=== PATIENT | male | born 1970 | race Caucasian/White ===

== ENCOUNTER 2019-11-18 20:12 | Inpatient (IN) | payer OTHER ==
[2019-11-18] MEDS ORDERED: methylPREDNISolone NA SUCC 125 MG/2 ML VIAL IVPB ONE (20:25)
[2019-11-18] MEDS ORDERED: ACETAMINOPHEN 1000 MG/100 ML VIAL (NON FORMULARY) IVPB ONE (20:43)
[2019-11-18] MEDS ORDERED: VANCOMYCIN 1 GM in D5W (PRE-DOCKED) 1,000 MG/250 ML IVPB ONE (20:43)
[2019-11-18] MEDS ORDERED: LACTATED RINGERS SOLUTION 1000 ML INFUS.BAG IV ONE (20:44)
[2019-11-18] MEDS ORDERED: PIPERACILLIN/TAZOB 4.5 GM 4.5 GM in DEXTROSE 5%-WATER 100 ML IVPB ONE (20:44)
--- NOTE | 2019-11-18 20:46 | PDOC ---
History of Present Illness - General Chief Complaint: Respiratory Distress Stated Complaint: RESPIRATORY DISTRESS Time Seen by Provider: 11/18/19 20:24 History Source: Patient Exam Limitations: Physical Impairment (limited verbal talking through trach) - History of Present Illness Initial Comments: 11/18/19 20:45 49yM w PMHx asthma, HTN, IDDM, functional quadriplegia, MRSA, osteomyelitis stage 4 sacral ulcer, vented on trach, PEG tube, on eliquis presenting from [facility] tachycardia HR 140s, hypotension, diaphoresis, and active bleeding from sacral ulcer. This afternoon, staff noted active bleeding from ulcer, stopped with pressure and dressing. Currently receiving daptomycin, meropenem through R PICC line for osteomyelitis. Also on eliquis. Could not obtain hx from pt, limited vocab talking through trach. Past History - Medical History Allergies/Adverse Reactions: Allergies Allergy/AdvReac Type Severity Reaction Status Date / Time No Known Allergies Allergy Verified 11/18/19 21:54 Review of Systems - Review of Systems Able to Perform ROS?: No (limited vocab) *Physical Exam - Physical Exam General Appearance: Yes: Nourished, Appropriately Dressed, Moderate Distress HEENT: positive: EOMI, LINSEY, Normal Voice, Hearing Grossly Normal. negative: Scleral Icterus (R), Scleral Icterus (L) Respiratory/Chest: positive: Accessory Muscle Use, Labored Respiration, Rapid RR, Wheezing. negative: Chest Tender, Crackles, Rales, Rhonchi, Stridor Cardiovascular: positive: Regular Rhythm, S1, S2, Tachycardia, Other (R PICC line). negative: Murmur Gastrointestinal/Abdominal: positive: Normal Bowel Sounds, Flat, Soft, Other (peg tube not tender/erythematous/purulent). negative: Tender, Organomegaly Integumentary: positive: Normal Color, Warm, Diaphoresis Neurologic: positive: Fully Oriented, Alert, Normal Response, Responsive ED Treatment Course - LABORATORY CBC & Chemistry Diagram: 11/18/19 21:10 11/18/19 21:10 Medical Decision Making - Medical Decision Making 11/18/19 20:45 CXR - clive patchy infiltrates EKG - sinus tachycardia, HR 131, QTc 431, no ST changes WBC 17, Hgb 7.4, K 5.3, trop neg, BNP 418, BG 217, lactic 4.3 --- 49yM w PMHx asthma, HTN, IDDM, functional quadriplegia, MRSA, osteomyelitis stage 4 sacral ulcer, vented on trach, PEG tube, on eliquis presenting from [facility] tachycardia HR 140s, hypotension, diaphoresis, and active bleeding from sacral ulcer. 1. Asthma exacerbation (wheezing) 2. Sepsis (temp 101, HR 150) 2/2 infection likely from decubitus ulcer vs HCAP (patchy infiltrates) 3. stage 4 ulcer not actively bleeding, dressing applied Could not draw culture from PICC line. Given 30mL/kg NS, vanc, zosyn, tylenol, duoneb, solumedrol, azithromycin. Repeat BP 95/66. Admit m/s for sepsis, stage 4 decubitus ulcer, HCAP, asthma exacerbation - pending PCP Eliseo goes to [facility]/hospitalist Discharge - Discharge Information Problems reviewed: Yes Clinical Impression/Diagnosis: HCAP (healthcare-associated pneumonia) Sepsis Qualifiers: Sepsis type: sepsis due to unspecified organism Sepsis acute organ dysfunction status: without acute organ dysfunction Qualified Code(s): A41.9 - Sepsis, unspecified organism Decubitus ulcer Qualifiers: Pressure injury location: sacral region Pressure injury stage: stage 4 Qualified Code(s): L89.154 - Pressure ulcer of sacral region, stage 4 Asthma exacerbation Qualifiers: Asthma severity: moderate Asthma persistence: persistent Qualified Code(s): J45.41 - Moderate persistent asthma with (acute) exacerbation Condition: Improved - Follow up/Referral Referrals: Christian Gomes [Primary Care Provider] - - Patient Discharge Instructions - Post Discharge Activity Vital Signs - Vital Signs Pulse Rate: 84 Blood Pressure: 95/66
[2019-11-18 21:34] LABS: BASO % 0.4 % (0-2.0); EOS % 0.5 % (0-4.5); HEMATOCRIT 23.8 % (35.4-49); HEMOGLOBIN 7.4 GM/dL (11.7-16.9); LYMPH % 15.8 % (8-40); MCH 27.3 pg (25.7-33.7); MCHC 31.1 g/dl (32.0-35.9); MEAN CELL VOLUME 87.6 fl (80-96); MEAN PLT VOLUME 9.2 fl (7.5-11.1); MONO % 6.1 % (3.8-10.2); NEUT % 77.2 % (42.8-82.8); PLATELET COUNT 638 K/MM3 (134-434); RBC 2.72 M/mm3 (4.00-5.60); RDW 16.4 % (11.9-15.9); WHITE BLOOD COUNT 17.8 K/mm3 (4.0-10.0)
[2019-11-18 21:35] LABS: VENOUS BASE EXCESS 2.1 mmol/L (-2-2); VENOUS PCO2 57.8 mmHg (38-52); VENOUS PH 7.316 (7.310-7.410)
[2019-11-18] MEDS ORDERED: PIPERACILLIN/TAZOB 4.5 GM 4.5 GM/100 ML BAG IVPB ONE (21:36)
[2019-11-18 21:41] LABS: INR 1.39 (0.83-1.09); PROTHROMBIN TIME (PATIENT) 16.5 SEC (9.7-13.0)
[2019-11-18 21:44] LABS: ACTIVATED PTT 36.2 SECONDS (25.2-36.5)
[2019-11-18] MEDS: ALBUTEROL SO4 2.5/IPRATROPIUM 0.5 INH SOL 3 ML VIAL.NEB. NEB SCH ×4 (21:55→23:14)
--- NOTE | 2019-11-18 22:00 | PDOC ---
Documentation entered by Ben Tubbs SCRIBE, acting as scribe for Mt Law MD. Mt Law MD: This documentation has been prepared by the Arley vicente Xhesika, SCRIBE, under my direction and personally reviewed by me in its entirety. I confirm that the documentation accurately reflects all work, treatment, procedures, and medical decision making performed by me. Attending Attestation - Resident Resident Name: Tay Rock - ED Attending Attestation I have performed the following: I have examined & evaluated the patient, The case was reviewed & discussed with the resident, I agree w/resident's findings & plan, Exceptions are as noted - HPI HPI: 11/18/19 20:41 The patient is a 49 year old male with a significant PMH of asthma, HTN, IDDM, MRSA, functional quadriplegia s/p trach/PEG, osteomyelitis, stage 4 sacral ulcer, who presents to the emergency department [facility] from [facility] for bleeding from decubitus ulcer. Per IN, the patient was having more bleeding from his decubitus ulcer, prompting 911 call. Upon EMS arrival, pt was encountered to bee tachypneic and diaphoretic. - Physicial Exam PE: 11/18/19 22:01 See resident exam - Critical Care Time Total Critical Care Time: 60 Critical Care Statement: The care of this patient involved high complexity decision making to prevent further life threatening deterioration of the patient's condition and/or to evaluate & treat vital organ system(s) failure or risk of failure. - Medical Decision Making 11/18/19 22:01 49 M with bleeding sacral decubitus ulcer, currently receiving IV abx. Also found to be tachypneic and in respiratory distress by EMS. Lungs diffusely wheezy. Also febrile in ED. - labs, cultures - CXR, UA - Nebs, steroids - IVF, tylenol, abx Discharge - Discharge Information Problems reviewed: Yes Clinical Impression/Diagnosis: HCAP (healthcare-associated pneumonia) Sepsis Qualifiers: Sepsis type: sepsis due to unspecified organism Sepsis acute organ dysfunction status: without acute organ dysfunction Qualified Code(s): A41.9 - Sepsis, unspecified organism Decubitus ulcer Qualifiers: Pressure injury location: sacral region Pressure injury stage: stage 4 Qualified Code(s): L89.154 - Pressure ulcer of sacral region, stage 4 Asthma exacerbation Qualifiers: Asthma severity: moderate Asthma persistence: persistent Qualified Code(s): J45.41 - Moderate persistent asthma with (acute) exacerbation Condition: Improved - Follow up/Referral - Patient Discharge Instructions - Post Discharge Activity
[2019-11-18 22:06] LABS: ALBUMIN 2.1 g/dl (3.4-5.0); ALK PHOS 95 U/L (45-117); ANION GAP 8 MMOL/L (8-16); BILIRUBIN,TOTAL 0.4 mg/dL (0.2-1); BLOOD UREA NITROGEN 18.5 mg/dL (7-18); CALCIUM 8.5 mg/dL (8.5-10.1); CHLORIDE 104 mmol/L (98-107); CO2 29 mmol/L (21-32); CREATININE 0.4 mg/dL (0.55-1.3); GLUCOSE,RANDOM 217 mg/dL (74-106); MAGNESIUM 2.3 mg/dL (1.8-2.4); N-TERMINAL BNP 418.5 pg/ml (5-125); PHOSPHOROUS 6.2 mg/dL (2.5-4.9); POTASSIUM 5.3 mmol/L (3.5-5.1); SGOT/AST 22 U/L (15-37); SGPT/ALT 16 U/L (13-61); SODIUM 141 mmol/L (136-145); TOT PROT 6.2 g/dl (6.4-8.2)
[2019-11-18] MEDS ORDERED: SODIUM CHLORIDE 2,858 ML IV ONE (22:53)
[2019-11-19] MEDS ORDERED: AZITHROMYCIN IVPB 500 MG in DEXTROSE 5%-WATER - 250 ML IVPB ONE (00:24)
[2019-11-19] MEDS ORDERED: AZITHROMYCIN IVPB 500 MG/250 ML BAG IVPB ONE (01:05)
--- NOTE | 2019-11-19 02:08 | CONSULT ---
Consultation: REQUESTING PROVIDER: Hilda Engel CONSULT REQUEST: ICU monitoring. HISTORY OF PRESENT ILLNESS: 49yM w PMHx asthma, HTN, IDDM, functional quadriplegia, MRSA, osteomyelitis stage 4 sacral ulcer, vented on trach, PEG tube, on eliquis presenting from [facility] due to tachycardia, hypotension, fevers and active bleeding from his sacral ulcer and was also found to be in respiratory distress. Patient started having active bleeding from his sacral ulcer this afternoon. Of note patient was started on daptomycin and meropenem on 11/10 through a PICC line in right arm due to osteomyelitis on his sacrum. When EMS was called patient was found to be hypotensive, tachycardic and in respiratory distress- in the ED vital signs: T. 101.2 HR 100 BP 87/59 WBC 17.8 Hgb 7.4 K 5.3 CR 0.4 Lactic acid 4.3 CXR shows patchy infiltrates- blood, wound, and urine cx pending [patient given 2L, vanc/zosyn/azithro/solumedrol REVIEW OF SYSTEMS: CONSTITUTIONAL: Present: fever Absent: fever, chills, diaphoresis, generalized weakness, malaise, loss of appetite, weight change HEENT: Absent: rhinorrhea, nasal congestion, throat pain, throat swelling, difficulty swallowing, mouth swelling, ear pain, eye pain, visual changes CARDIOVASCULAR: Absent: chest pain, syncope, palpitations, irregular heart rate, lightheadedness, peripheral edema RESPIRATORY: Absent: cough, shortness of breath, dyspnea with exertion, orthopnea, wheezing, stridor, hemoptysis GASTROINTESTINAL: Absent: abdominal pain, abdominal distension, nausea, vomiting, diarrhea, constipation, melena, hematochezia GENITOURINARY: Absent: dysuria, frequency, urgency, hesitancy, hematuria, flank pain, genital pain MUSCULOSKELETAL: Absent: myalgia, arthralgia, joint swelling, back pain, neck pain SKIN: Absent: rash, itching, pallor HEMATOLOGIC/IMMUNOLOGIC: Absent: easy bleeding, easy bruising, lymphadenopathy, frequent infections ENDOCRINE: Absent: unexplained weight gain, unexplained weight loss, heat intolerance, cold intolerance NEUROLOGIC: Absent: headache, focal weakness or paresthesias, dizziness, unsteady gait, seizure, mental status changes, bladder or bowel incontinence PSYCHIATRIC: Absent: anxiety, depression, suicidal or homicidal ideation, hallucinations. PHYSICAL EXAMINATION Vital Signs - 24 hr 11/18/19 11/18/19 11/19/19 20:30 22:44 00:04 Temperature 101.2 F H Pulse Rate 100 H Pulse Rate [ Left] Respiratory 29 H 20 20 Rate Blood Pressure 84/59 L Blood Pressure [Left Arm] O2 Sat by Pulse 100 100 100 Oximetry (%) 11/19/19 11/19/19 11/19/19 00:32 00:40 00:59 Temperature Pulse Rate 79 84 Pulse Rate [ 79 Left] Respiratory 20 20 Rate Blood Pressure 87/59 L 95/66 Blood Pressure 87/59 L [Left Arm] O2 Sat by Pulse 100 100 Oximetry (%) GENERAL: Awake, alert, and fully oriented, in no acute distress. EYES: PEERLA: EOMI; no scleral icterus NECK: no JVD; no lymphadenopathy LUNGS:rhonchi at the bases b/l HEART:tachycardic normal S1 and S2 without murmur, rub or gallop. ABDOMEN: Soft, NT/ND +BS in all 4 quadrants MUSCULOSKELETAL: Normal range of motion at all joints. No bony deformities or tenderness. No CVA tenderness. EXTREMITIES: warm; well-perfused no clubbing/cyanosis or edema NEUROLOGICAL: Cranial nerves II-XII intact. Normal speech. Normal gait. PSYCHIATRIC: Cooperative. Good eye contact. Appropriate mood and affect. SKIN: Warm, dry, normal turgor, no rashes or lesions noted. Laboratory Results - last 24 hr 11/18/19 11/18/19 11/18/19 21:10 21:10 21:10 WBC 17.8 H RBC 2.72 L Hgb 7.4 L Hct 23.8 L MCV 87.6 MCH 27.3 MCHC 31.1 L RDW 16.4 H Plt Count 638 H MPV 9.2 Absolute Neuts (auto) 13.8 H Neutrophils % 77.2 Lymphocytes % 15.8 Monocytes % 6.1 Eosinophils % 0.5 Basophils % 0.4 Nucleated RBC % 0 PT with INR 16.50 H INR 1.39 H PTT (Actin FS) 36.2 VBG pH 7.316 POC VBG pCO2 57.8 H POC VBG pO2 31.1 VBG HCO3 28.8 VBG O2 Sat (Samir) 53.0 L VBG Base Excess 2.1 H Sodium Potassium Chloride Carbon Dioxide Anion Gap BUN Creatinine Est GFR (CKD-EPI)AfAm Est GFR (CKD-EPI)NonAf Random Glucose Lactic Acid Calcium Phosphorus Magnesium Total Bilirubin AST ALT Alkaline Phosphatase Creatine Kinase Troponin I B-Natriuretic Peptide Total Protein Albumin Blood Type Antibody Screen 11/18/19 11/18/19 11/18/19 21:10 21:10 21:10 WBC RBC Hgb Hct MCV MCH MCHC RDW Plt Count MPV Absolute Neuts (auto) Neutrophils % Lymphocytes % Monocytes % Eosinophils % Basophils % Nucleated RBC % PT with INR INR PTT (Actin FS) VBG pH POC VBG pCO2 POC VBG pO2 VBG HCO3 VBG O2 Sat (Samir) VBG Base Excess Sodium 141 Potassium 5.3 H Chloride 104 Carbon Dioxide 29 Anion Gap 8 BUN 18.5 H Creatinine 0.4 L Est GFR (CKD-EPI)AfAm 159.39 Est GFR (CKD-EPI)NonAf 137.52 Random Glucose 217 H Lactic Acid 4.3 H* Calcium 8.5 Phosphorus 6.2 H Magnesium 2.3 Total Bilirubin 0.4 AST 22 ALT 16 Alkaline Phosphatase 95 Creatine Kinase 29 Troponin I < 0.02 B-Natriuretic Peptide 418.5 H Total Protein 6.2 L Albumin 2.1 L Blood Type O POSITIVE Antibody Screen Negative Active Medications Generic Name Dose Route Start Last Admin Trade Name Freq PRN Reason Stop Dose Admin Chlorhexidine Gluconate 1 applic 11/19/19 22:00 Hibiclens For Decolonization - TP HS [facility] Sodium Chloride 1,000 mls @ 100 mls/hr 11/19/19 02:15 Normal Saline - IV ASDIR [facility] Mupirocin 1 applic 11/19/19 10:00 Bactroban Ointment (For Decolonization) - NS 11/24/19 09:59 BID [facility] ASSESSMENT/PLAN: 49yM w PMHx asthma, HTN, IDDM, functional quadriplegia, MRSA, osteomyelitis stage 4 sacral ulcer, vented on trach, PEG tube, on eliquis presenting from [facility] due to tachycardia, hypotension, fevers and active bleeding from his sacral ulcer and was also found to be in respiratory distress on arrival #Neuro AO x3 ; stable no issues #Cardio history of HTN -currently hypotensive -received 2L of NS- most recent MAP 68 -hold home antihypertensive medications -maintain MAP >65 -if MAP drops; may need to initiate pressor support #Endo history of IDDM -BGMS ACHS -ISS #Heme patient actively bleeding from ulcer -Hgb on arrival was 7.4; repeat was 5.2 -type and screen -to receive 2 unit of PRBCS -f/u post transfusion cbc #ID sepsis 2/2 sacral ulcer v. ? aspiration PNA given CXR patient already being treated for MRSA with dapto/meropenem (since 8.8) -already received vanc/zosyn -blood/urine/wound cx pending -ID consult pending -will c/w vanc/zosyn in the interim -IVF -repeat lactic acid pending -will get lumar/pelvis CT scan to assess osteo since no prior imaging in the system #Pulm chronic trach; asthma history -duonebs PRN; -sputum cx -maintain spo2 between 88-92 -monitor respiratory status #Renal hyperkalemia 5.3 -no EKG changes -repeat BMP -monitor volume status f/e/n NS @100 monitor electrolytes NPO in light of ? aspiration dvt ppx: scds in light of active bleeding from ulcer will resume eliquis when appropriate Dispo: We will continue to follow the patient. Thank you for this consultative opportunity. Problem List - Problems (1) Asthma exacerbation Code(s): J45.901 - UNSPECIFIED ASTHMA WITH (ACUTE) EXACERBATION Qualifiers: Asthma severity: moderate Asthma persistence: persistent Qualified Code(s): J45.41 - Moderate persistent asthma with (acute) exacerbation (2) Decubitus ulcer Code(s): L89.90 - PRESSURE ULCER OF UNSPECIFIED SITE, UNSPECIFIED STAGE Qualifiers: Pressure injury location: sacral region Pressure injury stage: stage 4 Qualified Code(s): L89.154 - Pressure ulcer of sacral region, stage 4 (3) HCAP (healthcare-associated pneumonia) Code(s): J18.9 - PNEUMONIA, UNSPECIFIED ORGANISM (4) Sepsis Code(s): A41.9 - SEPSIS, UNSPECIFIED ORGANISM Qualifiers: Sepsis type: sepsis due to unspecified organism Sepsis acute organ dy sfunction status: without acute organ dysfunction Qualified Code(s): A41.9 - Sepsis, unspecified organism Visit type - Emergency Visit Emergency Visit: Yes ED Registration Date: 11/19/19 Care time: The patient presented to the Emergency Department on the above date and was hospitalized for further evaluation of their emergent condition. - New Patient This patient is new to me today: Yes Date on this admission: 11/19/19 - Critical Care Critical Care patient: Yes Total Critical Care Time (in minutes): 35 Critical Care Statement: The care of this patient involved high complexity decision making to prevent further life threatening deterioration of the patient's condition and/or to evaluate & treat vital organ system(s) failure or risk of failure. ATTENDING PHYSICIAN STATEMENT I saw and evaluated the patient. I reviewed the resident's note and discussed the case with the resident. I agree with the resident's findings and plan as documented. SUBJECTIVE: OBJECTIVE: ASSESSMENT AND PLAN:
[2019-11-19] MEDS: SODIUM CHLORIDE 1,000 ML IV SCH ×2 (02:28→17:40)
[2019-11-19] MEDS ORDERED: ALBUTEROL SO4 2.5/IPRATROPIUM 0.5 INH SOL 3 ML VIAL.NEB. NEB PRN (02:50)
[2019-11-19] MEDS ORDERED: ALTEPLASE 2 MG VIAL NR ONE ×2 (03:58→04:30)
[2019-11-19 05:27] LABS: BASO % 0.1 % (0-2.0); HEMATOCRIT 17.4 % (35.4-49); LYMPH % 10.2 % (8-40); MCH 27.2 pg (25.7-33.7); MCHC 32.3 g/dl (32.0-35.9); MEAN CELL VOLUME 84.2 fl (80-96); MEAN PLT VOLUME 8.5 fl (7.5-11.1); MONO % 1.1 % (3.8-10.2); NEUT % 88.6 % (42.8-82.8); PLATELET COUNT 450 K/MM3 (134-434); RBC 2.06 M/mm3 (4.00-5.60); RDW 16.6 % (11.9-15.9); WHITE BLOOD COUNT 9.1 K/mm3 (4.0-10.0)
[2019-11-19 05:33] LABS: HEMOGLOBIN 5.6 GM/dL (11.7-16.9)
[2019-11-19 05:42] LABS: INR 1.34 (0.83-1.09); PROTHROMBIN TIME (PATIENT) 15.8 SEC (9.7-13.0)
[2019-11-19 05:45] LABS: ACTIVATED PTT 37.1 SECONDS (25.2-36.5)
[2019-11-19] MEDS ORDERED: PIPERACILLIN/TAZOBACTAM 3.375 GM VIAL IVPB ONE ×2 (05:49→09:36)
[2019-11-19] MEDS ORDERED: DEXTROSE 5%-WATER - 50 ML IVPB ONE ×2 (05:49→09:36)
[2019-11-19 05:54] LABS: ALBUMIN 1.9 g/dl (3.4-5.0); BILIRUBIN,TOTAL 0.4 mg/dL (0.2-1); CALCIUM 7.6 mg/dL (8.5-10.1); CREATININE 0.2 mg/dL (0.55-1.3); PHOSPHOROUS 4.5 mg/dL (2.5-4.9); POTASSIUM 4.3 mmol/L (3.5-5.1); TOT PROT 5.4 g/dl (6.4-8.2)
[2019-11-19] MEDS: INSULIN SLIDING SCALE (NOVOLOG) 1 VIAL SQ SCH ×4 (06:11→22:42)
[2019-11-19] MEDS: PIPERACILLIN/TAZOB 3.375 GM 3.375 GM in DEXTROSE 5%-WATER - 50 ML IVPB SCH ×4 (06:12→19:25)
[2019-11-19 06:45] LABS: EPI CELLS 15 /uL (0-25.1); HYALINE CASTS 2 /uL (0-3.1); PH,URINE 5.5 (5.0-8.0); URINE APPEARANCE CLOUDY; URINE BACTERIA 158 /uL (0-1359); URINE BILIRUBIN NEGATIVE (NEGATIVE); URINE COLOR DK YELLOW; URINE GLUCOSE (UA) NEGATIVE (NEGATIVE); URINE KETONE NEGATIVE (NEGATIVE); URINE LEUK ESTERASE NEGATIVE (NEGATIVE); URINE NITRITE NEGATIVE (NEGATIVE); URINE PROTEIN 1+ (NEGATIVE); URINE WBC 33 /uL (0-25.8)
[2019-11-19] MEDS: BUDESONIDE 0.5 MG/2 ML INH SUSP VIAL NEB SCH ×2 (08:00→21:03)
[2019-11-19] MEDS ORDERED: VANCOMYCIN 1,250 MG in DEXTROSE 5%-WATER - 250 ML IVPB SCH (08:00)
[2019-11-19] MEDS ORDERED: VANCOMYCIN HCL 1,250 MG in DEXTROSE 5%-WATER - 250 ML IVPB SCH (08:00)
--- NOTE | 2019-11-19 11:23 | PN ---
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 (short form) - Note 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: ID CONSULT DICTATED SEVERE ANEMIA SECONDARY TO DECUBITUS BLEED HYPOVOLEMIC SHOCK R/O SEPTIC SHOCK SACRAL OSTEOMYELITIS MRSA ? ESBL CHRONIC RESP FAILURE S/P COVID-19 TRANSFUSE RESUME DAPTO/ MEROPENEM CONTACT PRECAUTIONS CRITICAL CARE TIME 35MIN
--- NOTE | 2019-11-19 11:40 | CONS ---
INFECTIOUS DISEASE CONSULTATION DATE OF CONSULTATION: DATE OF DICTATION: 11/19/2019 HISTORY: The patient is a 49-year-old male who is evaluated for possible septic shock. History was obtained from the chart. He is a 49-year-old male who is presently in a nursing facility. He was diagnosed with COVID-19 earlier this year. His course at that time was complicated by respiratory failure requiring tracheostomy and feeding gastrostomy. He was ultimately transferred to a fpc facility. His course was complicated by development of multiple decubitus ulcers as well as a stage IV sacral decubitus ulcer positive for osteomyelitis. At the nursing facility he was receiving daptomycin and meropenem. The plan was to complete a 6-week course of therapy. He now is admitted after developing profuse bleeding from the sacral decubitus site. In the emergency room the patient was febrile to 101.2. He was hypotensive with a blood pressure of 87/59, tachycardic, diaphoretic and short of breath. He was empirically treated with vancomycin, Zosyn and Zithromax. He has received 2 units of packed red blood cells. He was noted to have a white blood cell count of 17.8. PAST MEDICAL HISTORY: As above. Also includes insulin-dependent diabetes mellitus, hypertension, functional quadriplegia, stage IV sacral decubitus ulcer. PAST SURGICAL HISTORY: Status post tracheostomy and feeding gastrostomy. ALLERGIES: No known allergies. LABORATORY DATA: White count on admission 17.8, neutrophils 77, lymphocytes 15, monocytes 6, hematocrit 17.4, platelets 450. Creatinine 0.2, lactic acid 4.3. INR 1.3. Urine analysis 33 white cells. COVID-19 swab pending. Chest x-ray shows increased markings bilaterally, possible retrocardiac infiltrate. PHYSICAL EXAMINATION: General: He is awake and alert on the ventilator. Vital Signs: Temperature 99.3, T-max 101.2, blood pressure 102/61, pulse 105 regular, respirations 19 per minute. HEENT: Sclerae are anicteric. Neck: Patient is status post tracheostomy. Heart: Sounds S1, S2, tachycardic. Lungs: Air entry bilaterally. Abdomen: Soft and nontender. Extremities: Positive for edema. Multiple decubitus ulcers present. PICC line present in the right upper extremity. Skin: Stage IV sacral decubitus present. IMPRESSION: 1. Severe anemia secondary to decubitus bleed. 2. Hypovolemic shock, rule out septic shock. 3. Leukocytosis, leukemoid reaction secondary to bleed versus sepsis. 4. Sacral decubitus ulcer. 5. History of methicillin-resistant Staphylococcus aureus. 6. Lactic acidosis. Cultures have been obtained. I suspect his white count elevation is likely leukemoid reaction secondary to bleeding. It is presently normal, cannot rule out concurrent infection. Chest x-ray findings likely represent residual scarring from previous COVID-19 pneumonitis. Continue local wound care. Contact precautions. Critical care time spent 35 minutes. Thank you for the kind referral. DOUG DELACRUZ M.D. [id number]
[2019-11-19] MEDS: MUPIROCIN 2% TOPICAL OINTMENT FOR DECOLONIZATION NS SCH ×2 (12:00→22:30)
--- NOTE | 2019-11-19 12:39 | PN ---
Teaching Attending Note Name of Resident: Karissa Rodríguez ATTENDING PHYSICIAN STATEMENT I saw and evaluated the patient. I reviewed the resident's note and discussed the case with the resident. I agree with the resident's findings and plan as documented. SUBJECTIVE: Patient seen and examined in the ICU. Awake and alert on AC Mode of vent. Hemodynamics have been stable. pRBC transfusion in progress. Intake & Output 11/16/19 11/17/19 11/18/19 11/19/19 23:59 23:59 23:59 23:59 Intake Total 700 Output Total 20 Balance 680 Weight 210 lb Last Vital Signs Temp Pulse Resp BP Pulse Ox 99.3 F 105 H 23 H 102/61 98 11/19/19 07:10 11/19/19 07:10 11/19/19 10:00 11/19/19 07:10 11/19/19 10:00 Active Medications Albuterol/Ipratropium (Duoneb -) 1 amp NEB Q4H PRN PRN Reason: SHORTNESS OF BREATH Last Admin: 11/19/19 06:45 Dose: 1 amp Documented by: Budesonide (Pulmicort 0.5 Mg Nebulizer -) 1 amp NEB RBID GIOVANNY Chlorhexidine Gluconate (Hibiclens For Decolonization -) 1 applic TP HS [facility] Collagenase (Santyl -) 1 applic TP DAILY GIOVANNY; Protocol Sodium Chloride (Normal Saline -) 1,000 mls @ 100 mls/hr IV ASDIR [facility]OVAN[facility] Last Admin: 11/19/19 02:28 Dose: 100 mls/hr Documented by: Daptomycin 500 mg/ Sodium (Chloride) 50 mls @ 100 mls/hr IVPB DAILY GIOVANNY; Protocol Meropenem 1 gm/ Dextrose 100 mls @ 200 mls/hr IVPB Q8H-IV GIOVAN[facility] Insulin Aspart (Novolog Vial Sliding Scale -) 1 vial SQ ACHS GIOVANNY; Protocol Last Admin: 11/19/19 06:11 Dose: Not Given Documented by: Mupirocin (Bactroban Ointment (For Decolonization) -) 1 applic NS BID GIOVANNY Stop: 11/24/19 09:59 GENERAL: Vented, awake, alert, and oriented, in no acute distress. EYES: PEERLA: EOMI; no scleral icterus NECK: Trach intact, no JVD; no lymphadenopathy LUNGS: Vented, scattered basilar rhonchi HEART: S1 and S2, No rub or gallop. ABDOMEN: Soft, NT/ND +BS in all 4 quadrants MUSCULOSKELETAL: Normal range of motion at all joints. EXTREMITIES: warm; well-perfused no clubbing/cyanosis or edema NEUROLOGICAL: Non-focal PSYCHIATRIC: Cooperative. Good eye contact. Appropriate mood and affect. SKIN: bleeding stage 4 sacral ulcer Laboratory Results - last 24 hr 11/18/19 11/18/19 11/18/19 21:10 21:10 21:10 WBC 17.8 H RBC 2.72 L Hgb 7.4 L Hct 23.8 L MCV 87.6 MCH 27.3 MCHC 31.1 L RDW 16.4 H Plt Count 638 H MPV 9.2 Absolute Neuts (auto) 13.8 H Neutrophils % 77.2 Lymphocytes % 15.8 Monocytes % 6.1 Eosinophils % 0.5 Basophils % 0.4 Nucleated RBC % 0 PT with INR 16.50 H INR 1.39 H PTT (Actin FS) 36.2 VBG pH 7.316 POC VBG pCO2 57.8 H POC VBG pO2 31.1 VBG HCO3 28.8 VBG O2 Sat (Samir) 53.0 L VBG Base Excess 2.1 H Sodium Potassium Chloride Carbon Dioxide Anion Gap BUN Creatinine Est GFR (CKD-EPI)AfAm Est GFR (CKD-EPI)NonAf Random Glucose Lactic Acid Calcium Phosphorus Magnesium Total Bilirubin AST ALT Alkaline Phosphatase Creatine Kinase Troponin I B-Natriuretic Peptide Total Protein Albumin Blood Type Antibody Screen 11/18/19 11/18/19 11/18/19 21:10 21:10 21:10 WBC RBC Hgb Hct MCV MCH MCHC RDW Plt Count MPV Absolute Neuts (auto) Neutrophils % Lymphocytes % Monocytes % Eosinophils % Basophils % Nucleated RBC % PT with INR INR PTT (Actin FS) VBG pH POC VBG pCO2 POC VBG pO2 VBG HCO3 VBG O2 Sat (Samir) VBG Base Excess Sodium 141 Potassium 5.3 H Chloride 104 Carbon Dioxide 29 Anion Gap 8 BUN 18.5 H Creatinine 0.4 L Est GFR (CKD-EPI)AfAm 159.39 Est GFR (CKD-EPI)NonAf 137.52 Random Glucose 217 H Lactic Acid 4.3 H* Calcium 8.5 Phosphorus 6.2 H Magnesium 2.3 Total Bilirubin 0.4 AST 22 ALT 16 Alkaline Phosphatase 95 Creatine Kinase 29 Troponin I < 0.02 B-Natriuretic Peptide 418.5 H Total Protein 6.2 L Albumin 2.1 L Blood Type O POSITIVE Antibody Screen Negative Problem List (1) Decubitus ulcer Code(s): L89.90 - PRESSURE ULCER OF UNSPECIFIED SITE, UNSPECIFIED STAGE Qualifiers: Pressure injury location: sacral region Pressure injury stage: stage 4 Qualified Code(s): L89.154 - Pressure ulcer of sacral region, stage 4 (2) HCAP (healthcare-associated pneumonia) Code(s): J18.9 - PNEUMONIA, UNSPECIFIED ORGANISM (3) Sepsis Code(s): A41.9 - SEPSIS, UNSPECIFIED ORGANISM Qualifiers: Sepsis type: sepsis due to unspecified organism Sepsis acute organ dysfunction status: without acute organ dysfunction Qualified Code(s): A41.9 - Sepsis, unspecified organism ASSESSMENT/PLAN: Sepsis due to soft tissue infection/osteomyelitis : R/O RLL PNA Chronic Respiratory Failure Asthma HTN DM Functional quadraplegia Stage 4 decubitus ulcer S/P Trach & PEG ABX per ID Continue IVF resuscitation Follow cultures Normal transfusion thresholds Follow H & H Hold home anti-hypertensive agents AC Mode of vent Vent floor monitoring Dr Boles
--- NOTE | 2019-11-19 13:02 | PN ---
Physical Exam: SUBJECTIVE: Patient seen and examined at bedside. Patient had no acute events overnight. Patient is pending transfer to [address] [place] [address]. OBJECTIVE: Vital Signs Period Temp Pulse Resp BP Sys/Lange Pulse Ox Last 24 Hr 98.8 F-101.2 F 79-131 19-100 75-108/52-68 98-100 GENERAL: The patient is awake and on ventilator, in no acute distress. HEAD: Normal with no signs of trauma. EYES: PERRL, extraocular movements intact, sclera anicteric, conjunctiva clear. ENT: Ears normal, nares patent, oropharynx clear without exudates, membranes. LUNGS: Breath sounds equal, clear to auscultation bilaterally HEART: Regular rate and rhythm, S1, S2 without murmur, rub or gallop. ABDOMEN: Soft, nontender, nondistended EXTREMITIES: 2+ pulses, warm, well-perfused, no edema. PSYCH: Normal mood, normal affect. SKIN: Warm, dry, normal turgor, sacral ulcer present Laboratory Results - last 24 hr 11/18/19 11/18/19 11/18/19 21:10 21:10 21:10 WBC 17.8 H Corrected WBC (auto) RBC 2.72 L Hgb 7.4 L Hct 23.8 L MCV 87.6 MCH 27.3 MCHC 31.1 L RDW 16.4 H Plt Count 638 H MPV 9.2 Absolute Neuts (auto) 13.8 H Absolute Lymphs (auto) Absolute Monos (auto) Absolute Eos (auto) Absolute Basos (auto) Add Manual Diff Neutrophils % 77.2 Lymphocytes % 15.8 Monocytes % 6.1 Eosinophils % 0.5 Basophils % 0.4 Nucleated RBC % 0 Platelet Estimate Platelet Comment Normal RBC Morphology PT with INR 16.50 H INR 1.39 H PTT (Actin FS) 36.2 VBG pH 7.316 POC VBG pCO2 57.8 H POC VBG pO2 31.1 VBG HCO3 28.8 VBG O2 Sat (Samir) 53.0 L VBG Base Excess 2.1 H Sodium Potassium Chloride Carbon Dioxide Anion Gap BUN Creatinine Est GFR (CKD-EPI)AfAm Est GFR (CKD-EPI)NonAf POC Glucometer Random Glucose Lactic Acid Calcium Phosphorus Magnesium Total Bilirubin AST ALT Alkaline Phosphatase Creatine Kinase Troponin I B-Natriuretic Peptide Total Protein Albumin Urine Color Urine Appearance Urine pH Ur Specific [place] Urine Protein Urine Glucose (UA) Urine Ketones Urine Blood Urine Nitrite Urine Bilirubin Urine Urobilinogen Ur Leukocyte Esterase Urine WBC (Auto) Urine Casts (Auto) U Epithel Cells (Auto) Urine Bacteria (Auto) Blood Type Antibody Screen Crossmatch 11/18/19 11/18/19 11/18/19 21:10 21:10 21:10 WBC Corrected WBC (auto) RBC Hgb Hct MCV MCH MCHC RDW Plt Count MPV Absolute Neuts (auto) Absolute Lymphs (auto) Absolute Monos (auto) Absolute Eos (auto) Absolute Basos (auto) Add Manual Diff Neutrophils % Lymphocytes % Monocytes % Eosinophils % Basophils % Nucleated RBC % Platelet Estimate Platelet Comment Normal RBC Morphology PT with INR INR PTT (Actin FS) VBG pH POC VBG pCO2 POC VBG pO2 VBG HCO3 VBG O2 Sat (Samir) VBG Base Excess Sodium 141 Potassium 5.3 H Chloride 104 Carbon Dioxide 29 Anion Gap 8 BUN 18.5 H Creatinine 0.4 L Est GFR (CKD-EPI)AfAm 159.39 Est GFR (CKD-EPI)NonAf 137.52 POC Glucometer Random Glucose 217 H Lactic Acid 4.3 H* Calcium 8.5 Phosphorus 6.2 H Magnesium 2.3 Total Bilirubin 0.4 AST 22 ALT 16 Alkaline Phosphatase 95 Creatine Kinase 29 Troponin I < 0.02 B-Natriuretic Peptide 418.5 H Total Protein 6.2 L Albumin 2.1 L Urine Color Urine Appearance Urine pH Ur Specific [place] Urine Protein Urine Glucose (UA) Urine Ketones Urine Blood Urine Nitrite Urine Bilirubin Urine Urobilinogen Ur Leukocyte Esterase Urine WBC (Auto) Urine Casts (Auto) U Epithel Cells (Auto) Urine Bacteria (Auto) Blood Type O POSITIVE Antibody Screen Negative Crossmatch See Detail 11/19/19 11/19/19 11/19/19 02:45 04:45 04:50 WBC 9.1 Corrected WBC (auto) Barrel Cleaner RBC 2.06 L Hgb 5.6 L* Hct 17.4 L D MCV 84.2 MCH 27.2 MCHC 32.3 RDW 16.6 H Plt Count 450 H D MPV 8.5 Absolute Neuts (auto) 8.0 Absolute Lymphs (auto) Cancelled Absolute Monos (auto) Cancelled Absolute Eos (auto) Cancelled Absolute Basos (auto) Cancelled Add Manual Diff Cancelled Neutrophils % 88.6 H Lymphocytes % 10.2 D Monocytes % 1.1 L D Eosinophils % 0.0 D Basophils % 0.1 Nucleated RBC % 0 Platelet Estimate Barrel Cleaner Platelet Comment Barrel Cleaner Normal RBC Morphology Cancelled PT with INR INR PTT (Actin FS) VBG pH POC VBG pCO2 POC VBG pO2 VBG HCO3 VBG O2 Sat (Samir) VBG Base Excess Sodium Potassium Chloride Carbon Dioxide Anion Gap BUN Creatinine Est GFR (CKD-EPI)AfAm Est GFR (CKD-EPI)NonAf POC Glucometer Random Glucose Lactic Acid Calcium Phosphorus Magnesium Total Bilirubin AST ALT Alkaline Phosphatase Creatine Kinase Troponin I B-Natriuretic Peptide Total Protein Albumin Urine Color Dk yellow Urine Appearance Cloudy Urine pH 5.5 Ur Specific [place] 1.025 Urine Protein 1+ H Urine Glucose (UA) Negative Urine Ketones Negative Urine Blood 3+ H Urine Nitrite Negative Urine Bilirubin Negative Urine Urobilinogen 1.0 Ur Leukocyte Esterase Negative Urine WBC (Auto) 33 Urine Casts (Auto) 2 U Epithel Cells (Auto) 15 Urine Bacteria (Auto) 158 Blood Type O POSITIVE Antibody Screen Crossmatch 11/19/19 11/19/19 11/19/19 05:00 05:00 05:00 WBC Corrected WBC (auto) RBC Hgb Hct MCV MCH MCHC RDW Plt Count MPV Absolute Neuts (auto) Absolute Lymphs (auto) Absolute Monos (auto) Absolute Eos (auto) Absolute Basos (auto) Add Manual Diff Neutrophils % Lymphocytes % Monocytes % Eosinophils % Basophils % Nucleated RBC % Platelet Estimate Platelet Comment Normal RBC Morphology PT with INR 15.80 H INR 1.34 H PTT (Actin FS) 37.1 H VBG pH POC VBG pCO2 POC VBG pO2 VBG HCO3 VBG O2 Sat (Samir) VBG Base Excess Sodium 143 Potassium 4.3 Chloride 108 H Carbon Dioxide 29 Anion Gap 7 L BUN 21.0 H Creatinine 0.2 L Est GFR (CKD-EPI)AfAm 211.92 Est GFR (CKD-EPI)NonAf 182.85 POC Glucometer Random Glucose 152 H Lactic Acid 1.2 Calcium 7.6 L Phosphorus 4.5 Magnesium 2.0 Total Bilirubin 0.4 AST 14 L ALT 14 Alkaline Phosphatase 77 Creatine Kinase Troponin I B-Natriuretic Peptide Total Protein 5.4 L Albumin 1.9 L Urine Color Urine Appearance Urine pH Ur Specific [place] Urine Protein Urine Glucose (UA) Urine Ketones Urine Blood Urine Nitrite Urine Bilirubin Urine Urobilinogen Ur Leukocyte Esterase Urine WBC (Auto) Urine Casts (Auto) U Epithel Cells (Auto) Urine Bacteria (Auto) Blood Type Antibody Screen Crossmatch 11/19/19 11/19/19 06:07 12:06 WBC Corrected WBC (auto) RBC Hgb Hct MCV MCH MCHC RDW Plt Count MPV Absolute Neuts (auto) Absolute Lymphs (auto) Absolute Monos (auto) Absolute Eos (auto) Absolute Basos (auto) Add Manual Diff Neutrophils % Lymphocytes % Monocytes % Eosinophils % Basophils % Nucleated RBC % Platelet Estimate Platelet Comment Normal RBC Morphology PT with INR INR PTT (Actin FS) VBG pH POC VBG pCO2 POC VBG pO2 VBG HCO3 VBG O2 Sat (Samir) VBG Base Excess Sodium Potassium Chloride Carbon Dioxide Anion Gap BUN Creatinine Est GFR (CKD-EPI)AfAm Est GFR (CKD-EPI)NonAf POC Glucometer 138 124 Random Glucose Lactic Acid Calcium Phosphorus Magnesium Total Bilirubin AST ALT Alkaline Phosphatase Creatine Kinase Troponin I B-Natriuretic Peptide Total Protein Albumin Urine Color Urine Appearance Urine pH Ur Specific [place] Urine Protein Urine Glucose (UA) Urine Ketones Urine Blood Urine Nitrite Urine Bilirubin Urine Urobilinogen Ur Leukocyte Esterase Urine WBC (Auto) Urine Casts (Auto) U Epithel Cells (Auto) Urine Bacteria (Auto) Blood Type Antibody Screen Crossmatch Active Medications Generic Name Dose Route Start Last Admin Trade Name Freq PRN Reason Stop Dose Admin Albuterol/Ipratropium 1 amp 11/19/19 02:50 11/19/19 06:45 Duoneb - NEB 1 amp Q4H PRN Administration SHORTNESS OF BREATH Budesonide 1 amp 11/19/19 08:00 11/19/19 08:00 Pulmicort 0.5 Mg Nebulizer - NEB Not Given RBID [facility] Chlorhexidine Gluconate 1 applic 11/19/19 22:00 Hibiclens For Decolonization - TP HS GIOVANNY Collagenase 1 applic 11/19/19 10:00 Santyl - TP DAILY GIOVANNY Protocol Sodium Chloride 1,000 mls @ 100 mls/hr 11/19/19 02:15 11/19/19 02:28 Normal Saline - IV 100 mls/hr ASDIR GIOVANNY Administration Daptomycin 500 mg/ Sodium 50 mls @ 100 mls/hr 11/19/19 12:30 Chloride IVPB DAILY GIOVANNY Protocol Meropenem 1 gm/ Dextrose 100 mls @ 200 mls/hr 11/19/19 11:30 IVPB Q8H-IV GIOVANNY Insulin Aspart 1 vial 11/19/19 07:00 11/19/19 06:11 Novolog Vial Sliding Scale - SQ Not Given ACHS [facility] Protocol Mupirocin 1 applic 11/19/19 10:00 Bactroban Ointment (For Decolonization) - NS 11/24/19 09:59 BID [facility] ASSESSMENT/PLAN: 49yM w PMHx asthma, HTN, IDDM, functional quadriplegia, MRSA, osteomyelitis stage 4 sacral ulcer, vented on trach, PEG tube, on eliquis presenting from [facility] due to tachycardia, hypotension, fevers and active bleeding from his sacral ulcer and was also found to be in respiratory distress #Neuro -AO x3 ; stable no issues #Cardio -history of HTN -hold home antihypertensive medications -maintain MAP >65 -if MAP drops; may need to initiate pressor support #Endo history of IDDM -BGMS ACHS -ISS #Heme patient actively bleeding from ulcer -Hgb on arrival was 7.4; repeat was 5.2 -type and screen -received 2 unit of PRBCS -f/u post transfusion cbc #ID sepsis 2/2 sacral ulcer v. ? aspiration PNA given CXR patient already being treated for MRSA with dapto/meropenem (since 11.10) via PICC line -already received vanc/zosyn -blood/urine/wound cx pending -ID consult pending -will c/w vanc/zosyn in the interim -IVF -repeat lactic acid 1.2 -lumar/pelvis CT scan results pending #Pulm chronic trach; asthma history -duonebs PRN; -sputum cx -maintain spo2 between 88-92 -monitor respiratory status #Renal hyperkalemia resolved -no EKG changes -monitor volume status f/e/n NS @100 monitor electrolytes NPO in light of ? aspiration reed in place since 11/10/19 dvt ppx: scds in light of active bleeding from ulcer will resume eliquis when appropriate Problem List - Problems (1) Decubitus ulcer Code(s): L89.90 - PRESSURE ULCER OF UNSPECIFIED SITE, UNSPECIFIED STAGE Qualifiers: Pressure injury location: sacral region Pressure injury stage: stage 4 Qualified Code(s): L89.154 - Pressure ulcer of sacral region, stage 4 Visit type - Emergency Visit Emergency Visit: No - New Patient This patient is new to me today: Yes Date on this admission: 11/19/19 - Critical Care Critical Care patient: Yes Total Critical Care Time (in minutes): 45 Critical Care Statement: The care of this patient involved high complexity decision making to prevent further life threatening deterioration of the patient's condition and/or to evaluate & treat vital organ system(s) failure or risk of failure. ATTENDING PHYSICIAN STATEMENT I saw and evaluated the patient. I reviewed the resident's note and discussed the case with the resident. I agree with the resident's findings and plan as documented. SUBJECTIVE: OBJECTIVE: ASSESSMENT AND PLAN:
[2019-11-19] MEDS ORDERED: PT OWN MED DRAWER 7, Y5N ONE (13:45)
[2019-11-19] MEDS ORDERED: MEROPENEM 1 GM VIAL (RESTRICTED TO ID) IVPB ONE ×2 (13:46→17:30)
[2019-11-19] MEDS ORDERED: DEXTROSE 5%-WATER 100 ML IVPB ONE ×2 (13:46→17:31)
[2019-11-19] MEDS: COLLAGENASE CLOSTRIDIUM HIST. 30 GRAMS TUBE TP SCH (13:47)
[2019-11-19] MEDS: MEROPENEM 1 GM in DEXTROSE 5%-WATER 100 ML IVPB SCH ×2 (13:49→17:41)
[2019-11-19] MEDS: DAPTOMYCIN 500 MG in SODIUM CHLORIDE 50 ML IVPB SCH (14:25)
[2019-11-19 17:07] LABS: URINE RBC 19.7 /uL (0-23.9)
[2019-11-19 17:08] LABS: URINE CRYSTALS FEW /hpf; YEAST FEW (NEGATIVE)
[2019-11-19 17:24] LABS: HEMATOCRIT 21.3 % (35.4-49); HEMOGLOBIN 7.1 GM/dL (11.7-16.9); MCH 28.5 pg (25.7-33.7); MCHC 33.3 g/dl (32.0-35.9); MEAN CELL VOLUME 85.6 fl (80-96); MEAN PLT VOLUME 8.4 fl (7.5-11.1); PLATELET COUNT 419 K/MM3 (134-434); RBC 2.48 M/mm3 (4.00-5.60); RDW 15.1 % (11.9-15.9); WHITE BLOOD COUNT 10.6 K/mm3 (4.0-10.0)
--- NOTE | 2019-11-19 18:10 | EKG ---
Test Reason : Blood Pressure : / mmHG Vent. Rate : 131 BPM Atrial Rate : 131 BPM P-R Int : 116 ms QRS Dur : 080 ms QT Int : 292 ms P-R-T Axes : 002 -34 -06 degrees QTc Int : 431 ms SINUS TACHYCARDIA LEFT AXIS DEVIATION MODERATE VOLTAGE CRITERIA FOR LVH, MAY BE NORMAL VARIANT ABNORMAL ECG NO PREVIOUS ECGS AVAILABLE Confirmed by MD NYE MOYSES ([id number]) on 11/19/2019 6:10:21 PM Referred By: Confirmed By:CONSTANTIN NYE MD
[2019-11-19] MEDS ORDERED: ACETAMINOPHEN 325 MG TABLET (FP) PO PRN (21:42)
[2019-11-19] MEDS ORDERED: ONDANSETRON 4 MG/2 ML VIAL IVPUSH ONE (21:42)
[2019-11-19] MEDS ORDERED: CHLORHEXIDINE GLUCONATE 4% CLEANSER FOR DECOLONIZATION TP SCH (22:00)
[2019-11-20] MEDS ORDERED: morphine CARPU-JECT 2 MG/1 ML DISP.SYRIN IM PRN (00:50)
[2019-11-20] MEDS ORDERED: MEROPENEM 1 GM VIAL (RESTRICTED TO ID) IVPB ONE ×3 (01:14→17:48)
[2019-11-20] MEDS ORDERED: DEXTROSE 5%-WATER 100 ML IVPB ONE ×3 (01:14→17:48)
[2019-11-20] MEDS: SODIUM CHLORIDE 1,000 ML IV SCH ×2 (01:16→17:22)
[2019-11-20] MEDS: MEROPENEM 1 GM in DEXTROSE 5%-WATER 100 ML IVPB SCH ×3 (01:16→17:52)
[2019-11-20] MEDS: INSULIN SLIDING SCALE (NOVOLOG) 1 VIAL SQ SCH ×4 (06:27→22:26)
[2019-11-20 07:29] LABS: ALBUMIN 1.6 g/dl (3.4-5.0); ALK PHOS 63 U/L (45-117); ANION GAP 6 MMOL/L (8-16); BILIRUBIN,TOTAL 0.8 mg/dL (0.2-1); BLOOD UREA NITROGEN 12.1 mg/dL (7-18); CALCIUM 7.6 mg/dL (8.5-10.1); CHLORIDE 112 mmol/L (98-107); CO2 28 mmol/L (21-32); GLUCOSE,RANDOM 86 mg/dL (74-106); MAGNESIUM 1.8 mg/dL (1.8-2.4); PHOSPHOROUS 3.3 mg/dL (2.5-4.9); POTASSIUM 3.2 mmol/L (3.5-5.1); SGOT/AST 17 U/L (15-37); SGPT/ALT 13 U/L (13-61); SODIUM 145 mmol/L (136-145); TOT PROT 4.6 g/dl (6.4-8.2)
[2019-11-20 07:34] LABS: BASO % 0.2 % (0-2.0); HEMATOCRIT 18.2 % (35.4-49); LYMPH % 12.6 % (8-40); MCH 28.7 pg (25.7-33.7); MEAN CELL VOLUME 84.2 fl (80-96); MEAN PLT VOLUME 8.1 fl (7.5-11.1); NEUT % 75.2 % (42.8-82.8); PLATELET COUNT 426 K/MM3 (134-434); RBC 2.16 M/mm3 (4.00-5.60); RDW 15.2 % (11.9-15.9)
[2019-11-20] MEDS: BUDESONIDE 0.5 MG/2 ML INH SUSP VIAL NEB SCH ×2 (07:45→20:23)
[2019-11-20] MEDS ORDERED: PNEUMOC 13-VAL CONJ-DIP CRM/PF 0.5 ML DISP.SYRIN IM ONE (08:00)
[2019-11-20 08:06] LABS: HEMOGLOBIN 6.2 GM/dL (11.7-16.9)
--- NOTE | 2019-11-20 08:22 | PN ---
Physical Exam: SUBJECTIVE: Patient seen and examined, unable to speak due to trach and vent, however was able to nod in agreement or disagreement. Ptn endorsed no CP, SoB, JALLOH, dizzyness. Endorses back pain which he states will be better with repositioning. OBJECTIVE: Vital Signs Period Temp Pulse Resp BP Sys/Lange Pulse Ox Last 24 Hr 98.3 F-99.5 F 82-111 19-28 96-108/52-67 98-100 GENERAL: The patient is awake and on ventilator, in no acute distress. HEAD: Normal with no signs of trauma. EYES: PERRL, extraocular movements intact, sclera anicteric, conjunctiva clear. LUNGS: Breath sounds equal, clear to auscultation bilaterally HEART: Regular rate and rhythm, S1, S2 without murmur, rub or gallop. ABDOMEN: Soft, nontender, nondistended EXTREMITIES: 2+ pulses, warm, well-perfused, no edema. PSYCH: Normal mood, normal affect. SKIN: Warm, dry, normal turgor, sacral ulcer present CBC, BMP 11/20/19 06:00 11/20/19 06:00 Active Medications Acetaminophen (Tylenol Oral Solution -) 650 mg GT Q6H PRN PRN Reason: FEVER Albuterol/Ipratropium (Duoneb -) 1 amp NEB Q4H PRN PRN Reason: SHORTNESS OF BREATH Last Admin: 11/19/19 06:45 Dose: 1 amp Documented by: Budesonide (Pulmicort 0.5 Mg Nebulizer -) 1 amp NEB RBID GIOVANNY Last Admin: 11/19/19 21:03 Dose: Not Given Documented by: Chlorhexidine Gluconate (Hibiclens For Decolonization -) 1 applic TP HS GIOVANNY Last Admin: 11/19/19 22:30 Dose: 1 applic Documented by: Collagenase (Santyl -) 1 applic TP DAILY GIOVANNY; Protocol Last Admin: 11/19/19 13:47 Dose: 1 applic Documented by: Sodium Chloride (Normal Saline -) 1,000 mls @ 100 mls/hr IV ASDIR GIOVANNY Last Admin: 11/20/19 01:16 Dose: 100 mls/hr Documented by: Daptomycin 500 mg/ Sodium (Chloride) 50 mls @ 100 mls/hr IVPB DAILY GIOVANNY; Protocol Last Admin: 11/19/19 14:25 Dose: 100 mls/hr Documented by: Meropenem 1 gm/ Dextrose 100 mls @ 200 mls/hr IVPB Q8H-IV GIOVANNY Last Admin: 11/20/19 01:16 Dose: 200 mls/hr Documented by: Insulin Aspart (Novolog Vial Sliding Scale -) 1 vial SQ [facility]; Protocol Last Admin: 11/20/19 06:27 Dose: Not Given Documented by: Morphine Sulfate (Morphine Sulfate) 2 mg IVPUSH Q6H PRN PRN Reason: PAIN LEVEL 6-10 Mupirocin (Bactroban Ointment (For Decolonization) -) 1 applic NS BID GIOVANNY Stop: 11/24/19 09:59 Last Admin: 11/19/19 22:30 Dose: 1 applic Documented by: Pneumococcal 13-Valent Conj Vacc (Prevnar 13 Syringe -) 0.5 ml IM .ONCE ONE Stop: 11/20/19 08:01 ASSESSMENT/PLAN: 49yM w PMHx asthma, HTN, IDDM, functional quadriplegia, MRSA, osteomyelitis sta ge 4 sacral ulcer, vented on trach, PEG tube, on eliquis presenting from [facility] due to tachycardia, hypotension, fevers and active bleeding from his sacral ulcer and was also found to be in respiratory distress SKIN -Wound vac to be placed per surgery -Air mattress recommended per surgery NEURO -VSS -AAOx3 -Monitor neuro status CARDIAC -history of HTN -hold home antihypertensive medications -maintain MAP >65 -if MAP drops; may need to initiate pressor support PULMONARY -Tracheostomy -On ventilator -Hx of Asthma -duonebs PRN -Monitor respiratory status GASTRO -No overt GI bleeding reported and light patterson stool per GI Consult 11/19 -No GI interventions planned ENDOCRINE -history of IDDM -BGIL ACHS -ISS HEME -patient actively bleeding from ulcer -Hgb on arrival was 7.4; repeat was 5.2. Hgb (11/19) 6.2 -received 2 unit of PRBCS -received 1 unit PRBC (11/19) -f/u post transfusion cbc ID -negative covid -sepsis 2/2 sacral ulcer vs. aspiration PNA given CXR -Being treated for MRSA with dapto/meropenem (since 11/10) via PICC line -Previously received vanc/zosyn in -blood/urine/wound cx currently show no growth -Sputum culture shows non lactose fermenting GNB -lumar/pelvis CT scan: Right non-obstructing renal calculi, and evidence of current or remote osteomyelitis involving the coccyx RENAL -Hypokalemia (11/19) 3.2 -Repleted with 40meq -Followup BMP PAIN -Morphine -Duagesic Patch 50 q3days FEN Fluids: NS @100 Elec: FU BMP NPO in light of ? aspiration reed in place since 11/10/19 dvt ppx: scds only 2/2 bleeding Dispo: Spoke w/ family about patient improving. Bx of osteomyelitis done at [facility] and [facility] previously. Ptn is medically stable for transfer to floor. Visit type - Emergency Visit Emergency Visit: No - New Patient This patient is new to me today: Yes Date on this admission: 11/20/19 - Critical Care Critical Care patient: Yes Total Critical Care Time (in minutes): 36 Critical Care Statement: The care of this patient involved high complexity decision making to prevent further life threatening deterioration of the pa tient's condition and/or to evaluate & treat vital organ system(s) failure or risk of failure. - Discharge Referral Referred to [facility] Med [facility] No ATTENDING PHYSICIAN STATEMENT I saw and evaluated the patient. I reviewed the resident's note and discussed the case with the resident. I agree with the resident's findings and plan as documented. SUBJECTIVE: OBJECTIVE: ASSESSMENT AND PLAN:
[2019-11-20 08:27] LABS: CREATININE < 0.2 mg/dL (0.55-1.3)
[2019-11-20] MEDS ORDERED: PT OWN MED DRAWER 7, Y5N ONE ×3 (09:05→14:16)
--- NOTE | 2019-11-20 09:46 | PN ---
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, Physician - Current Medication List Current Medications: Active Medications Acetaminophen (Tylenol Oral Solution -) 650 mg GT Q6H PRN PRN Reason: FEVER Albuterol/Ipratropium (Duoneb -) 1 amp NEB Q4H PRN PRN Reason: SHORTNESS OF BREATH Last Admin: 11/19/19 06:45 Dose: 1 amp Documented by: Budesonide (Pulmicort 0.5 Mg Nebulizer -) 1 amp NEB RBID GIOVANNY Last Admin: 11/20/19 07:45 Dose: Not Given Documented by: Chlorhexidine Gluconate (Hibiclens For Decolonization -) 1 applic TP HS GIOVANNY Last Admin: 11/19/19 22:30 Dose: 1 applic Documented by: Collagenase (Santyl -) 1 applic TP DAILY GIOVANNY; Protocol Last Admin: 11/19/19 13:47 Dose: 1 applic Documented by: Sodium Chloride (Normal Saline -) 1,000 mls @ 100 mls/hr IV ASDIR GIOVANNY Last Admin: 11/20/19 01:16 Dose: 100 mls/hr Documented by: Daptomycin 500 mg/ Sodium (Chloride) 50 mls @ 100 mls/hr IVPB DAILY GIOVANNY; Protocol Last Admin: 11/19/19 14:25 Dose: 100 mls/hr Documented by: Meropenem 1 gm/ Dextrose 100 mls @ 200 mls/hr IVPB Q8H-IV GIOVANNY Last Admin: 11/20/19 01:16 Dose: 200 mls/hr Documented by: Insulin Aspart (Novolog Vial Sliding Scale -) 1 vial SQ ACHS GIOVANNY; Protocol Last Admin: 11/20/19 06:27 Dose: Not Given Documented by: Morphine Sulfate (Morphine Sulfate) 2 mg IVPUSH Q6H PRN PRN Reason: PAIN LEVEL 6-10 Mupirocin (Bactroban Ointment (For Decolonization) -) 1 applic NS BID GIOVANNY Stop: 11/24/19 09:59 Last Admin: 11/19/19 22:30 Dose: 1 applic Documented by: Pneumococcal 13-Valent Conj Vacc (Prevnar 13 Syringe -) 0.5 ml IM .ONCE ONE Stop: 11/20/19 08:01 - Objective Vital Signs: Vital Signs Temperature 99.2 F 11/20/19 06:00 Pulse Rate 92 H 11/20/19 08:22 Respiratory Rate 24 H 11/20/19 08:22 Blood Pressure 104/67 11/20/19 08:00 O2 Sat by Pulse Oximetry (%) 99 11/20/19 08:22 Cardiovascular: Yes: S1, S2 Respiratory: Yes: Mechanically Ventilated Gastrointestinal: Yes: Normal Bowel Sounds, Soft Labs: CBC, BMP 11/20/19 06:00 11/20/19 06:00 INR, PTT INR 1.34 (0.83-1.09) H 11/19/19 05:00 Problem List - Problems (1) Anemia Assessment/Plan: s/p prbc follow labs gi consult Code(s): D64.9 - ANEMIA, UNSPECIFIED (2) Decubitus ulcer of sacral area Assessment/Plan: wound care consult Code(s): L89.159 - PRESSURE ULCER OF SACRAL REGION, UNSPECIFIED STAGE (3) Respiratory failure Assessment/Plan: vent settings pulm consult Code(s): J96.90 - RESPIRATORY FAILURE, UNSP, UNSP W HYPOXIA OR HYPERCAPNIA (4) Sepsis Assessment/Plan: iv abx cultures Code(s): A41.9 - SEPSIS, UNSPECIFIED ORGANISM Qualifiers: Sepsis type: sepsis due to unspecified organism Sepsis acute organ dysfunction status: without acute organ dysfunction Qualified Code(s): A41.9 - Sepsis, unspecified organism
[2019-11-20] MEDS: DAPTOMYCIN 500 MG in SODIUM CHLORIDE 50 ML IVPB SCH (10:02)
[2019-11-20] MEDS: ACETAMINOPHEN 650 MG/20.3 ML ORAL SOLUTION (CUPS) GT PRN ×2 (10:03→17:19)
[2019-11-20] MEDS: KCL 10 MEQ IVPB 10 MEQ/100 ML INFUS.BAG IVPB SCH ×2 (11:16→14:19)
[2019-11-20] MEDS ORDERED: DOCUSATE SODIUM 100 MG CAPSULE (FP) PO PRN (11:44)
[2019-11-20] MEDS ORDERED: FENTANYL PATCH WASTE MC PRN (11:45)
--- NOTE | 2019-11-20 13:08 | PN ---
Teaching Attending Note Name of Resident: Martinez Laura ATTENDING PHYSICIAN STATEMENT I saw and evaluated the patient. I reviewed the resident's note and discussed the case with the resident. I agree with the resident's findings and plan as documented. SUBJECTIVE: Patient seen and examined in the ICU. Awake and alert on AC Mode of vent. Hemodynamics have been stable. Noted decrease in H&H. pRBC transfusion in progress. Intake & Output 11/17/19 11/18/19 11/19/19 11/20/19 23:59 23:59 23:59 23:59 Intake Total 2700 1220 Output Total 470 700 Balance 2230 520 Weight 210 lb 217 lb 2.485 oz 190 lb 9.6 oz Last Vital Signs Temp Pulse Resp BP Pulse Ox 99.2 F 92 H 23 H 104/67 99 11/20/19 06:00 11/20/19 08:22 11/20/19 11:57 11/20/19 08:00 11/20/19 11:57 Active Medications Acetaminophen (Tylenol Oral Solution -) 650 mg GT Q6H PRN PRN Reason: FEVER Last Admin: 11/20/19 10:03 Dose: 650 mg Documented by: Albuterol/Ipratropium (Duoneb -) 1 amp NEB Q4H PRN PRN Reason: SHORTNESS OF BREATH Last Admin: 11/19/19 06:45 Dose: 1 amp Documented by: Budesonide (Pulmicort 0.5 Mg Nebulizer -) 1 amp NEB RBID GIOVANNY Last Admin: 11/20/19 07:45 Dose: Not Given Documented by: Chlorhexidine Gluconate (Hibiclens For Decolonization -) 1 applic TP HS GIOVANNY Last Admin: 11/19/19 22:30 Dose: 1 applic Documented by: Collagenase (Santyl -) 1 applic TP DAILY GIOVANNY; Protocol Last Admin: 11/19/19 13:47 Dose: 1 applic Documented by: Docusate Sodium (Colace -) 100 mg PO BID PRN PRN Reason: CONSTIPATION Fentanyl (Duragesic 50mcg Patch -) 1 patch TD Q72H GIOVANNY Stop: 11/27/19 11:45 Sodium Chloride (Normal Saline -) 1,000 mls @ 100 mls/hr IV ASDIR GIOVANNY Last Admin: 11/20/19 01:16 Dose: 100 mls/hr Documented by: Daptomycin 500 mg/ Sodium (Chloride) 50 mls @ 100 mls/hr IVPB DAILY [facility]; Protocol Last Admin: 11/20/19 10:02 Dose: 100 mls/hr Documented by: Meropenem 1 gm/ Dextrose 100 mls @ 200 mls/hr IVPB Q8H-IV GIOVANNY Last Admin: 11/20/19 10:03 Dose: 200 mls/hr Documented by: Potassium Chloride (Potassium Chloride 10 Meq Premix Ivpb -) 10 meq in 100 mls @ 100 mls/hr IVPB Q60M [facility] Stop: 11/20/19 13:29 Last Admin: 11/20/19 11:16 Dose: 100 mls/hr Documented by: Insulin Aspart (Novolog Vial Sliding Scale -) 1 vial SQ ACHS [facility]; Protocol Last Admin: 11/20/19 12:27 Dose: Not Given Documented by: Miscellaneous (Duragesic Patch Waste) 1 each MC PRN PRN PRN Reason: PAIN Morphine Sulfate (Morphine Sulfate) 2 mg IVPUSH Q6H PRN PRN Reason: PAIN LEVEL 6-10 Mupirocin (Bactroban Ointment (For Decolonization) -) 1 applic NS BID [facility] Stop: 11/24/19 09:59 Last Admin: 11/19/19 22:30 Dose: 1 applic Documented by: GENERAL: Vented, awake, alert, and oriented, in no acute distress. EYES: PEERLA: EOMI; no scleral icterus NECK: Trach intact, no JVD; no lymphadenopathy LUNGS: Vented, scattered basilar rhonchi HEART: S1 and S2, No rub or gallop. ABDOMEN: Soft, NT/ND +BS in all 4 quadrants MUSCULOSKELETAL: Normal range of motion at all joints. EXTREMITIES: warm; well-perfused no clubbing/cyanosis or edema NEUROLOGICAL: Non-focal PSYCHIATRIC: Cooperative. Good eye contact. Appropriate mood and affect. SKIN: bleeding stage 4 sacral ulcer Laboratory Results - last 24 hr 11/18/19 11/19/19 11/19/19 21:10 01:21 04:50 WBC RBC Hgb Hct MCV MCH MCHC RDW Plt Count MPV Absolute Neuts (auto) Neutrophils % Lymphocytes % Monocytes % Eosinophils % Basophils % Nucleated RBC % Sodium Potassium Chloride Carbon Dioxide Anion Gap BUN Creatinine Est GFR (CKD-EPI)AfAm Est GFR (CKD-EPI)NonAf POC Glucometer Random Glucose Calcium Phosphorus Magnesium Total Bilirubin AST ALT Alkaline Phosphatase Total Protein Albumin Urine RBC (Auto) 19.7 Urine Crystals (Auto) Few Urine Yeast (Auto) Few COVID-19 (MANISH) Not detected Blood Type O POSITIVE Antibody Screen Negative Crossmatch See Detail 11/19/19 11/19/19 11/19/19 17:04 17:47 22:31 WBC 10.6 H RBC 2.48 L Hgb 7.1 L Hct 21.3 L D MCV 85.6 MCH 28.5 MCHC 33.3 RDW 15.1 Plt Count 419 MPV 8.4 Absolute Neuts (auto) Neutrophils % Lymphocytes % Monocytes % Eosinophils % Basophils % Nucleated RBC % Sodium Potassium Chloride Carbon Dioxide Anion Gap BUN Creatinine Est GFR (CKD-EPI)AfAm Est GFR (CKD-EPI)NonAf POC Glucometer 90 89 Random Glucose Calcium Phosphorus Magnesium Total Bilirubin AST ALT Alkaline Phosphatase Total Protein Albumin Urine RBC (Auto) Urine Crystals (Auto) Urine Yeast (Auto) COVID-19 (MANISH) Blood Type Antibody Screen Crossmatch 11/20/19 11/20/19 11/20/19 06:00 06:00 06:21 WBC 8.0 RBC 2.16 L Hgb 6.2 L* Hct 18.2 L MCV 84.2 MCH 28.7 MCHC 34.0 RDW 15.2 Plt Count 426 MPV 8.1 Absolute Neuts (auto) 6.0 Neutrophils % 75.2 Lymphocytes % 12.6 D Monocytes % 11.0 H D Eosinophils % 1.0 D Basophils % 0.2 Nucleated RBC % 0 Sodium 145 Potassium 3.2 L Chloride 112 H Carbon Dioxide 28 Anion Gap 6 L BUN 12.1 Creatinine < 0.2 L Est GFR (CKD-EPI)AfAm 211.93 Est GFR (CKD-EPI)NonAf 182.86 POC Glucometer 83 Random Glucose 86 Calcium 7.6 L Phosphorus 3.3 Magnesium 1.8 Total Bilirubin 0.8 AST 17 ALT 13 Alkaline Phosphatase 63 Total Protein 4.6 L Albumin 1.6 L Urine RBC (Auto) Urine Crystals (Auto) Urine Yeast (Auto) COVID-19 (MANISH) Blood Type Antibody Screen Crossmatch 11/20/19 12:07 WBC RBC Hgb Hct MCV MCH MCHC RDW Plt Count MPV Absolute Neuts (auto) Neutrophils % Lymphocytes % Monocytes % Eosinophils % Basophils % Nucleated RBC % Sodium Potassium Chloride Carbon Dioxide Anion Gap BUN Creatinine Est GFR (CKD-EPI)AfAm Est GFR (CKD-EPI)NonAf POC Glucometer 83 Random Glucose Calcium Phosphorus Magnesium Total Bilirubin AST ALT Alkaline Phosphatase Total Protein Albumin Urine RBC (Auto) Urine Crystals (Auto) Urine Yeast (Auto) COVID-19 (MANISH) Blood Type Antibody Screen Crossmatch Problem List (1) Decubitus ulcer Code(s): L89.90 - PRESSURE ULCER OF UNSPECIFIED SITE, UNSPECIFIED STAGE Qualifiers: Pressure injury location: sacral region Pressure injury stage: stage 4 Qualified Code(s): L89.154 - Pressure ulcer of sacral region, stage 4 (2) HCAP (healthcare-associated pneumonia) Code(s): J18.9 - PNEUMONIA, UNSPECIFIED ORGANISM (3) Sepsis Code(s): A41.9 - SEPSIS, UNSPECIFIED ORGANISM Qualifiers: Sepsis type: sepsis due to unspecified organism Sepsis acute organ dysfunction status: without acute organ dysfunction Qualified Code(s): A41.9 - Sepsis, unspecified organism ASSESSMENT/PLAN: Sepsis due to soft tissue infection/osteomyelitis : R/O RLL PNA Chronic Respiratory Failure Asthma HTN DM Functional quadraplegia Stage 4 decubitus ulcer S/P Trach & PEG Surgery/Wound care evaluation ABX per ID IVF Follow final cultures Normal transfusion thresholds Follow H & H Hold home anti-hypertensive agents AC Mode of vent Vent floor monitoring Dr Boles
--- NOTE | 2019-11-20 13:57 | CON.GI ---
Consult Consult Specialty:: GI Referred by:: Dr. Uma Cerda Reason for Consultation:: Anemia - History of Present Illness Chief Complaint: Bleeding sacral wound History of Present Illness: 49M admitted through [facility] ER from [facility] for evaluation of bleeding sacral decubitus. Asked to evaluate anemia. No Melena, rectal bleeding reported. No abdominal pain. Has never had a colonoscopy. no family history of colorectal cancer - History Source History Provided By: Patient, Medical Record - Past Medical History Infectious Disease: Yes: Other (COVID-19 Pneumonitis) - Past Surgical History Additional Surgical History: Tracheostomy, gastrostomy - Smoking History Smoking history: Unknown if ever smoked - Social History Usual Living Arrangement: Retirement ADL: Support Services Home Medications - Allergies Allergies/Adverse Reactions: Allergies Allergy/AdvReac Type Severity Reaction Status Date / Time No Known Allergies Allergy Verified 11/18/19 21:54 - Home Medications Home Medications: Ambulatory Orders Albuterol 2.5/Ipratropium 0.5 [Duoneb -] 1 neb NEB Q4H 11/19/19 Apixaban [Eliquis -] 5 mg PO BID 11/19/19 Budesonide [Pulmicort 0.5 mg Nebulizer -] 0.5 mg NEB BID 11/19/19 Metoprolol Tartrate 25 mg PO BID 11/19/19 Midodrine HCl 10 mg PO TID 11/19/19 Montelukast Na [Singulair -] 5 mg PO HS 11/19/19 Family Medical History Other Family History: No family history of colon cancer Review of Systems - Review of Systems Gastrointestinal: denies: Abdominal Pain, Constipation, Diarrhea, Melena, Rectal Bleeding, Vomiting Blood Physical Exam-GI Vital Signs: Vital Signs Temperature 99.2 F 11/20/19 06:00 Pulse Rate 92 H 11/20/19 08:22 Respiratory Rate 23 H 11/20/19 11:57 Blood Pressure 104/67 11/20/19 08:00 O2 Sat by Pulse Oximetry (%) 99 11/20/19 11:57 Constitutional: Yes: Calm Eyes: No: Sclera Icterus Neck: Yes: Other (+ Trach) Cardiovascular: Yes: Other (Heart sounds obscured by upper airway noise) Respiratory: Yes: Diminished (at bases bilaterally) Gastrointestinal Inspection: No: Distention ...Auscultate: Yes: Normoactive Bowel Sounds ...Palpate: Yes: Soft. No: Hepatomegaly, Splenomegaly, Tenderness ...Percussion: No: Tympanitic ...Rectal Exam: Yes: Other (No external lesions no masses, scant light patterson stool in rectal vault) Extremities: Yes: Other (heel suppots on feet bilaterally) Neurological: Yes: Alert Labs: CBC, BMP 11/20/19 06:00 11/20/19 06:00 INR, PTT INR 1.34 (0.83-1.09) H 11/19/19 05:00 Hepatic Panel Total Bilirubin 0.8 mg/dL (0.2-1) 11/20/19 06:00 AST 17 U/L (15-37) 11/20/19 06:00 ALT 13 U/L (13-61) 11/20/19 06:00 Alkaline Phosphatase 63 U/L (45-117) 11/20/19 06:00 Albumin 1.6 g/dl (3.4-5.0) L 11/20/19 06:00 Problem List - Problems (1) Anemia Assessment/Plan: Patient was admitted for significant bleeding from decubiti and was more anemic. Suspect that this is a large contributing factor No overt GI bleeding reported and light patterson stool on my rectal exam No GI interventions planned Anemia work-up per PMD. Considfer hematology eval When acute issues are resolved, can have elective screening colonoscopy as outpatient Recall as needed. Will sign off Code(s): D64.9 - ANEMIA, UNSPECIFIED
[2019-11-20] MEDS: MUPIROCIN 2% TOPICAL OINTMENT FOR DECOLONIZATION NS SCH (14:19)
[2019-11-20] MEDS: fentaNYL 50mcg/hr PATCH.TD72 TD SCH (14:19)
--- NOTE | 2019-11-20 14:38 | CONSULT ---
- Consultation REQUESTING PROVIDER: CONSULT REQUEST: We have been asked to surgically evaluate this patient for Decubitus ulcer PCP:Uma Cerda HISTORY OF PRESENT ILLNESS: 49yM w PMHx asthma, HTN, IDDM, functional quadriplegia, MRSA, osteomyelitis stage 4 sacral ulcer, vented on trach, PEG tube, on eliquis presenting from [facility] due to tachycardia, hypotension, fevers and active bleeding from his sacral ulcer and was also found to be in respiratory distress. Patient started having active bleeding from his sacral ulcer this afternoon. Of note patient was started on daptomycin and meropenem on 11/10 through a PICC line in right arm due to osteomyelitis on his sacrum. When EMS was called patient was found to be hypotensive, tachycardic and in respiratory distress. Pt currently in ICU. PMHx: see above Home Medications Medication Instructions Recorded Albuterol 2.5/Ipratropium 0.5 1 neb NEB Q4H 11/19/19 [Duoneb -] Apixaban [Eliquis -] 5 mg PO BID 11/19/19 Budesonide [Pulmicort 0.5 mg 0.5 mg NEB BID 11/19/19 Nebulizer -] Metoprolol Tartrate 25 mg PO BID 11/19/19 Midodrine HCl 10 mg PO TID 11/19/19 Montelukast Na [Singulair -] 5 mg PO HS 11/19/19 Allergies Allergy/AdvReac Type Severity Reaction Status Date / Time No Known Allergies Allergy Verified 11/18/19 21:54 PHYSICAL EXAM: GENERAL: Awake, alert, and fully oriented, in no acute distress. HEAD: Normal with no signs of trauma. EYES: PERRL, sclera anicteric, conjunctiva clear. NECK: Normal ROM, supple without lymphadenopathy, JVD, or masses. LUNGS: trach/vented MUSCULOSKELETAL: Normal ROM at all joints. No bony deformities or tenderness. No CVA tenderness. UPPER EXTREMITIES: warm, well-perfused. No cyanosis. No peripheral edema. BACK: stage IV decub 16cm x 15cm x 3cm undermining from 9 o'clock to 2 o'clock, good granulation tissue with trace fibrinous tissue. Some serous drainage. NEUROLOGICAL: Normal speech, gait not observed. PSYCH: Cooperative. Good eye contact. Appropriate mood and affect. SKIN: Warm, dry, normal turgor, no rashes or lesions noted. Vital Signs Temperature 99.3 F 11/20/19 12:00 Pulse Rate 91 H 11/20/19 12:00 Respiratory Rate 22 H 11/20/19 12:00 Blood Pressure 105/66 11/20/19 12:00 O2 Sat by Pulse Oximetry (%) 99 11/20/19 12:00 Lab Results WBC 8.0 K/mm3 (4.0-10.0) 11/20/19 06:00 RBC 2.16 M/mm3 (4.00-5.60) L 11/20/19 06:00 Hgb 6.2 GM/dL (11.7-16.9) L* 11/20/19 06:00 Hct 18.2 % (35.4-49) L 11/20/19 06:00 MCV 84.2 fl (80-96) 11/20/19 06:00 MCHC 34.0 g/dl (32.0-35.9) 11/20/19 06:00 RDW 15.2 % (11.9-15.9) 11/20/19 06:00 Plt Count 426 K/MM3 (134-434) 11/20/19 06:00 INR 1.34 (0.83-1.09) H 11/19/19 05:00 Sodium 145 mmol/L (136-145) 11/20/19 06:00 Potassium 3.2 mmol/L (3.5-5.1) L 11/20/19 06:00 Chloride 112 mmol/L (98-107) H 11/20/19 06:00 Carbon Dioxide 28 mmol/L (21-32) 11/20/19 06:00 Anion Gap 6 MMOL/L (8-16) L 11/20/19 06:00 BUN 12.1 mg/dL (7-18) 11/20/19 06:00 Creatinine < 0.2 mg/dL (0.55-1.3) L 11/20/19 06:00 Random Glucose 86 mg/dL (74-106) 11/20/19 06:00 Calcium 7.6 mg/dL (8.5-10.1) L 11/20/19 06:00 Blood Type O POSITIVE 11/19/19 02:45 Antibody Screen Negative 11/18/19 21:10 DX: Stage IV sacral ulcer Plan: Sacral Ulcer/DTI Plan -will plan to place VAC dressing tomorrow once supplies are at bedside. -Reposition every two hours while in bed -Air mattress recommended -Use drawsheets and Trendelenburg when repositioning to reduce friction and shear -Manageincontinence via timely cleansing, use of appropriate incontinence disposables and use of barrier ointment to intact skin -Ensure adequate hydration/nutrition, supplementation per primary team -Ensure off-loading to all bony areas (heels, ankles, hips and tailbone) with Allevyn/Optifoam -Clean open wounds with normal saline and apply wet to dry dressing.
[2019-11-20] MEDS: COLLAGENASE CLOSTRIDIUM HIST. 30 GRAMS TUBE TP SCH (15:02)
[2019-11-20] MEDS: MORPHINE SULFATE 2 MG/ML VIAL IVPUSH PRN ×2 (15:03→22:06)
--- NOTE | 2019-11-20 15:06 | PN ---
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, Physician History of Present Illness: AWAKE,ALERT OFFERS NO COMPLAINTS AFEBRILE WBC WNL SPUTUM C/S NLF - Current Medication List Current Medications: Active Medications Acetaminophen (Tylenol Oral Solution -) 650 mg GT Q6H PRN PRN Reason: FEVER Last Admin: 11/20/19 10:03 Dose: 650 mg Documented by: Albuterol/Ipratropium (Duoneb -) 1 amp NEB Q4H PRN PRN Reason: SHORTNESS OF BREATH Last Admin: 11/19/19 06:45 Dose: 1 amp Documented by: Budesonide (Pulmicort 0.5 Mg Nebulizer -) 1 amp NEB RBID GIOVANNY Last Admin: 11/20/19 07:45 Dose: Not Given Documented by: Chlorhexidine Gluconate (Hibiclens For Decolonization -) 1 applic TP HS GIOVANNY Last Admin: 11/19/19 22:30 Dose: 1 applic Documented by: Collagenase (Santyl -) 1 applic TP DAILY GIOVANNY; Protocol Last Admin: 11/19/19 13:47 Dose: 1 applic Documented by: Docusate Sodium (Colace -) 100 mg PO BID PRN PRN Reason: CONSTIPATION Fentanyl (Duragesic 50mcg Patch -) 1 patch TD Q72H GIOVANNY Stop: 11/27/19 11:45 Last Admin: 11/20/19 14:19 Dose: 1 patch Documented by: Sodium Chloride (Normal Saline -) 1,000 mls @ 100 mls/hr IV ASDIR GIOVANNY Last Admin: 11/20/19 01:16 Dose: 100 mls/hr Documented by: Daptomycin 500 mg/ Sodium (Chloride) 50 mls @ 100 mls/hr IVPB DAILY GI[facility]NY; Protocol Last Admin: 11/20/19 10:02 Dose: 100 mls/hr Documented by: Meropenem 1 gm/ Dextrose 100 mls @ 200 mls/hr IVPB Q8H-IV GIOVANNY Last Admin: 11/20/19 10:03 Dose: 200 mls/hr Documented by: Insulin Aspart (Novolog Vial Sliding Scale -) 1 vial SQ ACHS [facility]; Protocol Last Admin: 11/20/19 12:27 Dose: Not Given Documented by: Miscellaneous (Duragesic Patch Waste) 1 each MC PRN PRN PRN Reason: PAIN Morphine Sulfate (Morphine Sulfate) 2 mg IVPUSH Q6H PRN PRN Reason: PAIN LEVEL 6-10 Mupirocin (Bactroban Ointment (For Decolonization) -) 1 applic NS BID GIOVANNY Stop: 11/24/19 09:59 Last Admin: 11/20/19 14:19 Dose: 1 applic Documented by: - Objective Vital Signs: Vital Signs Temperature 99.3 F 11/20/19 12:00 Pulse Rate 82 11/20/19 14:00 Respiratory Rate 24 H 11/20/19 14:00 Blood Pressure 110/73 11/20/19 14:00 O2 Sat by Pulse Oximetry (%) 99 11/20/19 12:00 Constitutional: Yes: No Distress Eyes: Yes: Conjunctiva Clear Cardiovascular: Yes: Regular Rate and Rhythm, S1, S2 Respiratory: Yes: Mechanically Ventilated Gastrointestinal: Yes: Normal Bowel Sounds, Soft. No: Tenderness Edema: Yes Integumentary: Yes: Other (SACRAL DECUBITUS ULCER) Labs: CBC, BMP 11/20/19 06:00 11/20/19 06:00 INR, PTT INR 1.34 (0.83-1.09) H 11/19/19 05:00 Assessment/Plan ANEMIA SECONDARY TO BLEEDING DECUBITUS LEUKOCYTOSIS RESOLVED SACRAL OSTEOMYELITIS LACTIC ACIDOSIS HX MRSA HX COVID-19 CONTINUE DAPTOMYCIN/ MEROPENEM
[2019-11-20 16:31] LABS: HEMATOCRIT 22.7 % (35.4-49); HEMOGLOBIN 7.6 GM/dL (11.7-16.9); MCHC 33.5 g/dl (32.0-35.9); MEAN CELL VOLUME 86.5 fl (80-96); MEAN PLT VOLUME 7.9 fl (7.5-11.1); PLATELET COUNT 438 K/MM3 (134-434); RBC 2.63 M/mm3 (4.00-5.60); RDW 15.1 % (11.9-15.9); WHITE BLOOD COUNT 7.2 K/mm3 (4.0-10.0)
--- NOTE | 2019-11-20 16:53 | PN ---
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 (short form) - Note 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: 49yM w PMHx asthma, HTN, IDDM, functional quadriplegia, MRSA, osteomyelitis stage 4 sacral ulcer, vented on trach, PEG tube, on eliquis presenting from [facility] due to tachycardia, hypotension, fevers and active bleeding from his sacral ulcer and was also found to be in respiratory distress. Patient started having active bleeding from his sacral ulcer. Of note patient was started on daptomycin and meropenem on 11/10 through a PICC line in right arm due to osteomyelitis on his sacrum. When EMS was called patient was found to be hypotensive, tachycardic and in respiratory distress- in the ED vital signs: T. 101.2 HR 100 BP 87/59 WBC 17.8 Hgb 7.4 K 5.3 CR 0.4 L actic acid 4.3 CXR shows patchy infiltrates- blood, wound, and urine cx were taken. In the ED the patient was given 2L, vanc/zosyn/azithro/solumedrol Pelvic CT showed evidence of osteomyletis. A bx was previously done at [facility] and [facility]. Lactic Acid trended down, and respiratory status improved. Over the course of treatment, the patient required repletion of his Potassium as well as 3 unit of PRBCs. Consult by surgery will administer a wound vac to promote better healing. At this time, the patient is cleared medically to be transferred from the ICU to Med/Surg.
[2019-11-20] MEDS: ALBUTEROL SO4 2.5/IPRATROPIUM 0.5 INH SOL 3 ML VIAL.NEB. NEB PRN (20:23)
[2019-11-21] MEDS: ALBUTEROL SO4 2.5/IPRATROPIUM 0.5 INH SOL 3 ML VIAL.NEB. NEB PRN ×3 (00:35→08:15)
[2019-11-21] MEDS ORDERED: MEROPENEM 1 GM VIAL (RESTRICTED TO ID) IVPB ONE ×3 (01:00→18:00)
[2019-11-21] MEDS ORDERED: DEXTROSE 5%-WATER 100 ML IVPB ONE ×3 (01:01→18:00)
[2019-11-21] MEDS: MEROPENEM 1 GM in DEXTROSE 5%-WATER 100 ML IVPB SCH ×3 (01:59→18:06)
[2019-11-21] MEDS: SODIUM CHLORIDE 1,000 ML IV SCH ×3 (04:55→19:57)
[2019-11-21] MEDS: MORPHINE SULFATE 2 MG/ML VIAL IVPUSH PRN ×3 (05:50→19:48)
[2019-11-21] MEDS: INSULIN SLIDING SCALE (NOVOLOG) 1 VIAL SQ SCH ×4 (06:20→22:42)
--- NOTE | 2019-11-21 08:51 | PN ---
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, Physician Chief Complaint: EVENTS AND NOTES REVIEWED AWAKE ALERT ON TRACH/VENT - Current Medication List Current Medications: Active Medications Acetaminophen (Tylenol Oral Solution -) 650 mg GT Q6H PRN PRN Reason: FEVER Last Admin: 11/20/19 17:19 Dose: 650 mg Documented by: Albuterol/Ipratropium (Duoneb -) 1 amp NEB Q4H PRN PRN Reason: SHORTNESS OF BREATH Last Admin: 11/21/19 04:23 Dose: 1 amp Documented by: Ascorbic Acid (Vitamin C -) 250 mg PO DAILY [facility] Budesonide (Pulmicort 0.5 Mg Nebulizer -) 1 amp NEB RBID GIOVANNY Last Admin: 11/20/19 20:23 Dose: 1 amp Documented by: Collagenase (Santyl -) 1 applic TP DAILY [facility]; Protocol Docusate Sodium (Colace -) 100 mg PO BID PRN PRN Reason: CONSTIPATION Fentanyl (Duragesic 50mcg Patch -) 1 patch TD Q72H GIOVANNY Stop: 11/27/19 11:45 Last Admin: 11/20/19 14:19 Dose: 1 patch Documented by: Daptomycin 500 mg/ Sodium (Chloride) 50 mls @ 100 mls/hr IVPB DAILY [facility]; Protocol Meropenem 1 gm/ Dextrose 100 mls @ 200 mls/hr IVPB Q8H-IV GIOVANNY Last Admin: 11/21/19 01:59 Dose: 200 mls/hr Documented by: Sodium Chloride (Normal Saline -) 1,000 mls @ 100 mls/hr IV ASDIR GIOVANNY Last Admin: 11/21/19 04:55 Dose: 100 mls/hr Documented by: Insulin Aspart (Novolog Vial Sliding Scale -) 1 vial SQ ACHS [facility]; Protocol Last Admin: 11/21/19 06:20 Dose: Not Given Documented by: Miscellaneous (Duragesic Patch Waste) 1 each MC PRN PRN PRN Reason: PAIN Morphine Sulfate (Morphine Sulfate) 2 mg IVPUSH Q6H PRN PRN Reason: PAIN LEVEL 6-10 Last Admin: 11/21/19 05:50 Dose: 2 mg Documented by: Multivitamins/Minerals/Vitamin C (Tab-A-Vit -) 1 tab PO DAILY [facility] Zinc Sulfate (Orazinc -) 220 mg PO DAILY [facility] - Objective Vital Signs: Vital Signs Temperature 98.6 F 11/21/19 06:00 Pulse Rate 84 11/21/19 06:00 Respiratory Rate 28 H 11/21/19 06:00 Blood Pressure 109/72 11/21/19 06:00 O2 Sat by Pulse Oximetry (%) 99 11/21/19 06:00 Constitutional: Yes: Mild Distress Cardiovascular: Yes: Regular Rate and Rhythm Respiratory: Yes: Other (TRACHEOSTOMY) Gastrointestinal: Yes: Soft Genitourinary: Yes: Novak Present Musculoskeletal: Yes: Muscle Weakness Wound/Incision: Yes: Dressing Dry and Intact (SACRAL ULCER) Neurological: Yes: Pre-Existing Deficit Labs: CBC, BMP 11/20/19 16:00 11/20/19 06:00 INR, PTT INR 1.34 (0.83-1.09) H 11/19/19 05:00 Problem List - Problems (1) Anemia Code(s): D64.9 - ANEMIA, UNSPECIFIED (2) Decubitus ulcer Code(s): L89.90 - PRESSURE ULCER OF UNSPECIFIED SITE, UNSPECIFIED STAGE Qualifiers: Pressure injury location: sacral region Pressure injury stage: stage 4 Qualified Code(s): L89.154 - Pressure ulcer of sacral region, stage 4 (3) Decubitus ulcer of sacral area Code(s): L89.159 - PRESSURE ULCER OF SACRAL REGION, UNSPECIFIED STAGE (4) Respiratory failure Code(s): J96.90 - RESPIRATORY FAILURE, UNSP, UNSP W HYPOXIA OR HYPERCAPNIA (5) Sepsis Code(s): A41.9 - SEPSIS, UNSPECIFIED ORGANISM Qualifiers: Sepsis type: sepsis due to unspecified organism Sepsis acute organ dysfunction status: without acute organ dysfunction Qualified Code(s): A41.9 - Sepsis, unspecified organism Assessment/Plan ADD KCL FOR HYPOKALEMIA TRACHEOSTOMY CARE AND SUPPORT SACRAL ULCER CARE SURGERY F/U APPRECIATED IV ABX PER ID DVT PROPHYLAXIS
[2019-11-21] MEDS: MULTIVITAMINS (DAILY MVI) TABLET (FP) PO SCH (09:07)
[2019-11-21] MEDS: ZINC SULFATE 220 MG CAPSULE (FP) PO SCH (09:07)
[2019-11-21] MEDS: ACETAMINOPHEN 650 MG/20.3 ML ORAL SOLUTION (CUPS) GT PRN ×2 (09:09→16:30)
[2019-11-21] MEDS: ASCORBIC ACID 250 MG TABLET (FP) PO SCH (09:09)
[2019-11-21] MEDS: BUDESONIDE 0.5 MG/2 ML INH SUSP VIAL NEB SCH ×2 (09:09→20:51)
[2019-11-21 09:55] LABS: HEMATOCRIT 22.7 % (35.4-49); HEMOGLOBIN 7.5 GM/dL (11.7-16.9); MCH 28.4 pg (25.7-33.7); MCHC 33.2 g/dl (32.0-35.9); MEAN CELL VOLUME 85.7 fl (80-96); MEAN PLT VOLUME 7.8 fl (7.5-11.1); PLATELET COUNT 500 K/MM3 (134-434); RBC 2.65 M/mm3 (4.00-5.60); RDW 14.7 % (11.9-15.9); WHITE BLOOD COUNT 11.8 K/mm3 (4.0-10.0)
[2019-11-21] MEDS ORDERED: BENZOIN/ALOE VERA/STORAX/TOLU 58 ML BOTTLE ONE (10:04)
[2019-11-21 10:07] LABS: ANION GAP 8 MMOL/L (8-16); BLOOD UREA NITROGEN 8.1 mg/dL (7-18); CALCIUM 7.8 mg/dL (8.5-10.1); CHLORIDE 109 mmol/L (98-107); CO2 27 mmol/L (21-32); GLUCOSE,RANDOM 117 mg/dL (74-106); POTASSIUM 3.1 mmol/L (3.5-5.1); SODIUM 144 mmol/L (136-145)
[2019-11-21 10:26] LABS: CREATININE < 0.2 mg/dL (0.55-1.3)
--- NOTE | 2019-11-21 10:30 | PROC ---
VAC Application - Indications Decubitus ulcer A decision was made to utilize Negative Pressure Therapy (VAC) to assist in: expedite wound closure through promotion of granulation tissue formation and/or help with debridement of fibrinous slough thus decreasing need for serial debridements. - Wound description Wound location: Sacrum Length (cm): 16 Width (cm): 15 Depth (cm): 5 Wound area (sq cm): 240.00 Wound Description: Muscle exposed: Yes, Tendon exposed: No, Bone exposed: Yes, Undermining: Yes (9 o'clock and 2 o'clock positions) - Device VAC Selection: NPT - Procedure Area cleansed. Prepped/draped. Black foam tailored to fit just inside of wound borders to encourage wound contracture. Duoderm applied to skin island at inferior pole of wound and anal border. An occlusive dressing applied. Suction disc placed in location so as not to be uncomfortable for the patient or cause any pressure point (foam bridge to right hip). Good seal as verified by complete foam collapse and no leak on unit monitor. Pressure set to 125 mmHg, continuous. Dressing changes: T-Th-Sat - CPT Code CPT code: [id number] >50 sq cm (Patient's RN present so I could teach her how to troubleshoot if a leak develops.)
--- NOTE | 2019-11-21 10:39 | PN ---
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, Physician History of Present Illness: pulmonary alert,comfortable on vent support ac mode - Current Medication List Current Medications: Active Medications Acetaminophen (Tylenol Oral Solution -) 650 mg GT Q6H PRN PRN Reason: FEVER Last Admin: 11/21/19 09:09 Dose: 650 mg Documented by: Albuterol/Ipratropium (Duoneb -) 1 amp NEB Q4H PRN PRN Reason: SHORTNESS OF BREATH Last Admin: 11/21/19 08:15 Dose: 1 amp Documented by: Ascorbic Acid (Vitamin C -) 250 mg PO DAILY [facility] Last Admin: 11/21/19 09:09 Dose: 250 mg Documented by: Budesonide (Pulmicort 0.5 Mg Nebulizer -) 1 amp NEB RBID [facility] Last Admin: 11/21/19 09:09 Dose: 1 amp Documented by: Collagenase (Santyl -) 1 applic TP DAILY [facility]; Protocol Docusate Sodium (Colace -) 100 mg PO BID PRN PRN Reason: CONSTIPATION Fentanyl (Duragesic 50mcg Patch -) 1 patch TD Q72H [facility] Stop: 11/27/19 11:45 Last Admin: 11/20/19 14:19 Dose: 1 patch Documented by: Daptomycin 500 mg/ Sodium (Chloride) 50 mls @ 100 mls/hr IVPB DAILY [facility]; Protocol Meropenem 1 gm/ Dextrose 100 mls @ 200 mls/hr IVPB Q8H-IV [facility] Last Admin: 11/21/19 09:07 Dose: 200 mls/hr Documented by: Sodium Chloride (Normal Saline -) 1,000 mls @ 100 mls/hr IV ASDIR [facility] Last Admin: 11/21/19 04:55 Dose: 100 mls/hr Documented by: Insulin Aspart (Novolog Vial Sliding Scale -) 1 vial SQ ACHS [facility]; Protocol Last Admin: 11/21/19 06:20 Dose: Not Given Documented by: Miscellaneous (Duragesic Patch Waste) 1 each MC PRN PRN PRN Reason: PAIN Morphine Sulfate (Morphine Sulfate) 2 mg IVPUSH Q6H PRN PRN Reason: PAIN LEVEL 6-10 Last Admin: 11/21/19 05:50 Dose: 2 mg Documented by: Multivitamins/Minerals/Vitamin C (Tab-A-Vit -) 1 tab PO DAILY [facility] Last Admin: 11/21/19 09:07 Dose: 1 tab Documented by: Zinc Sulfate (Orazinc -) 220 mg PO DAILY [facility] Last Admin: 11/21/19 09:07 Dose: 220 mg Documented by: - Objective Vital Signs: Vital Signs Temperature 98.6 F 11/21/19 06:00 Pulse Rate 84 11/21/19 06:00 Respiratory Rate 26 H 11/21/19 08:10 Blood Pressure 109/72 11/21/19 06:00 O2 Sat by Pulse Oximetry (%) 100 11/21/19 08:10 Constitutional: Yes: Well Nourished, Calm Eyes: Yes: WNL HENT: Yes: WNL Neck: Yes: Supple (trach) Cardiovascular: Yes: Regular Rate and Rhythm, S1, S2 Respiratory: Yes: Rhonchi (few scattered rhonchi) Gastrointestinal: Yes: Normal Bowel Sounds, Soft Extremities: Yes: WNL Edema: No Labs: CBC, BMP 11/21/19 09:12 11/21/19 09:00 INR, PTT INR 1.34 (0.83-1.09) H 11/19/19 05:00 Problem List - Problems (1) Anemia Code(s): D64.9 - ANEMIA, UNSPECIFIED (2) Respiratory failure Code(s): J96.90 - RESPIRATORY FAILURE, UNSP, UNSP W HYPOXIA OR HYPERCAPNIA Assessment/Plan Problem List (1) Decubitus ulcer Code(s): L89.90 - PRESSURE ULCER OF UNSPECIFIED SITE, UNSPECIFIED STAGE Qualifiers: Pressure injury location: sacral region Pressure injury stage: stage 4 Qualified Code(s): L89.154 - Pressure ulcer of sacral region, stage 4 (2) HCAP (healthcare-associated pneumonia) Code(s): J18.9 - PNEUMONIA, UNSPECIFIED ORGANISM (3) Sepsis Code(s): A41.9 - SEPSIS, UNSPECIFIED ORGANISM Qualifiers: Sepsis type: sepsis due to unspecified organism Sepsis acute organ dysfunction status: without acute organ dysfunction Qualified Code(s): A41.9 - Sepsis, unspecified organism ASSESSMENT/PLAN: Sepsis due to soft tissue infection/osteomyelitis : R/O RLL PNA Chronic Respiratory Failure Asthma HTN DM Functional quadraplegia Stage 4 decubitus ulcer S/P Trach & PEG Surgery/Wound care evaluation ABX per ID IVF Normal transfusion thresholds Follow H & H AC Mode of vent f/u chest x-rays DR JO
[2019-11-21] MEDS: COLLAGENASE CLOSTRIDIUM HIST. 30 GRAMS TUBE TP SCH ×2 (11:08→12:21)
[2019-11-21] MEDS ORDERED: INSULIN (NOVOLOG) ASPART 100 UNITS/ML 10ML VIAL ONE (11:10)
[2019-11-21] MEDS ORDERED: PT OWN MED DRAWER 7, Y5N ONE (11:11)
[2019-11-21] MEDS: DAPTOMYCIN 500 MG in SODIUM CHLORIDE 50 ML IVPB SCH (11:15)
[2019-11-21] MEDS ORDERED: PNEUMOC 13-VAL CONJ-DIP CRM/PF 0.5 ML DISP.SYRIN IM ONE (12:42)
[2019-11-21] MEDS ORDERED: PNEUMOCOCCAL 23 VACCINE 0.5 ML VIAL IM ONE (13:00)
[2019-11-21] MEDS ORDERED: POTASSIUM CHLORIDE ORAL LIQUID 20 MEQ/15 ML PO ONE (13:49)
[2019-11-21] MEDS ORDERED: KCL 10 MEQ IVPB 10 MEQ/100 ML INFUS.BAG IVPB SCH (14:00)
[2019-11-22] MEDS: MORPHINE SULFATE 2 MG/ML VIAL IVPUSH PRN ×2 (00:47→06:19)
[2019-11-22] MEDS ORDERED: DEXTROSE 5%-WATER 100 ML IVPB ONE ×3 (01:57→15:59)
[2019-11-22] MEDS ORDERED: MEROPENEM 1 GM VIAL (RESTRICTED TO ID) IVPB ONE ×3 (01:57→15:58)
[2019-11-22] MEDS: MEROPENEM 1 GM in DEXTROSE 5%-WATER 100 ML IVPB SCH ×3 (02:18→17:00)
[2019-11-22] MEDS: INSULIN SLIDING SCALE (NOVOLOG) 1 VIAL SQ SCH ×2 (06:41→13:27)
[2019-11-22] MEDS: SODIUM CHLORIDE 1,000 ML IV SCH (06:42)
[2019-11-22 07:57] LABS: HEMATOCRIT 22.5 % (35.4-49); HEMOGLOBIN 7.5 GM/dL (11.7-16.9); MCH 29.1 pg (25.7-33.7); MCHC 33.5 g/dl (32.0-35.9); MEAN CELL VOLUME 86.9 fl (80-96); PLATELET COUNT 529 K/MM3 (134-434); RBC 2.58 M/mm3 (4.00-5.60); RDW 15.4 % (11.9-15.9); WHITE BLOOD COUNT 8.5 K/mm3 (4.0-10.0)
[2019-11-22 08:32] LABS: ANION GAP 7 MMOL/L (8-16); BLOOD UREA NITROGEN 6.9 mg/dL (7-18); CALCIUM 7.6 mg/dL (8.5-10.1); CHLORIDE 106 mmol/L (98-107); CO2 31 mmol/L (21-32); GLUCOSE,RANDOM 96 mg/dL (74-106); MAGNESIUM 1.7 mg/dL (1.8-2.4); POTASSIUM 3.5 mmol/L (3.5-5.1); SODIUM 143 mmol/L (136-145)
[2019-11-22] MEDS: BUDESONIDE 0.5 MG/2 ML INH SUSP VIAL NEB SCH ×2 (08:36→20:41)
[2019-11-22 08:49] LABS: CREATININE < 0.2 mg/dL (0.55-1.3)
[2019-11-22] MEDS ORDERED: PT OWN MED DRAWER 7, Y5N ONE ×2 (09:24→21:54)
[2019-11-22] MEDS ORDERED: PNEUMOCOCCAL 23 VACCINE 0.5 ML VIAL IM ONE (10:00)
[2019-11-22] MEDS: MULTIVITAMINS (DAILY MVI) TABLET (FP) PO SCH (10:03)
[2019-11-22] MEDS: ASCORBIC ACID 250 MG TABLET (FP) PO SCH (10:03)
[2019-11-22] MEDS: COLLAGENASE CLOSTRIDIUM HIST. 30 GRAMS TUBE TP SCH (10:03)
[2019-11-22] MEDS: ZINC SULFATE 220 MG CAPSULE (FP) PO SCH (10:03)
[2019-11-22] MEDS: ACETAMINOPHEN 650 MG/20.3 ML ORAL SOLUTION (CUPS) GT PRN ×2 (10:38→17:21)
--- NOTE | 2019-11-22 10:43 | PN ---
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, Physician History of Present Illness: pulmonary awake, comfortable on vent support ac mode,-resp distress - Current Medication List Current Medications: Active Medications Acetaminophen (Tylenol Oral Solution -) 650 mg GT Q6H PRN PRN Reason: FEVER Last Admin: 11/22/19 10:38 Dose: 650 mg Documented by: Albuterol/Ipratropium (Duoneb -) 1 amp NEB Q4H PRN PRN Reason: SHORTNESS OF BREATH Last Admin: 11/21/19 08:15 Dose: 1 amp Documented by: Ascorbic Acid (Vitamin C -) 250 mg PO DAILY [facility] Last Admin: 11/22/19 10:03 Dose: 250 mg Documented by: Budesonide (Pulmicort 0.5 Mg Nebulizer -) 1 amp NEB RBID [facility] Last Admin: 11/22/19 08:36 Dose: 1 amp Documented by: Collagenase (Santyl -) 1 applic TP DAILY [facility]; Protocol Last Admin: 11/22/19 10:03 Dose: 1 applic Documented by: Docusate Sodium (Colace -) 100 mg PO BID PRN PRN Reason: CONSTIPATION Fentanyl (Duragesic 50mcg Patch -) 1 patch TD Q72H [facility] Stop: 11/27/19 11:45 Last Admin: 11/20/19 14:19 Dose: 1 patch Documented by: Daptomycin 500 mg/ Sodium (Chloride) 50 mls @ 100 mls/hr IVPB DAILY [facility]; Protocol Last Admin: 11/21/19 11:15 Dose: 100 mls/hr Documented by: Meropenem 1 gm/ Dextrose 100 mls @ 200 mls/hr IVPB Q8H-IV [facility] Last Admin: 11/22/19 10:03 Dose: 200 mls/hr Documented by: Sodium Chloride (Normal Saline -) 1,000 mls @ 100 mls/hr IV ASDIR [facility] Last Admin: 11/22/19 06:42 Dose: 100 mls/hr Documented by: Insulin Aspart (Novolog Vial Sliding Scale -) 1 vial SQ ACHS [facility]; Protocol Last Admin: 11/22/19 06:41 Dose: Not Given Documented by: Miscellaneous (Duragesic Patch Waste) 1 each MC PRN PRN PRN Reason: PAIN Morphine Sulfate (Morphine Sulfate) 2 mg IVPUSH Q6H PRN PRN Reason: PAIN LEVEL 6-10 Last Admin: 11/22/19 06:19 Dose: 2 mg Documented by: Multivitamins/Minerals/Vitamin C (Tab-A-Vit -) 1 tab PO DAILY [facility] Last Admin: 11/22/19 10:03 Dose: 1 tab Documented by: Zinc Sulfate (Orazinc -) 220 mg PO DAILY [facility] Last Admin: 11/22/19 10:03 Dose: 220 mg Documented by: - Objective Vital Signs: Vital Signs Temperature 9898 F H 11/22/19 06:00 Pulse Rate 97 H 11/22/19 06:00 Respiratory Rate 22 H 11/22/19 08:20 Blood Pressure 118/70 11/22/19 06:00 O2 Sat by Pulse Oximetry (%) 97 11/22/19 09:00 Constitutional: Yes: Well Nourished, Calm Eyes: Yes: WNL HENT: Yes: WNL Neck: Yes: Supple (trach) Cardiovascular: Yes: Regular Rate and Rhythm, S1, S2 Respiratory: Yes: Rhonchi (few scattered rhonchi) Gastrointestinal: Yes: Normal Bowel Sounds, Soft Extremities: Yes: WNL Edema: No Labs: CBC, BMP 11/22/19 06:13 11/22/19 06:13 INR, PTT INR 1.34 (0.83-1.09) H 11/19/19 05:00 Problem List - Problems (1) Anemia Code(s): D64.9 - ANEMIA, UNSPECIFIED (2) Respiratory failure Code(s): J96.90 - RESPIRATORY FAILURE, UNSP, UNSP W HYPOXIA OR HYPERCAPNIA Assessment/Plan Problem List (1) Decubitus ulcer Code(s): L89.90 - PRESSURE ULCER OF UNSPECIFIED SITE, UNSPECIFIED STAGE Qualifiers: Pressure injury location: sacral region Pressure injury stage: stage 4 Qualified Code(s): L89.154 - Pressure ulcer of sacral region, stage 4 (2) HCAP (healthcare-associated pneumonia) Code(s): J18.9 - PNEUMONIA, UNSPECIFIED ORGANISM (3) Sepsis Code(s): A41.9 - SEPSIS, UNSPECIFIED ORGANISM Qualifiers: Sepsis type: sepsis due to unspecified organism Sepsis acute organ dysfunction status: without acute organ dysfunction Qualified Code(s): A41.9 - Sepsis, unspecified organism ASSESSMENT/PLAN: Sepsis due to soft tissue infection/osteomyelitis : R/O RLL PNA Chronic Respiratory Failure Asthma HTN DM Functional quadraplegia Stage 4 decubitus ulcer S/P Trach & PEG Surgery/Wound care evaluation ABX per ID IVF Normal transfusion thresholds Follow H & H AC Mode of vent f/u chest x-ray today DR JO
[2019-11-22] MEDS ORDERED: MAGNESIUM SULF 50% (8.12 MEQ/2 ML-1 GM VIAL) IVPB ONE (11:06)
--- NOTE | 2019-11-22 11:07 | PN ---
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, Physician Chief Complaint: Anemia Sepsis Chronic respiratory failure Hypokalemia Hypomagnesemia History of Present Illness: 49yM w PMHx asthma, HTN, IDDM, functional quadriplegia, MRSA, osteomyelitis sta ge 4 sacral ulcer, vented on trach, PEG tube, on eliquis presenting from [facility] due to tachycardia, hypotension, fevers and active bleeding from his sacral ulcer and was also found to be in respiratory distress. Patient started having active bleeding from his sacral ulcer. Of note patient was started on daptomycin and meropenem on 11/10 through a PICC line in right arm due to osteomyelitis on his sacrum. When EMS was called patient was found to be hypotensive, tachycardic and in respiratory distress- in the ED vital signs: T. 101.2 HR 100 BP 87/59 WBC 17.8 Hgb 7.4 K 5.3 CR 0.4 Lactic acid 4.3 CXR shows patchy infiltrates- blood, wound, and urine cx were taken. In the ED the patient was given 2L, vanc/zosyn/azithro/solumedrol Pelvic CT showed evidence of osteomyletis. A bx was previously done at [facility] and [facility]. Lactic Acid trended down, and respirator y status improved. Over the course of treatment, the patient required repletion of his Potassium as well as 3 unit of PRBCs. Consult by surgery will administer a wound vac to promote better healing. - Current Medication List Current Medications: Active Medications Acetaminophen (Tylenol Oral Solution -) 650 mg GT Q6H PRN PRN Reason: FEVER Last Admin: 11/22/19 10:38 Dose: 650 mg Documented by: Albuterol/Ipratropium (Duoneb -) 1 amp NEB Q4H PRN PRN Reason: SHORTNESS OF BREATH Last Admin: 11/21/19 08:15 Dose: 1 amp Documented by: Ascorbic Acid (Vitamin C -) 250 mg PO DAILY [facility] Last Admin: 11/22/19 10:03 Dose: 250 mg Documented by: Budesonide (Pulmicort 0.5 Mg Nebulizer -) 1 amp NEB RBID [facility] Last Admin: 11/22/19 08:36 Dose: 1 amp Documented by: Collagenase (Santyl -) 1 applic TP DAILY [facility]; Protocol Last Admin: 11/22/19 10:03 Dose: 1 applic Documented by: Docusate Sodium (Colace -) 100 mg PO BID PRN PRN Reason: CONSTIPATION Fentanyl (Duragesic 50mcg Patch -) 1 patch TD Q72H [facility] Stop: 11/27/19 11:45 Last Admin: 11/20/19 14:19 Dose: 1 patch Documented by: Daptomycin 500 mg/ Sodium (Chloride) 50 mls @ 100 mls/hr IVPB DAILY [facility]; Protocol Last Admin: 11/21/19 11:15 Dose: 100 mls/hr Documented by: Meropenem 1 gm/ Dextrose 100 mls @ 200 mls/hr IVPB Q8H-IV [facility] Last Admin: 11/22/19 10:03 Dose: 200 mls/hr Documented by: Sodium Chloride (Normal Saline -) 1,000 mls @ 100 mls/hr IV ASDIR [facility] Last Admin: 11/22/19 06:42 Dose: 100 mls/hr Documented by: Insulin Aspart (Novolog Vial Sliding Scale -) 1 vial SQ ACHS [facility]; Protocol Last Admin: 11/22/19 06:41 Dose: Not Given Documented by: Miscellaneous (Duragesic Patch Waste) 1 each MC PRN PRN PRN Reason: PAIN Morphine Sulfate (Morphine Sulfate) 2 mg IVPUSH Q6H PRN PRN Reason: PAIN LEVEL 6-10 Last Admin: 11/22/19 06:19 Dose: 2 mg Documented by: Multivitamins/Minerals/Vitamin C (Tab-A-Vit -) 1 tab PO DAILY [facility] Last Admin: 11/22/19 10:03 Dose: 1 tab Documented by: Zinc Sulfate (Orazinc -) 220 mg PO DAILY [facility] Last Admin: 11/22/19 10:03 Dose: 220 mg Documented by: - Objective Vital Signs: Vital Signs Temperature 99.7 F H 11/22/19 09:30 Pulse Rate 96 H 11/22/19 09:30 Respiratory Rate 24 H 11/22/19 09:30 Blood Pressure 116/71 11/22/19 09:30 O2 Sat by Pulse Oximetry (%) 97 11/22/19 09:30 Constitutional: Yes: Well Nourished, No Distress, Calm Cardiovascular: Yes: Regular Rate and Rhythm Respiratory: Yes: Regular, Mechanically Ventilated, Rhonchi (diffuse) Gastrointestinal: Yes: Normal Bowel Sounds, Soft Genitourinary: Yes: Novak Present Musculoskeletal: Yes: Muscle Weakness Extremities: Yes: WNL Edema: No Peripheral Pulses WNL: Yes Integumentary: Yes: Pressure Ulcer (w/ wound vac) Neurological: Yes: Alert Psychiatric: Yes: Alert Labs: CBC, BMP 11/22/19 06:13 11/22/19 06:13 INR, PTT INR 1.34 (0.83-1.09) H 11/19/19 05:00 Problem List - Problems (1) Chronic respiratory failure Assessment/Plan: -Mech vent -Pulmonary on board -Bronchodilators -Wean as tolerated Problems reviewed: Yes Code(s): J96.10 - CHRONIC RESPIRATORY FAILURE, UNSP W HYPOXIA OR HYPERCAPNIA (2) Ulcer of sacral region, stage 4 Assessment/Plan: -Seen by Vascular surgery -Wound vac applied -Continue wound vac, change Q72 with black foam dressing- last changed on 11/21/19 -Offloading -IV abx meropenem + Daptomycin for 6 weeks till 12/23/19 Problems reviewed: Yes Code(s): L98.429 - NON-PRESSURE CHRONIC ULCER OF BACK WITH UNSPECIFIED SEVERITY (3) Anemia Assessment/Plan: -2/2 to acute blood loss through sacral stage 4 decubitus ulcer -Total 3 units of PRBC so far this admission -1 unit of PRBC today -Also check Iron stores, B12 and thyroid profile -Monitor trend -Hold Eliquis Problems reviewed: Yes Code(s): D64.9 - ANEMIA, UNSPECIFIED (4) Sepsis Assessment/Plan: -resolved -IV abx -ID on board -low grade temp overnight -Afebrile now Problems reviewed: Yes Code(s): A41.9 - SEPSIS, UNSPECIFIED ORGANISM Qualifiers: Sepsis type: sepsis due to unspecified organism Sepsis acute organ dysfunct ion status: without acute organ dysfunction Qualified Code(s): A41.9 - Sepsis, unspecified organism (5) History of pulmonary embolism Assessment/Plan: -Hold AC due to acute bleeding Problems reviewed: Yes Code(s): Z86.711 - PERSONAL HISTORY OF PULMONARY EMBOLISM (6) Hypomagnesemia Assessment/Plan: -Mg sulfate 2 gm IVPB once -Start Mgox 400 mg GT bid Problems reviewed: Yes Code(s): E83.42 - HYPOMAGNESEMIA (7) Hypokalemia Problems reviewed: Yes Code(s): E87.6 - HYPOKALEMIA Assessment/Plan See problem list D/C to SNF in AM
--- NOTE | 2019-11-22 11:13 | PN ---
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, Physician History of Present Illness: AWAKE,ALERT OFFERS NO COMPLAINTS LOW GRADE TEMPS WBC WNL SPUTUM C/S MIXED - Current Medication List Current Medications: Active Medications Acetaminophen (Tylenol Oral Solution -) 650 mg GT Q6H PRN PRN Reason: FEVER Last Admin: 11/22/19 10:38 Dose: 650 mg Documented by: Albuterol/Ipratropium (Duoneb -) 1 amp NEB Q4H PRN PRN Reason: SHORTNESS OF BREATH Last Admin: 11/21/19 08:15 Dose: 1 amp Documented by: Ascorbic Acid (Vitamin C -) 250 mg PO DAILY [facility] Last Admin: 11/22/19 10:03 Dose: 250 mg Documented by: Budesonide (Pulmicort 0.5 Mg Nebulizer -) 1 amp NEB RBID [facility] Last Admin: 11/22/19 08:36 Dose: 1 amp Documented by: Collagenase (Santyl -) 1 applic TP DAILY [facility]; Protocol Last Admin: 11/22/19 10:03 Dose: 1 applic Documented by: Docusate Sodium (Colace -) 100 mg PO BID PRN PRN Reason: CONSTIPATION Fentanyl (Duragesic 50mcg Patch -) 1 patch TD Q72H [facility] Stop: 11/27/19 11:45 Last Admin: 11/20/19 14:19 Dose: 1 patch Documented by: Daptomycin 500 mg/ Sodium (Chloride) 50 mls @ 100 mls/hr IVPB DAILY [facility]; Pr otocol Last Admin: 11/21/19 11:15 Dose: 100 mls/hr Documented by: Meropenem 1 gm/ Dextrose 100 mls @ 200 mls/hr IVPB Q8H-IV [facility] Last Admin: 11/22/19 10:03 Dose: 200 mls/hr Documented by: Sodium Chloride (Normal Saline -) 1,000 mls @ 100 mls/hr IV ASDIR [facility] Last Admin: 11/22/19 06:42 Dose: 100 mls/hr Documented by: Magnesium Sulfate (Magnesium Sulf 2 G/50 Ml Bag) 2 gm in 50 mls @ 100 mls/hr IVPB ONCE ONE Stop: 11/22/19 11:44 Insulin Aspart (Novolog Vial Sliding Scale -) 1 vial SQ ACHS [facility]; Protocol Last Admin: 11/22/19 06:41 Dose: Not Given Documented by: Miscellaneous (Duragesic Patch Waste) 1 each MC PRN PRN PRN Reason: PAIN Morphine Sulfate (Morphine Sulfate) 2 mg IVPUSH Q6H PRN PRN Reason: PAIN LEVEL 6-10 Last Admin: 11/22/19 06:19 Dose: 2 mg Documented by: Multivitamins/Minerals/Vitamin C (Tab-A-Vit -) 1 tab PO DAILY [facility] Last Admin: 11/22/19 10:03 Dose: 1 tab Documented by: Zinc Sulfate (Orazinc -) 220 mg PO DAILY [facility] Last Admin: 11/22/19 10:03 Dose: 220 mg Documented by: - Objective Vital Signs: Vital Signs Temperature 99.7 F H 11/22/19 09:30 Pulse Rate 96 H 11/22/19 09:30 Respiratory Rate 24 H 11/22/19 09:30 Blood Pressure 116/71 11/22/19 09:30 O2 Sat by Pulse Oximetry (%) 97 11/22/19 09:30 Constitutional: Yes: No Distress Cardiovascular: Yes: Regular Rate and Rhythm, S1, S2 Respiratory: Yes: Mechanically Ventilated Gastrointestinal: Yes: Normal Bowel Sounds, Soft. No: Tenderness Labs: CBC, BMP 11/22/19 06:13 11/22/19 06:13 INR, PTT INR 1.34 (0.83-1.09) H 11/19/19 05:00 Assessment/Plan ANEMIA SECONDARY TO BLEEDING DECUBITUS LEUKOCYTOSIS RESOLVED SACRAL OSTEOMYELITIS LACTIC ACIDOSIS HX MRSA HX COVID-19 CONTINUE DAPTOMYCIN/ MEROPENEM
[2019-11-22] MEDS ORDERED: MAGNESIUM SULFATE IN WATER 2 GM/50 ML IVPB IVPB ONE (11:15)
[2019-11-22] MEDS ORDERED: ACETAMINOPHEN 650 MG/20.3 ML ORAL SOLUTION (CUPS) GT PRN (11:23)
[2019-11-22] MEDS ORDERED: oxyCODONE HCL 5 MG TABLET PO PRN (11:32)
[2019-11-22] MEDS ORDERED: ASCORBIC ACID 250 MG TABLET (FP) GT SCH (11:37)
[2019-11-22] MEDS ORDERED: PANTOPRAZOLE SOD 40 MG SUSPENSION PACKET PO SCH (11:45)
[2019-11-22] MEDS ORDERED: MULTIVIT-MINERALS ORAL LIQUID PO SCH (11:45)
[2019-11-22 11:56] LABS: IRON SERUM 13 ug/dL (50-175); TOTAL IRON BINDING CAPACITY 129 ug/dL (250-450)
--- NOTE | 2019-11-22 12:12 | CONSULT ---
Admitting History and Physical - Admission History of Present Illness: 49yM w PMHx asthma, HTN, IDDM, functional quadriplegia, MRSA, osteomyelitis stage 4 sacral ulcer, vented on trach, PEG tube, on eliquis presenting from [facility] due to tachycardia, hypotension, fevers and active bleeding from his sacral ulcer and was also found to be in respiratory distress. Patient started having active bleeding from his sacral ulcer. Pt was fully functional, working, before onset of PNA and diagnosed with Covid- 19 at [facility]. He was there several months, required mech vent/trach/PEG. He was d/c'd to [facility] (?), developed decubitus, admitted to [facility] and then to [facility]. Pt reports that he used PMV once for a few minutes to assess at [facility]. He was only there 1 week. NPO, PEG. Pt is able to speak over cuff Selected Entries 11/21/19 11/22/19 11/22/19 18:00 01:10 02:00 Supper NPO Temperature 99.5 F Pulse Rate 99 H Blood Pressure 114/68 O2 Sat by Pulse 99 100 Oximetry (%) Oxygen Delivery Method 11/22/19 11/22/19 11/22/19 05:29 06:00 08:20 Supper Temperature 9898 F H Pulse Rate 97 H Blood Pressure 118/70 O2 Sat by Pulse 100 100 100 Oximetry (%) Oxygen Delivery Method 11/22/19 11/22/19 11/22/19 09:00 09:30 11:32 Supper Temperature 99.7 F H Pulse Rate 96 H Blood Pressure 116/71 O2 Sat by Pulse 97 97 100 Oximetry (%) Oxygen Delivery Mechanical Method Ventilator Laboratory Tests 11/20/19 11/21/19 11/22/19 06:00 09:12 06:13 WBC 8.0 11.8 H 8.5 Laboratory Tests 11/19/19 01:21 COVID-19 (MANISH) Not detected History Source: Patient, Family Member (Daughter) Limitations to Obtaining History: Clinical Condition - Past Medical History Infectious Disease: Yes: Other (COVID-19 Pneumonitis) - Smoking History Smoking history: Unknown if ever smoked - Social History 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 audible over cuff.) Oral Expression Ability: Yes: Non-Verbal - Speech Characteristics Voice Loudness: Normal (over cuff) - Swallow Evaluation/Bedside Assessment Current Nutritional Intake: NPO, G Tube Oral Secretions: Yes: WFL Dentition: Yes: Adequate Facial Symmetry at Rest: Symmetrical Facial Symmetry on Retraction: Symmetrical Facial Movement: Controlled Sensation: Normal Against Resistance Opening: Normal Against Resistance Closing: Normal Pucker Lips: Normal Smile: Normal Lingual Movement: Normal, Symmetric Lingual Speed of Movement: Normal Lingual Movement Strgth Against Opposition: Normal Lingual Movement Characteristics: Normal Laryngeal Movement: Able to Palpate Recommendations - Speech Evaluation, Impression/Plan Impression: Mechanical ventilation/Trach/PEG. Audible over cuff. Oriented, communicates by mouthing words. Able to move right UE a little. - Disposition Discharge to: [facility] - Dysphagia Impressions/Plan Dysphagia Impressions: Ongoing Evaluation *Silent aspiration: cannot be R/O at bedside Recommendations: Modified Barium Swallow, Passy Ezequiel Valve
[2019-11-22] MEDS: DAPTOMYCIN 500 MG in SODIUM CHLORIDE 50 ML IVPB SCH (13:20)
[2019-11-22] MEDS: MULTIVIT-MINERALS ORAL LIQUID GT SCH (13:21)
[2019-11-22] MEDS: FAMOTIDINE 40 MG/5 ML ORAL SUSPENSION PEG SCH (13:58)
[2019-11-22] MEDS: GABAPENTIN 250 MG/5 ML ORAL SOLUTION, 470 ML BOTTLE GT SCH ×2 (13:58→21:57)
[2019-11-22] MEDS: SILVER SULFADIAZINE 1% TOP CREAM 50 GM JAR TP SCH (13:59)
[2019-11-22] MEDS ORDERED: GABAPENTIN 250 MG/5 ML ORAL SOLUTION, 470 ML BOTTLE PO SCH (14:00)
--- NOTE | 2019-11-22 15:17 | CONSULT ---
Passy-Ezequiel Valve Eval - Assessment Prior to PMV Placement Patient and/or family educated re PMV: Yes Mental Status: Awake, Alert, Attempting to Communicate Pulse Rate: 100 O2 Sat by Pulse Oximetry (%): 97 Secretions: Small Amount Patient on Ventilator: Yes Patient on Trach Collar: No Suctioned: Yes Inner Cannula Removed: No Cuff Status: Inflated Passy-Ezequiel Valve in Place - Speech Characteristics Able to Phonate with PMV in place: Yes Voice Loudness: Normal Voice Pitch: Normal Voice Phonatory-based Quality: Normal Speech Pattern: Normal Speech Clarity: < 100% Nasal Resonance: Normal Articulation: Precise - Assessment with PMV in Place Pulse Rate: 100 O2 Sat by Pulse Oximetry (%): 100 Change in Mental Status with PMV in Place: No Pt's subjective response to PMV: Yes: Anxiety (Concerned that air was going into his nose. refuced tidal volume. Educated pt and daughter about anatomy/physiology with cuff inflation/deflation and PMV.) Length of time with PMV in place: 20 min. left on pmv.nursing/daughter supervision Additional comments: Speech normal without SOB, o2 sat 100%. Swallow assessed with brisk swallow with trial of applesauce. Reviewed with Pnp. For MBS tomorrow. Excellent prognosis for improved pulmonary and swallowing function. PMV will expedite weaning from Ventilator and PEG. Use PMV, increasing time as tolerated throughout the day with supervision. Remove while sleeping. Wash with soap/weater and airdry at night. Pt will need extensive, intensive PO/OT for rehabilitation in this young man. He is cognitively intact and motivated. He was fully independent in ADL, working, before Covid 19. Consider [facility] placement Pt called family on facetime with PMV in place, allowing him to communicate with children and grandchildren for first time in months.m - Recommendations Recommendations: PMV as tolerated, Remove PMV while sleeping, Monitor Pulse Ox PMV on, Supervision while PMV on
[2019-11-22] MEDS: oxyCODONE HCL 5 MG TABLET PO PRN ×2 (17:22→23:41)
[2019-11-22] MEDS: MAGNESIUM OXIDE 400 MG TABLET (FP) GT SCH (21:57)
[2019-11-22] MEDS: MONTELUKAST NA 10 MG TABLET GT SCH (21:57)
[2019-11-22] MEDS ORDERED: MONTELUKAST NA 10 MG TABLET PO SCH (22:00)
[2019-11-23] MEDS ORDERED: MEROPENEM 1 GM VIAL (RESTRICTED TO ID) IVPB ONE ×3 (01:04→17:34)
[2019-11-23] MEDS ORDERED: DEXTROSE 5%-WATER 100 ML IVPB ONE ×3 (01:04→17:35)
[2019-11-23] MEDS: MEROPENEM 1 GM in DEXTROSE 5%-WATER 100 ML IVPB SCH ×3 (01:23→18:10)
[2019-11-23] MEDS: ACETAMINOPHEN 650 MG/20.3 ML ORAL SOLUTION (CUPS) GT PRN ×2 (01:24→11:56)
[2019-11-23] MEDS: GABAPENTIN 250 MG/5 ML ORAL SOLUTION, 470 ML BOTTLE GT SCH ×3 (05:07→22:21)
[2019-11-23] MEDS: BUDESONIDE 0.5 MG/2 ML INH SUSP VIAL NEB SCH ×2 (07:29→20:26)
--- NOTE | 2019-11-23 10:42 | PN ---
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: Selected Entries 11/22/19 11/22/19 11/22/19 01:10 02:00 05:29 Temperature Pulse Rate Respiratory 23 H 23 H 21 H Rate Respiratory Depth Respiratory Pattern Blood Pressure O2 Sat by Pulse 99 100 100 Oximetry (%) Fraction of Inspired Oxygen (FIO2) 11/22/19 11/22/19 11/22/19 06:00 08:20 09:00 Temperature Pulse Rate Respiratory 21 H 22 H Rate Respiratory Normal Depth Respiratory Tachypnea Pattern Blood Pressure O2 Sat by Pulse 100 100 97 Oximetry (%) Fraction of Inspired Oxygen (FIO2) 11/22/19 11/22/19 11/22/19 09:30 11:32 14:00 Temperature Pulse Rate Respiratory 24 H 23 H 23 H Rate Respiratory Depth Respiratory Pattern Blood Pressure O2 Sat by Pulse 97 100 100 Oximetry (%) Fraction of Inspired Oxygen (FIO2) 11/22/19 11/22/19 11/22/19 14:30 15:17 17:30 Temperature Pulse Rate Respiratory 24 H Rate Respiratory Depth Respiratory Pattern Blood Pressure O2 Sat by Pulse 99 100 100 Oximetry (%) Fraction of Inspired Oxygen (FIO2) 11/22/19 11/22/19 11/22/19 17:42 20:36 21:00 Temperature Pulse Rate Respiratory 23 H 21 H Rate Respiratory Depth Respiratory Pattern Blood Pressure O2 Sat by Pulse 100 100 100 Oximetry (%) Fraction of Inspired Oxygen (FIO2) 11/22/19 11/23/19 11/23/19 22:16 00:05 02:00 Temperature 98.1 F Pulse Rate 98 H Respiratory 24 H Rate Respiratory Depth Respiratory Pattern Blood Pressure 102/72 O2 Sat by Pulse 100 100 100 Oximetry (%) Fraction of 40 Inspired Oxygen (FIO2) 11/23/19 11/23/19 11/23/19 04:14 05:44 06:00 Temperature 98.1 F Pulse Rate 97 H Respiratory Rate Respiratory Depth Respiratory Pattern Blood Pressure 114/69 O2 Sat by Pulse 100 100 Oximetry (%) Fraction of 40 Inspired Oxygen (FIO2) 11/23/19 07:29 Temperature Pulse Rate Respiratory Rate Respiratory Depth Respiratory Pattern Blood Pressure O2 Sat by Pulse 100 Oximetry (%) Fraction of 40 Inspired Oxygen (FIO2) Laboratory Tests 11/22/19 06:13 WBC 8.5 Pt tolerated PMV for 2.5 hours yesterday. Sleeping this am. For PMV, as tolerated, increasing time to expedite weaning from vent, allow communication ,improve upper airway function and swallowing. For MBS today.
--- NOTE | 2019-11-23 11:13 | PN ---
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, Physician Chief Complaint: Anemia Sepsis Chronic respiratory failure Hypokalemia Hypomagnesemia History of Present Illness: 49yM w PMHx asthma, HTN, IDDM, functional quadriplegia, MRSA, osteomyelitis sta ge 4 sacral ulcer, vented on trach, PEG tube, on eliquis presenting from [facility] due to tachycardia, hypotension, fevers and active bleeding from his sacral ulcer and was also found to be in respiratory distress. Patient started having active bleeding from his sacral ulcer. Of note patient was started on daptomycin and meropenem on 11/10 through a PICC line in right arm due to osteomyelitis on his sacrum. When EMS was called patient was found to be hypotensive, tachycardic and in respiratory distress- in the ED vital signs: T. 101.2 HR 100 BP 87/59 WBC 17.8 Hgb 7.4 K 5.3 CR 0.4 Lactic acid 4.3 CXR shows patchy infiltrates- blood, wound, and urine cx were taken. In the ED the patient was given 2L, vanc/zosyn/azithro/solumedrol Pelvic CT showed evidence of osteomyletis. A bx was previously done at [facility]. Lactic Acid trended down, and respirator y status improved. Over the course of treatment, the patient required repletion of his Potassium as well as 3 unit of PRBCs. Consult by surgery will administer a wound vac to promote better healing. 11/23/19: NAD alert and oriented x 3 verbal On SIMV Passed bedside swallow yesterday Going for MBS today On IV abx for osteo- LTACH and [facility] won't accept with meropenem and dapto. - Current Medication List Current Medications: Active Medications Acetaminophen (Tylenol Oral Solution -) 650 mg GT Q6H PRN PRN Reason: fever >100.0F Last Admin: 11/23/19 01:24 Dose: 650 mg Documented by: Albuterol/Ipratropium (Duoneb -) 1 amp NEB Q4H PRN PRN Reason: SHORTNESS OF BREATH Last Admin: 11/21/19 08:15 Dose: 1 amp Documented by: Ascorbic Acid (Vitamin C Oral Solution -) 250 mg GT DAILY [facility] Budesonide (Pulmicort 0.5 Mg Nebulizer -) 1 amp NEB RBID [facility] Last Admin: 11/23/19 07:29 Dose: 1 amp Documented by: Collagenase (Santyl -) 1 applic TP DAILY [facility]; Protocol Last Admin: 11/22/19 10:03 Dose: 1 applic Documented by: Docusate Sodium (Colace -) 100 mg PO BID PRN PRN Reason: CONSTIPATION Famotidine (Pepcid) 20 mg PEG DAILY [facility] Last Admin: 11/22/19 13:58 Dose: 20 mg Documented by: Fentanyl (Duragesic 50mcg Patch -) 1 patch TD Q72H [facility] Stop: 11/27/19 11:45 Last Admin: 11/20/19 14:19 Dose: 1 patch Documented by: Gabapentin (Neurontin Oral Liquid -) 200 mg GT TID [facility] Last Admin: 11/23/19 05:07 Dose: 200 mg Documented by: Daptomycin 500 mg/ Sodium (Chloride) 50 mls @ 100 mls/hr IVPB DAILY [facility]; Pro tocol Last Admin: 11/22/19 13:20 Dose: 100 mls/hr Documented by: Meropenem 1 gm/ Dextrose 100 mls @ 200 mls/hr IVPB Q8H-IV [facility] Last Admin: 11/23/19 01:23 Dose: 200 mls/hr Documented by: Magnesium Oxide (Mag-Ox -) 400 mg GT BID [facility] Last Admin: 11/22/19 21:57 Dose: 400 mg Documented by: Miscellaneous (Duragesic Patch Waste) 1 each MC PRN PRN PRN Reason: PAIN Montelukast Sodium (Singulair -) 5 mg GT HS [facility] Last Admin: 11/22/19 21:57 Dose: 5 mg Documented by: Multivitamins/Minerals (Certavite-Antioxidant Liquid) 15 ml GT DAILY [facility] Last Admin: 11/22/19 13:21 Dose: Not Given Documented by: Oxycodone HCl (Roxicodone -) 5 mg PO Q4H PRN PRN Reason: PAIN LEVEL 6-10 Last Admin: 11/22/19 23:41 Dose: 5 mg Documented by: Silver Sulfadiazine (Silvadene -) 1 applic TP DAILY [facility] Last Admin: 11/22/19 13:59 Dose: 1 applic Documented by: Zinc Sulfate (Orazinc -) 220 mg GT DAILY [facility] - Objective Vital Signs: Vital Signs Temperature 98.1 F 11/23/19 06:00 Pulse Rate 97 H 11/23/19 05:44 Respiratory Rate 20 11/23/19 07:29 Blood Pressure 114/69 11/23/19 05:44 O2 Sat by Pulse Oximetry (%) 100 11/23/19 07:29 Constitutional: Yes: Well Nourished, No Distress, Calm Cardiovascular: Yes: Regular Rate and Rhythm Respiratory: Yes: Regular, CTA Bilaterally, Mechanically Ventilated Gastrointestinal: Yes: Normal Bowel Sounds, Soft Genitourinary: Yes: [place]ak Present Musculoskeletal: Yes: Muscle Weakness Extremities: Yes: WNL Edema: No Peripheral Pulses WNL: Yes Neurological: Yes: Alert, Oriented Psychiatric: Yes: Alert, Oriented Labs: CBC, BMP 11/22/19 06:13 11/22/19 06:13 INR, PTT INR 1.34 (0.83-1.09) H 11/19/19 05:00 Problem List - Problems (1) Chronic [facility]: [facility] -Bronchodilators -Wean daily -PMV daily as tolerated -Passed bedside swallow yesterday -MBS today Problems reviewed: Yes Code(s): J96.10 - CHRONIC RESPIRATORY FAILURE, UNSP W HYPOXIA OR HYPERCAPNIA (2) Ulcer of sacral region, stage 4 Assessment/Plan: -Seen by Vascular surgery -Wound vac applied -Continue wound vac, change Q72 with black foam dressing- last changed on 11/21/19 -Offloading. Please do not place pt on his back, only turn patient from left to right -IV abx meropenem + Daptomycin for 6 weeks till 12/23/19 Problems reviewed: Yes Code(s): L98.429 - NON-PRESSURE CHRONIC ULCER OF BACK WITH UNSPECIFIED SEVERITY (3) Anemia Assessment/Plan: -2/2 to acute blood loss through sacral stage 4 decubitus ulcer -4 units of PRBC this admission -Iron stores low -Injectafer -B12 and thyroid profile-normal -Monitor trend -Hold Eliquis for now -Repeat labs pending today Problems reviewed: Yes Code(s): D64.9 - ANEMIA, UNSPECIFIED (4) Sepsis Assessment/Plan: -resolved -IV abx -ID on board -Afebrile now Problems reviewed: Yes Code(s): A41.9 - SEPSIS, UNSPECIFIED ORGANISM Qualifiers: Sepsis type: sepsis due to unspecified organism Sepsis acute organ dysfunction status: without acute organ dysfunction Qualified Code(s): A41.9 - Sepsis, unspecified organism (5) History of pulmonary embolism Assessment/Plan: -Hold AC due to acute bleeding Problems reviewed: Yes Code(s): Z86.711 - PERSONAL HISTORY OF PULMONARY EMBOLISM (6) Hypomagnesemia Assessment/Plan: -Mg sulfate 2 gm IVPB once yesterday -Mgox 400 mg GT bid Problems reviewed: Yes Code(s): E83.42 - HYPOMAGNESEMIA (7) Hypokalemia Assessment/Plan: -resolved Problems reviewed: Yes Code(s): E87.6 - HYPOKALEMIA (8) Functional quadriplegia Problems reviewed: Yes Code(s): R53.2 - FUNCTIONAL QUADRIPLEGIA Assessment/Plan See problem list Spoke to daughter Mikala over the phone for pt update.
[2019-11-23] MEDS ORDERED: PT OWN MED DRAWER 7, Y5N ONE ×3 (11:21→22:16)
[2019-11-23] MEDS: ASCORBIC ACID 500 MG/5 ML UNIT DOSE CUP GT SCH (11:25)
[2019-11-23] MEDS: MAGNESIUM OXIDE 400 MG TABLET (FP) GT SCH ×2 (11:25→22:21)
[2019-11-23] MEDS: ZINC SULFATE 220 MG CAPSULE (FP) GT SCH (11:26)
[2019-11-23] MEDS: MULTIVIT-MINERALS ORAL LIQUID GT SCH (11:26)
[2019-11-23] MEDS: FAMOTIDINE 40 MG/5 ML ORAL SUSPENSION PEG SCH (11:26)
[2019-11-23] MEDS: fentaNYL 50mcg/hr PATCH.TD72 TD SCH (11:27)
[2019-11-23] MEDS: COLLAGENASE CLOSTRIDIUM HIST. 30 GRAMS TUBE TP SCH (11:28)
[2019-11-23] MEDS: SILVER SULFADIAZINE 1% TOP CREAM 50 GM JAR TP SCH (11:28)
[2019-11-23] MEDS ORDERED: FERRIC CARBOXYMALTOSE 750 MG in SODIUM CHLORIDE 250 ML IVPB ONE (11:41)
[2019-11-23] MEDS: DAPTOMYCIN 500 MG in SODIUM CHLORIDE 50 ML IVPB SCH (12:22)
--- NOTE | 2019-11-23 12:51 | CON.NEURO ---
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 Home Medications - Allergies Allergies/Adverse Reactions: Allergies Allergy/AdvReac Type Severity Reaction Status Date / Time No Known Allergies Allergy Verified 11/18/19 21:54 - Home Medications Home Medications: Ambulatory Orders Albuterol 2.5/Ipratropium 0.5 [Duoneb -] 1 neb NEB Q4H 11/19/19 Apixaban [Eliquis -] 5 mg PO BID 11/19/19 Budesonide [Pulmicort 0.5 mg Nebulizer -] 0.5 mg NEB BID 11/19/19 Metoprolol Tartrate 25 mg PO BID 11/19/19 Midodrine HCl 10 mg PO TID 11/19/19 Montelukast Na [Singulair -] 5 mg PO HS 11/19/19 Family Medical History Family History: Unable to Obtain Other Family History: No family history of colon cancer Review of Systems - Review of Systems Constitutional: reports: No Symptoms Eyes: reports: No Symptoms Physical Exam-Neuro Vital Signs: Vital Signs Temperature 99.3 F 11/23/19 11:58 Pulse Rate 95 H 11/23/19 11:58 Respiratory Rate 25 H 11/23/19 11:58 Blood Pressure 108/71 11/23/19 11:58 O2 Sat by Pulse Oximetry (%) 99 11/23/19 11:58 Labs: CBC, BMP 11/22/19 06:13 11/22/19 06:13 INR, PTT INR 1.34 (0.83-1.09) H 11/19/19 05:00 - Neuro Exam Level Of Consciousness: Yes: Oriented to Person, Oriented to Place Eyes: Yes: PERRLA Speech: Garbled Cranial Nerves II-XII Intact: No Gag: Absent DTR's: 0 Left Bicep, 0 Right Bicep, 0 Left Tricep Babinski: Absent Response to light touch: Abnormal Response to pain prick: Abnormal Motor Strength: 1/5: Left Arm, 2/5: Right Leg, 3/5: Right Arm, Left Leg Gait: Deferred Imaging - Results Cat Scan: Image Reviewed Problem List - Problems (1) Left arm weakness Assessment/Plan: neurological differential diagnoses #1neuropathy associated with critical illness #2 cervical radiculopathy 1. CAT scan of the cervical spine with no contrast. 2. Nerve conduction testing electromyography of the upper extremities. 3. Check B12 RPR MELO zinc level degree. 4. Continue DVT prophylaxis. 5. Continue anticoagulation. 6. Physical therapy LILI AYON MD Code(s): R29.898 - [facility] SYMPTOMS AND SIGNS INVOLVING THE MUSCULOSKELETAL SYSTEM
[2019-11-23 13:38] LABS: BASO % 0.6 % (0-2.0); EOS % 4.9 % (0-4.5); HEMATOCRIT 29.2 % (35.4-49); HEMOGLOBIN 9.8 GM/dL (11.7-16.9); LYMPH % 24.1 % (8-40); MCH 29.4 pg (25.7-33.7); MCHC 33.5 g/dl (32.0-35.9); MEAN CELL VOLUME 87.7 fl (80-96); MEAN PLT VOLUME 7.8 fl (7.5-11.1); MONO % 6.3 % (3.8-10.2); NEUT % 64.1 % (42.8-82.8); PLATELET COUNT 658 K/MM3 (134-434); RBC 3.33 M/mm3 (4.00-5.60); RDW 15.4 % (11.9-15.9); WHITE BLOOD COUNT 13.2 K/mm3 (4.0-10.0)
[2019-11-23 14:04] LABS: ALBUMIN 1.9 g/dl (3.4-5.0); ANION GAP 6 MMOL/L (8-16); BILIRUBIN,TOTAL 0.4 mg/dL (0.2-1); BLOOD UREA NITROGEN 11.3 mg/dL (7-18); CALCIUM 8.1 mg/dL (8.5-10.1); CHLORIDE 103 mmol/L (98-107); CO2 32 mmol/L (21-32); CREATININE < 0.2 mg/dL (0.55-1.3); GLUCOSE,RANDOM 115 mg/dL (74-106); POTASSIUM 3.7 mmol/L (3.5-5.1); SGOT/AST 25 U/L (15-37); SGPT/ALT 24 U/L (13-61); SODIUM 141 mmol/L (136-145); TOT PROT 5.5 g/dl (6.4-8.2)
[2019-11-23 14:11] LABS: ALK PHOS 107 U/L (45-117)
[2019-11-23 14:19] LABS: ANISOCYTOSIS 1+; MACROCYTOSIS 0; PLATELET ESTIMATE INCREASED; TARGET CELLS 1+
--- NOTE | 2019-11-23 14:54 | PN ---
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 (short form) - Note 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: Awake and alert. Tolerated SIMV for a period of time today. No acute events overnight. Intake & Output 11/20/19 11/21/19 11/22/19 11/23/19 23:59 23:59 23:59 23:59 Intake Total 2370 2950 4370 550 Output Total 2300 2450 4150 800 Balance 70 500 220 -250 Weight 190 lb 193 lb 6 oz 193 lb 4 oz 193 lb Last Vital Signs Temp Pulse Resp BP Pulse Ox 99.3 F 95 H 25 H 108/71 100 11/23/19 11:58 11/23/19 11:58 11/23/19 11:58 11/23/19 11:58 11/23/19 13:00 Active Medications Acetaminophen (Tylenol Oral Solution -) 650 mg GT Q6H PRN PRN Reason: fever >100.0F Last Admin: 11/23/19 11:56 Dose: 650 mg Documented by: Albuterol/Ipratropium (Duoneb -) 1 amp NEB Q4H PRN PRN Reason: SHORTNESS OF BREATH Last Admin: 11/21/19 08:15 Dose: 1 amp Documented by: Amino Acids (Prosource No Carb Liquid Pkt) 30 ml PO BID@0800,1730 [facility] Ascorbic Acid (Vitamin C Oral Solution -) 250 mg GT DAILY [facility] Last Admin: 11/23/19 11:25 Dose: 250 mg Documented by: Budesonide (Pulmicort 0.5 Mg Nebulizer -) 1 amp NEB RBID [facility] Last Admin: 11/23/19 07:29 Dose: 1 amp Documented by: Collagenase (Santyl -) 1 applic TP DAILY [facility]; Protocol Last Admin: 11/23/19 11:28 Dose: 1 applic Documented by: Docusate Sodium (Colace -) 100 mg PO BID PRN PRN Reason: CONSTIPATION Famotidine (Pepcid) 20 mg PEG DAILY [facility] Last Admin: 11/23/19 11:26 Dose: 20 mg Documented by: Fentanyl (Duragesic 50mcg Patch -) 1 patch TD Q72H [facility] Stop: 11/27/19 11:45 Last Admin: 11/23/19 11:27 Dose: 1 patch Documented by: Gabapentin (Neurontin Oral Liquid -) 200 mg GT TID [facility] Last Admin: 11/23/19 05:07 Dose: 200 mg Documented by: Daptomycin 500 mg/ Sodium (Chloride) 50 mls @ 100 mls/hr IVPB DAILY [facility]; Protocol Last Admin: 11/23/19 12:22 Dose: 100 mls/hr Documented by: Meropenem 1 gm/ Dextrose 100 mls @ 200 mls/hr IVPB Q8H-IV [facility] Last Admin: 11/23/19 11:25 Dose: 200 mls/hr Documented by: Magnesium Oxide (Mag-Ox -) 400 mg GT BID [facility] Last Admin: 11/23/19 11:25 Dose: 400 mg Documented by: Miscellaneous (Duragesic Patch Waste) 1 each MC PRN PRN PRN Reason: PAIN Montelukast Sodium (Singulair -) 5 mg GT HS [facility] Last Admin: 11/22/19 21:57 Dose: 5 mg Documented by: Multivitamins/Minerals (Certavite-Antioxidant Liquid) 15 ml GT DAILY [facility] Last Admin: 11/23/19 11:26 Dose: 15 ml Documented by: Oxycodone HCl (Roxicodone -) 5 mg PO Q4H PRN PRN Reason: PAIN LEVEL 6-10 Last Admin: 11/22/19 23:41 Dose: 5 mg Documented by: Silver Sulfadiazine (Silvadene -) 1 applic TP DAILY [facility] Last Admin: 11/23/19 11:28 Dose: 1 applic Documented by: Zinc Sulfate (Orazinc -) 220 mg GT DAILY [facility] Last Admin: 11/23/19 11:26 Dose: 220 mg Documented by: Constitutional: Yes: Vented, Awake and alert, NAD Eyes: Yes: WNL HENT: Yes: WNL Neck: Yes: Supple (trach) Cardiovascular: Yes: Regular Rate and Rhythm, S1, S2 Respiratory: Yes: Vented, scattered Rhonchi Gastrointestinal: Yes: Normal Bowel Sounds, Soft Extremities: Yes: WNL Edema: No Labs: Laboratory Results - last 24 hr 11/18/19 11/22/19 11/23/19 21:10 12:20 13:12 WBC 13.2 H RBC 3.33 L Hgb 9.8 L Hct 29.2 L D MCV 87.7 MCH 29.4 MCHC 33.5 RDW 15.4 Plt Count 658 H D MPV 7.8 Absolute Neuts (auto) 8.4 H Neutrophils % 64.1 Neutrophils % (Manual) 64.6 Band Neutrophils % 1.0 Lymphocytes % 24.1 D Lymphocytes % (Manual) 17.7 Monocytes % 6.3 Monocytes % (Manual) 8 Eosinophils % 4.9 H D Eosinophils % (Manual) 4.2 Basophils % 0.6 Basophils % (Manual) 0.0 Myelocytes % (Man) 0 Promyelocytes % (Man) 0 Blast Cells % (Manual) 0 Nucleated RBC % 0 Metamyelocytes 0 Hypochromia 0 Platelet Estimate Increased Polychromasia 2+ Poikilocytosis 1+ Anisocytosis 1+ Microcytosis 1+ Macrocytosis 0 Target Cells 1+ Sodium Potassium Chloride Carbon Dioxide Anion Gap BUN Creatinine Est GFR (CKD-EPI)AfAm Est GFR (CKD-EPI)NonAf Random Glucose Calcium Total Bilirubin AST ALT Alkaline Phosphatase Total Protein Albumin Blood Type O POSITIVE O POSITIVE Antibody Screen Negative Negative Crossmatch See Detail See Detail 11/23/19 13:12 WBC RBC Hgb Hct MCV MCH MCHC RDW Plt Count MPV Absolute Neuts (auto) Neutrophils % Neutrophils % (Manual) Band Neutrophils % Lymphocytes % Lymphocytes % (Manual) Monocytes % Monocytes % (Manual) Eosinophils % Eosinophils % (Manual) Basophils % Basophils % (Manual) Myelocytes % (Man) Promyelocytes % (Man) Blast Cells % (Manual) Nucleated RBC % Metamyelocytes Hypochromia Platelet Estimate Polychromasia Poikilocytosis Anisocytosis Microcytosis Macrocytosis Target Cells Sodium 141 Potassium 3.7 Chloride 103 Carbon Dioxide 32 Anion Gap 6 L BUN 11.3 Creatinine < 0.2 L Est GFR (CKD-EPI)AfAm 211.93 Est GFR (CKD-EPI)NonAf 182.86 Random Glucose 115 H Calcium 8.1 L Total Bilirubin 0.4 AST 25 ALT 24 Alkaline Phosphatase 107 Total Protein 5.5 L Albumin 1.9 L Blood Type Antibody Screen Crossmatch Problem List - Problems (1) Anemia Code(s): D64.9 - ANEMIA, UNSPECIFIED (2) Respiratory failure Code(s): J96.90 - RESPIRATORY FAILURE, UNSP, UNSP W HYPOXIA OR HYPERCAPNIA Assessment/Plan Problem List (1) Decubitus ulcer Code(s): L89.90 - PRESSURE ULCER OF UNSPECIFIED SITE, UNSPECIFIED STAGE Qualifiers: Pressure injury location: sacral region Pressure injury stage: stage 4 Qualified Code(s): L89.154 - Pressure ulcer of sacral region, stage 4 (2) HCAP (healthcare-associated pneumonia) Code(s): J18.9 - PNEUMONIA, UNSPECIFIED ORGANISM (3) Sepsis Code(s): A41.9 - SEPSIS, UNSPECIFIED ORGANISM Qualifiers: Sepsis type: sepsis due to unspecified organism Sepsis acute organ dysfunction status: without acute organ dysfunction Qualified Code(s): A41.9 - Sepsis, unspecified organism ASSESSMENT/PLAN: Sepsis due to soft tissue infection/osteomyelitis : R/O RLL PNA Chronic Respiratory Failure Asthma HTN DM Functional quadraplegia Stage 4 decubitus ulcer S/P Trach & PEG Wean trials as tolerated Wound care ABX per ID IVF Normal transfusion thresholds Follow H & H Dr Boles
[2019-11-23] MEDS: oxyCODONE HCL 5 MG TABLET PO PRN (15:00)
--- NOTE | 2019-11-23 15:28 | PROC ---
VAC Application - Indications Decubitus ulcer A decision was made to utilize Negative Pressure Therapy (VAC or Veraflo) to assist in: expedite wound closure through promotion of granulation tissue formation and/or help with debridement of fibrinous slough thus decreasing need for serial debridements. - Wound description Wound location: Sacrum Length (cm): 16 Width (cm): 15 Depth (cm): 5 Wound area (sq cm): 240.00 Wound Description: Bone exposed: Yes - Device VAC Selection: NPT - Procedure Area cleansed. Prepped/draped. Black foam tailored to fit just inside of wound borders to encourage wound contracture. Duoderm applied to skin island at inferior pole of wound and anal border. An occlusive dressing applied. Suction disc placed in location so as not to be uncomfortable for the patient or cause any pressure point (foam bridge to right hip). Good seal as verified by complete foam collapse and no leak on unit monitor. Pressure set to 125 mmHg, continuous. Dressing changes: --Wed - CPT Code CPT code: [id number] >50 sq cm
[2019-11-23] MEDS: AMINO ACIDS/PROTEIN HYDROLYS 30 ML LIQUID.PKT PO SCH (18:10)
[2019-11-23] MEDS: ESCITALOPRAM OXALATE 5 MG/5 ML GT SCH (18:11)
[2019-11-23] MEDS: MONTELUKAST NA 10 MG TABLET GT SCH (22:21)
[2019-11-24] MEDS ORDERED: MEROPENEM 1 GM VIAL (RESTRICTED TO ID) IVPB ONE ×3 (01:34→17:22)
[2019-11-24] MEDS ORDERED: DEXTROSE 5%-WATER 100 ML IVPB ONE ×3 (01:34→17:22)
[2019-11-24] MEDS: MEROPENEM 1 GM in DEXTROSE 5%-WATER 100 ML IVPB SCH ×3 (02:47→17:41)
[2019-11-24] MEDS: oxyCODONE HCL 5 MG TABLET PO PRN ×2 (05:10→21:12)
[2019-11-24] MEDS: GABAPENTIN 250 MG/5 ML ORAL SOLUTION, 470 ML BOTTLE GT SCH ×3 (05:35→22:19)
[2019-11-24 05:49] LABS: BASO % 0.8 % (0-2.0); EOS % 4.4 % (0-4.5); HEMATOCRIT 28.3 % (35.4-49); HEMOGLOBIN 9.6 GM/dL (11.7-16.9); LYMPH % 19.1 % (8-40); MCH 29.4 pg (25.7-33.7); MCHC 34.1 g/dl (32.0-35.9); MEAN CELL VOLUME 86.5 fl (80-96); MEAN PLT VOLUME 7.5 fl (7.5-11.1); MONO % 7.4 % (3.8-10.2); NEUT % 68.3 % (42.8-82.8); PLATELET COUNT 671 K/MM3 (134-434); RBC 3.27 M/mm3 (4.00-5.60); RDW 15.8 % (11.9-15.9); WHITE BLOOD COUNT 10.7 K/mm3 (4.0-10.0)
[2019-11-24 06:20] LABS: ALBUMIN 1.9 g/dl (3.4-5.0); ALK PHOS 88 U/L (45-117); ANION GAP 6 MMOL/L (8-16); BILIRUBIN,TOTAL 0.6 mg/dL (0.2-1); CALCIUM 8.3 mg/dL (8.5-10.1); CHLORIDE 103 mmol/L (98-107); CO2 33 mmol/L (21-32); GLUCOSE,RANDOM 88 mg/dL (74-106); POTASSIUM 3.5 mmol/L (3.5-5.1); SGOT/AST 24 U/L (15-37); SGPT/ALT 23 U/L (13-61); SODIUM 142 mmol/L (136-145); TOT PROT 5.4 g/dl (6.4-8.2)
[2019-11-24] MEDS: BUDESONIDE 0.5 MG/2 ML INH SUSP VIAL NEB SCH ×2 (07:45→20:31)
[2019-11-24 08:21] LABS: BLOOD UREA NITROGEN 10.4 mg/dL (7-18)
[2019-11-24 08:37] LABS: CREATININE < 0.2 mg/dL (0.55-1.3)
--- NOTE | 2019-11-24 09:03 | PN ---
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, Physician Chief Complaint: Anemia Sepsis Chronic respiratory failure Hypokalemia Hypomagnesemia History of Present Illness: 49yM w PMHx asthma, HTN, IDDM, functional quadriplegia, MRSA, osteomyelitis sta ge 4 sacral ulcer, vented on trach, PEG tube, on eliquis presenting from [facility] due to tachycardia, hypotension, fevers and active bleeding from his sacral ulcer and was also found to be in respiratory distress. Patient started having active bleeding from his sacral ulcer. Of note patient was started on daptomycin and meropenem on 11/10 through a PICC line in right arm due to osteomyelitis on his sacrum. When EMS was called patient was found to be hypotensive, tachycardic and in respiratory distress- in the ED vital signs: T. 101.2 HR 100 BP 87/59 WBC 17.8 Hgb 7.4 K 5.3 CR 0.4 Lactic acid 4.3 CXR shows patchy infiltrates- blood, wound, and urine cx were taken. In the ED the patient was given 2L, vanc/zosyn/azithro/solumedrol Pelvic CT showed evidence of osteomyletis. A bx was previously done at [facility] and [facility]. Lactic Acid trended down, and respirator y status improved. Over the course of treatment, the patient required repletion of his Potassium as well as 3 unit of PRBCs. Consult by surgery will administer a wound vac to promote better healing. 11/23/19: NAD alert and oriented x 3 verbal On SIMV Did well on MBS Nursing staff encouraged to use PMV as much as patient can tolerate On IV abx for osteo-meropenem and dapto. Awaiting EMG - Current Medication List Current Medications: Active Medications Acetaminophen (Tylenol Oral Solution -) 650 mg GT Q6H PRN PRN Reason: fever >100.0F Last Admin: 11/23/19 11:56 Dose: 650 mg Documented by: Albuterol/Ipratropium (Duoneb -) 1 amp NEB Q4H PRN PRN Reason: SHORTNESS OF BREATH Last Admin: 11/21/19 08:15 Dose: 1 amp Documented by: Amino Acids (Prosource No Carb Liquid Pkt) 30 ml PO BID@0800,1730 [facility] Last Admin: 11/23/19 18:10 Dose: 30 ml Documented by: Ascorbic Acid (Vitamin C Oral Solution -) 250 mg GT DAILY [facility] Last Admin: 11/23/19 11:25 Dose: 250 mg Documented by: Budesonide (Pulmicort 0.5 Mg Nebulizer -) 1 amp NEB RBID [facility] Last Admin: 11/24/19 07:45 Dose: 1 amp Documented by: Buspirone HCl (Buspar -) 5 mg PO BID PRN PRN Reason: ANXIETY Collagenase (Santyl -) 1 applic TP DAILY [facility]; Protocol Last Admin: 11/23/19 11:28 Dose: 1 applic Documented by: Docusate Sodium (Colace -) 100 mg PO BID PRN PRN Reason: CONSTIPATION Escitalopram Oxalate (Lexapro Oral Solution -) 10 mg GT DAILY [facility] Last Admin: 11/23/19 18:11 Dose: 10 mg Documented by: Famotidine (Pepcid) 20 mg PEG DAILY [facility] Last Admin: 11/23/19 11:26 Dose: 20 mg Documented by: Fentanyl (Duragesic 50mcg Patch -) 1 patch TD Q72H [facility] Stop: 11/27/19 11:45 Last Admin: 11/23/19 11:27 Dose: 1 patch Documented by: Gabapentin (Neurontin Oral Liquid -) 200 mg GT TID [facility] Last Admin: 11/24/19 05:35 Dose: 200 mg Documented by: Daptomycin 500 mg/ Sodium (Chloride) 50 mls @ 100 mls/hr IVPB DAILY [facility]; Protocol Last Admin: 11/23/19 12:22 Dose: 100 mls/hr Documented by: Meropenem 1 gm/ Dextrose 100 mls @ 200 mls/hr IVPB Q8H-IV [facility] Last Admin: 11/24/19 02:47 Dose: 200 mls/hr Documented by: Magnesium Oxide (Mag-Ox -) 400 mg GT BID [facility] Last Admin: 11/23/19 22:21 Dose: 400 mg Documented by: Miscellaneous (Duragesic Patch Waste) 1 each MC PRN PRN PRN Reason: PAIN Montelukast Sodium (Singulair -) 5 mg GT HS [facility] Last Admin: 11/23/19 22:21 Dose: 5 mg Documented by: Multivitamins/Minerals (Certavite-Antioxidant Liquid) 15 ml GT DAILY [facility] Last Admin: 11/23/19 11:26 Dose: 15 ml Documented by: Oxycodone HCl (Roxicodone -) 5 mg PO Q4H PRN PRN Reason: PAIN LEVEL 6-10 Last Admin: 11/24/19 05:10 Dose: 5 mg Documented by: Silver Sulfadiazine (Silvadene -) 1 applic TP DAILY [facility] Last Admin: 11/23/19 11:28 Dose: 1 applic Documented by: Zinc Sulfate (Orazinc -) 220 mg GT DAILY [facility] Last Admin: 11/23/19 11:26 Dose: 220 mg Documented by: - Objective Vital Signs: Vital Signs Temperature 99.1 F 11/24/19 06:00 Pulse Rate 111 H 11/24/19 08:16 Respiratory Rate 21 H 11/24/19 08:16 Blood Pressure 106/73 11/24/19 06:00 O2 Sat by Pulse Oximetry (%) 99 11/24/19 08:16 Constitutional: Yes: Well Nourished, No Distress, Calm Cardiovascular: Yes: Regular Rate and Rhythm Respiratory: Yes: Regular, CTA Bilaterally, Mechanically Ventilated Gastrointestinal: Yes: Normal Bowel Sounds, Soft Genitourinary: Yes: Novak Present Musculoskeletal: Yes: Muscle Weakness Extremities: Yes: WNL Edema: No Peripheral Pulses WNL: Yes Integumentary: Yes: Pressure Ulcer (w/ wound vac in place) Neurological: Yes: Alert, Oriented Psychiatric: Yes: Alert, Oriented Labs: CBC, BMP 11/24/19 05:27 11/24/19 05:27 INR, PTT INR 1.34 (0.83-1.09) H 11/19/19 05:00 Problem List - Problems (1) Chronic respiratory failure Assessment/Plan: -[facility] vent -Pulmonary on board -Bronchodilators -Wean daily -PMV daily as tolerated -Passed MBS -PO feeds with dysphagia puree + nectar thick liquids + Night feeds through PEG Problems reviewed: Yes Code(s): J96.10 - CHRONIC RESPIRATORY FAILURE, UNSP W HYPOXIA OR HYPERCAPNIA (2) Ulcer of sacral region, stage 4 Assessment/Plan: -Seen by Vascular surgery -Wound vac applied -Continue wound vac, change Q72 with black foam dressing- last changed on 11/21/19 -Offloading. Please do not place pt on his back, only turn patient from left to right -IV abx meropenem + Daptomycin for 6 weeks till 12/23/19 Problems reviewed: Yes Code(s): L98.429 - NON-PRESSURE CHRONIC ULCER OF BACK WITH UNSPECIFIED SEVERITY (3) Anemia Assessment/Plan: -2/2 to acute blood loss through sacral stage 4 decubitus ulcer -4 units of PRBC this admission -Iron stores low -Injectafer once -B12 and thyroid profile-normal -Monitor trend -Hold Eliquis for now -Repeat labs, maintaining H/H well Problems reviewed: Yes Code(s): D64.9 - ANEMIA, UNSPECIFIED (4) Sepsis Assessment/Plan: -resolved -IV abx -ID on board -Afebrile now Problems reviewed: Yes Code(s): A41.9 - SEPSIS, UNSPECIFIED ORGANISM Qualifiers: Sepsis type: sepsis due to unspecified organism Sepsis acute organ dysfunction status: without acute organ dysfunction Qualified Code(s): A41.9 - Sepsis, unspecified organism (5) History of pulmonary embolism Assessment/Plan: -2/2 to COVID 19 in the past -Hold AC due to acute bleeding -Can be off AC altogether, as he has been on it for 3 months since COVID 19 and PE occurrence Problems reviewed: Yes Code(s): Z86.711 - PERSONAL HISTORY OF PULMONARY EMBOLISM (6) Hypomagnesemia Assessment/Plan: -Mg sulfate 2 gm IVPB once yesterday -Mgox 400 mg GT bid Problems reviewed: Yes Code(s): E83.42 - HYPOMAGNESEMIA (7) Hypokalemia Assessment/Plan: -resolved Problems reviewed: Yes Code(s): E87.6 - HYPOKALEMIA (8) Functional quadriplegia Problems reviewed: Yes Code(s): R53.2 - FUNCTIONAL QUADRIPLEGIA Assessment/Plan See problem list
[2019-11-24 09:20] LABS: ANISOCYTOSIS 1+; MACROCYTOSIS 0; PLATELET ESTIMATE INCREASED
--- NOTE | 2019-11-24 10:33 | PN ---
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, [employer] - Note 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: Selected Entries 11/23/19 11/24/19 11/24/19 18:45 02:00 05:01 Supper 25% Temperature 99.9 F H Pulse Rate 119 H 116 H Blood Pressure 105/72 11/24/19 11/24/19 06:00 08:16 Supper Temperature 99.1 F Pulse Rate 112 H 111 H Blood Pressure 106/73 Laboratory Tests 11/22/19 11/23/19 11/24/19 06:13 13:12 05:27 WBC 8.5 13.2 H 10.7 H On dysphagia puree and nectar thickened liquids, pt ate about 25% yesterday, then became anxious and refused to eat anymore Seen bedside, pmv being applied when I arrived.at 11 am. Was too anxious this am, per RT, and breakfast held. Pt quite anxiousm needs frequent reassurance. Lexapro/Busbar initiated 11/22 TF on hold. Suggest nocturnal TF, puree/nectar, magic cup,ensure pudding with pmv in place, per deeding rec noted in mbs report.
[2019-11-24] MEDS ORDERED: PT OWN MED DRAWER 7, Y5N ONE (11:01)
[2019-11-24] MEDS: AMINO ACIDS/PROTEIN HYDROLYS 30 ML LIQUID.PKT PO SCH ×2 (11:05→17:41)
[2019-11-24] MEDS: MULTIVIT-MINERALS ORAL LIQUID GT SCH (11:06)
[2019-11-24] MEDS: ESCITALOPRAM OXALATE 5 MG/5 ML GT SCH (11:07)
[2019-11-24] MEDS: MAGNESIUM OXIDE 400 MG TABLET (FP) GT SCH ×2 (11:07→21:03)
[2019-11-24] MEDS: ZINC SULFATE 220 MG CAPSULE (FP) GT SCH (11:08)
[2019-11-24] MEDS: SILVER SULFADIAZINE 1% TOP CREAM 50 GM JAR TP SCH (11:09)
[2019-11-24] MEDS: COLLAGENASE CLOSTRIDIUM HIST. 30 GRAMS TUBE TP SCH (11:09)
[2019-11-24] MEDS: FAMOTIDINE 40 MG/5 ML ORAL SUSPENSION PEG SCH (11:09)
[2019-11-24] MEDS: ASCORBIC ACID 500 MG/5 ML UNIT DOSE CUP GT SCH (11:10)
[2019-11-24] MEDS: busPIRone HCL 5 MG TABLET PO PRN ×2 (11:10→21:03)
--- NOTE | 2019-11-24 12:05 | PN ---
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 (short form) - Note 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: PULMONARY Awake and alert. Just completed b/l upper emg's tmax 99.0 zal873%/rr20/vt 500cc/peep 5 Constitutional: Yes: Vented, Awake and alert, NAD Eyes: Yes: WNL HENT: Yes: WNL Neck: Yes: Supple (trach) Cardiovascular: Yes: Regular Rate and Rhythm, S1, S2 Respiratory: Yes: Vented, scattered Rhonchi Gastrointestinal: Yes: Normal Bowel Sounds, Soft Extremities: Yes: WNL Edema: No Labs: noted/images reviewed Sepsis due to soft tissue infection/osteomyelitis Chronic Respiratory Failure Asthma HTN DM Functional quadraplegia Stage 4 decubitus ulcer S/P Trach & PEG Wean trials as tolerated Wound care ABX per ID IVF Normal transfusion thresholds Follow [facility] & [facility] JE[facility]
[2019-11-24] MEDS: DAPTOMYCIN 500 MG in SODIUM CHLORIDE 50 ML IVPB SCH (15:00)
[2019-11-24] MEDS: BANATROL PLUS POWDER PACKET PO SCH ×2 (15:01→21:03)
--- NOTE | 2019-11-24 15:56 | CONSULT ---
Consult Consult Specialty:: Physiatry Dr Artis for Dr Chao - History of Present Illness History of Present Illness: This is a 49 year old man with a medical history of functional quadriplegia, HTN, asthma, vented on tracheostomy, s/p PEG, IDDM, stage 4 sacral ulcer c/b OM, who was admitted 11/18/2019 with fevers, bleeding from the sacral decub and in respiratory distress. He was admitted for sepsis 2/2 OM/ soft tissue infection and possible PNA. He was anemic as well. Neurology was consulted 11/23/2019 due to LUE weakness, who recommended CT cervical spine as well as EMG. Physiatry was requested to perform EMG. 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 Home Medications - Allergies Allergies/Adverse Reactions: Allergies Allergy/AdvReac Type Severity Reaction Status Date / Time No Known Allergies Allergy Verified 11/18/19 21:54 - Home Medications Home Medications: Ambulatory Orders Albuterol 2.5/Ipratropium 0.5 [Duoneb -] 1 neb NEB Q4H 11/19/19 Apixaban [Eliquis -] 5 mg PO BID 11/19/19 Budesonide [Pulmicort 0.5 mg Nebulizer -] 0.5 mg NEB BID 11/19/19 Metoprolol Tartrate 25 mg PO BID 11/19/19 Midodrine HCl 10 mg PO TID 11/19/19 Montelukast Na [Singulair -] 5 mg PO HS 11/19/19 Family Medical History Family History: Unable to Obtain Other Family History: No family history of colon cancer Review of Systems Findings/Remarks: denies fevers, changes in vision/ hearing/ mood, CP,SOB, abdominal pain, nausea, vomiting, constipation, diarrhea. Notes B hand/ foot paresthesias, back pain without neck pain, and has a Novak in place Physical Exam Vital Signs: Vital Signs Temperature 98.8 F 11/24/19 14:00 Pulse Rate 83 11/24/19 14:00 Respiratory Rate 11/24/19 14:00 Blood Pressure 106/69 11/24/19 14:00 O2 Sat by Pulse Oximetry (%) 99 11/24/19 14:00 Musculoskeletal: Yes: Other (General: calm HM sitting in bed NAD, awake and alert s/p tracheostomy; R shoulder active flexion to 100 degrees, L shoulder passive flexion to 100 degrees, 4/5 distal RUE and 3/5 proximal RUE, 1/5 LUE; Pinprick decreased L hand compared to R and compared to elbow; trace L hand pitting edema) Labs: CBC, BMP 11/24/19 05:27 11/24/19 05:27 Assessment/Plan Electrodiagnoistics were performed, please see scanned images for details (under date 11/19/2019 although performed 11/24/2019). This was an abnormal study. 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 There is also possibly myopathy without spontaneous activity. 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 6) Anemia 7) Stage 4 sacral ulcer c/b OM 8) Sepsis 9) Possible PNA 10) Overweight 11) No documented flu shot/ pneumovax 12) hx functional quadriplegia 13) HTN 14) Asthma, vented on tracheostomy 15) s/p PEG 16) IDDM Recommendations: 1) PT for BLE stretching strengthening ROM functional mobility 2) Falls, safety precautions 3) Cardiopulmonary precautions: breathing techniques, energy conservation, endurance; O2 prn to maintain sats >92% 4) Diabetic precautions 5) DVT ppx: off AC 2/2 disease chronicity 6) Skin protection: float heels, q2 hour turning 7) Bowel regimen prn 8) Monitor CBC given anemia 9) Nutrition consult for overweight 10) Continue work-up per Neurology: ddx of neuropathy includes but is not limited to: critical illness neuropathy, vitamin deficiency (B12, folate, thiamine), gout, hypothyroidism, liver disease, chronic illness, connective tissue disorders (RA, SLE) 11) Continue plan per primary team 12) Discharge planning: to return to [facility]/ SNF once medically stable Thank you for this referral.
[2019-11-24] MEDS: MONTELUKAST NA 10 MG TABLET GT SCH (21:03)
--- NOTE | 2019-11-24 23:23 | PN ---
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, Physician History of Present Illness: AWAKE,ALERT OFFERS NO COMPLAINTS LOW GRADE TEMPS NOTED WBC SL ELEVATED SPUTUM C/S MIXED - Current Medication List Current Medications: Active Medications Acetaminophen (Tylenol Oral Solution -) 650 mg GT Q6H PRN PRN Reason: fever >100.0F Last Admin: 11/23/19 11:56 Dose: 650 mg Documented by: Albuterol/Ipratropium (Duoneb -) 1 amp NEB Q4H PRN PRN Reason: SHORTNESS OF BREATH Last Admin: 11/21/19 08:15 Dose: 1 amp Documented by: Amino Acids (Prosource No Carb Liquid Pkt) 30 ml PO BID@0800,1730 [facility] Last Admin: 11/24/19 17:41 Dose: 30 ml Documented by: Ascorbic Acid (Vitamin C Oral Solution -) 250 mg GT DAILY [facility] Last Admin: 11/24/19 11:10 Dose: 250 mg Documented by: Banana Based Medical Food (Banatrol Plus Powder Packet) 1 packet PO TID [facility] Last Admin: 11/24/19 21:03 Dose: 1 packet Documented by: Budesonide (Pulmicort 0.5 Mg Nebulizer -) 1 amp NEB RBID [facility] Last Admin: 11/24/19 20:31 Dose: 1 amp Documented by: Buspirone HCl (Buspar -) 5 mg PO BID PRN PRN Reason: ANXIETY Last Admin: 11/24/19 21:03 Dose: 5 mg Documented by: Collagenase (Santyl -) 1 applic TP DAILY [facility]; Protocol Last Admin: 11/24/19 11:09 Dose: 1 applic Documented by: Docusate Sodium (Colace -) 100 mg PO BID PRN PRN Reason: CONSTIPATION Escitalopram Oxalate (Lexapro Oral Solution -) 10 mg GT DAILY [facility] Last Admin: 11/24/19 11:07 Dose: 10 mg Documented by: Famotidine (Pepcid) 20 mg PEG DAILY [facility] Last Admin: 11/24/19 11:09 Dose: 20 mg Documented by: Fentanyl (Duragesic 50mcg Patch -) 1 patch TD Q72H [facility] Stop: 11/27/19 11:45 Last Admin: 11/23/19 11:27 Dose: 1 patch Documented by: Gabapentin (Neurontin Oral Liquid -) 200 mg GT TID [facility] Last Admin: 11/24/19 22:19 Dose: 200 mg Documented by: Daptomycin 500 mg/ Sodium (Chloride) 50 mls @ 100 mls/hr IVPB DAILY [facility]; Protocol Last Admin: 11/24/19 15:00 Dose: 100 mls/hr Documented by: Meropenem 1 gm/ Dextrose 100 mls @ 200 mls/hr IVPB Q8H-IV [facility] Last Admin: 11/24/19 17:41 Dose: 200 mls/hr Documented by: Magnesium Oxide (Mag-Ox -) 400 mg GT BID [facility] Last Admin: 11/24/19 21:03 Dose: 400 mg Documented by: Miscellaneous (Duragesic Patch Waste) 1 each MC PRN PRN PRN Reason: PAIN Montelukast Sodium (Singulair -) 5 mg GT HS [facility] Last Admin: 11/24/19 21:03 Dose: 5 mg Documented by: Multivitamins/Minerals (Certavite-Antioxidant Liquid) 15 ml GT DAILY [facility] Last Admin: 11/24/19 11:06 Dose: 15 ml Documented by: Oxycodone HCl (Roxicodone -) 5 mg PO Q4H PRN PRN Reason: PAIN LEVEL 6-10 Last Admin: 11/24/19 21:12 Dose: 5 mg Documented by: Silver Sulfadiazine (Silvadene -) 1 applic TP DAILY [facility] Last Admin: 11/24/19 11:09 Dose: 1 applic Documented by: Zinc Sulfate (Orazinc -) 220 mg GT DAILY [facility] Last Admin: 11/24/19 11:08 Dose: 220 mg Documented by: - Objective Vital Signs: Vital Signs Temperature 99.4 F 11/24/19 18:00 Pulse Rate 113 H 11/24/19 21:00 Respiratory Rate 20 11/24/19 21:32 Blood Pressure 100/68 11/24/19 21:00 O2 Sat by Pulse Oximetry (%) 100 11/24/19 18:32 Constitutional: Yes: No Distress Cardiovascular: Yes: Regular Rate and Rhythm, S1, S2 Respiratory: Yes: CTA Bilaterally Gastrointestinal: Yes: Normal Bowel Sounds, Soft Integumentary: Yes: Other (SACRAL DECUBITUS ULCER) Labs: CBC, BMP 11/24/19 05:27 11/24/19 05:27 INR, PTT INR 1.34 (0.83-1.09) H 11/19/19 05:00 Assessment/Plan ANEMIA SECONDARY TO BLEEDING DECUBITUS LEUKOCYTOSIS SACRAL OSTEOMYELITIS LACTIC ACIDOSIS HX MRSA HX COVID-19 CONTINUE DAPTOMYCIN/ MEROPENEM
[2019-11-25] MEDS ORDERED: MEROPENEM 1 GM VIAL (RESTRICTED TO ID) IVPB ONE ×3 (01:06→16:30)
[2019-11-25] MEDS ORDERED: DEXTROSE 5%-WATER 100 ML IVPB ONE ×3 (01:07→16:30)
[2019-11-25] MEDS: MEROPENEM 1 GM in DEXTROSE 5%-WATER 100 ML IVPB SCH ×3 (01:59→17:07)
[2019-11-25] MEDS: ACETAMINOPHEN 650 MG/20.3 ML ORAL SOLUTION (CUPS) GT PRN ×3 (02:14→22:52)
[2019-11-25] MEDS: BANATROL PLUS POWDER PACKET PO SCH ×3 (05:11→21:13)
[2019-11-25] MEDS: GABAPENTIN 250 MG/5 ML ORAL SOLUTION, 470 ML BOTTLE GT SCH ×3 (05:11→21:12)
[2019-11-25 07:49] LABS: BASO % 0.3 % (0-2.0); HEMATOCRIT 27.7 % (35.4-49); LYMPH % 17.4 % (8-40); MCH 28.3 pg (25.7-33.7); MCHC 32.5 g/dl (32.0-35.9); MEAN CELL VOLUME 87.2 fl (80-96); MEAN PLT VOLUME 7.9 fl (7.5-11.1); MONO % 9.6 % (3.8-10.2); NEUT % 69.7 % (42.8-82.8); PLATELET COUNT 657 K/MM3 (134-434); RBC 3.17 M/mm3 (4.00-5.60); RDW 15.7 % (11.9-15.9); WHITE BLOOD COUNT 12.2 K/mm3 (4.0-10.0)
[2019-11-25] MEDS: BUDESONIDE 0.5 MG/2 ML INH SUSP VIAL NEB SCH ×2 (08:02→20:07)
[2019-11-25 08:17] LABS: ALBUMIN 1.8 g/dl (3.4-5.0); ALK PHOS 83 U/L (45-117); ANION GAP 8 MMOL/L (8-16); BILIRUBIN,TOTAL 1.3 mg/dL (0.2-1); BLOOD UREA NITROGEN 12.4 mg/dL (7-18); CALCIUM 7.9 mg/dL (8.5-10.1); CHLORIDE 104 mmol/L (98-107); CO2 31 mmol/L (21-32); CREATININE < 0.2 mg/dL (0.55-1.3); GLUCOSE,RANDOM 79 mg/dL (74-106); POTASSIUM 3.5 mmol/L (3.5-5.1); SGOT/AST 20 U/L (15-37); SGPT/ALT 17 U/L (13-61); SODIUM 142 mmol/L (136-145); TOT PROT 5.2 g/dl (6.4-8.2)
[2019-11-25] MEDS ORDERED: IRON SUCROSE INJECTION 300 MG in SODIUM CHLORIDE 235 ML IVPB ONE (08:48)
[2019-11-25] MEDS: AMINO ACIDS/PROTEIN HYDROLYS 30 ML LIQUID.PKT PO SCH ×2 (10:41→17:06)
[2019-11-25] MEDS: busPIRone HCL 5 MG TABLET GT SCH ×2 (10:42→21:12)
[2019-11-25] MEDS: DAPTOMYCIN 500 MG in SODIUM CHLORIDE 50 ML IVPB SCH (10:42)
[2019-11-25] MEDS: ASCORBIC ACID 500 MG/5 ML UNIT DOSE CUP GT SCH (10:42)
[2019-11-25] MEDS: ZINC SULFATE 220 MG CAPSULE (FP) GT SCH (10:42)
[2019-11-25] MEDS: MAGNESIUM OXIDE 400 MG TABLET (FP) GT SCH ×2 (10:42→21:12)
[2019-11-25] MEDS: FAMOTIDINE 40 MG/5 ML ORAL SUSPENSION PEG SCH (10:43)
[2019-11-25] MEDS: MULTIVIT-MINERALS ORAL LIQUID GT SCH (10:43)
[2019-11-25] MEDS: ESCITALOPRAM OXALATE 5 MG/5 ML GT SCH (10:44)
[2019-11-25] MEDS: SILVER SULFADIAZINE 1% TOP CREAM 50 GM JAR TP SCH (10:44)
[2019-11-25] MEDS: COLLAGENASE CLOSTRIDIUM HIST. 30 GRAMS TUBE TP SCH (10:45)
--- NOTE | 2019-11-25 10:54 | PN ---
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, Physician History of Present Illness: No sig change Still week on [place] arm CT spine not done On the vent - Current Medication List Current Medications: Active Medications Acetaminophen (Tylenol Oral Solution -) 650 mg GT Q6H PRN PRN Reason: fever >100.0F Last Admin: 11/25/19 02:14 Dose: 650 mg Documented by: Albuterol/Ipratropium (Duoneb -) 1 amp NEB Q4H PRN PRN Reason: SHORTNESS OF BREATH Last Admin: 11/21/19 08:15 Dose: 1 amp Documented by: Amino Acids (Prosource No Carb Liquid Pkt) 30 ml PO BID@0800,1730 [facility] Last Admin: 11/25/19 10:41 Dose: 30 ml Documented by: Ascorbic Acid (Vitamin C Oral Solution -) 250 mg GT DAILY [facility] Last Admin: 11/25/19 10:42 Dose: 250 mg Documented by: Banana Based Medical Food (Banatrol Plus Powder Packet) 1 packet PO TID [facility] Last Admin: 11/25/19 05:11 Dose: 1 packet Documented by: Budesonide (Pulmicort 0.5 Mg Nebulizer -) 1 amp NEB RBID [facility] Last Admin: 11/25/19 08:02 Dose: 1 amp Documented by: Buspirone HCl (Buspar -) 5 mg GT BID [facility] Last Admin: 11/25/19 10:42 Dose: 5 mg Documented by: Collagenase (Santyl -) 1 applic TP DAILY [facility]; Protocol Last Admin: 11/25/19 10:45 Dose: 1 applic Documented by: Docusate Sodium (Colace -) 100 mg PO BID PRN PRN Reason: CONSTIPATION Escitalopram Oxalate (Lexapro Oral Solution -) 10 mg GT DAILY [facility] Last Admin: 11/25/19 10:44 Dose: 10 mg Documented by: Famotidine (Pepcid) 20 mg PEG DAILY [facility] Last Admin: 11/25/19 10:43 Dose: 20 mg Documented by: Fentanyl (Duragesic 50mcg Patch -) 1 patch TD Q72H [facility] Stop: 11/27/19 11:45 Last Admin: 11/23/19 11:27 Dose: 1 patch Documented by: Ferrous Sulfate (Feosol) 300 mg GT TID [facility] Gabapentin (Neurontin Oral Liquid -) 200 mg GT TID [facility] Last Admin: 11/25/19 05:11 Dose: 200 mg Documented by: Daptomycin 500 mg/ Sodium (Chloride) 50 mls @ 100 mls/hr IVPB DAILY [facility]; Protocol Last Admin: 11/25/19 10:42 Dose: 100 mls/hr Documented by: Meropenem 1 gm/ Dextrose 100 mls @ 200 mls/hr IVPB Q8H-IV [facility] Last Admin: 11/25/19 10:42 Dose: 200 mls/hr Documented by: Magnesium Oxide (Mag-Ox -) 400 mg GT BID [facility] Last Admin: 11/25/19 10:42 Dose: 400 mg Documented by: Miscellaneous (Duragesic Patch Waste) 1 each MC PRN PRN PRN Reason: PAIN Montelukast Sodium (Singulair -) 5 mg GT HS [facility] Last Admin: 11/24/19 21:03 Dose: 5 mg Documented by: Multivitamins/Minerals (Certavite-Antioxidant Liquid) 15 ml GT DAILY [facility] Last Admin: 11/25/19 10:43 Dose: 15 ml Documented by: Oxycodone HCl (Roxicodone -) 5 mg PO Q4H PRN PRN Reason: PAIN LEVEL 6-10 Last Admin: 11/24/19 21:12 Dose: 5 mg Documented by: Silver Sulfadiazine (Silvadene -) 1 applic TP DAILY [facility] Last Admin: 11/25/19 10:44 Dose: 1 applic Documented by: Zinc Sulfate (Orazinc -) 220 mg GT DAILY [facility] Last Admin: 11/25/19 10:42 Dose: 220 mg Documented by: - Objective Vital Signs: Vital Signs Temperature 98.5 F 11/25/19 06:00 Pulse Rate 107 H 11/25/19 08:30 Respiratory Rate 31 H 11/25/19 08:20 Blood Pressure 104/64 11/25/19 02:00 O2 Sat by Pulse Oximetry (%) 99 11/25/19 08:30 Constitutional: Yes: No Distress Neurological: Yes: Alert, Confusion, Paresthesia Labs: CBC, BMP 11/25/19 06:00 11/25/19 06:00 INR, PTT INR 1.34 (0.83-1.09) H 11/19/19 05:00 Problem List - Problems (1) Left arm weakness Assessment/Plan: NCV upper DVT prophylaxis Follow up with speech path Code(s): R29.898 - [facility] SYMPTOMS AND SIGNS INVOLVING THE MUSCULOSKELETAL SYSTEM
[2019-11-25 11:09] LABS: ANISOCYTOSIS 1+; MACROCYTOSIS 0; PLATELET ESTIMATE INCREASED; TEAR DROP CELLS 1+
--- NOTE | 2019-11-25 12:09 | PN ---
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 (short form) - Note 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: PULMONARY IMV 10/PSV 8 FIO2 40% VT 500 TOLERATING SETTINGS WELL SPO2 99% VSS/AFEBRRILE Constitutional: Yes: Vented, Awake and alert, NAD Eyes: Yes: WNL HENT: Yes: WNL Neck: Yes: Supple (trach) Cardiovascular: Yes: Regular Rate and Rhythm, S1, S2 Respiratory: Yes: Vented, scattered Rhonchi Gastrointestinal: Yes: Normal Bowel Sounds, Soft Extremities: Yes: WNL Edema: No Labs: noted/images reviewed Sepsis due to soft tissue infection/osteomyelitis Chronic Respiratory Failure Asthma HTN DM Functional quadraplegia Stage 4 decubitus ulcer S/P Trach & PEG Adjusting vent as tolerated Wound care ABX per ID IVF Normal transfusion thresholds Follow H & H R JEET FORD
[2019-11-25] MEDS: FERROUS SO4 300 MG/5 ML ORAL SOLN UNIT DOSE CUPS GT SCH ×2 (13:18→21:11)
[2019-11-25] MEDS: oxyCODONE HCL 5 MG TABLET PO PRN ×2 (13:18→20:22)
--- NOTE | 2019-11-25 13:57 | PN ---
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, Physician Chief Complaint: AWAKE ALERT DISCUSSED WITH JULISSA IMPORTANCE OF CONTINUING HIS RESPIRATORY SUPPORT AND TO TAKE OUT AND REMOVE HIS VOCAL VALVE - Current Medication List Current Medications: Active Medications Acetaminophen (Tylenol Oral Solution -) 650 mg GT Q6H PRN PRN Reason: fever >100.0F Last Admin: 11/25/19 02:14 Dose: 650 mg Documented by: Albuterol/Ipratropium (Duoneb -) 1 amp NEB Q4H PRN PRN Reason: SHORTNESS OF BREATH Last Admin: 11/21/19 08:15 Dose: 1 amp Documented by: Amino Acids (Prosource No Carb Liquid Pkt) 30 ml PO BID@0800,1730 [facility] Last Admin: 11/25/19 10:41 Dose: 30 ml Documented by: Ascorbic Acid (Vitamin C Oral Solution -) 250 mg GT DAILY [facility] Last Admin: 11/25/19 10:42 Dose: 250 mg Documented by: Banana Based Medical Food (Banatrol Plus Powder Packet) 1 packet PO TID [facility] Last Admin: 11/25/19 13:19 Dose: 1 packet Documented by: Budesonide (Pulmicort 0.5 Mg Nebulizer -) 1 amp NEB RBID [facility] Last Admin: 11/25/19 08:02 Dose: 1 amp Documented by: Buspirone HCl (Buspar -) 5 mg GT BID [facility] Last Admin: 11/25/19 10:42 Dose: 5 mg Documented by: Collagenase (Santyl -) 1 applic TP DAILY [facility]; Protocol Last Admin: 11/25/19 10:45 Dose: 1 applic Documented by: Docusate Sodium (Colace -) 100 mg PO BID PRN PRN Reason: CONSTIPATION Escitalopram Oxalate (Lexapro Oral Solution -) 10 mg GT DAILY [facility] Last Admin: 11/25/19 10:44 Dose: 10 mg Documented by: Famotidine (Pepcid) 20 mg PEG DAILY [facility] Last Admin: 11/25/19 10:43 Dose: 20 mg Documented by: Fentanyl (Duragesic 50mcg Patch -) 1 patch TD Q72H [facility] Stop: 11/27/19 11:45 Last Admin: 11/23/19 11:27 Dose: 1 patch Documented by: Ferrous Sulfate (Feosol) 300 mg GT TID [facility] Last Admin: 11/25/19 13:18 Dose: 300 mg Documented by: Gabapentin (Neurontin Oral Liquid -) 200 mg GT TID [facility] Last Admin: 11/25/19 05:11 Dose: 200 mg Documented by: Daptomycin 500 mg/ Sodium (Chloride) 50 mls @ 100 mls/hr IVPB DAILY [facility]; Protocol Last Admin: 11/25/19 10:42 Dose: 100 mls/hr Documented by: Meropenem 1 gm/ Dextrose 100 mls @ 200 mls/hr IVPB Q8H-IV [facility] Last Admin: 11/25/19 10:42 Dose: 200 mls/hr Documented by: Magnesium Oxide (Mag-Ox -) 400 mg GT BID [facility] Last Admin: 11/25/19 10:42 Dose: 400 mg Documented by: Miscellaneous (Duragesic Patch Waste) 1 each MC PRN PRN PRN Reason: PAIN Montelukast Sodium (Singulair -) 5 mg GT HS [facility] Last Admin: 11/24/19 21:03 Dose: 5 mg Documented by: Multivitamins/Minerals (Certavite-Antioxidant Liquid) 15 ml GT DAILY [facility] Last Admin: 11/25/19 10:43 Dose: 15 ml Documented by: Oxycodone HCl (Roxicodone -) 5 mg PO Q4H PRN PRN Reason: PAIN LEVEL 6-10 Last Admin: 11/25/19 13:18 Dose: 5 mg Documented by: Silver Sulfadiazine (Silvadene -) 1 applic TP DAILY [facility] Last Admin: 11/25/19 10:44 Dose: 1 applic Documented by: Zinc Sulfate (Orazinc -) 220 mg GT DAILY [facility] Last Admin: 11/25/19 10:42 Dose: 220 mg Documented by: - Objective Vital Signs: Vital Signs Temperature 98.4 F 11/25/19 10:40 Pulse Rate 80 11/25/19 10:40 Respiratory Rate 25 H 11/25/19 13:40 Blood Pressure 104/68 11/25/19 10:40 O2 Sat by Pulse Oximetry (%) 99 11/25/19 13:40 Constitutional: Yes: Mild Distress HENT: Yes: Other (TRACHEOSTOMY) Cardiovascular: Yes: Regular Rate and Rhythm Respiratory: Yes: Mechanically Ventilated Gastrointestinal: Yes: Soft Genitourinary: Yes: Incontinence Musculoskeletal: Yes: Muscle Weakness Wound/Incision: Yes: Dressing Dry and Intact (SACRAL ULCER) Neurological: Yes: Pre-Existing Deficit Labs: CBC, BMP 11/25/19 06:00 11/25/19 06:00 INR, PTT INR 1.34 (0.83-1.09) H 11/19/19 05:00 Problem List - Problems (1) Anemia Code(s): D64.9 - ANEMIA, UNSPECIFIED (2) Decubitus ulcer Code(s): L89.90 - PRESSURE ULCER OF UNSPECIFIED SITE, UNSPECIFIED STAGE Qualifiers: Pressure injury location: sacral region Pressure injury stage: stage 4 Qualified Code(s): L89.154 - Pressure ulcer of sacral region, stage 4 (3) Decubitus ulcer of sacral area Code(s): L89.159 - PRESSURE ULCER OF SACRAL REGION, UNSPECIFIED STAGE (4) Respiratory failure Code(s): J96.90 - RESPIRATORY FAILURE, UNSP, UNSP W HYPOXIA OR HYPERCAPNIA (5) Sepsis Code(s): A41.9 - SEPSIS, UNSPECIFIED ORGANISM Qualifiers: Sepsis type: sepsis due to unspecified organism Sepsis acute organ dysfunction status: without acute organ dysfunction Qualified Code(s): A41.9 - Sepsis, unspecified organism Assessment/Plan IV ABX PER ID TRACHEOSTOMY CARE AND SUPPORT SACRAL ULCER CARE SURGERY F/U APPRECIATED IV ABX PER ID DVT PROPHYLAXIS
[2019-11-25] MEDS ORDERED: PT OWN MED DRAWER 7, Y5N ONE (16:30)
[2019-11-25] MEDS: ALBUTEROL SO4 2.5/IPRATROPIUM 0.5 INH SOL 3 ML VIAL.NEB. NEB PRN (20:07)
[2019-11-25] MEDS: MONTELUKAST NA 10 MG TABLET GT SCH (21:12)
[2019-11-26] MEDS ORDERED: MEROPENEM 1 GM VIAL (RESTRICTED TO ID) IVPB ONE ×3 (01:05→16:31)
[2019-11-26] MEDS ORDERED: DEXTROSE 5%-WATER 100 ML IVPB ONE ×3 (01:05→16:31)
[2019-11-26] MEDS: MEROPENEM 1 GM in DEXTROSE 5%-WATER 100 ML IVPB SCH ×3 (01:45→17:50)
[2019-11-26] MEDS: FERROUS SO4 300 MG/5 ML ORAL SOLN UNIT DOSE CUPS GT SCH ×3 (05:23→22:08)
[2019-11-26] MEDS: BANATROL PLUS POWDER PACKET PO SCH ×3 (05:23→22:09)
[2019-11-26] MEDS: GABAPENTIN 250 MG/5 ML ORAL SOLUTION, 470 ML BOTTLE GT SCH ×3 (05:23→22:08)
[2019-11-26 06:27] LABS: BASO % 0.4 % (0-2.0); EOS % 2.6 % (0-4.5); HEMATOCRIT 27.9 % (35.4-49); HEMOGLOBIN 9.2 GM/dL (11.7-16.9); LYMPH % 11.8 % (8-40); MCH 28.8 pg (25.7-33.7); MCHC 32.9 g/dl (32.0-35.9); MEAN CELL VOLUME 87.5 fl (80-96); MEAN PLT VOLUME 7.5 fl (7.5-11.1); MONO % 9.7 % (3.8-10.2); NEUT % 75.5 % (42.8-82.8); PLATELET COUNT 629 K/MM3 (134-434); RBC 3.18 M/mm3 (4.00-5.60); RDW 15.8 % (11.9-15.9); WHITE BLOOD COUNT 12.9 K/mm3 (4.0-10.0)
[2019-11-26] MEDS: oxyCODONE HCL 5 MG TABLET PO PRN ×2 (06:48→18:29)
[2019-11-26 07:07] LABS: ALBUMIN 1.9 g/dl (3.4-5.0); ALK PHOS 100 U/L (45-117); ANION GAP 7 MMOL/L (8-16); BILIRUBIN,TOTAL 0.7 mg/dL (0.2-1); BLOOD UREA NITROGEN 16.2 mg/dL (7-18); CALCIUM 7.8 mg/dL (8.5-10.1); CHLORIDE 102 mmol/L (98-107); CO2 34 mmol/L (21-32); CREATININE < 0.2 mg/dL (0.55-1.3); GLUCOSE,RANDOM 107 mg/dL (74-106); POTASSIUM 3.3 mmol/L (3.5-5.1); SGOT/AST 15 U/L (15-37); SODIUM 142 mmol/L (136-145)
[2019-11-26 07:15] LABS: SGPT/ALT 14 U/L (13-61); TOT PROT 5.4 g/dl (6.4-8.2)
[2019-11-26] MEDS: BUDESONIDE 0.5 MG/2 ML INH SUSP VIAL NEB SCH ×2 (08:05→20:37)
[2019-11-26 09:53] LABS: ANISOCYTOSIS 0; MACROCYTOSIS 0; PLATELET ESTIMATE INCREASED
[2019-11-26] MEDS ORDERED: PT OWN MED DRAWER 7, Y5N ONE (09:53)
[2019-11-26] MEDS ORDERED: POTASSIUM CHLORIDE ORAL LIQUID 20 MEQ/15 ML GT ONE (09:54)
[2019-11-26] MEDS: busPIRone HCL 5 MG TABLET GT SCH ×2 (10:08→22:07)
[2019-11-26] MEDS: MAGNESIUM OXIDE 400 MG TABLET (FP) GT SCH ×2 (10:08→22:07)
[2019-11-26] MEDS: ZINC SULFATE 220 MG CAPSULE (FP) GT SCH (10:08)
[2019-11-26] MEDS: AMINO ACIDS/PROTEIN HYDROLYS 30 ML LIQUID.PKT PO SCH ×2 (10:09→16:41)
[2019-11-26] MEDS: ASCORBIC ACID 500 MG/5 ML UNIT DOSE CUP GT SCH (10:09)
[2019-11-26] MEDS: ESCITALOPRAM OXALATE 5 MG/5 ML GT SCH (10:09)
[2019-11-26] MEDS: FAMOTIDINE 40 MG/5 ML ORAL SUSPENSION PEG SCH (10:09)
[2019-11-26] MEDS: MULTIVIT-MINERALS ORAL LIQUID GT SCH (10:10)
[2019-11-26] MEDS: SILVER SULFADIAZINE 1% TOP CREAM 50 GM JAR TP SCH (10:10)
[2019-11-26] MEDS: COLLAGENASE CLOSTRIDIUM HIST. 30 GRAMS TUBE TP SCH (10:11)
[2019-11-26] MEDS: SODIUM CHLORIDE 1,000 ML IV SCH (10:30)
--- NOTE | 2019-11-26 11:37 | PN ---
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 (short form) - Note 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: PULMONARY BACK ON CMV PMV TO BE REMOVED VSS/AFEBRRILE Constitutional: Yes: Vented, Awake and alert, NAD Eyes: Yes: WNL HENT: Yes: WNL Neck: Yes: Supple (trach) Cardiovascular: Yes: Regular Rate and Rhythm, S1, S2 Respiratory: Yes: Vented, scattered Rhonchi Gastrointestinal: Yes: Normal Bowel Sounds, Soft Extremities: Yes: WNL Edema: No Labs: noted/images reviewed Sepsis due to soft tissue infection/osteomyelitis Chronic Respiratory Failure trach/vent Asthma HTN DM Functional quadraplegia Stage 4 decubitus ulcer S/P Trach & PEG Adjusting vent as tolerated Wound care ABX per ID IVF Normal transfusion thresholds Follow H & H R JEET FORD
[2019-11-26] MEDS: ACETAMINOPHEN 650 MG/20.3 ML ORAL SOLUTION (CUPS) GT PRN (12:15)
[2019-11-26] MEDS: fentaNYL 50mcg/hr PATCH.TD72 TD SCH (12:15)
[2019-11-26] MEDS: DAPTOMYCIN 500 MG in SODIUM CHLORIDE 50 ML IVPB SCH (12:16)
--- NOTE | 2019-11-26 13:09 | PN ---
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, Physician Chief Complaint: AWAKE BACK ON VENT SUPPORT RESPIRATORY DISTRESS - Current Medication List Current Medications: Active Medications Acetaminophen (Tylenol Oral Solution -) 650 mg GT Q6H PRN PRN Reason: fever >100.0F Last Admin: 11/26/19 12:15 Dose: 650 mg Documented by: Albuterol/Ipratropium (Duoneb -) 1 amp NEB Q4H PRN PRN Reason: SHORTNESS OF BREATH Last Admin: 11/25/19 20:07 Dose: 1 amp Documented by: Amino Acids (Prosource No Carb Liquid Pkt) 30 ml PO BID@0800,1730 [facility] Last Admin: 11/26/19 10:09 Dose: 30 ml Documented by: Ascorbic Acid (Vitamin C Oral Solution -) 250 mg GT DAILY [facility] Last Admin: 11/26/19 10:09 Dose: 250 mg Documented by: Banana Based Medical Food (Banatrol Plus Powder Packet) 1 packet PO TID [facility] Last Admin: 11/26/19 05:23 Dose: 1 packet Documented by: Budesonide (Pulmicort 0.5 Mg Nebulizer -) 1 amp NEB RBID [facility] Last Admin: 11/26/19 08:05 Dose: 1 amp Documented by: Buspirone HCl (Buspar -) 5 mg GT BID [facility] Last Admin: 11/26/19 10:08 Dose: 5 mg Documented by: Collagenase (Santyl -) 1 applic TP DAILY [facility]; Protocol Last Admin: 11/26/19 10:11 Dose: 1 applic Documented by: Docusate Sodium (Colace -) 100 mg PO BID PRN PRN Reason: CONSTIPATION Famotidine (Pepcid) 20 mg PEG DAILY [facility] Last Admin: 11/26/19 10:09 Dose: 20 mg Documented by: Fentanyl (Duragesic 50mcg Patch -) 1 patch TD Q72H [facility] Stop: 11/27/19 11:45 Last Admin: 11/26/19 12:15 Dose: 1 patch Documented by: Ferrous Sulfate (Feosol) 300 mg GT TID [facility] Last Admin: 11/26/19 05:23 Dose: 300 mg Documented by: Gabapentin (Neurontin Oral Liquid -) 200 mg GT TID [facility] Last Admin: 11/26/19 05:23 Dose: 200 mg Documented by: Daptomycin 500 mg/ Sodium (Chloride) 50 mls @ 100 mls/hr IVPB DAILY [facility]; Protocol Last Admin: 11/26/19 12:16 Dose: 100 mls/hr Documented by: Meropenem 1 gm/ Dextrose 100 mls @ 200 mls/hr IVPB Q8H-IV [facility] Last Admin: 11/26/19 10:08 Dose: 200 mls/hr Documented by: Sodium Chloride (Normal Saline -) 1,000 mls @ 75 mls/hr IV ASDIR [facility] Last Admin: 11/26/19 10:30 Dose: 75 mls/hr Documented by: Magnesium Oxide (Mag-Ox -) 400 mg GT BID [facility] Last Admin: 11/26/19 10:08 Dose: 400 mg Documented by: Mirtazapine (Remeron -) 15 mg GT HS [facility] Miscellaneous (Duragesic Patch Waste) 1 each MC PRN PRN PRN Reason: PAIN Last Admin: 11/26/19 12:27 Dose: 1 each Documented by: Montelukast Sodium (Singulair -) 5 mg GT HS [facility] Last Admin: 11/25/19 21:12 Dose: 5 mg Documented by: Multivitamins/Minerals (Certavite-Antioxidant Liquid) 15 ml GT DAILY [facility] Last Admin: 11/26/19 10:10 Dose: 15 ml Documented by: Oxycodone HCl (Roxicodone -) 5 mg PO Q4H PRN PRN Reason: PAIN LEVEL 6-10 Last Admin: 11/26/19 06:48 Dose: 5 mg Documented by: Silver Sulfadiazine (Silvadene -) 1 applic TP DAILY [facility] Last Admin: 11/26/19 10:10 Dose: 1 applic Documented by: Zinc Sulfate (Orazinc -) 220 mg GT DAILY [facility] Last Admin: 11/26/19 10:08 Dose: 220 mg Documented by: - Objective Vital Signs: Vital Signs Temperature 98.9 F 11/26/19 10:00 Pulse Rate 105 H 11/26/19 10:00 Respiratory Rate 26 H 11/26/19 12:00 Blood Pressure 106/60 11/26/19 10:00 O2 Sat by Pulse Oximetry (%) 100 11/26/19 12:00 Constitutional: Yes: Mild Distress Cardiovascular: Yes: Tachycardia Respiratory: Yes: Diminished, Mechanically Ventilated Gastrointestinal: Yes: Soft Genitourinary: Yes: Mora Present Musculoskeletal: Yes: Muscle Weakness Integumentary: Yes: Pressure Ulcer Neurological: Yes: Pre-Existing Deficit ...Motor Strength: LLE, RLE Psychiatric: Yes: Other Labs: CBC, BMP 11/26/19 06:00 11/26/19 06:00 INR, PTT INR 1.34 (0.83-1.09) H 11/19/19 05:00 Problem List - Problems (1) Anemia Code(s): D64.9 - ANEMIA, UNSPECIFIED (2) Decubitus ulcer Code(s): L89.90 - PRESSURE ULCER OF UNSPECIFIED SITE, UNSPECIFIED STAGE Qualifiers: Pressure injury location: sacral region Pressure injury stage: stage 4 Qualified Code(s): L89.154 - Pressure ulcer of sacral region, stage 4 (3) Decubitus ulcer of sacral area Code(s): L89.159 - PRESSURE ULCER OF SACRAL REGION, UNSPECIFIED STAGE (4) Respiratory failure Code(s): J96.90 - RESPIRATORY FAILURE, UNSP, UNSP W HYPOXIA OR HYPERCAPNIA (5) Sepsis Code(s): A41.9 - SEPSIS, UNSPECIFIED ORGANISM Qualifiers: Sepsis type: sepsis due to unspecified organism Sepsis acute organ dysfunction status: without acute organ dysfunction Qualified Code(s): A41.9 - Sepsis, unspecified organism (6) Tachycardia Code(s): R00.0 - TACHYCARDIA, UNSPECIFIED (7) Functional quadriplegia Code(s): R53.2 - FUNCTIONAL QUADRIPLEGIA Assessment/Plan IV ABX PER ID GENTLE HYDRATION FOR TACHYCARDIA LIKELY VOLUME DEPLETED CHECK MORA OUTPUT CXR STAT MONITOR H/H EKG WITH 24 HOUR HOLTER FOR TACHYCARDIA EVAL PULMONARY EVAL APPRECIATED CHECK VENT SUPPORT
[2019-11-26] MEDS: MONTELUKAST NA 10 MG TABLET GT SCH (22:08)
[2019-11-26] MEDS: MIRTAZAPINE 15 MG TABLET (FP) GT SCH (22:08)
[2019-11-27] MEDS ORDERED: MEROPENEM 1 GM VIAL (RESTRICTED TO ID) IVPB ONE ×3 (02:45→18:58)
[2019-11-27] MEDS ORDERED: DEXTROSE 5%-WATER 100 ML IVPB ONE ×3 (02:45→18:58)
[2019-11-27] MEDS: MEROPENEM 1 GM in DEXTROSE 5%-WATER 100 ML IVPB SCH ×3 (02:52→19:33)
[2019-11-27] MEDS: SODIUM CHLORIDE 1,000 ML IV SCH ×2 (02:57→12:11)
[2019-11-27] MEDS: BANATROL PLUS POWDER PACKET PO SCH ×3 (05:24→21:59)
[2019-11-27] MEDS: FERROUS SO4 300 MG/5 ML ORAL SOLN UNIT DOSE CUPS GT SCH ×3 (05:24→21:59)
[2019-11-27] MEDS: GABAPENTIN 250 MG/5 ML ORAL SOLUTION, 470 ML BOTTLE GT SCH ×3 (05:24→22:12)
[2019-11-27] MEDS: ACETAMINOPHEN 650 MG/20.3 ML ORAL SOLUTION (CUPS) GT PRN (05:25)
[2019-11-27] MEDS: oxyCODONE HCL 5 MG TABLET PO PRN ×3 (05:25→21:59)
[2019-11-27 05:52] LABS: BASO % 0.4 % (0-2.0); EOS % 2.4 % (0-4.5); HEMATOCRIT 23.8 % (35.4-49); HEMOGLOBIN 7.8 GM/dL (11.7-16.9); LYMPH % 15.1 % (8-40); MCH 29.4 pg (25.7-33.7); MONO % 8.5 % (3.8-10.2); NEUT % 73.6 % (42.8-82.8); PLATELET COUNT 518 K/MM3 (134-434); RBC 2.67 M/mm3 (4.00-5.60); WHITE BLOOD COUNT 11.3 K/mm3 (4.0-10.0)
[2019-11-27 06:34] LABS: SMUDGE CELLS FEW
[2019-11-27 06:35] LABS: PLATELET ESTIMATE MOD INCREASED
[2019-11-27] MEDS: BUDESONIDE 0.5 MG/2 ML INH SUSP VIAL NEB SCH ×2 (07:40→20:02)
--- NOTE | 2019-11-27 10:01 | PN ---
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, Physician History of Present Illness: pulmonary alert,on vent support ac mode,-resp distress - Current Medication List Current Medications: Active Medications Acetaminophen (Tylenol Oral Solution -) 650 mg GT Q6H PRN PRN Reason: fever >100.0F Last Admin: 11/27/19 05:25 Dose: 650 mg Documented by: Albuterol/Ipratropium (Duoneb -) 1 amp NEB Q4H PRN PRN Reason: SHORTNESS OF BREATH Last Admin: 11/25/19 20:07 Dose: 1 amp Documented by: Amino Acids (Prosource No Carb Liquid Pkt) 30 ml PO BID@0800,1730 [facility] Last Admin: 11/26/19 16:41 Dose: 30 ml Documented by: Ascorbic Acid (Vitamin C Oral Solution -) 250 mg GT DAILY [facility] Last Admin: 11/26/19 10:09 Dose: 250 mg Documented by: Banana Based Medical Food (Banatrol Plus Powder Packet) 1 packet PO TID [facility] Last Admin: 11/27/19 05:24 Dose: 1 packet Documented by: Budesonide (Pulmicort 0.5 Mg Nebulizer -) 1 amp NEB RBID [facility] Last Admin: 11/27/19 07:40 Dose: 1 amp Documented by: Buspirone HCl (Buspar -) 5 mg GT BID [facility] Last Admin: 11/26/19 22:07 Dose: 5 mg Documented by: Collagenase (Santyl -) 1 applic TP DAILY [facility]; Protocol Last Admin: 11/26/19 10:11 Dose: 1 applic Documented by: Docusate Sodium (Colace -) 100 mg PO BID PRN PRN Reason: CONSTIPATION Famotidine (Pepcid) 20 mg PEG DAILY [facility] Last Admin: 11/26/19 10:09 Dose: 20 mg Documented by: Fentanyl (Duragesic 50mcg Patch -) 1 patch TD Q72H [facility] Stop: 11/27/19 11:45 Last Admin: 11/26/19 12:15 Dose: 1 patch Documented by: Ferrous Sulfate (Feosol) 300 mg GT TID [facility] Last Admin: 11/27/19 05:24 Dose: 300 mg Documented by: Gabapentin (Neurontin Oral Liquid -) 200 mg GT TID [facility] Last Admin: 11/27/19 05:24 Dose: 200 mg Documented by: Daptomycin 500 mg/ Sodium (Chloride) 50 mls @ 100 mls/hr IVPB DAILY [facility]; Protocol Last Admin: 11/26/19 12:16 Dose: 100 mls/hr Documented by: Meropenem 1 gm/ Dextrose 100 mls @ 200 mls/hr IVPB Q8H-IV [facility] Last Admin: 11/27/19 02:52 Dose: 200 mls/hr Documented by: Sodium Chloride (Normal Saline -) 1,000 mls @ 75 mls/hr IV ASDIR [facility] Last Admin: 11/27/19 02:57 Dose: 75 mls/hr Documented by: Magnesium Oxide (Mag-Ox -) 400 mg GT BID [facility] Last Admin: 11/26/19 22:07 Dose: 400 mg Documented by: Mirtazapine (Remeron -) 15 mg GT HS [facility] Last Admin: 11/26/19 22:08 Dose: 15 mg Documented by: Miscellaneous (Duragesic Patch Waste) 1 each MC PRN PRN PRN Reason: PAIN Last Admin: 11/26/19 12:27 Dose: 1 each Documented by: Montelukast Sodium (Singulair -) 5 mg GT HS [facility] Last Admin: 11/26/19 22:08 Dose: 5 mg Documented by: Multivitamins/Minerals (Certavite-Antioxidant Liquid) 15 ml GT DAILY [facility] Last Admin: 11/26/19 10:10 Dose: 15 ml Documented by: Oxycodone HCl (Roxicodone -) 5 mg PO Q4H PRN PRN Reason: PAIN LEVEL 6-10 Last Admin: 11/27/19 05:25 Dose: 5 mg Documented by: Silver Sulfadiazine (Silvadene -) 1 applic TP DAILY [facility] Last Admin: 11/26/19 10:10 Dose: 1 applic Documented by: Zinc Sulfate (Orazinc -) 220 mg GT DAILY [facility] Last Admin: 11/26/19 10:08 Dose: 220 mg Documented by: - Objective Vital Signs: Vital Signs Temperature 99.9 F H 11/27/19 06:00 Pulse Rate 102 H 11/27/19 07:40 Respiratory Rate 32 H 11/27/19 09:05 Blood Pressure 106/59 L 11/27/19 06:00 O2 Sat by Pulse Oximetry (%) 100 11/27/19 09:05 Constitutional: Yes: Well Nourished, Calm Eyes: Yes: WNL HENT: Yes: WNL Neck: Yes: Supple (trach) Cardiovascular: Yes: Regular Rate and Rhythm, S1, S2 Respiratory: Yes: Rhonchi (clive rhonchi) Gastrointestinal: Yes: Normal Bowel Sounds, Soft Extremities: Yes: WNL Edema: No Labs: CBC, BMP 11/27/19 05:40 11/26/19 06:00 INR, PTT INR 1.34 (0.83-1.09) H 11/19/19 05:00 Problem List - Problems (1) Anemia Code(s): D64.9 - ANEMIA, UNSPECIFIED (2) Respiratory failure Code(s): J96.90 - RESPIRATORY FAILURE, UNSP, UNSP W HYPOXIA OR HYPERCAPNIA Assessment/Plan Problem List (1) Decubitus ulcer Code(s): L89.90 - PRESSURE ULCER OF UNSPECIFIED SITE, UNSPECIFIED STAGE Qualifiers: Pressure injury location: sacral region Pressure injury stage: stage 4 Qualified Code(s): L89.154 - Pressure ulcer of sacral region, stage 4 (2) HCAP (healthcare-associated pneumonia) Code(s): J18.9 - PNEUMONIA, UNSPECIFIED ORGANISM (3) Sepsis Code(s): A41.9 - SEPSIS, UNSPECIFIED ORGANISM Qualifiers: Sepsis type: sepsis due to unspecified organism Sepsis acute organ dysfunction status: without acute organ dysfunction Qualified Code(s): A41.9 - Sepsis, unspecified organism ASSESSMENT/PLAN: Sepsis due to soft tissue infection/osteomyelitis : R/OPNA Chronic Respiratory Failure Asthma HTN DM Functional quadraplegia Stage 4 decubitus ulcer S/P Trach & PEG ABX per ID IVF Normal transfusion thresholds Follow H & H AC Mode of vent DR JO
--- NOTE | 2019-11-27 10:52 | PN ---
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: Selected Entries 11/25/19 11/25/19 11/25/19 02:00 05:24 06:00 Breakfast Supper Temperature 100.3 F H 98.5 F Pulse Rate 112 H 102 H 108 H Blood Pressure 104/64 11/25/19 11/25/19 11/25/19 08:30 10:40 18:00 Breakfast Supper Temperature 98.4 F 99.2 F Pulse Rate 107 H 80 118 H Blood Pressure 104/68 111/69 11/25/19 11/25/19 11/26/19 20:04 20:08 02:00 Breakfast Supper Temperature 100 F H 98.5 F Pulse Rate 107 H 102 H 102 H Blood Pressure 106/65 106/71 11/26/19 11/26/19 11/26/19 05:03 08:15 10:00 Breakfast Supper Temperature 99.3 F 98.9 F Pulse Rate 102 H 96 H 105 H Blood Pressure 107/64 106/60 11/26/19 11/26/19 11/26/19 15:44 18:00 22:00 Breakfast NPO Supper 25% Temperature 98.5 F 98.9 F Pulse Rate 96 H 103 H Blood Pressure 111/74 98/63 11/27/19 11/27/19 11/27/19 02:00 06:00 07:40 Breakfast Supper Temperature 100.1 F H 99.9 F H Pulse Rate 105 H 112 H 102 H Blood Pressure 93/56 L 106/59 L Laboratory Tests 11/23/19 11/24/19 11/25/19 13:12 05:27 06:00 WBC 13.2 H 10.7 H 12.2 H 11/26/19 11/27/19 06:00 05:40 WBC 12.9 H 11.3 H Pt was tolerating PMV, but only 30 min this am. because he was tachycardic. Back on pmv now. Pt had been anxious with intermittent PO acceptance, intermittent. Nocturnal TF. Less anxious woth medical mgmt. Had 50% of lunch today. CXR worse progressive changes Monitor po tolerance
--- NOTE | 2019-11-27 10:52 | PN ---
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, Physician Chief Complaint: Anemia Sepsis Chronic respiratory failure Hypokalemia Hypomagnesemia History of Present Illness: 49yM w PMHx asthma, HTN, IDDM, functional quadriplegia, MRSA, osteomyelitis sta ge 4 sacral ulcer, vented on trach, PEG tube, on eliquis presenting from [facility] due to tachycardia, hypotension, fevers and active bleeding from his sacral ulcer and was also found to be in respiratory distress. Patient started having active bleeding from his sacral ulcer. Of note patient was started on daptomycin and meropenem on 11/10 through a PICC line in right arm due to osteomyelitis on his sacrum. When EMS was called patient was found to be hypotensive, tachycardic and in respiratory distress- in the ED vital signs: T. 101.2 HR 100 BP 87/59 WBC 17.8 Hgb 7.4 K 5.3 CR 0.4 Lactic acid 4.3 CXR shows patchy infiltrates- blood, wound, and urine cx were taken. In the ED the patient was given 2L, vanc/zosyn/azithro/solumedrol Pelvic CT showed evidence of osteomyletis. A bx was previously done at [facility] and [facility]. Lactic Acid trended down, and respirator y status improved. Over the course of treatment, the patient required repletion of his Potassium as well as 3 unit of PRBCs. Consult by surgery will administer a wound vac to promote better healing. 11/27/19: NAD alert and oriented x 3 verbal On AC Did well on MBS Nursing staff encouraged to use PMV as much as patient can tolerate On IV abx for osteo-meropenem and dapto. Febrile overnight EMG was abnormal Seen by Neurology CT C spine pending - Current Medication List Current Medications: Active Medications Acetaminophen (Tylenol Oral Solution -) 650 mg GT Q6H PRN PRN Reason: fever >100.0F Last Admin: 11/27/19 05:25 Dose: 650 mg Documented by: Albuterol/Ipratropium (Duoneb -) 1 amp NEB Q4H PRN PRN Reason: SHORTNESS OF BREATH Last Admin: 11/25/19 20:07 Dose: 1 amp Documented by: Amino Acids (Prosource No Carb Liquid Pkt) 30 ml PO BID@0800,1730 [facility] Last Admin: 11/26/19 16:41 Dose: 30 ml Documented by: Ascorbic Acid (Vitamin C Oral Solution -) 250 mg GT DAILY [facility] Last Admin: 11/26/19 10:09 Dose: 250 mg Documented by: Banana Based Medical Food (Banatrol Plus Powder Packet) 1 packet PO TID [facility] Last Admin: 11/27/19 05:24 Dose: 1 packet Documented by: Budesonide (Pulmicort 0.5 Mg Nebulizer -) 1 amp NEB RBID [facility] Last Admin: 11/27/19 07:40 Dose: 1 amp Documented by: Buspirone HCl (Buspar -) 5 mg GT BID [facility] Last Admin: 11/26/19 22:07 Dose: 5 mg Documented by: Collagenase (Santyl -) 1 applic TP DAILY [facility]; Protocol Last Admin: 11/26/19 10:11 Dose: 1 applic Documented by: Docusate Sodium (Colace -) 100 mg PO BID PRN PRN Reason: CONSTIPATION Famotidine (Pepcid) 20 mg PEG DAILY [facility] Last Admin: 11/26/19 10:09 Dose: 20 mg Documented by: Fentanyl (Duragesic 50mcg Patch -) 1 patch TD Q72H [facility] Stop: 11/27/19 11:45 Last Admin: 11/26/19 12:15 Dose: 1 patch Documented by: Ferrous Sulfate (Feosol) 300 mg GT TID [facility] Last Admin: 11/27/19 05:24 Dose: 300 mg Documented by: Furosemide (Lasix Injection -) 40 mg IVPUSH ONCE ONE Stop: 11/27/19 10:47 Gabapentin (Neurontin Oral Liquid -) 200 mg GT TID [facility] Last Admin: 11/27/19 05:24 Dose: 200 mg Documented by: Daptomycin 500 mg/ Sodium (Chloride) 50 mls @ 100 mls/hr IVPB DAILY [facility]; Protocol Last Admin: 11/26/19 12:16 Dose: 100 mls/hr Documented by: Meropenem 1 gm/ Dextrose 100 mls @ 200 mls/hr IVPB Q8H-IV [facility] Last Admin: 11/27/19 02:52 Dose: 200 mls/hr Documented by: Magnesium Oxide (Mag-Ox -) 400 mg GT BID [facility] Last Admin: 11/26/19 22:07 Dose: 400 mg Documented by: Mirtazapine (Remeron -) 15 mg GT HS [facility] Last Admin: 11/26/19 22:08 Dose: 15 mg Documented by: Miscellaneous (Duragesic Patch Waste) 1 each MC PRN PRN PRN Reason: PAIN Last Admin: 11/26/19 12:27 Dose: 1 each Documented by: Montelukast Sodium (Singulair -) 5 mg GT HS [facility] Last Admin: 11/26/19 22:08 Dose: 5 mg Documented by: Multivitamins/Minerals (Certavite-Antioxidant Liquid) 15 ml GT DAILY [facility] Last Admin: 11/26/19 10:10 Dose: 15 ml Documented by: Oxycodone HCl (Roxicodone -) 5 mg PO Q4H PRN PRN Reason: PAIN LEVEL 6-10 Last Admin: 11/27/19 05:25 Dose: 5 mg Documented by: Silver Sulfadiazine (Silvadene -) 1 applic TP DAILY [facility] Last Admin: 11/26/19 10:10 Dose: 1 applic Documented by: Zinc Sulfate (Orazinc -) 220 mg GT DAILY [facility] Last Admin: 11/26/19 10:08 Dose: 220 mg Documented by: - Objective Vital Signs: Vital Signs Temperature 99.9 F H 11/27/19 06:00 Pulse Rate 102 H 11/27/19 07:40 Respiratory Rate 32 H 11/27/19 09:05 Blood Pressure 106/59 L 11/27/19 06:00 O2 Sat by Pulse Oximetry (%) 100 11/27/19 09:05 Constitutional: Yes: Well Nourished, No Distress, Calm Cardiovascular: Yes: Regular Rate and Rhythm Respiratory: Yes: Regular, Mechanically Ventilated, Rhonchi Gastrointestinal: Yes: Normal Bowel Sounds, Soft, Other (diarrhea) Genitourinary: Yes: [place] Present Musculoskeletal: Yes: Muscle Weakness Extremities: Yes: WNL Edema: No Peripheral Pulses WNL: Yes Neurological: Yes: Alert, Oriented Psychiatric: Yes: Alert, Oriented Labs: CBC, BMP 11/27/19 05:40 11/26/19 06:00 INR, PTT INR 1.34 (0.83-1.09) H 11/19/19 05:00 Problem List - Problems (1) Chronic respiratory failure Assessment/Plan: -[facility] vent -Pulmonary on board -Bronchodilators -Wean daily -PMV daily as tolerated -Passed MBS -PO feeds with dysphagia puree + nectar thick liquids + Night feeds through PEG -CXR + congestion -D/C IVF -Furosemide once -Repeat CXR in AM Problems reviewed: Yes Code(s): J96.10 - CHRONIC RESPIRATORY FAILURE, UNSP W HYPOXIA OR HYPERCAPNIA (2) Ulcer of sacral region, stage 4 Assessment/Plan: -Seen by Vascular surgery -Wound vac applied -Continue wound vac, change Q72 with black foam dressing- last changed on 11/21/19 -Offloading. Please do not place pt on his back, only turn patient from left to right -IV abx meropenem + Daptomycin for 6 weeks till 12/23/19 Problems reviewed: Yes Code(s): L98.429 - NON-PRESSURE CHRONIC ULCER OF BACK WITH UNSPECIFIED SEVERITY (3) Anemia Assessment/Plan: -2/2 to acute blood loss through sacral stage 4 decubitus ulcer -4 units of PRBC this admission -Iron stores low -Injectafer once today again -B12 and thyroid profile-normal -Monitor trend -Hold Eliquis for now -Monitor Serial CBC's Problems reviewed: Yes Code(s): D64.9 - ANEMIA, UNSPECIFIED (4) Sepsis Assessment/Plan: -resolved -IV abx -ID on board -febrile overnight, afebrile now Problems reviewed: Yes Code(s): A41.9 - SEPSIS, UNSPECIFIED ORGANISM Qualifiers: Sepsis type: sepsis due to unspecified organism Sepsis acute organ dysfunction status: without acute organ dysfunction Qualified Code(s): A41.9 - Sepsis, unspecified organism (5) History of pulmonary embolism Assessment/Plan: -2/2 to COVID 19 in the past -Hold AC due to acute bleeding -Can be off AC altogether, as he has been on it for 3 months since COVID 19 and PE occurrence Problems reviewed: Yes Code(s): Z86.711 - PERSONAL HISTORY OF PULMONARY EMBOLISM (6) Hypomagnesemia Assessment/Plan: -Mgox 400 mg GT bid Problems reviewed: Yes Code(s): E83.42 - HYPOMAGNESEMIA (7) Hypokalemia Assessment/Plan: -awaiting repeat cmp Problems reviewed: Yes Code(s): E87.6 - HYPOKALEMIA (8) Functional quadriplegia Problems reviewed: Yes Code(s): R53.2 - FUNCTIONAL QUADRIPLEGIA Assessment/Plan See problem list
[2019-11-27] MEDS ORDERED: PT OWN MED DRAWER 7, Y5N ONE ×2 (12:04→21:50)
[2019-11-27] MEDS ORDERED: FUROSEMIDE 40 MG/4 ML INJECTABLE VIAL IVPUSH ONE (12:15)
[2019-11-27] MEDS: DAPTOMYCIN 500 MG in SODIUM CHLORIDE 50 ML IVPB SCH (12:20)
[2019-11-27] MEDS: FAMOTIDINE 40 MG/5 ML ORAL SUSPENSION PEG SCH (12:22)
[2019-11-27] MEDS: ASCORBIC ACID 500 MG/5 ML UNIT DOSE CUP GT SCH (12:22)
[2019-11-27] MEDS: busPIRone HCL 5 MG TABLET GT SCH ×2 (12:22→21:59)
[2019-11-27] MEDS: MAGNESIUM OXIDE 400 MG TABLET (FP) GT SCH (12:22)
[2019-11-27] MEDS: MULTIVIT-MINERALS ORAL LIQUID GT SCH (12:23)
[2019-11-27] MEDS: ZINC SULFATE 220 MG CAPSULE (FP) GT SCH (12:23)
[2019-11-27] MEDS: AMINO ACIDS/PROTEIN HYDROLYS 30 ML LIQUID.PKT PO SCH ×2 (12:25→19:34)
[2019-11-27] MEDS ORDERED: FERRIC CARBOXYMALTOSE 750 MG in SODIUM CHLORIDE 250 ML IVPB ONE (12:26)
[2019-11-27 13:24] LABS: HEMATOCRIT 27.9 % (35.4-49); HEMOGLOBIN 8.9 GM/dL (11.7-16.9); MCH 28.6 pg (25.7-33.7); MCHC 32.1 g/dl (32.0-35.9); MEAN CELL VOLUME 89.1 fl (80-96); MEAN PLT VOLUME 7.4 fl (7.5-11.1); PLATELET COUNT 558 K/MM3 (134-434); RBC 3.13 M/mm3 (4.00-5.60); RDW 16.2 % (11.9-15.9); WHITE BLOOD COUNT 14.5 K/mm3 (4.0-10.0)
[2019-11-27 14:00] LABS: ALBUMIN 1.8 g/dl (3.4-5.0); ALK PHOS 87 U/L (45-117); ANION GAP 8 MMOL/L (8-16); BILIRUBIN,TOTAL 0.4 mg/dL (0.2-1); BLOOD UREA NITROGEN 11.7 mg/dL (7-18); CALCIUM 8.1 mg/dL (8.5-10.1); CHLORIDE 106 mmol/L (98-107); CO2 29 mmol/L (21-32); GLUCOSE,RANDOM 91 mg/dL (74-106); MAGNESIUM 1.8 mg/dL (1.8-2.4); SGOT/AST 15 U/L (15-37); SGPT/ALT 12 U/L (13-61); SODIUM 143 mmol/L (136-145); TOT PROT 5.2 g/dl (6.4-8.2)
--- NOTE | 2019-11-27 14:16 | PN ---
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, Physician History of Present Illness: AWAKE,ALERT C/O SACRAL PAIN LOW GRADE TEMPS WBC REMAINS SL ELEVATED SPUTUM C/S MIXED GRAM NEG LIKELY COLONIZATION - Current Medication List Current Medications: Active Medications Acetaminophen (Tylenol Oral Solution -) 650 mg GT Q6H PRN PRN Reason: fever >100.0F Last Admin: 11/27/19 05:25 Dose: 650 mg Documented by: Albuterol/Ipratropium (Duoneb -) 1 amp NEB Q4H PRN PRN Reason: SHORTNESS OF BREATH Last Admin: 11/25/19 20:07 Dose: 1 amp Documented by: Amino Acids (Prosource No Carb Liquid Pkt) 30 ml PO BID@0800,1730 [facility] Last Admin: 11/27/19 12:25 Dose: 30 ml Documented by: Ascorbic Acid (Vitamin C Oral Solution -) 250 mg GT DAILY [facility] Last Admin: 11/27/19 12:22 Dose: 250 mg Documented by: Banana Based Medical Food (Banatrol Plus Powder Packet) 1 packet PO TID [facility] Last Admin: 11/27/19 13:43 Dose: 1 packet Documented by: Budesonide (Pulmicort 0.5 Mg Nebulizer -) 1 amp NEB RBID [facility] Last Admin: 11/27/19 07:40 Dose: 1 amp Documented by: Buspirone HCl (Buspar -) 5 mg GT BID [facility] Last Admin: 11/27/19 12:22 Dose: 5 mg Documented by: Collagenase (Santyl -) 1 applic TP DAILY [facility]; Protocol Last Admin: 11/26/19 10:11 Dose: 1 applic Documented by: Docusate Sodium (Colace -) 100 mg PO BID PRN PRN Reason: CONSTIPATION Famotidine (Pepcid) 20 mg PEG DAILY [facility] Last Admin: 11/27/19 12:22 Dose: 20 mg Documented by: Ferrous Sulfate (Feosol) 300 mg GT TID [facility] Last Admin: 11/27/19 13:43 Dose: 300 mg Documented by: Gabapentin (Neurontin Oral Liquid -) 200 mg GT TID [facility] Last Admin: 11/27/19 13:43 Dose: 200 mg Documented by: Daptomycin 500 mg/ Sodium (Chloride) 50 mls @ 100 mls/hr IVPB DAILY [facility]; Protocol Last Admin: 11/27/19 12:20 Dose: 100 mls/hr Documented by: Meropenem 1 gm/ Dextrose 100 mls @ 200 mls/hr IVPB Q8H-IV [facility] Last Admin: 11/27/19 13:43 Dose: 200 mls/hr Documented by: Magnesium Oxide (Mag-Ox -) 400 mg GT BID [facility] Last Admin: 11/27/19 12:22 Dose: 400 mg Documented by: Mirtazapine (Remeron -) 15 mg GT HS [facility] Last Admin: 11/26/19 22:08 Dose: 15 mg Documented by: Miscellaneous (Duragesic Patch Waste) 1 each MC PRN PRN PRN Reason: PAIN Last Admin: 11/26/19 12:27 Dose: 1 each Documented by: Montelukast Sodium (Singulair -) 5 mg GT HS [facility] Last Admin: 11/26/19 22:08 Dose: 5 mg Documented by: Multivitamins/Minerals (Certavite-Antioxidant Liquid) 15 ml GT DAILY [facility] Last Admin: 11/27/19 12:23 Dose: 15 ml Documented by: Oxycodone HCl (Roxicodone -) 5 mg PO Q4H PRN PRN Reason: PAIN LEVEL 6-10 Last Admin: 11/27/19 12:24 Dose: 5 mg Documented by: Silver Sulfadiazine (Silvadene -) 1 applic TP DAILY [facility] Last Admin: 11/26/19 10:10 Dose: 1 applic Documented by: Zinc Sulfate (Orazinc -) 220 mg GT DAILY [facility] Last Admin: 11/27/19 12:23 Dose: 220 mg Documented by: - Objective Vital Signs: Vital Signs Temperature 99.9 F H 11/27/19 06:00 Pulse Rate 102 H 11/27/19 14:07 Respiratory Rate 30 H 11/27/19 14:07 Blood Pressure 106/59 L 11/27/19 06:00 O2 Sat by Pulse Oximetry (%) 100 11/27/19 14:07 Cardiovascular: Yes: Regular Rate and Rhythm, S1, S2 Respiratory: Yes: Mechanically Ventilated Gastrointestinal: Yes: Normal Bowel Sounds, Soft. No: Tenderness Edema: Yes Integumentary: Yes: Other (VAC IN PLACE, SACRUM) Labs: CBC, BMP 11/27/19 12:55 11/27/19 12:55 INR, PTT INR 1.34 (0.83-1.09) H 11/19/19 05:00 Assessment/Plan ANEMIA SECONDARY TO BLEEDING DECUBITUS LEUKOCYTOSIS SACRAL OSTEOMYELITIS LACTIC ACIDOSIS HX MRSA HX COVID-19 CONTINUE DAPTOMYCIN/ MEROPENEM WHEN CLEARED FOR D/C BACK TO SNF, COMPLETE 6W COURSE OF DAPTOMYCIN/ MEROPENEM PREVIOUSLY PRESCRIBED
[2019-11-27 14:19] LABS: CREATININE < 0.2 mg/dL (0.55-1.3)
--- NOTE | 2019-11-27 18:24 | EKG ---
Test Reason : Blood Pressure : / mmHG Vent. Rate : 097 BPM Atrial Rate : 097 BPM P-R Int : 128 ms QRS Dur : 084 ms QT Int : 342 ms P-R-T Axes : 011 -24 003 degrees QTc Int : 434 ms NORMAL SINUS RHYTHM MINIMAL VOLTAGE CRITERIA FOR LVH, MAY BE NORMAL VARIANT BORDERLINE ECG WHEN COMPARED WITH ECG OF 18-NOV-2019 20:47, NO SIGNIFICANT CHANGE WAS FOUND Confirmed by EMERITA FORD, NIESHA ([id number]) on 11/27/2019 6:24:19 PM Referred By: Bryon LUKE Confirmed By:NIESHA FELDER MD
[2019-11-27] MEDS: SILVER SULFADIAZINE 1% TOP CREAM 50 GM JAR TP SCH (19:31)
[2019-11-27] MEDS: COLLAGENASE CLOSTRIDIUM HIST. 30 GRAMS TUBE TP SCH (19:31)
[2019-11-27] MEDS: ALBUTEROL SO4 2.5/IPRATROPIUM 0.5 INH SOL 3 ML VIAL.NEB. NEB PRN (20:03)
[2019-11-27] MEDS: MIRTAZAPINE 15 MG TABLET (FP) GT SCH (21:59)
[2019-11-27] MEDS: MONTELUKAST NA 5 MG TAB.CHEW GT SCH (22:00)
[2019-11-28] MEDS ORDERED: DEXTROSE 5%-WATER 100 ML IVPB ONE ×3 (01:45→16:58)
[2019-11-28] MEDS ORDERED: MEROPENEM 1 GM VIAL (RESTRICTED TO ID) IVPB ONE ×3 (01:45→16:58)
[2019-11-28] MEDS: MEROPENEM 1 GM in DEXTROSE 5%-WATER 100 ML IVPB SCH ×3 (02:03→17:30)
[2019-11-28] MEDS: oxyCODONE HCL 5 MG TABLET PO PRN ×3 (02:44→18:33)
[2019-11-28] MEDS: GABAPENTIN 250 MG/5 ML ORAL SOLUTION, 470 ML BOTTLE GT SCH ×3 (05:06→21:22)
[2019-11-28] MEDS: BANATROL PLUS POWDER PACKET PO SCH ×3 (05:06→21:21)
[2019-11-28] MEDS: FERROUS SO4 300 MG/5 ML ORAL SOLN UNIT DOSE CUPS GT SCH ×3 (05:06→21:21)
[2019-11-28 05:37] LABS: BASO % 0.8 % (0-2.0); EOS % 1.9 % (0-4.5); HEMOGLOBIN 8.5 GM/dL (11.7-16.9); LYMPH % 15.2 % (8-40); MCH 28.9 pg (25.7-33.7); MCHC 32.6 g/dl (32.0-35.9); MEAN CELL VOLUME 88.6 fl (80-96); MEAN PLT VOLUME 7.2 fl (7.5-11.1); MONO % 6.9 % (3.8-10.2); NEUT % 75.2 % (42.8-82.8); PLATELET COUNT 530 K/MM3 (134-434); RBC 2.94 M/mm3 (4.00-5.60); WHITE BLOOD COUNT 13.2 K/mm3 (4.0-10.0)
[2019-11-28 06:47] LABS: ALBUMIN 1.8 g/dl (3.4-5.0); BILIRUBIN,TOTAL 0.4 mg/dL (0.2-1); BLOOD UREA NITROGEN 13.2 mg/dL (7-18); CALCIUM 7.8 mg/dL (8.5-10.1); CREATININE 0.2 mg/dL (0.55-1.3); POTASSIUM 3.8 mmol/L (3.5-5.1); TOT PROT 5.1 g/dl (6.4-8.2)
[2019-11-28] MEDS: BUDESONIDE 0.5 MG/2 ML INH SUSP VIAL NEB SCH ×2 (07:40→20:30)
[2019-11-28 09:35] LABS: ANISOCYTOSIS 0; MACROCYTOSIS 0; PLATELET ESTIMATE INCREASED; TARGET CELLS 0
--- NOTE | 2019-11-28 10:23 | PN ---
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, Physician History of Present Illness: PULMONARY ALERT,COMFORTABLE,-RESP DISTRESS,ON VENT SUPPORT AC MODE - Current Medication List Current Medications: Active Medications Acetaminophen (Tylenol Oral Solution -) 650 mg GT Q6H PRN PRN Reason: fever >100.0F Last Admin: 11/27/19 05:25 Dose: 650 mg Documented by: Albuterol/Ipratropium (Duoneb -) 1 amp NEB Q4H PRN PRN Reason: SHORTNESS OF BREATH Last Admin: 11/27/19 20:03 Dose: 1 amp Documented by: Amino Acids (Prosource No Carb Liquid Pkt) 30 ml PO BID@0800,1730 [facility] Last Admin: 11/27/19 19:34 Dose: 30 ml Documented by: Ascorbic Acid (Vitamin C Oral Solution -) 250 mg GT DAILY [facility] Last Admin: 11/27/19 12:22 Dose: 250 mg Documented by: Banana Based Medical Food (Banatrol Plus Powder Packet) 1 packet PO TID [facility] Last Admin: 11/28/19 05:06 Dose: 1 packet Documented by: Budesonide (Pulmicort 0.5 Mg Nebulizer -) 1 amp NEB RBID [facility] Last Admin: 11/28/19 07:40 Dose: 1 amp Documented by: Buspirone HCl (Buspar -) 10 mg GT BID [facility] Last Admin: 11/27/19 21:59 Dose: 10 mg Documented by: Collagenase (Santyl -) 1 applic TP DAILY [facility]; Protocol Last Admin: 11/27/19 19:31 Dose: 1 applic Documented by: Famotidine (Pepcid) 20 mg PEG DAILY [facility] Last Admin: 11/27/19 12:22 Dose: 20 mg Documented by: Ferrous Sulfate (Feosol) 300 mg GT TID [facility] Last Admin: 11/28/19 05:06 Dose: 300 mg Documented by: Gabapentin (Neurontin Oral Liquid -) 200 mg GT TID [facility] Last Admin: 11/28/19 05:06 Dose: 200 mg Documented by: Daptomycin 500 mg/ Sodium (Chloride) 50 mls @ 100 mls/hr IVPB DAILY [facility]; Protocol Last Admin: 11/27/19 12:20 Dose: 100 mls/hr Documented by: Meropenem 1 gm/ Dextrose 100 mls @ 200 mls/hr IVPB Q8H-IV [facility] Last Admin: 11/28/19 02:03 Dose: 200 mls/hr Documented by: Mirtazapine (Remeron -) 15 mg GT HS [facility] Last Admin: 11/27/19 21:59 Dose: 15 mg Documented by: Miscellaneous (Duragesic Patch Waste) 1 each MC PRN PRN PRN Reason: PAIN Last Admin: 11/26/19 12:27 Dose: 1 each Documented by: Montelukast Sodium (Singulair -) 10 mg GT HS [facility] Last Admin: 11/27/19 22:00 Dose: 10 mg Documented by: Multivitamins/Minerals (Certavite-Antioxidant Liquid) 15 ml GT DAILY [facility] Last Admin: 11/27/19 12:23 Dose: 15 ml Documented by: Oxycodone HCl (Roxicodone -) 5 mg PO Q4H PRN PRN Reason: PAIN LEVEL 6-10 Last Admin: 11/28/19 02:44 Dose: 5 mg Documented by: Silver Sulfadiazine (Silvadene -) 1 applic TP DAILY [facility] Last Admin: 11/27/19 19:31 Dose: 1 applic Documented by: - Objective Vital Signs: Vital Signs Temperature 99.3 F 11/28/19 06:00 Pulse Rate 100 H 11/28/19 07:40 Respiratory Rate 27 H 11/28/19 07:40 Blood Pressure 100/59 L 11/28/19 06:00 O2 Sat by Pulse Oximetry (%) 98 11/28/19 07:40 Constitutional: Yes: Well Nourished, Calm Eyes: Yes: WNL HENT: Yes: WNL Neck: Yes: Supple (TRACH) Cardiovascular: Yes: Regular Rate and Rhythm, S1, S2 Respiratory: Yes: Rhonchi (SCATTEREDD RHONCHI) Gastrointestinal: Yes: Normal Bowel Sounds, Soft Extremities: Yes: WNL Edema: No Labs: CBC, BMP 11/28/19 05:25 11/28/19 05:25 INR, PTT INR 1.34 (0.83-1.09) H 11/19/19 05:00 - ....Imaging Chest X-ray: Image Reviewed Problem List - Problems (1) Anemia Code(s): D64.9 - ANEMIA, UNSPECIFIED (2) Respiratory failure Code(s): J96.90 - RESPIRATORY FAILURE, UNSP, UNSP W HYPOXIA OR HYPERCAPNIA Assessment/Plan Problem List (1) Decubitus ulcer Code(s): L89.90 - PRESSURE ULCER OF UNSPECIFIED SITE, UNSPECIFIED STAGE Qualifiers: Pressure injury location: sacral region Pressure injury stage: stage 4 Qualified Code(s): L89.154 - Pressure ulcer of sacral region, stage 4 (2) HCAP (healthcare-associated pneumonia) Code(s): J18.9 - PNEUMONIA, UNSPECIFIED ORGANISM (3) Sepsis Code(s): A41.9 - SEPSIS, UNSPECIFIED ORGANISM Qualifiers: Sepsis type: sepsis due to unspecified organism Sepsis acute organ dysfunction status: without acute organ dysfunction Qualified Code(s): A41.9 - Sepsis, unspecified organism ASSESSMENT/PLAN: Sepsis due to soft tissue infection/osteomyelitis : R/OPNA Chronic Respiratory Failure Asthma HTN DM Functional quadraplegia Stage 4 decubitus ulcer S/P Trach & PEG ABX per ID Normal transfusion thresholds Follow H & H AC Mode of vent DR JO
[2019-11-28] MEDS ORDERED: PT OWN MED DRAWER 7, Y5N ONE (10:43)
[2019-11-28] MEDS: AMINO ACIDS/PROTEIN HYDROLYS 30 ML LIQUID.PKT PO SCH ×2 (10:44→17:30)
--- NOTE | 2019-11-28 10:44 | PN ---
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, CRITICAL CARE CLINICAL NURSE SPECIALIST - Note 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: Selected Entries 11/25/19 11/25/19 11/25/19 02:00 10:40 18:00 Breakfast Lunch Supper Temperature Pulse Rate Blood Pressure Blood Pressure 75 80 83 Mean Blood Pressure Position O2 Sat by Pulse Oximetry (%) Oxygen Delivery Method 11/25/19 11/26/19 11/26/19 20:04 02:00 05:03 Breakfast Lunch Supper Temperature Pulse Rate Blood Pressure 106/71 107/64 Blood Pressure 78 82 78 Mean Blood Pressure Supine Supine Position O2 Sat by Pulse Oximetry (%) Oxygen Delivery Method 11/26/19 11/26/19 11/26/19 10:00 18:00 22:00 Breakfast Lunch Supper Temperature Pulse Rate Blood Pressure 106/60 111/74 98/63 Blood Pressure 77 Mean Blood Pressure Sitting Sitting Supine Position O2 Sat by Pulse Oximetry (%) Oxygen Delivery Method 11/27/19 11/27/19 11/27/19 02:00 06:00 07:40 Breakfast Lunch Supper Temperature 100.1 F H 99.9 F H Pulse Rate 105 H 112 H 102 H Blood Pressure 93/56 L 106/59 L Blood Pressure 66 74 Mean Blood Pressure Supine Supine Position O2 Sat by Pulse Oximetry (%) Oxygen Delivery Method 11/27/19 11/27/19 11/27/19 10:00 11:32 11:53 Breakfast 50% Lunch Supper Temperature 99.2 F Pulse Rate 97 H 100 H Blood Pressure 102/70 Blood Pressure 80 Mean Blood Pressure Supine Position O2 Sat by Pulse Oximetry (%) Oxygen Delivery Method 11/27/19 11/27/19 11/27/19 12:20 14:07 14:16 Breakfast Lunch 50% Supper Temperature 98.6 F Pulse Rate 102 H 113 H Blood Pressure 113/74 Blood Pressure Mean Blood Pressure Supine Position O2 Sat by Pulse Oximetry (%) Oxygen Delivery Method 11/27/19 11/27/19 11/27/19 17:53 20:34 23:29 Breakfast Lunch Supper 50% Temperature 99.0 F 98.4 F Pulse Rate 95 H 129 H Blood Pressure 99/63 92/55 L Blood Pressure 76 68 Mean Blood Pressure Supine Supine Position O2 Sat by Pulse Oximetry (%) Oxygen Delivery Method 11/28/19 11/28/19 11/28/19 00:00 01:05 04:50 Breakfast Lunch Supper Temperature 100.2 F H Pulse Rate 109 H Blood Pressure 100/68 Blood Pressure 78 Mean Blood Pressure Position O2 Sat by Pulse 100 100 100 Oximetry (%) Oxygen Delivery Method 11/28/19 11/28/19 06:00 07:40 Breakfast Lunch Supper Temperature 99.3 F Pulse Rate 101 H 100 H Blood Pressure 100/59 L Blood Pressure 75 Mean Blood Pressure Position O2 Sat by Pulse 100 98 Oximetry (%) Oxygen Delivery Mechanical Method Ventilator Laboratory Tests 11/26/19 11/27/19 11/28/19 06:00 05:40 05:25 WBC 12.9 H 11.3 H 13.2 H Appetite improving to 50% Encourage supplements b/n meals, using PMV Pt asks to be taken off PMV, o2 at 100, RR31, peep off Discussed with RD-Pt with multiple pressure ulcers and wound vac, with increased nutrition need for wound healing. n Not ready for GT weaning Trial Dys chopped with tuna, egg salad, chicken salad
[2019-11-28] MEDS: busPIRone HCL 5 MG TABLET GT SCH ×2 (10:45→21:20)
[2019-11-28] MEDS: DAPTOMYCIN 500 MG in SODIUM CHLORIDE 50 ML IVPB SCH (10:46)
[2019-11-28] MEDS: MULTIVIT-MINERALS ORAL LIQUID GT SCH (10:46)
[2019-11-28] MEDS: COLLAGENASE CLOSTRIDIUM HIST. 30 GRAMS TUBE TP SCH (10:47)
[2019-11-28] MEDS: SILVER SULFADIAZINE 1% TOP CREAM 50 GM JAR TP SCH (10:47)
[2019-11-28] MEDS: FAMOTIDINE 40 MG/5 ML ORAL SUSPENSION PEG SCH (10:47)
[2019-11-28] MEDS: ASCORBIC ACID 500 MG/5 ML UNIT DOSE CUP GT SCH (10:48)
--- NOTE | 2019-11-28 10:56 | PN ---
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, Physician Chief Complaint: Anemia Sepsis Chronic respiratory failure Hypokalemia Hypomagnesemia History of Present Illness: 49yM w PMHx asthma, HTN, IDDM, functional quadriplegia, MRSA, osteomyelitis sta ge 4 sacral ulcer, vented on trach, PEG tube, on eliquis presenting from [facility] due to tachycardia, hypotension, fevers and active bleeding from his sacral ulcer and was also found to be in respiratory distress. Patient started having active bleeding from his sacral ulcer. Of note patient was started on daptomycin and meropenem on 11/10 through a PICC line in right arm due to osteomyelitis on his sacrum. When EMS was called patient was found to be hypotensive, tachycardic and in respiratory distress- in the ED vital signs: T. 101.2 HR 100 BP 87/59 WBC 17.8 Hgb 7.4 K 5.3 CR 0.4 Lactic acid 4.3 CXR shows patchy infiltrates- blood, wound, and urine cx were taken. In the ED the patient was given 2L, vanc/zosyn/azithro/solumedrol Pelvic CT showed evidence of osteomyletis. A bx was previously done at [facility] and [facility]. Lactic Acid trended down, and respirator y status improved. Over the course of treatment, the patient required repletion of his Potassium as well as 3 unit of PRBCs. Consult by surgery will administer a wound vac to promote better healing. 11/27/19: NAD alert and oriented x 3 verbal Did well on MBS Nursing staff encouraged to use PMV as much as patient can tolerate On IV abx for osteo-meropenem and dapto. Febrile overnight EMG was abnormal Seen by Neurology CT C spine reviewed-moderate right C4-C5 foraminal stenosis Cdiff pending - Current Medication List Current Medications: Active Medications Acetaminophen (Tylenol Oral Solution -) 650 mg GT Q6H PRN PRN Reason: fever >100.0F Last Admin: 11/27/19 05:25 Dose: 650 mg Documented by: Albuterol/Ipratropium (Duoneb -) 1 amp NEB Q4H PRN PRN Reason: SHORTNESS OF BREATH Last Admin: 11/27/19 20:03 Dose: 1 amp Documented by: Amino Acids (Prosource No Carb Liquid Pkt) 30 ml PO BID@0800,1730 [facility] Last Admin: 11/28/19 10:44 Dose: 30 ml Documented by: Ascorbic Acid (Vitamin C Oral Solution -) 250 mg GT DAILY [facility] Last Admin: 11/28/19 10:48 Dose: 250 mg Documented by: Banana Based Medical Food (Banatrol Plus Powder Packet) 1 packet PO TID [facility] Last Admin: 11/28/19 05:06 Dose: 1 packet Documented by: Budesonide (Pulmicort 0.5 Mg Nebulizer -) 1 amp NEB RBID [facility] Last Admin: 11/28/19 07:40 Dose: 1 amp Documented by: Buspirone HCl (Buspar -) 10 mg GT BID [facility] Last Admin: 11/28/19 10:45 Dose: 10 mg Documented by: Collagenase (Santyl -) 1 applic TP DAILY [facility]; Protocol Last Admin: 11/28/19 10:47 Dose: 1 applic Documented by: Famotidine (Pepcid) 20 mg PEG DAILY [facility] Last Admin: 11/28/19 10:47 Dose: 20 mg Documented by: Ferrous Sulfate (Feosol) 300 mg GT TID [facility] Last Admin: 11/28/19 05:06 Dose: 300 mg Documented by: Gabapentin (Neurontin Oral Liquid -) 200 mg GT TID [facility] Last Admin: 11/28/19 05:06 Dose: 200 mg Documented by: Daptomycin 500 mg/ Sodium (Chloride) 50 mls @ 100 mls/hr IVPB DAILY [facility]; Protocol Last Admin: 11/28/19 10:46 Dose: 100 mls/hr Documented by: Meropenem 1 gm/ Dextrose 100 mls @ 200 mls/hr IVPB Q8H-IV [facility] Last Admin: 11/28/19 02:03 Dose: 200 mls/hr Documented by: Mirtazapine (Remeron -) 15 mg GT HS [facility] Last Admin: 11/27/19 21:59 Dose: 15 mg Documented by: Miscellaneous (Duragesic Patch Waste) 1 each MC PRN PRN PRN Reason: PAIN Last Admin: 11/26/19 12:27 Dose: 1 each Documented by: Montelukast Sodium (Singulair -) 10 mg GT HS [facility] Last Admin: 11/27/19 22:00 Dose: 10 mg Documented by: Multivitamins/Minerals (Certavite-Antioxidant Liquid) 15 ml GT DAILY [facility] Last Admin: 11/28/19 10:46 Dose: 15 ml Documented by: Oxycodone HCl (Roxicodone -) 5 mg PO Q4H PRN PRN Reason: PAIN LEVEL 6-10 Last Admin: 11/28/19 02:44 Dose: 5 mg Documented by: Silver Sulfadiazine (Silvadene -) 1 applic TP DAILY [facility] Last Admin: 11/28/19 10:47 Dose: 1 applic Documented by: - Objective Vital Signs: Vital Signs Temperature 99.3 F 11/28/19 06:00 Pulse Rate 100 H 11/28/19 07:40 Respiratory Rate 27 H 11/28/19 07:40 Blood Pressure 100/59 L 11/28/19 06:00 O2 Sat by Pulse Oximetry (%) 98 11/28/19 07:40 Constitutional: Yes: Well Nourished, No Distress, Calm Cardiovascular: Yes: Regular Rate and Rhythm Respiratory: Yes: Regular, Mechanically Ventilated, Rhonchi Gastrointestinal: Yes: Normal Bowel Sounds, Soft Genitourinary: Yes: Reed Present Musculoskeletal: Yes: Muscle Weakness Extremities: Yes: WNL Edema: No Peripheral Pulses WNL: Yes Neurological: Yes: Alert, Oriented Psychiatric: Yes: Alert, Oriented Labs: CBC, BMP 11/28/19 05:25 11/28/19 05:25 INR, PTT INR 1.34 (0.83-1.09) H 11/19/19 05:00 Problem List - Problems (1) Chronic respiratory failure Assessment/Plan: -[facility] vent -Pulmonary on board -Bronchodilators -Wean daily -PMV daily as tolerated -Passed MBS -PO feeds with dysphagia puree + nectar thick liquids + Night feeds through PEG -CXR + congestion -D/C IVF -Furosemide once -Repeat CXR congestive, possible infiltrative changes Problems reviewed: Yes Code(s): J96.10 - CHRONIC RESPIRATORY FAILURE, UNSP W HYPOXIA OR HYPERCAPNIA (2) Ulcer of sacral region, stage 4 Assessment/Plan: -Seen by Vascular surgery -Wound vac applied -Continue wound vac, change Q72 with black foam dressing- last changed on -Offloading. Please do not place pt on his back, only turn patient from left to right -IV abx meropenem + Daptomycin for 6 weeks till 12/23/19 -Maintain reed to promote wound healing -Maintain rectal tube to promote wound healing Problems reviewed: Yes Code(s): L98.429 - NON-PRESSURE CHRONIC ULCER OF BACK WITH UNSPECIFIED SEVERITY (3) Anemia Assessment/Plan: -2/2 to acute blood loss through sacral stage 4 decubitus ulcer -4 units of PRBC this admission -Iron stores low -Feosol TID -Injectafer once today again 750 mg this admission -B12 and thyroid profile-normal -Monitor trend -D/C Eliquis -Monitor Serial CBC's Problems reviewed: Yes Code(s): D64.9 - ANEMIA, UNSPECIFIED (4) Sepsis Assessment/Plan: -resolved -IV abx -ID on board -febrile overnight, afebrile now Problems reviewed: Yes Code(s): A41.9 - SEPSIS, UNSPECIFIED ORGANISM Qualifiers: Sepsis type: sepsis due to unspecified organism Sepsis acute organ dysfunction status: without acute organ dysfunction Qualified Code(s): A41.9 - Sepsis, unspecified organism (5) History of pulmonary embolism Assessment/Plan: -2/2 to COVID 19 in the past -Hold AC due to acute bleeding -Can be off AC altogether, as he has been on it for 3 months since COVID 19 and PE occurrence Problems reviewed: Yes Code(s): Z86.711 - PERSONAL HISTORY OF PULMONARY EMBOLISM (6) Hypomagnesemia Assessment/Plan: -Hold Mgox 400 mg GT bid- can cause diarrhea Problems reviewed: Yes Code(s): E83.42 - HYPOMAGNESEMIA (7) Hypokalemia Assessment/Plan: -resolved Problems reviewed: Yes Code(s): E87.6 - HYPOKALEMIA (8) Functional quadriplegia Problems reviewed: Yes Code(s): R53.2 - FUNCTIONAL QUADRIPLEGIA (9) Diarrhea Assessment/Plan: -Check for cdiff -D/C Mg and ZINC -Bannatrol Problems reviewed: Yes Code(s): R19.7 - DIARRHEA, UNSPECIFIED Assessment/Plan See problem list Left msg for Mikala to update pt status Pt will return to [facility] after Cdiff results
[2019-11-28] MEDS: ACETAMINOPHEN 650 MG/20.3 ML ORAL SOLUTION (CUPS) GT PRN ×2 (13:52→18:32)
--- NOTE | 2019-11-28 15:06 | HOL ---
Hook-up date: 2019-11-26 14:38:00 Duration: 24:00:00 Test Indications: TACHYCARDIA EVAL Medications: 188985 QRS complexes 6 Ventricular ectopics which represent <1 % of total QRS comp. 19 Supraventricular ectopics which represent <1 % of total QRS comp. * Paced QRS complexs which represent % of total QRS comp. * % of Time Classified as Noise VENTRICULAR ECTOPY 6 Isolated 0 Bigeminal Cycles 0 Couplets 0 Runs 0 Beats in Runs * Beats LONGEST at * BPM at :: -- * Beats FASTEST at * BPM at :: -- SUPRAVENTRICULAR ECTOPY 19 Isolated 0 Couplets 0 Runs 0 Beats in Runs * Beats LONGEST at * BPM at :: -- * Beats FASTEST at * BPM at :: -- HEART RATES 87 MIN at 16:36:25 2019-11-26 104 AVG 130 MAX at 14:00:35 2019-11-27 LONGEST RR 0.792 secs at 06:09:15 2019-11-27 SCANNED BY: MICHELE 11/28/19 Sinus rhythm with sinus tachycardia Minimum heart rate 87 BPM Maximum heart rate 130 BPM Average HR, 104 BPM Occasional VPC's Occasional APC's Confirmed by MD Mauro, Robert ([id number]) on 11/28/2019 3:05:19 PM Referred By: Bryon MONTERROSO Overread By: Robert Wade MD
[2019-11-28 15:41] VITALS: BMI 29.2
[2019-11-28] MEDS ORDERED: ONDANSETRON 4 MG/2 ML VIAL IVPUSH ONE (18:04)
--- NOTE | 2019-11-28 18:21 | PN ---
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, Physician History of Present Illness: events noted Chart reviewed Still with the left arm weakness Review the CAT scan of the cervical spine. - Current Medication List Current Medications: Active Medications Acetaminophen (Tylenol Oral Solution -) 650 mg GT Q6H PRN PRN Reason: fever >100.0F Last Admin: 11/28/19 13:52 Dose: 650 mg Documented by: Albuterol/Ipratropium (Duoneb -) 1 amp NEB Q4H PRN PRN Reason: SHORTNESS OF BREATH Last Admin: 11/27/19 20:03 Dose: 1 amp Documented by: Amino Acids (Prosource No Carb Liquid Pkt) 30 ml PO BID@0800,1730 [facility] Last Admin: 11/28/19 17:30 Dose: 30 ml Documented by: Ascorbic Acid (Vitamin C Oral Solution -) 250 mg GT DAILY [facility] Last Admin: 11/28/19 10:48 Dose: 250 mg Documented by: Banana Based Medical Food (Banatrol Plus Powder Packet) 1 packet PO TID [facility] Last Admin: 11/28/19 13:52 Dose: 1 packet Documented by: Budesonide (Pulmicort 0.5 Mg Nebulizer -) 1 amp NEB RBID [facility] Last Admin: 11/28/19 07:40 Dose: 1 amp Documented by: Buspirone HCl (Buspar -) 10 mg GT BID [facility] Last Admin: 11/28/19 10:45 Dose: 10 mg Documented by: Collagenase (Santyl -) 1 applic TP DAILY [facility]; Protocol Last Admin: 11/28/19 10:47 Dose: 1 applic Documented by: Famotidine (Pepcid) 20 mg PEG DAILY [facility] Last Admin: 11/28/19 10:47 Dose: 20 mg Documented by: Ferrous Sulfate (Feosol) 300 mg GT TID [facility] Last Admin: 11/28/19 13:52 Dose: 300 mg Documented by: Gabapentin (Neurontin Oral Liquid -) 200 mg GT TID [facility] Last Admin: 11/28/19 13:56 Dose: 200 mg Documented by: Daptomycin 500 mg/ Sodium (Chloride) 50 mls @ 100 mls/hr IVPB DAILY [facility]; Protocol Last Admin: 11/28/19 10:46 Dose: 100 mls/hr Documented by: Meropenem 1 gm/ Dextrose 100 mls @ 200 mls/hr IVPB Q8H-IV [facility] Last Admin: 11/28/19 17:30 Dose: 200 mls/hr Documented by: Mirtazapine (Remeron -) 15 mg GT HS [facility] Last Admin: 11/27/19 21:59 Dose: 15 mg Documented by: Miscellaneous (Duragesic Patch Waste) 1 each MC PRN PRN PRN Reason: PAIN Last Admin: 11/26/19 12:27 Dose: 1 each Documented by: Montelukast Sodium (Singulair -) 10 mg GT HS [facility] Last Admin: 11/27/19 22:00 Dose: 10 mg Documented by: Multivitamins/Minerals (Certavite-Antioxidant Liquid) 15 ml GT DAILY [facility] Last Admin: 11/28/19 10:46 Dose: 15 ml Documented by: Oxycodone HCl (Roxicodone -) 5 mg PO Q4H PRN PRN Reason: PAIN LEVEL 6-10 Last Admin: 11/28/19 13:53 Dose: 5 mg Documented by: Silver Sulfadiazine (Silvadene -) 1 applic TP DAILY [facility] Last Admin: 11/28/19 10:47 Dose: 1 applic Documented by: - Objective Vital Signs: Vital Signs Temperature 98.9 F 11/28/19 15:47 Pulse Rate 93 H 11/28/19 15:47 Respiratory Rate 18 11/28/19 15:47 Blood Pressure 94/52 L 11/28/19 15:47 O2 Sat by Pulse Oximetry (%) 100 11/28/19 15:47 Constitutional: Yes: Well Nourished Eyes: Yes: WNL Neurological: Yes: Alert, Babinski positive, Cran Nerves II-XII Intact ...Motor Strength: LUE (1) Labs: CBC, BMP 11/28/19 05:25 11/28/19 05:25 INR, PTT INR 1.34 (0.83-1.09) H 11/19/19 05:00 Problem List - Problems (1) Left arm weakness Code(s): R29.898 - [facility] SYMPTOMS AND SIGNS INVOLVING THE MUSCULOSKELETAL SYSTEM Assessment/Plan Order blood work for neuropathy Cant get MRI c spine Aggressive pT
[2019-11-28] MEDS: MIRTAZAPINE 15 MG TABLET (FP) GT SCH (21:20)
[2019-11-28] MEDS: MONTELUKAST NA 5 MG TAB.CHEW GT SCH (21:21)
[2019-11-29] MEDS ORDERED: DEXTROSE 5%-WATER 100 ML IVPB ONE ×3 (00:59→17:27)
[2019-11-29] MEDS ORDERED: MEROPENEM 1 GM VIAL (RESTRICTED TO ID) IVPB ONE ×3 (00:59→17:27)
[2019-11-29] MEDS: MEROPENEM 1 GM in DEXTROSE 5%-WATER 100 ML IVPB SCH ×3 (01:23→17:41)
[2019-11-29] MEDS: FERROUS SO4 300 MG/5 ML ORAL SOLN UNIT DOSE CUPS GT SCH ×3 (05:40→22:24)
[2019-11-29] MEDS: GABAPENTIN 250 MG/5 ML ORAL SOLUTION, 470 ML BOTTLE GT SCH ×3 (05:40→22:24)
[2019-11-29] MEDS: BANATROL PLUS POWDER PACKET PO SCH ×3 (05:40→22:24)
--- NOTE | 2019-11-29 07:08 | PN.GI ---
GI 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 Subjective: NO NEW COMPLAINTS - 0NE BM OVERNIGHT PER STAFF - Objective Vital Signs: Vital Signs Temperature 99.9 F H 11/29/19 05:36 Pulse Rate 102 H 11/29/19 05:36 Respiratory Rate 28 H 11/29/19 05:36 Blood Pressure 99/61 11/29/19 05:36 O2 Sat by Pulse Oximetry (%) 100 11/29/19 05:36 Constitutional: No Distress, Calm Cardiovascular: Yes: WNL, Regular Rate and Rhythm Respiratory: Yes: WNL, Regular, CTA Bilaterally Gastrointestinal Inspection: Yes: WNL ...Auscultate: Yes: Normoactive Bowel Sounds Labs: CBC, BMP 11/28/19 05:25 11/28/19 05:25 INR, PTT INR 1.34 (0.83-1.09) H 11/19/19 05:00 Problem List - Problems (1) Anemia Assessment/Plan: ABX FOR DECUBITUS ULCER PER PRIMARY MEDICAL TEAM C.DIFF PENDING RESULTS - IF POSITIVE START FLAGYL 500 MG Q6 Code(s): D64.9 - ANEMIA, UNSPECIFIED (2) Asthma exacerbation Code(s): J45.901 - UNSPECIFIED ASTHMA WITH (ACUTE) EXACERBATION Qualifiers: Asthma severity: moderate Asthma persistence: persistent Qualified Code(s): J45.41 - Moderate persistent asthma with (acute) exacerbation (3) Decubitus ulcer Code(s): L89.90 - PRESSURE ULCER OF UNSPECIFIED SITE, UNSPECIFIED STAGE Qualifiers: Pressure injury location: sacral region Pressure injury stage: stage 4 Qualified Code(s): L89.154 - Pressure ulcer of sacral region, stage 4 (4) Diarrhea Code(s): R19.7 - DIARRHEA, UNSPECIFIED
[2019-11-29] MEDS: oxyCODONE HCL 5 MG TABLET PO PRN ×3 (07:24→17:41)
--- NOTE | 2019-11-29 08:02 | PN ---
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, Physician History of Present Illness: pulmonary alert,on vent support ac mode,-resp distress - Current Medication List Current Medications: Active Medications Acetaminophen (Tylenol Oral Solution -) 650 mg GT Q6H PRN PRN Reason: fever >100.0F Last Admin: 11/28/19 18:32 Dose: 650 mg Documented by: Albuterol/Ipratropium (Duoneb -) 1 amp NEB Q4H PRN PRN Reason: SHORTNESS OF BREATH Last Admin: 11/27/19 20:03 Dose: 1 amp Documented by: Amino Acids (Prosource No Carb Liquid Pkt) 30 ml PO BID@0800,1730 [facility] Last Admin: 11/28/19 17:30 Dose: 30 ml Documented by: Ascorbic Acid (Vitamin C Oral Solution -) 250 mg GT DAILY [facility] Last Admin: 11/28/19 10:48 Dose: 250 mg Documented by: Banana Based Medical Food (Banatrol Plus Powder Packet) 1 packet PO TID [facility] Last Admin: 11/29/19 05:40 Dose: 1 packet Documented by: Budesonide (Pulmicort 0.5 Mg Nebulizer -) 1 amp NEB RBID [facility] Last Admin: 11/28/19 20:30 Dose: 1 amp Documented by: Buspirone HCl (Buspar -) 10 mg GT BID [facility] Last Admin: 11/28/19 21:20 Dose: 10 mg Documented by: Collagenase (Santyl -) 1 applic TP DAILY [facility]; Protocol Last Admin: 11/28/19 10:47 Dose: 1 applic Documented by: Famotidine (Pepcid) 20 mg PEG DAILY [facility] Last Admin: 11/28/19 10:47 Dose: 20 mg Documented by: Ferrous Sulfate (Feosol) 300 mg GT TID [facility] Last Admin: 11/29/19 05:40 Dose: 300 mg Documented by: Gabapentin (Neurontin Oral Liquid -) 200 mg GT TID [facility] Last Admin: 11/29/19 05:40 Dose: 200 mg Documented by: Daptomycin 500 mg/ Sodium (Chloride) 50 mls @ 100 mls/hr IVPB DAILY [facility]; Protocol Last Admin: 11/28/19 10:46 Dose: 100 mls/hr Documented by: Meropenem 1 gm/ Dextrose 100 mls @ 200 mls/hr IVPB Q8H-IV [facility] Last Admin: 11/29/19 01:23 Dose: 200 mls/hr Documented by: Mirtazapine (Remeron -) 15 mg GT HS [facility] Last Admin: 11/28/19 21:20 Dose: 15 mg Documented by: Miscellaneous (Duragesic Patch Waste) 1 each MC PRN PRN PRN Reason: PAIN Last Admin: 11/26/19 12:27 Dose: 1 each Documented by: Montelukast Sodium (Singulair -) 10 mg GT HS [facility] Last Admin: 11/28/19 21:21 Dose: 10 mg Documented by: Multivitamins/Minerals (Certavite-Antioxidant Liquid) 15 ml GT DAILY [facility] Last Admin: 11/28/19 10:46 Dose: 15 ml Documented by: Oxycodone HCl (Roxicodone -) 5 mg PO Q4H PRN PRN Reason: PAIN LEVEL 6-10 Last Admin: 11/29/19 07:24 Dose: 5 mg Documented by: Silver Sulfadiazine (Silvadene -) 1 applic TP DAILY [facility] Last Admin: 11/28/19 10:47 Dose: 1 applic Documented by: - Objective Vital Signs: Vital Signs Temperature 99.9 F H 11/29/19 05:36 Pulse Rate 102 H 11/29/19 05:36 Respiratory Rate 28 H 11/29/19 05:36 Blood Pressure 99/61 11/29/19 05:36 O2 Sat by Pulse Oximetry (%) 100 11/29/19 05:36 Constitutional: Yes: Well Nourished, Calm Eyes: Yes: WNL HENT: Yes: WNL Neck: Yes: Supple Cardiovascular: Yes: Regular Rate and Rhythm, Pulse Irregular, S1 Respiratory: Yes: Mechanically Ventilated, Rhonchi (few rhonchi) Gastrointestinal: Yes: Normal Bowel Sounds, Soft Extremities: Yes: WNL Edema: No Labs: CBC, BMP Problem List - Problems (1) Anemia Code(s): D64.9 - ANEMIA, UNSPECIFIED (2) Respiratory failure Code(s): J96.90 - RESPIRATORY FAILURE, UNSP, UNSP W HYPOXIA OR HYPERCAPNIA Assessment/Plan Problem List (1) Decubitus ulcer Code(s): L89.90 - PRESSURE ULCER OF UNSPECIFIED SITE, UNSPECIFIED STAGE Qualifiers: Pressure injury location: sacral region Pressure injury stage: stage 4 Qualified Code(s): L89.154 - Pressure ulcer of sacral region, stage 4 (2) HCAP (healthcare-associated pneumonia) Code(s): J18.9 - PNEUMONIA, UNSPECIFIED ORGANISM (3) Sepsis Code(s): A41.9 - SEPSIS, UNSPECIFIED ORGANISM Qualifiers: Sepsis type: sepsis due to unspecified organism Sepsis acute organ dysfunction status: without acute organ dysfunction Qualified Code(s): A41.9 - Sepsis, unspecified organism ASSESSMENT/PLAN: Sepsis due to soft tissue infection/osteomyelitis : Chronic Respiratory Failure Asthma HTN DM Functional quadraplegia Stage 4 decubitus ulcer S/P Trach & PEG ABX per ID Normal transfusion thresholds Follow H & H AC Mode of vent DR JO
[2019-11-29] MEDS: BUDESONIDE 0.5 MG/2 ML INH SUSP VIAL NEB SCH ×2 (08:05→20:12)
--- NOTE | 2019-11-29 09:01 | PN ---
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, Physician Chief Complaint: Anemia Sepsis Chronic respiratory failure Hypokalemia Hypomagnesemia History of Present Illness: 49yM w PMHx asthma, HTN, IDDM, functional quadriplegia, MRSA, osteomyelitis sta ge 4 sacral ulcer, vented on trach, PEG tube, on eliquis presenting from [facility] due to tachycardia, hypotension, fevers and active bleeding from his sacral ulcer and was also found to be in respiratory distress. Patient started having active bleeding from his sacral ulcer. Of note patient was started on daptomycin and meropenem on 11/10 through a PICC line in right arm due to osteomyelitis on his sacrum. When EMS was called patient was found to be hypotensive, tachycardic and in respiratory distress- in the ED vital signs: T. 101.2 HR 100 BP 87/59 WBC 17.8 Hgb 7.4 K 5.3 CR 0.4 Lactic acid 4.3 CXR shows patchy infiltrates- blood, wound, and urine cx were taken. In the ED the patient was given 2L, vanc/zosyn/azithro/solumedrol Pelvic CT showed evidence of osteomyletis. A bx was previously done at [facility] and [facility]. Lactic Acid trended down, and respirator y status improved. Over the course of treatment, the patient required repletion of his Potassium as well as 3 unit of PRBCs. Consult by surgery will administer a wound vac to promote better healing. 11/27/19: NAD alert and oriented x 3 verbal Did well on MBS Nursing staff encouraged to use PMV as much as patient can tolerate On IV abx for osteo-meropenem and dapto. Febrile overnight EMG was abnormal Seen by Neurology CT C spine reviewed-moderate right C4-C5 foraminal stenosis LUE weakness r/t COVID? Cdiff pending Awaiting labs for today - Current Medication List Current Medications: Active Medications Acetaminophen (Tylenol Oral Solution -) 650 mg GT Q6H PRN PRN Reason: fever >100.0F Last Admin: 11/28/19 18:32 Dose: 650 mg Documented by: Albuterol/Ipratropium (Duoneb -) 1 amp NEB Q4H PRN PRN Reason: SHORTNESS OF BREATH Last Admin: 11/27/19 20:03 Dose: 1 amp Documented by: Amino Acids (Prosource No Carb Liquid Pkt) 30 ml PO BID@0800,1730 [facility] Last Admin: 11/28/19 17:30 Dose: 30 ml Documented by: Ascorbic Acid (Vitamin C Oral Solution -) 250 mg GT DAILY [facility] Last Admin: 11/28/19 10:48 Dose: 250 mg Documented by: Banana Based Medical Food (Banatrol Plus Powder Packet) 1 packet PO TID [facility] Last Admin: 11/29/19 05:40 Dose: 1 packet Documented by: Budesonide (Pulmicort 0.5 Mg Nebulizer -) 1 amp NEB RBID [facility] Last Admin: 11/29/19 08:05 Dose: 1 amp Documented by: Buspirone HCl (Buspar -) 10 mg GT BID [facility] Last Admin: 11/28/19 21:20 Dose: 10 mg Documented by: Collagenase (Santyl -) 1 applic TP DAILY [facility]; Protocol Last Admin: 11/28/19 10:47 Dose: 1 applic Documented by: Famotidine (Pepcid) 20 mg PEG DAILY [facility] Last Admin: 11/28/19 10:47 Dose: 20 mg Documented by: Ferrous Sulfate (Feosol) 300 mg GT TID [facility] Last Admin: 11/29/19 05:40 Dose: 300 mg Documented by: Gabapentin (Neurontin Oral Liquid -) 200 mg GT TID [facility] Last Admin: 11/29/19 05:40 Dose: 200 mg Documented by: Daptomycin 500 mg/ Sodium (Chloride) 50 mls @ 100 mls/hr IVPB DAILY [facility]; Protocol Last Admin: 11/28/19 10:46 Dose: 100 mls/hr Documented by: Meropenem 1 gm/ Dextrose 100 mls @ 200 mls/hr IVPB Q8H-IV [facility] Last Admin: 11/29/19 01:23 Dose: 200 mls/hr Documented by: Mirtazapine (Remeron -) 15 mg GT HS [facility] Last Admin: 11/28/19 21:20 Dose: 15 mg Documented by: Miscellaneous (Duragesic Patch Waste) 1 each MC PRN PRN PRN Reason: PAIN Last Admin: 11/26/19 12:27 Dose: 1 each Documented by: Montelukast Sodium (Singulair -) 10 mg GT HS [facility] Last Admin: 11/28/19 21:21 Dose: 10 mg Documented by: Multivitamins/Minerals (Certavite-Antioxidant Liquid) 15 ml GT DAILY [facility] Last Admin: 11/28/19 10:46 Dose: 15 ml Documented by: Oxycodone HCl (Roxicodone -) 5 mg PO Q4H PRN PRN Reason: PAIN LEVEL 6-10 Last Admin: 11/29/19 07:24 Dose: 5 mg Documented by: Silver Sulfadiazine (Silvadene -) 1 applic TP DAILY [facility] Last Admin: 11/28/19 10:47 Dose: 1 applic Documented by: - Objective Vital Signs: Vital Signs Temperature 99.9 F H 11/29/19 05:36 Pulse Rate 94 H 11/29/19 08:10 Respiratory Rate 26 H 11/29/19 08:10 Blood Pressure 99/61 11/29/19 05:36 O2 Sat by Pulse Oximetry (%) 100 11/29/19 08:10 Constitutional: Yes: Well Nourished, No Distress, Calm Cardiovascular: Yes: Regular Rate and Rhythm Respiratory: Yes: Regular, Mechanically Ventilated, Rhonchi (diffuse) Gastrointestinal: Yes: Normal Bowel Sounds, Soft Genitourinary: Yes: Reed Present Musculoskeletal: Yes: Back Pain, Muscle Weakness Extremities: Yes: Other (generalized atrophy) Edema: No Peripheral Pulses WNL: Yes Integumentary: Yes: Pressure Ulcer (stage 4 sacral ulce-w/ wound vac in place) Neurological: Yes: Alert, Oriented Psychiatric: Yes: Alert, Oriented Labs: CBC, BMP 11/28/19 05:25 11/28/19 05:25 INR, PTT INR 1.34 (0.83-1.09) H 11/19/19 05:00 Problem List - Problems (1) Chronic respiratory failure Assessment/Plan: -[facility] vent -Pulmonary on board -Bronchodilators -Wean daily -PMV daily as tolerated -Passed MBS -PO feeds with dysphagia puree + nectar thick liquids + Night feeds through PEG -CXR + congestion -D/C IVF -Furosemide once -Repeat CXR congestive, possible infiltrative changes Problems reviewed: Yes Code(s): J96.10 - CHRONIC RESPIRATORY FAILURE, UNSP W HYPOXIA OR HYPERCAPNIA (2) Ulcer of sacral region, stage 4 Assessment/Plan: -Seen by Vascular surgery -Wound vac applied -Continue wound vac, change Q72 with black foam dressing- last changed on 11/03 11/22 -Offloading. Please do not place pt on his back, only turn patient from left to right -IV abx meropenem + Daptomycin for 6 weeks till 12/23/19 -Maintain reed to promote wound healing -Maintain rectal tube to promote wound healing Problems reviewed: Yes Code(s): L98.429 - NON-PRESSURE CHRONIC ULCER OF BACK WITH UNSPECIFIED SEVERITY (3) Anemia Assessment/Plan: -2/2 to acute blood loss through sacral stage 4 decubitus ulcer -4 units of PRBC this admission -Iron stores low -Feosol TID -Injectafer once today again 750 mg this admission -B12 and thyroid profile-normal -Monitor trend -D/C Eliquis -Monitor Serial CBC's Problems reviewed: Yes Code(s): D64.9 - ANEMIA, UNSPECIFIED (4) Sepsis Assessment/Plan: -resolved -IV abx -ID on board -afebrile Problems reviewed: Yes Code(s): A41.9 - SEPSIS, UNSPECIFIED ORGANISM Qualifiers: Sepsis type: sepsis due to unspecified organism Sepsis acute organ dysfunc tion status: without acute organ dysfunction Qualified Code(s): A41.9 - Sepsis, unspecified organism (5) History of pulmonary embolism Assessment/Plan: -2/2 to COVID 19 in the past -Hold AC due to acute bleeding -Can be off AC altogether, as he has been on it for 3 months since COVID 19 and PE occurrence Problems reviewed: Yes Code(s): Z86.711 - PERSONAL HISTORY OF PULMONARY EMBOLISM (6) Hypomagnesemia Assessment/Plan: -Hold Mgox 400 mg GT bid- can cause diarrhea Problems reviewed: Yes Code(s): E83.42 - HYPOMAGNESEMIA (7) Hypokalemia Assessment/Plan: -resolved Problems reviewed: Yes Code(s): E87.6 - HYPOKALEMIA (8) Functional quadriplegia Problems reviewed: Yes Code(s): R53.2 - FUNCTIONAL QUADRIPLEGIA (9) Diarrhea Assessment/Plan: - cdiff pending -D/C Mg and ZINC -Bannatrol Problems reviewed: Yes Code(s): R19.7 - DIARRHEA, UNSPECIFIED Assessment/Plan See problem list Left [facility] for Mikala to update pt status Pt will return to [facility] after Cdiff results
[2019-11-29 09:11] LABS: BASO % 0.5 % (0-2.0); EOS % 1.3 % (0-4.5); HEMATOCRIT 30.1 % (35.4-49); HEMOGLOBIN 9.7 GM/dL (11.7-16.9); LYMPH % 12.5 % (8-40); MCH 28.6 pg (25.7-33.7); MCHC 32.3 g/dl (32.0-35.9); MEAN CELL VOLUME 88.6 fl (80-96); MEAN PLT VOLUME 7.9 fl (7.5-11.1); MONO % 5.7 % (3.8-10.2); PLATELET COUNT 565 K/MM3 (134-434); RDW 16.7 % (11.9-15.9); WHITE BLOOD COUNT 15.3 K/mm3 (4.0-10.0)
[2019-11-29 09:34] LABS: ALBUMIN 1.9 g/dl (3.4-5.0); ALK PHOS 101 U/L (45-117); ANION GAP 8 MMOL/L (8-16); BLOOD UREA NITROGEN 13.2 mg/dL (7-18); CALCIUM 8.5 mg/dL (8.5-10.1); CHLORIDE 107 mmol/L (98-107); CO2 28 mmol/L (21-32); CREATININE < 0.2 mg/dL (0.55-1.3); GLUCOSE,RANDOM 113 mg/dL (74-106); POTASSIUM 4.2 mmol/L (3.5-5.1); SGOT/AST 20 U/L (15-37); SGPT/ALT 17 U/L (13-61); SODIUM 142 mmol/L (136-145); TOT PROT 5.5 g/dl (6.4-8.2)
[2019-11-29] MEDS ORDERED: PT OWN MED DRAWER 7, Y5N ONE (10:09)
[2019-11-29] MEDS: AMINO ACIDS/PROTEIN HYDROLYS 30 ML LIQUID.PKT PO SCH ×2 (10:34→17:41)
[2019-11-29] MEDS: busPIRone HCL 5 MG TABLET GT SCH ×2 (10:35→22:23)
[2019-11-29] MEDS: MULTIVIT-MINERALS ORAL LIQUID GT SCH (10:35)
--- NOTE | 2019-11-29 10:35 | PN ---
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: Selected Entries 11/25/19 11/25/19 11/25/19 02:00 10:40 18:00 Breakfast Lunch Supper Temperature Pulse Rate Blood Pressure Blood Pressure 75 80 83 Mean Blood Pressure Position O2 Sat by Pulse Oximetry (%) Oxygen Delivery Method 11/25/19 11/26/19 11/26/19 20:04 02:00 05:03 Breakfast Lunch Supper Temperature Pulse Rate Blood Pressure 106/71 107/64 Blood Pressure 78 82 78 Mean Blood Pressure Supine Supine Position O2 Sat by Pulse Oximetry (%) Oxygen Delivery Method 11/26/19 11/26/19 11/26/19 10:00 18:00 22:00 Breakfast Lunch Supper Temperature Pulse Rate Blood Pressure 106/60 111/74 98/63 Blood Pressure 77 Mean Blood Pressure Sitting Sitting Supine Position O2 Sat by Pulse Oximetry (%) Oxygen Delivery Method 11/27/19 11/27/19 11/27/19 02:00 06:00 07:40 Breakfast Lunch Supper Temperature 100.1 F H 99.9 F H Pulse Rate 105 H 112 H 102 H Blood Pressure 93/56 L 106/59 L Blood Pressure 66 74 Mean Blood Pressure Supine Supine Position O2 Sat by Pulse Oximetry (%) Oxygen Delivery Method 11/27/19 11/27/19 11/27/19 10:00 11:32 11:53 Breakfast 50% Lunch Supper Temperature 99.2 F Pulse Rate 97 H 100 H Blood Pressure 102/70 Blood Pressure 80 Mean Blood Pressure Supine Position O2 Sat by Pulse Oximetry (%) Oxygen Delivery Method 11/27/19 11/27/19 11/27/19 12:20 14:07 14:16 Breakfast Lunch 50% Supper Temperature 98.6 F Pulse Rate 102 H 113 H Blood Pressure 113/74 Blood Pressure Mean Blood Pressure Supine Position O2 Sat by Pulse Oximetry (%) Oxygen Delivery Method 11/27/19 11/27/19 11/27/19 17:53 20:34 23:29 Breakfast Lunch Supper 50% Temperature 99.0 F 98.4 F Pulse Rate 95 H 129 H Blood Pressure 99/63 92/55 L Blood Pressure 76 68 Mean Blood Pressure Supine Supine Position O2 Sat by Pulse Oximetry (%) Oxygen Delivery Method 11/28/19 11/28/19 11/28/19 00:00 01:05 04:50 Breakfast Lunch Supper Temperature 100.2 F H Pulse Rate 109 H Blood Pressure 100/68 Blood Pressure 78 Mean Blood Pressure Position O2 Sat by Pulse 100 100 100 Oximetry (%) Oxygen Delivery Method 11/28/19 11/28/19 06:00 07:40 Breakfast Lunch Supper Temperature 99.3 F Pulse Rate 101 H 100 H Blood Pressure 100/59 L Blood Pressure 75 Mean Blood Pressure Position O2 Sat by Pulse 100 98 Oximetry (%) Oxygen Delivery Mechanical Method Ventilator Laboratory Tests 11/26/19 11/27/19 11/28/19 06:00 05:40 05:25 WBC 12.9 H 11.3 H 13.2 H Selected Entries 11/28/19 11/28/19 11/29/19 15:47 18:00 05:36 Breakfast 75% Diet Tolerated Fair Well Lunch 50% Supper 75% Temperature 99.9 F H Pulse Rate 102 H Blood Pressure 99/61 11/29/19 08:10 Breakfast Diet Tolerated Lunch Supper Temperature Pulse Rate 94 H Blood Pressure Laboratory Tests 11/27/19 11/28/19 11/29/19 05:40 05:25 08:25 WBC 11.3 H 13.2 H 15.3 H Appetite improving to 75% Encourage supplements b/n meals, using PMV Still anxious with PMV, although numbers are all reported good. Consider trial of gentle use incentive inspirometer with pmv to improve pt's control of respiration, and hopefully will reduce his anxiety. Trial Dys chopped with tuna, egg salad, chicken salad
[2019-11-29] MEDS: FAMOTIDINE 40 MG/5 ML ORAL SUSPENSION PEG SCH (10:36)
[2019-11-29] MEDS: COLLAGENASE CLOSTRIDIUM HIST. 30 GRAMS TUBE TP SCH (10:36)
[2019-11-29] MEDS: SILVER SULFADIAZINE 1% TOP CREAM 50 GM JAR TP SCH (10:37)
[2019-11-29] MEDS: ASCORBIC ACID 500 MG/5 ML UNIT DOSE CUP GT SCH (10:37)
[2019-11-29] MEDS: DAPTOMYCIN 500 MG in SODIUM CHLORIDE 50 ML IVPB SCH (12:06)
--- NOTE | 2019-11-29 14:49 | PN ---
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 - Current Medication List Current Medications: Active Medications Acetaminophen (Tylenol Oral Solution -) 650 mg GT Q6H PRN PRN Reason: fever >100.0F Last Admin: 11/28/19 18:32 Dose: 650 mg Documented by: Albuterol/Ipratropium (Duoneb -) 1 amp NEB Q4H PRN PRN Reason: SHORTNESS OF BREATH Last Admin: 11/27/19 20:03 Dose: 1 amp Documented by: Amino Acids (Prosource No Carb Liquid Pkt) 30 ml PO BID@0800,1730 [facility] Last Admin: 11/29/19 10:34 Dose: 30 ml Documented by: Ascorbic Acid (Vitamin C Oral Solution -) 250 mg GT DAILY [facility] Last Admin: 11/29/19 10:37 Dose: 250 mg Documented by: Banana Based Medical Food (Banatrol Plus Powder Packet) 1 packet PO TID [facility] Last Admin: 11/29/19 14:33 Dose: 1 packet Documented by: Budesonide (Pulmicort 0.5 Mg Nebulizer -) 1 amp NEB RBID [facility] Last Admin: 11/29/19 08:05 Dose: 1 amp Documented by: Buspirone HCl (Buspar -) 10 mg GT BID [facility] Last Admin: 11/29/19 10:35 Dose: 10 mg Documented by: Collagenase (Santyl -) 1 applic TP DAILY [facility]; Protocol Last Admin: 11/29/19 10:36 Dose: 1 applic Documented by: Famotidine (Pepcid) 20 mg PEG DAILY [facility] Last Admin: 11/29/19 10:36 Dose: 20 mg Documented by: Ferrous Sulfate (Feosol) 300 mg GT TID [facility] Last Admin: 11/29/19 14:33 Dose: 300 mg Documented by: Gabapentin (Neurontin Oral Liquid -) 200 mg GT TID [facility] Last Admin: 11/29/19 14:33 Dose: 200 mg Documented by: Daptomycin 500 mg/ Sodium (Chloride) 50 mls @ 100 mls/hr IVPB DAILY [facility]; Protocol Last Admin: 11/29/19 12:06 Dose: 100 mls/hr Documented by: Meropenem 1 gm/ Dextrose 100 mls @ 200 mls/hr IVPB Q8H-IV [facility] Last Admin: 11/29/19 10:36 Dose: 200 mls/hr Documented by: Mirtazapine (Remeron -) 15 mg GT HS [facility] Last Admin: 11/28/19 21:20 Dose: 15 mg Documented by: Miscellaneous (Duragesic Patch Waste) 1 each MC PRN PRN PRN Reason: PAIN Last Admin: 11/26/19 12:27 Dose: 1 each Documented by: Montelukast Sodium (Singulair -) 10 mg GT HS [facility] Last Admin: 11/28/19 21:21 Dose: 10 mg Documented by: Multivitamins/Minerals (Certavite-Antioxidant Liquid) 15 ml GT DAILY [facility] Last Admin: 11/29/19 10:35 Dose: 15 ml Documented by: Oxycodone HCl (Roxicodone -) 5 mg PO Q4H PRN PRN Reason: PAIN LEVEL 6-10 Last Admin: 11/29/19 12:06 Dose: 5 mg Documented by: Silver Sulfadiazine (Silvadene -) 1 applic TP DAILY [facility] Last Admin: 11/29/19 10:37 Dose: 1 applic Documented by: - Objective Vital Signs: Vital Signs Temperature 99.3 F 11/29/19 09:00 Pulse Rate 100 H 11/29/19 12:14 Respiratory Rate 28 H 11/29/19 13:27 Blood Pressure 98/63 11/29/19 09:00 O2 Sat by Pulse Oximetry (%) 100 11/29/19 13:27 Constitutional: Yes: Well Nourished Eyes: Yes: WNL HENT: Yes: WNL Neurological: Yes: Alert, Babinski negative, Cran Nerves II-XII Intact, Numbness, Paresthesia, Tingling Labs: CBC, BMP 11/29/19 08:25 11/29/19 08:25 INR, PTT INR 1.34 (0.83-1.09) H 11/19/19 05:00 Problem List - Problems (1) Left arm weakness Assessment/Plan: 1. Cannot do an MRI and fortunately. 2. Physical therapy. 3. B12 supplements. 4. Neurontin 100 mg every 12 Code(s): R29.898 - [facility] SYMPTOMS AND SIGNS INVOLVING THE MUSCULOSKELETAL SYSTEM
[2019-11-29] MEDS: MIRTAZAPINE 15 MG TABLET (FP) GT SCH (22:24)
[2019-11-29] MEDS: MONTELUKAST NA 5 MG TAB.CHEW GT SCH (22:25)
[2019-11-30] MEDS ORDERED: MEROPENEM 1 GM VIAL (RESTRICTED TO ID) IVPB ONE ×2 (01:26→11:29)
[2019-11-30] MEDS ORDERED: DEXTROSE 5%-WATER 100 ML IVPB ONE ×2 (01:27→11:29)
[2019-11-30] MEDS: MEROPENEM 1 GM in DEXTROSE 5%-WATER 100 ML IVPB SCH ×2 (01:32→12:31)
[2019-11-30] MEDS: GABAPENTIN 250 MG/5 ML ORAL SOLUTION, 470 ML BOTTLE GT SCH ×2 (06:52→13:59)
[2019-11-30] MEDS: BANATROL PLUS POWDER PACKET PO SCH ×2 (06:52→13:58)
[2019-11-30] MEDS: FERROUS SO4 300 MG/5 ML ORAL SOLN UNIT DOSE CUPS GT SCH ×2 (06:52→13:59)
--- NOTE | 2019-11-30 07:47 | PN ---
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, Physician History of Present Illness: pulmonary awake,no distress on vent support ac mode - Current Medication List Current Medications: Active Medications Acetaminophen (Tylenol Oral Solution -) 650 mg GT Q6H PRN PRN Reason: fever >100.0F Last Admin: 11/28/19 18:32 Dose: 650 mg Documented by: Albuterol/Ipratropium (Duoneb -) 1 amp NEB Q4H PRN PRN Reason: SHORTNESS OF BREATH Last Admin: 11/27/19 20:03 Dose: 1 amp Documented by: Amino Acids (Prosource No Carb Liquid Pkt) 30 ml PO BID@0800,1730 [facility] Last Admin: 11/29/19 17:41 Dose: 30 ml Documented by: Ascorbic Acid (Vitamin C Oral Solution -) 250 mg GT DAILY [facility] Last Admin: 11/29/19 10:37 Dose: 250 mg Documented by: Banana Based Medical Food (Banatrol Plus Powder Packet) 1 packet PO TID [facility] Last Admin: 11/30/19 06:52 Dose: 1 packet Documented by: Budesonide (Pulmicort 0.5 Mg Nebulizer -) 1 amp NEB RBID [facility] Last Admin: 11/29/19 20:12 Dose: 1 amp Documented by: Buspirone HCl (Buspar -) 10 mg GT BID [facility] Last Admin: 11/29/19 22:23 Dose: 10 mg Documented by: Collagenase (Santyl -) 1 applic TP DAILY [facility]; Protocol Last Admin: 11/29/19 10:36 Dose: 1 applic Documented by: Famotidine (Pepcid) 20 mg PEG DAILY [facility] Last Admin: 11/29/19 10:36 Dose: 20 mg Documented by: Ferrous Sulfate (Feosol) 300 mg GT TID [facility] Last Admin: 11/30/19 06:52 Dose: 300 mg Documented by: Gabapentin (Neurontin Oral Liquid -) 200 mg GT TID [facility] Last Admin: 11/30/19 06:52 Dose: 200 mg Documented by: Daptomycin 500 mg/ Sodium (Chloride) 50 mls @ 100 mls/hr IVPB DAILY [facility]; Protocol Last Admin: 11/29/19 12:06 Dose: 100 mls/hr Documented by: Meropenem 1 gm/ Dextrose 100 mls @ 200 mls/hr IVPB Q8H-IV [facility] Last Admin: 11/30/19 01:32 Dose: 200 mls/hr Documented by: Mirtazapine (Remeron -) 15 mg GT HS [facility] Last Admin: 11/29/19 22:24 Dose: 15 mg Documented by: Miscellaneous (Duragesic Patch Waste) 1 each MC PRN PRN PRN Reason: PAIN Last Admin: 11/26/19 12:27 Dose: 1 each Documented by: Montelukast Sodium (Singulair -) 10 mg GT HS [facility] Last Admin: 11/29/19 22:25 Dose: 10 mg Documented by: Multivitamins/Minerals (Certavite-Antioxidant Liquid) 15 ml GT DAILY [facility] Last Admin: 11/29/19 10:35 Dose: 15 ml Documented by: Oxycodone HCl (Roxicodone -) 5 mg PO Q4H PRN PRN Reason: PAIN LEVEL 6-10 Last Admin: 11/29/19 17:41 Dose: 5 mg Documented by: Silver Sulfadiazine (Silvadene -) 1 applic TP DAILY [facility] Last Admin: 11/29/19 10:37 Dose: 1 applic Documented by: - Objective Vital Signs: Vital Signs Temperature 99.6 F 11/30/19 06:00 Pulse Rate 103 H 11/30/19 06:00 Respiratory Rate 25 H 11/30/19 06:00 Blood Pressure 93/62 11/30/19 06:00 O2 Sat by Pulse Oximetry (%) 100 11/30/19 06:00 Constitutional: Yes: Well Nourished, Calm Eyes: Yes: WNL HENT: Yes: WNL Neck: Yes: Supple (trach) Cardiovascular: Yes: Regular Rate and Rhythm, S1, S2 Respiratory: Yes: Rhonchi (few rhonchi) Gastrointestinal: Yes: Normal Bowel Sounds, Soft Extremities: Yes: WNL Edema: No Labs: INR 1.34 (0.83-1.09) H 11/19/19 05:00 Problem List - Problems (1) Anemia Code(s): D64.9 - ANEMIA, UNSPECIFIED (2) Respiratory failure Code(s): J96.90 - RESPIRATORY FAILURE, UNSP, UNSP W HYPOXIA OR HYPERCAPNIA Assessment/Plan Problem List (1) Decubitus ulcer Code(s): L89.90 - PRESSURE ULCER OF UNSPECIFIED SITE, UNSPECIFIED STAGE Qualifiers: Pressure injury location: sacral region Pressure injury stage: stage 4 Qualified Code(s): L89.154 - Pressure ulcer of sacral region, stage 4 (2) HCAP (healthcare-associated pneumonia) Code(s): J18.9 - PNEUMONIA, UNSPECIFIED ORGANISM (3) Sepsis Code(s): A41.9 - SEPSIS, UNSPECIFIED ORGANISM Qualifiers: Sepsis type: sepsis due to unspecified organism Sepsis acute organ dysfunction status: without acute organ dysfunction Qualified Code(s): A41.9 - Sepsis, unspecified organism ASSESSMENT/PLAN: Sepsis due to soft tissue infection/osteomyelitis : Chronic Respiratory Failure Asthma HTN DM Functional quadraplegia Stage 4 decubitus ulcer S/P Trach & PEG ABX per ID Normal transfusion thresholds Follow H & H AC Mode of vent DR JO
[2019-11-30] MEDS: BUDESONIDE 0.5 MG/2 ML INH SUSP VIAL NEB SCH (07:54)
[2019-11-30 08:24] LABS: BASO % 0.6 % (0-2.0); EOS % 1.6 % (0-4.5); HEMATOCRIT 28.6 % (35.4-49); HEMOGLOBIN 9.5 GM/dL (11.7-16.9); LYMPH % 13.4 % (8-40); MCH 29.6 pg (25.7-33.7); MCHC 33.3 g/dl (32.0-35.9); MEAN PLT VOLUME 8.1 fl (7.5-11.1); MONO % 6.2 % (3.8-10.2); NEUT % 78.2 % (42.8-82.8); PLATELET COUNT 496 K/MM3 (134-434); RBC 3.21 M/mm3 (4.00-5.60); RDW 17.1 % (11.9-15.9); WHITE BLOOD COUNT 13.7 K/mm3 (4.0-10.0)
[2019-11-30] MEDS ORDERED: fentaNYL 50mcg/hr PATCH.TD72 TD SCH (08:30)
[2019-11-30] MEDS ORDERED: FENTANYL PATCH WASTE TD PRN (08:30)
--- NOTE | 2019-11-30 08:41 | DS ---
Physical Examination Vital Signs: Vital Signs Temperature 99.6 F 11/30/19 06:00 Pulse Rate 103 H 11/30/19 06:00 Respiratory Rate 24 H 11/30/19 07:54 Blood Pressure 93/62 11/30/19 06:00 O2 Sat by Pulse Oximetry (%) 100 11/30/19 07:54 Findings/Remarks: 49yM w PMHx asthma, HTN, IDDM, functional quadriplegia, MRSA, osteomyelitis stage 4 sacral ulcer, vented on trach, PEG tube, on eliquis presenting from [facility] due to tachycardia, hypotension, fevers and active bleeding from his sacral ulcer and was also found to be in respiratory distress. Patient started having active bleeding from his sacral ulcer this afternoon. Of note patient was started on daptomycin and meropenem on 11/10 through a PICC line in right arm due to osteomyelitis on his sacrum. When EMS was called patient was found to be hypotensive, tachycardic and in respiratory distress Seen by Physiatry: Electrodiagnoistics were performed. This was an abnormal study. 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 There is also possibly myopathy without spontaneous activity. Wound vac appliction: Decubitus ulcer A decision was made to utilize Negative Pressure Therapy (VAC or Veraflo) to assist in: expedite wound closure through promotion of granulation tissue formation and/or help with debridement of fibrinous slough thus decreasing need for serial debridements. - Wound description Wound location: Sacrum Length (cm): 16 Width (cm): 15 Depth (cm): 5 Wound area (sq cm): 240.00 Wound Description: Bone exposed: Yes - Device VAC Selection: NPT - Procedure Area cleansed. Prepped/draped. Black foam tailored to fit just inside of wound borders to encourage wound contracture. Duoderm applied to skin island at inferior pole of wound and anal border. An occlusive dressing applied. Suction disc placed in location so as not to be uncomfortable for the patient or cause any pressure point (foam bridge to right hip). Good seal as verified by complete foam collapse and no leak on unit monitor. Pressure set to 125 mmHg, continuous. Dressing changes: T-Th-Sat Modified Barium Swallow was performed on 11/23/19: MODIFIED BARIUM SWALLOW was performed upright, lateral with Dr. Olivas using pur ee, thick and thin liquid via cup. Study was performed with patient on a ventilator, with cuff inflated, and then deflated with Passy-Oceana valve in place. Primary nurse and respiratory therapists were present. ORAL STAGE: Good bolus formation and transfer . PHARYNGEAL STAGE: The swallow reflex was mildly reduced in excursion, more so with with cuff inflated. There was no aspiration demonstrated. There was a prominent cricopharyngeal bar with hang- up above the bar with reverse flow of the contrast back up into the piriform sinuses repeatedly with cuff inflated. This placed patient at risk of aspiration on residue, however, none was demonstrated. With cuff deflated and Passy-Ezequiel valve in place, there was less residue and less reverse flow. ESOPHAGEAL STAGE: Not visualized due to positioning difficulty and ventilator. IMPRESSION: Patient tolerated puree, thick and thin liquid without aspiration but with risk. With cuff inflated, there was residue above the cricopharyngeal R with reverse flow into the piriform sinuses that was minimize with cuff deflation and Passy-Oceana valve in place. RECOMMENDATIONS: Continue use of Passy-Ezequiel valve daily. Consider nocturnal gastrostomy tube feedings. Initiate dysphagia puree diet and trial of nectar thick liquid with Passy-Oceana valve in place. Feed slowly and carefully, half a teaspoon at a time. Patient should be seated fully upright with chin tucked. Remind patient to flex chin and swallow 2-3 times "with effort" for each bite. Alternate puree with liquid complete each meal with liquid. Monitor for congestion and fever. SINCE THEN PT HAS BEEN UPGRADED TO DYSPHAGIA CHOPPED DIET Constitutional: Yes: Well Nourished, No Distress, Calm Cardiovascular: Yes: Regular Rate and Rhythm Respiratory: Yes: Regular, CTA Bilaterally Gastrointestinal: Yes: Normal Bowel Sounds, Soft Renal/: Yes: Novak Present Musculoskeletal: Yes: Muscle Weakness Extremities: Yes: WNL Edema: No Peripheral Pulses WNL: Yes Neurological: Yes: Alert, Oriented Psychiatric: Yes: Alert, Oriented Labs: CBC, BMP 11/30/19 07:43 Discharge Summary Problems reviewed: Yes Reason For Visit: EXACERBATION OF ASTHMA, SEPSIS, PRESSURE INJURY Current Active Problems Anemia (Acute) Asthma exacerbation (Acute) Chronic respiratory failure (Acute) Decubitus ulcer (Acute) Decubitus ulcer of sacral area (Acute) Diarrhea (Acute) Functional quadriplegia (Acute) HCAP (healthcare-associated pneumonia) (Acute) History of pulmonary embolism (Acute) Hypokalemia (Acute) Hypomagnesemia (Acute) Left arm weakness (Acute) Respiratory failure (Acute) Sepsis (Acute) Tachycardia (Acute) Ulcer of sacral region, stage 4 (Acute) Condition: Stable - Instructions Diet, Activity, Other Instructions: -D/C metoprolol -D/C midodrine -D/C Eliquis due to acute bleeding from sacral wound -Continue Daptomycin 500 mg IVPB daily till 12/23/19 -Continue Meropenem 1 gm Q8h till 12/23/19 -Started on Fentanyl patch 50 mcg Q72H -Decreased Oxycodone to 5 mg GT Q4H PRN for pain 6-10 -Acetaminophen 650 mg GT Q6H PRN for pain 1-5 -Gabapentin 200 mg GT TID -Lumbar/pelvis CT scan: Right non-obstructing renal calculi, and evidence of current or remote osteomyelitis involving the coccyx -Wound vac to be change TThSa with black foam dressing, wound vac pressure at 125 mm Hg Referrals: Christian Gomes [Primary Care Provider] - Disposition: LONGTERM FACILITY - Home Medications Comprehensive Discharge Medication List: Ambulatory Orders Albuterol 2.5/Ipratropium 0.5 [Duoneb -] 1 neb NEB Q4H 11/19/19 Acetaminophen Oral Solution [Tylenol Oral Solution -] 650 mg GT Q6H PRN #10 each 11/30/19 Albuterol 2.5/Ipratropium 0.5 [Duoneb -] 1 amp NEB Q4H #180 amp 11/30/19 Amino Acids/Protein Hydrolys [Prosource No Carb Liquid Pkt] 30 ml PO BID@0800,1730 #60 packet 11/30/19 Ascorbic Acid [Vitamin C] 1,000 mg PO DAILY #1 bot 11/30/19 Budesonide [Pulmicort 0.5 mg Nebulizer -] 0.5 mg NEB BID #60 amp 11/30/19 Buspirone HCl [Buspar -] 10 mg GT BID #60 tablet 11/30/19 Collagenase Clostridium Hist. [Santyl -] 1 applic TP DAILY #1 tube 11/30/19 Daptomycin [Cubicin (Restricted To Id) -] 500 mg IVPB DAILY vial 11/30/19 Escitalopram Oxalate [Lexapro 5mg/5mL Oral Solution -] 10 mg GT DAILY ml 11/30/19 FENTANYL 50mcg PATCH [DURAGESIC 50 mcg PATCH -] 1 patch TD Q72H #10 patch 11/30/19 Famotidine [Pepcid] 20 mg PEG DAILY #1 bot 11/30/19 Ferrous Sulfate [Feosol] 300 mg GT TID #1 bot 11/30/19 Gabapentin Liquid [Neurontin Oral Liquid -] 200 mg GT TID #1 bot 11/30/19 Lactobacillus Acidophilus [Bacid -] 1 each GT DAILY #30 capsule 11/30/19 Meropenem [Merrem (Restricted To Id) -] 1 gm IVPB Q8H-IV vial 11/30/19 Mirtazapine [Remeron -] 15 mg GT HS #30 tablet 11/30/19 Montelukast Na [Singulair -] 10 mg GT HS #30 tab 11/30/19 Multivit-Minerals [Certavite-Antioxidant Liquid] 15 ml GT DAILY #1 bot 11/30/19 Silver Sulfadiazine 1% Top Cr [Silvadene -] 1 applic TP DAILY #1 jar 11/30/19 oxyCODONE HCL [Roxicodone -] 5 mg PO Q4H PRN #180 tablet 11/30/19 Prescription Drug Monitoring Program (I-STOP) results: I-STOP reviewed and no issues identified
[2019-11-30 08:56] LABS: ALBUMIN 1.8 g/dl (3.4-5.0); ALK PHOS 105 U/L (45-117); ANION GAP 6 MMOL/L (8-16); BILIRUBIN,TOTAL 0.5 mg/dL (0.2-1); BLOOD UREA NITROGEN 11.8 mg/dL (7-18); CALCIUM 8.4 mg/dL (8.5-10.1); CHLORIDE 105 mmol/L (98-107); CO2 29 mmol/L (21-32); CREATININE < 0.2 mg/dL (0.55-1.3); GLUCOSE,RANDOM 120 mg/dL (74-106); POTASSIUM 4.1 mmol/L (3.5-5.1); SGOT/AST 23 U/L (15-37); SGPT/ALT 21 U/L (13-61); SODIUM 140 mmol/L (136-145); TOT PROT 5.4 g/dl (6.4-8.2)
[2019-11-30 09:32] LABS: ANISOCYTOSIS 0; MACROCYTOSIS 0; PLATELET ESTIMATE INCREASED
[2019-11-30] MEDS ORDERED: ESCITALOPRAM OXALATE 5 MG/5 ML GT SCH (10:00)
--- NOTE | 2019-11-30 11:02 | PN ---
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, [employer] - Note 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: Selected Entries 11/25/19 11/25/19 11/25/19 02:00 10:40 18:00 Breakfast Lunch Supper Temperature Pulse Rate Blood Pressure Blood Pressure 75 80 83 Mean Blood Pressure Position O2 Sat by Pulse Oximetry (%) Oxygen Delivery Method 11/25/19 11/26/19 11/26/19 20:04 02:00 05:03 Breakfast Lunch Supper Temperature Pulse Rate Blood Pressure 106/71 107/64 Blood Pressure 78 82 78 Mean Blood Pressure Supine Supine Position O2 Sat by Pulse Oximetry (%) Oxygen Delivery Method 11/26/19 11/26/19 11/26/19 10:00 18:00 22:00 Breakfast Lunch Supper Temperature Pulse Rate Blood Pressure 106/60 111/74 98/63 Blood Pressure 77 Mean Blood Pressure Sitting Sitting Supine Position O2 Sat by Pulse Oximetry (%) Oxygen Delivery Method 11/27/19 11/27/19 11/27/19 02:00 06:00 07:40 Breakfast Lunch Supper Temperature 100.1 F H 99.9 F H Pulse Rate 105 H 112 H 102 H Blood Pressure 93/56 L 106/59 L Blood Pressure 66 74 Mean Blood Pressure Supine Supine Position O2 Sat by Pulse Oximetry (%) Oxygen Delivery Method 11/27/19 11/27/19 11/27/19 10:00 11:32 11:53 Breakfast 50% Lunch Supper Temperature 99.2 F Pulse Rate 97 H 100 H Blood Pressure 102/70 Blood Pressure 80 Mean Blood Pressure Supine Position O2 Sat by Pulse Oximetry (%) Oxygen Delivery Method 11/27/19 11/27/19 11/27/19 12:20 14:07 14:16 Breakfast Lunch 50% Supper Temperature 98.6 F Pulse Rate 102 H 113 H Blood Pressure 113/74 Blood Pressure Mean Blood Pressure Supine Position O2 Sat by Pulse Oximetry (%) Oxygen Delivery Method 11/27/19 11/27/19 11/27/19 17:53 20:34 23:29 Breakfast Lunch Supper 50% Temperature 99.0 F 98.4 F Pulse Rate 95 H 129 H Blood Pressure 99/63 92/55 L Blood Pressure 76 68 Mean Blood Pressure Supine Supine Position O2 Sat by Pulse Oximetry (%) Oxygen Delivery Method 11/28/19 11/28/19 11/28/19 00:00 01:05 04:50 Breakfast Lunch Supper Temperature 100.2 F H Pulse Rate 109 H Blood Pressure 100/68 Blood Pressure 78 Mean Blood Pressure Position O2 Sat by Pulse 100 100 100 Oximetry (%) Oxygen Delivery Method 11/28/19 11/28/19 06:00 07:40 Breakfast Lunch Supper Temperature 99.3 F Pulse Rate 101 H 100 H Blood Pressure 100/59 L Blood Pressure 75 Mean Blood Pressure Position O2 Sat by Pulse 100 98 Oximetry (%) Oxygen Delivery Mechanical Method Ventilator Laboratory Tests 11/26/19 11/27/19 11/28/19 06:00 05:40 05:25 WBC 12.9 H 11.3 H 13.2 H Selected Entries 11/28/19 11/28/19 11/29/19 15:47 18:00 05:36 Breakfast 75% Diet Tolerated Fair Well Lunch 50% Supper 75% Temperature 99.9 F H Pulse Rate 102 H Blood Pressure 99/61 11/29/19 08:10 Breakfast Diet Tolerated Lunch Supper Temperature Pulse Rate 94 H Blood Pressure Laboratory Tests 11/27/19 11/28/19 11/29/19 05:40 05:25 08:25 WBC 11.3 H 13.2 H 15.3 H Selected Entries 11/29/19 11/29/19 11/30/19 14:00 18:00 02:00 Breakfast 75% Diet Tolerated Well Well Lunch 50% Supper 75% Temperature 99.7 F H Pulse Rate 108 H Blood Pressure 96/59 L 11/30/19 06:00 Breakfast Diet Tolerated Lunch Supper Temperature 99.6 F Pulse Rate 103 H Blood Pressure 93/62 Appetite improving to 75% Encourage supplements b/n meals, using PMV Still anxious with PMV, although numbers are all reported good. Consider trial of gentle use incentive inspirometer with pmv to improve pt's control of respiration, and hopefully will reduce his anxiety. Trial Dys chopped with tuna, egg salad, chicken salad Pending return to [place] Continue speech/swallowing tx at [facility] with frequent PMV use, as to lerated. Repeat MBS to upgrade diet, as indicated
[2019-11-30] MEDS ORDERED: PT OWN MED DRAWER 7, Y5N ONE ×2 (11:27→13:51)
[2019-11-30] MEDS: AMINO ACIDS/PROTEIN HYDROLYS 30 ML LIQUID.PKT PO SCH (11:36)
[2019-11-30] MEDS: MULTIVIT-MINERALS ORAL LIQUID GT SCH (11:38)
[2019-11-30] MEDS: busPIRone HCL 5 MG TABLET GT SCH (11:38)
[2019-11-30] MEDS: DAPTOMYCIN 500 MG in SODIUM CHLORIDE 50 ML IVPB SCH (11:38)
[2019-11-30] MEDS: COLLAGENASE CLOSTRIDIUM HIST. 30 GRAMS TUBE TP SCH (11:39)
[2019-11-30] MEDS: FAMOTIDINE 40 MG/5 ML ORAL SUSPENSION PEG SCH (11:39)
[2019-11-30] MEDS: ASCORBIC ACID 500 MG/5 ML UNIT DOSE CUP GT SCH (11:39)
[2019-11-30] MEDS: SILVER SULFADIAZINE 1% TOP CREAM 50 GM JAR TP SCH (11:39)
[2019-11-30] MEDS: ACETAMINOPHEN 650 MG/20.3 ML ORAL SOLUTION (CUPS) GT PRN (14:33)
[2019-11-30 15:21] VITALS: BP 96/62; PULSE 105; TEMP 99.3
== END 2019-11-30 15:14 | DRG 720 ==
LOC: JER 20:12 → JERBED 11-19 01:57 → JICU 11-19 03:42 → J5S 11-20 16:29
PROVIDERS: ADMIT Internal Medicine Pulmonary Disease; ATTEND Family Medicine
PROC: 5A1955Z Respiratory Ventilation, Greater than 96 Consecutive Hours (ICD-10-PCS; principal; 2019-11-18)
PROC: 30233N1 Transfusion of Nonautologous Red Blood Cells into Peripheral Vein, Percutaneous Approach (ICD-10-PCS; 2019-11-19)
PROC: 2W15X6Z Compression of Back using Pressure Dressing (ICD-10-PCS; 2019-11-23)
DX: A41.89 Other specified sepsis (principal); I10 Essential (primary) hypertension; E11.9 Type 2 diabetes mellitus without complications; R53.2 Functional quadriplegia; R00.0 Tachycardia, unspecified; L89.154 Pressure ulcer of sacral region, stage 4; J45.41 Moderate persistent asthma with (acute) exacerbation; J18.9 Pneumonia, unspecified organism; R57.1 Hypovolemic shock; D72.829 Elevated white blood cell count, unspecified; E87.2 Acidosis; M86.8X9 Other osteomyelitis, unspecified sites; J96.10 Chronic respiratory failure, unspecified whether with hypoxia or hypercapnia; E87.6 Hypokalemia; E83.42 Hypomagnesemia; R26.9 Unspecified abnormalities of gait and mobility; G62.9 Polyneuropathy, unspecified; D62 Acute posthemorrhagic anemia; R29.898 Other symptoms and signs involving the musculoskeletal system; R19.7 Diarrhea, unspecified; E66.3 Overweight; Z68.29 Body mass index [BMI] 29.0-29.9, adult; Z93.1 Gastrostomy status; Z93.0 Tracheostomy status; Z86.14 Personal history of Methicillin resistant Staphylococcus aureus infection; Z86.711 Personal history of pulmonary embolism
CPT/HCPCS: 36415; 36430; 36511; 70450-TC; 71045-TC-FY; 71046-TC-FY; 72125-TC; 72131-TC; 72192-TC; 74230-TC-FY; 80048; 80053; 81003; 82085; 82550; 82607; 82803; 82962; 82977; 83036; 83540; 83550; 83605; 83735; 83880; 84100; 84155; 84165; 84439; 84443; 84484; 84630; 85025; 85027; 85610; 85651; 85730; 86038; 86140; 86780; 86850; 86900; 86901; 86922; 87040; 87070; 87077; 87086; 87186; 87205; 87324; 87449; 90732; 92611-GN; 93005; 93010; 93225; 93226; 94002; 94640; 95860-TC; 97163-GP; 99291; E0186; G0009; J0131; J0878; J1439; J1756; J2997; P9038; P9058; U0003

== ENCOUNTER 2019-12-11 03:03 | Inpatient (IN) | payer OTHER ==
[2019-12-11] MEDS ORDERED: ACETAMINOPHEN 1000 MG/100 ML VIAL (NON FORMULARY) IVPB ONE ×3 (03:21→18:02)
[2019-12-11] MEDS ORDERED: ACETAMINOPHEN INJECTION 100 ML IVPB ONE ×2 (03:25→09:40)
[2019-12-11] MEDS ORDERED: IBUPROFEN 100 MG/5 ML UNIT DOSE CUPS PEG ONE (03:36)
[2019-12-11] MEDS ORDERED: PIPERACILLIN/TAZOB 2.25 GM 2.25 GM in DEXTROSE 5%-WATER - 50 ML IVPB ONE (03:37)
[2019-12-11] MEDS ORDERED: IBUPROFEN 100 MG/5 ML UNIT DOSE CUPS ONE ×2 (03:39→13:17)
[2019-12-11] MEDS ORDERED: SODIUM CHLORIDE IV ONE (03:47)
[2019-12-11] MEDS ORDERED: PIPERACILLIN/TAZOB 2.25 GM 2.25 GM/50 ML BAG IVPB ONE (04:23)
[2019-12-11] MEDS ORDERED: AMPICILLIN NA/SULBACTAM NA 3 GM in SODIUM CHLORIDE 100 ML IVPB ONE (04:29)
[2019-12-11 04:38] LABS: EPI CELLS 10 /uL (0-25.1); HYALINE CASTS 7 /uL (0-3.1); PH,URINE 6.5 (5.0-8.0); URINE APPEARANCE CLOUDY; URINE BACTERIA 88 /uL (0-1359); URINE BILIRUBIN NEGATIVE (NEGATIVE); URINE COLOR YELLOW; URINE GLUCOSE (UA) NEGATIVE (NEGATIVE); URINE KETONE NEGATIVE (NEGATIVE); URINE LEUK ESTERASE 1+ (NEGATIVE); URINE NITRITE NEGATIVE (NEGATIVE); URINE PROTEIN 3+ (NEGATIVE); URINE WBC 1080 /uL (0-25.8)
[2019-12-11] MEDS ORDERED: morphine CARPU-JECT 2 MG/1 ML DISP.SYRIN IVPUSH ONE (05:07)
[2019-12-11 05:15] LABS: BASO % 0.6 % (0-2.0); EOS % 0.1 % (0-4.5); HEMATOCRIT 30.3 % (35.4-49); HEMOGLOBIN 9.7 GM/dL (11.7-16.9); LYMPH % 5.8 % (8-40); MCHC 32.1 g/dl (32.0-35.9); MEAN CELL VOLUME 90.2 fl (80-96); MEAN PLT VOLUME 8.9 fl (7.5-11.1); MONO % 4.9 % (3.8-10.2); NEUT % 88.6 % (42.8-82.8); PLATELET COUNT 512 K/MM3 (134-434); RBC 3.36 M/mm3 (4.00-5.60); RDW 16.8 % (11.9-15.9); WHITE BLOOD COUNT 25.5 K/mm3 (4.0-10.0)
[2019-12-11] MEDS ORDERED: MORPHINE SULFATE 2 MG/ML VIAL ONE (05:21)
[2019-12-11 05:26] LABS: INR 1.47 (0.83-1.09); PROTHROMBIN TIME (PATIENT) 17.4 SEC (9.7-13.0)
[2019-12-11 05:28] LABS: ACTIVATED PTT 42.5 SECONDS (25.2-36.5)
[2019-12-11 05:43] LABS: ALBUMIN 2.3 g/dl (3.4-5.0); BILIRUBIN,TOTAL 0.6 mg/dL (0.2-1); BLOOD UREA NITROGEN 22.4 mg/dL (7-18); CALCIUM 8.3 mg/dL (8.5-10.1); CREATININE 0.3 mg/dL (0.55-1.3); POTASSIUM 3.8 mmol/L (3.5-5.1); TOT PROT 6.3 g/dl (6.4-8.2)
[2019-12-11 06:52] LABS: ANISOCYTOSIS 1+
[2019-12-11 06:53] LABS: PLATELET ESTIMATE MOD INCREASED
[2019-12-11] MEDS ORDERED: VANCOMYCIN 1 GM in D5W (PRE-DOCKED) 1,000 MG/250 ML IVPB ONE (07:20)
[2019-12-11] MEDS ORDERED: IBUPROFEN 800 MG/8 ML IJ IVPB ONE ×3 (08:18→08:48)
[2019-12-11] MEDS ORDERED: VANCOMYCIN 1 GRAM (PRE-DOCKED) 1,000 MG/250 ML BAG IVPB ONE (09:40)
[2019-12-11] MEDS ORDERED: SODIUM CHLORIDE 0.45%/POT 20 MEQ/1,000 ML INFUS.BAG IV SCH (11:15)
[2019-12-11 11:32] LABS: BILIRUBIN,TOTAL 0.7 mg/dL (0.2-1); BLOOD UREA NITROGEN 18.3 mg/dL (7-18); CREATININE 0.2 mg/dL (0.55-1.3); POTASSIUM 3.7 mmol/L (3.5-5.1); TOT PROT 5.6 g/dl (6.4-8.2)
[2019-12-11] MEDS ORDERED: IBUPROFEN 100 MG/5 ML UNIT DOSE CUPS PO ONE (13:13)
[2019-12-11 16:03] LABS: URINE CRYSTALS CALCIUM OXALATE /hpf
[2019-12-11 16:06] LABS: YEAST PRESENT (NEGATIVE)
[2019-12-11 16:09] LABS: URINE RBC 678 /uL (0-23.9)
[2019-12-11] MEDS ORDERED: PIPERACILLIN/TAZOB 3.375 GM 3.375 GM in DEXTROSE 5%-WATER - 50 ML IVPB SCH (18:00)
[2019-12-11] MEDS ORDERED: PIPERACILLIN/TAZOB 3.375 GM 3.375 GM/50 ML BAG IVPB ONE (18:47)
[2019-12-11] MEDS: BUDESONIDE 0.5 MG/2 ML INH SUSP VIAL NEB SCH (20:00)
[2019-12-11] MEDS: AMINO ACIDS/PROTEIN HYDROLYS 30 ML LIQUID.PKT PEG SCH (20:27)
[2019-12-11] MEDS ORDERED: SODIUM CHLORIDE 0.45% 1,000 ML IV SCH (20:45)
[2019-12-11] MEDS ORDERED: SODIUM CHLORIDE 1,000 ML IV SCH (20:45)
[2019-12-11] MEDS ORDERED: AMPICILLIN NA/SULBACTAM NA 1.5 GM in SODIUM CHLORIDE 100 ML IVPB SCH (21:00)
[2019-12-11] MEDS ORDERED: ACETYLCYSTEINE 20% 200MG/ML 4 ML VIAL *FOR ORAL / INH USE ONLY ONE (21:30)
[2019-12-11] MEDS ORDERED: FERROUS SO4 300 MG/5 ML ORAL SOLN UNIT DOSE CUPS GT SCH (22:00)
[2019-12-11] MEDS: MUPIROCIN 2% TOPICAL OINTMENT FOR DECOLONIZATION NS SCH (22:00)
[2019-12-11] MEDS ORDERED: CHLORHEXIDINE GLUCONATE 4% CLEANSER FOR DECOLONIZATION TP SCH (22:00)
[2019-12-11] MEDS ORDERED: ASCORBIC ACID 500 MG TABLET (FP) ONE (22:29)
[2019-12-11] MEDS: MONTELUKAST NA 5 MG TAB.CHEW PEG SCH (22:46)
[2019-12-11] MEDS: ASCORBIC ACID 500 MG TABLET (FP) PEG SCH (22:46)
[2019-12-11] MEDS: GABAPENTIN 250 MG/5 ML ORAL SOLUTION, 470 ML BOTTLE PO SCH (22:46)
[2019-12-12] MEDS: VANCOMYCIN HCL 1,250 MG in DEXTROSE 5%-WATER - 250 ML IVPB SCH (00:39)
[2019-12-12] MEDS ORDERED: AMPICILLIN NA/SULBACTAM NA 1.5 GM in SODIUM CHLORIDE 100 ML IVPB SCH (01:00)
[2019-12-12] MEDS: AMPICILLIN NA/SULBACTAM NA 1.5 GM in SODIUM CHLORIDE 100 ML IVPB SCH ×2 (02:55→10:29)
[2019-12-12] MEDS ORDERED: ACETAMINOPHEN 1000 MG/100 ML VIAL (NON FORMULARY) IVPB ONE (04:13)
[2019-12-12] MEDS ORDERED: AMPICILLIN NA/SULBACTAM NA 1.5 GM VIAL ONE ×3 (04:18→12:51)
[2019-12-12] MEDS ORDERED: SODIUM CHLORIDE 100 ML IVPB ONE ×3 (04:19→12:51)
[2019-12-12] MEDS: GABAPENTIN 250 MG/5 ML ORAL SOLUTION, 470 ML BOTTLE PO SCH ×3 (06:23→22:30)
[2019-12-12 07:19] LABS: BASO % 0.3 % (0-2.0); EOS % 0.1 % (0-4.5); HEMATOCRIT 27.3 % (35.4-49); HEMOGLOBIN 8.8 GM/dL (11.7-16.9); LYMPH % 9.2 % (8-40); MCH 28.7 pg (25.7-33.7); MCHC 32.2 g/dl (32.0-35.9); MEAN CELL VOLUME 89.2 fl (80-96); MEAN PLT VOLUME 9.3 fl (7.5-11.1); MONO % 7.1 % (3.8-10.2); NEUT % 83.3 % (42.8-82.8); PLATELET COUNT 409 K/MM3 (134-434); RBC 3.06 M/mm3 (4.00-5.60); RDW 16.2 % (11.9-15.9); WHITE BLOOD COUNT 12.9 K/mm3 (4.0-10.0)
[2019-12-12 07:27] LABS: INR 1.3 (0.83-1.09); PROTHROMBIN TIME (PATIENT) 15.4 SEC (9.7-13.0)
[2019-12-12 07:49] LABS: ALK PHOS 70 U/L (45-117); ANION GAP 6 MMOL/L (8-16); BILIRUBIN,TOTAL 1.4 mg/dL (0.2-1); BLOOD UREA NITROGEN 19.8 mg/dL (7-18); CALCIUM 8.3 mg/dL (8.5-10.1); CHLORIDE 114 mmol/L (98-107); CO2 31 mmol/L (21-32); GLUCOSE,RANDOM 101 mg/dL (74-106); MAGNESIUM 2.2 mg/dL (1.8-2.4); PHOSPHOROUS 3.2 mg/dL (2.5-4.9); POTASSIUM 3.2 mmol/L (3.5-5.1); SGOT/AST 44 U/L (15-37); SGPT/ALT 38 U/L (13-61); SODIUM 151 mmol/L (136-145); TOT PROT 5.6 g/dl (6.4-8.2)
[2019-12-12 07:53] LABS: CREATININE < 0.2 mg/dL (0.55-1.3)
[2019-12-12] MEDS: SODIUM CHLORIDE 0.45% 1,000 ML IV SCH (08:00)
[2019-12-12] MEDS ORDERED: POTASSIUM CHLORIDE ORAL LIQUID 20 MEQ/15 ML PEG ONE (08:45)
[2019-12-12] MEDS: BUDESONIDE 0.5 MG/2 ML INH SUSP VIAL NEB SCH ×2 (08:47→20:15)
[2019-12-12] MEDS ORDERED: VANCOMYCIN HCL 1,250 MG in DEXTROSE 5%-WATER - 250 ML IVPB SCH (10:00)
[2019-12-12] MEDS ORDERED: PT OWN MED DRAWER 7, Y5N ONE ×4 (10:25→21:59)
[2019-12-12] MEDS: ESCITALOPRAM OXALATE 10 MG TABLET PEG SCH (10:28)
[2019-12-12] MEDS: AMINO ACIDS/PROTEIN HYDROLYS 30 ML LIQUID.PKT PEG SCH ×2 (10:28→17:57)
[2019-12-12] MEDS: ASCORBIC ACID 500 MG TABLET (FP) PEG SCH ×2 (10:29→21:06)
[2019-12-12] MEDS: CHLORHEXIDINE GLUCONATE 4% CLEANSER FOR DECOLONIZATION TP SCH ×2 (10:32→21:07)
[2019-12-12] MEDS: FERROUS SO4 300 MG/5 ML ORAL SOLN UNIT DOSE CUPS GT SCH ×3 (10:33→21:06)
[2019-12-12] MEDS: MUPIROCIN 2% TOPICAL OINTMENT FOR DECOLONIZATION NS SCH ×2 (12:53→21:07)
[2019-12-12] MEDS: SILVER SULFADIAZINE 1% TOP CREAM 50 GM JAR TP SCH (12:53)
[2019-12-12] MEDS: MULTIVIT-MINERALS ORAL LIQUID PEG SCH (12:54)
[2019-12-12] MEDS: FAMOTIDINE 40 MG/5 ML ORAL SUSPENSION PEG SCH (12:54)
[2019-12-12] MEDS ORDERED: PIPERACILLIN/TAZOBACTAM 4.5 GM VIAL IVPB ONE ×2 (13:35→15:42)
[2019-12-12] MEDS: PIPERACILLIN/TAZOB 4.5 GM 4.5 GM in DEXTROSE 5%-WATER 100 ML IVPB SCH ×2 (14:10→17:56)
[2019-12-12] MEDS ORDERED: DEXTROSE 5%-WATER 100 ML IVPB ONE (15:42)
[2019-12-12] MEDS: VANCOMYCIN 1,250 MG in DEXTROSE 5%-WATER - 250 ML IVPB SCH (16:13)
[2019-12-12] MEDS ORDERED: INSULIN (NOVOLOG) ASPART 100 UNITS/ML 10ML VIAL ONE (16:37)
[2019-12-12] MEDS: ACETAMINOPHEN 650 MG/20.3 ML ORAL SOLUTION (CUPS) PO PRN (21:08)
[2019-12-12] MEDS: MONTELUKAST NA 5 MG TAB.CHEW PEG SCH (22:49)
[2019-12-13] MEDS ORDERED: PIPERACILLIN/TAZOBACTAM 4.5 GM VIAL IVPB ONE ×3 (01:50→18:21)
[2019-12-13] MEDS ORDERED: DEXTROSE 5%-WATER 100 ML IVPB ONE ×3 (01:50→18:21)
[2019-12-13] MEDS: VANCOMYCIN 1,250 MG in DEXTROSE 5%-WATER - 250 ML IVPB SCH ×2 (01:58→14:19)
[2019-12-13] MEDS: PIPERACILLIN/TAZOB 4.5 GM 4.5 GM in DEXTROSE 5%-WATER 100 ML IVPB SCH ×3 (01:58→18:22)
[2019-12-13] MEDS: SODIUM CHLORIDE 0.45% 1,000 ML IV SCH ×2 (02:00→08:10)
[2019-12-13] MEDS ORDERED: PT OWN MED DRAWER 7, Y5N ONE ×4 (05:40→21:38)
[2019-12-13] MEDS: FERROUS SO4 300 MG/5 ML ORAL SOLN UNIT DOSE CUPS GT SCH ×3 (05:42→21:39)
[2019-12-13] MEDS: ACETAMINOPHEN 650 MG/20.3 ML ORAL SOLUTION (CUPS) PO PRN ×3 (05:42→21:39)
[2019-12-13] MEDS: GABAPENTIN 250 MG/5 ML ORAL SOLUTION, 470 ML BOTTLE PO SCH ×4 (05:43→21:41)
[2019-12-13 06:48] LABS: BASO % 0.1 % (0-2.0); EOS % 0.1 % (0-4.5); HEMOGLOBIN 7.4 GM/dL (11.7-16.9); LYMPH % 6.3 % (8-40); MCH 28.5 pg (25.7-33.7); MEAN PLT VOLUME 9.5 fl (7.5-11.1); MONO % 4.7 % (3.8-10.2); NEUT % 88.8 % (42.8-82.8); PLATELET COUNT 383 K/MM3 (134-434); RBC 2.59 M/mm3 (4.00-5.60); RDW 16.3 % (11.9-15.9); WHITE BLOOD COUNT 17.5 K/mm3 (4.0-10.0)
[2019-12-13 06:57] LABS: INR 1.49 (0.83-1.09); PROTHROMBIN TIME (PATIENT) 17.7 SEC (9.7-13.0)
[2019-12-13 07:00] LABS: ACTIVATED PTT 35.3 SECONDS (25.2-36.5)
[2019-12-13 07:17] LABS: ALBUMIN 1.8 g/dl (3.4-5.0); ALK PHOS 70 U/L (45-117); BILIRUBIN,TOTAL 1.3 mg/dL (0.2-1); BLOOD UREA NITROGEN 12.9 mg/dL (7-18); CALCIUM 7.9 mg/dL (8.5-10.1); CHLORIDE 110 mmol/L (98-107); CO2 31 mmol/L (21-32); CREATININE < 0.2 mg/dL (0.55-1.3); GLUCOSE,RANDOM 101 mg/dL (74-106); SGOT/AST 54 U/L (15-37); SGPT/ALT 67 U/L (13-61); SODIUM 147 mmol/L (136-145); TOT PROT 5.2 g/dl (6.4-8.2)
[2019-12-13 07:23] LABS: ANION GAP 6 MMOL/L (8-16)
[2019-12-13 07:42] LABS: POTASSIUM 2.5 mmol/L (3.5-5.1)
[2019-12-13] MEDS ORDERED: POTASSIUM CHLORIDE ORAL LIQUID 20 MEQ/15 ML PEG ONE (08:10)
[2019-12-13] MEDS: KCL 10 MEQ IVPB 10 MEQ/100 ML INFUS.BAG IVPB SCH ×3 (08:10→10:59)
[2019-12-13] MEDS: BUDESONIDE 0.5 MG/2 ML INH SUSP VIAL NEB SCH ×2 (08:55→20:30)
[2019-12-13] MEDS: AMINO ACIDS/PROTEIN HYDROLYS 30 ML LIQUID.PKT PEG SCH ×2 (08:59→17:09)
[2019-12-13] MEDS: MUPIROCIN 2% TOPICAL OINTMENT FOR DECOLONIZATION NS SCH ×2 (09:39→21:40)
[2019-12-13] MEDS: MULTIVIT-MINERALS ORAL LIQUID PEG SCH (09:40)
[2019-12-13] MEDS: ESCITALOPRAM OXALATE 10 MG TABLET PEG SCH (09:41)
[2019-12-13] MEDS: FAMOTIDINE 40 MG/5 ML ORAL SUSPENSION PEG SCH (09:41)
[2019-12-13] MEDS: ASCORBIC ACID 500 MG TABLET (FP) PEG SCH ×2 (09:49→21:39)
[2019-12-13] MEDS ORDERED: FENTANYL PATCH WASTE MC PRN (10:19)
[2019-12-13] MEDS ORDERED: ACETYLCYSTEINE 20% 200MG/ML 4 ML VIAL *FOR ORAL / INH USE ONLY NEB SCH (10:30)
[2019-12-13] MEDS ORDERED: ACETYLCYSTEINE 20% 200MG/ML 30 ML VIAL *FOR ORAL / INH USE ONLY NEB SCH (10:30)
[2019-12-13] MEDS: ALBUTEROL SO4 0.083% IH SOL 2.5 MG/3 ML VIAL.NEB. NEB SCH ×3 (12:32→20:30)
[2019-12-13] MEDS ORDERED: ALBUTEROL SO4 0.083% IH SOL 2.5 MG/3 ML VIAL.NEB. NEB SCH (14:00)
[2019-12-13] MEDS: COLLAGENASE CLOSTRIDIUM HIST. 30 GRAMS TUBE TP SCH (14:00)
[2019-12-13] MEDS: SILVER SULFADIAZINE 1% TOP CREAM 50 GM JAR TP SCH (14:12)
[2019-12-13] MEDS: fentaNYL 25mcg/hr PATCH.TD72 TD SCH (14:13)
[2019-12-13] MEDS: LORATADINE 10 MG TABLET GT SCH (14:13)
[2019-12-13] MEDS: LACTOBACILLUS ACIDOPHILUS 1 TABLET GT SCH (14:13)
[2019-12-13] MEDS: BANATROL PLUS POWDER PACKET GT SCH ×2 (14:14→21:40)
[2019-12-13] MEDS: VANCOMYCIN HCL 1,250 MG in DEXTROSE 5%-WATER - 250 ML IVPB SCH (14:18)
[2019-12-13] MEDS: SCOPOLAMINE HYDROBROMIDE 1 PATCH PATCH.TD72 TD SCH (14:20)
[2019-12-13] MEDS ORDERED: INSULIN (NOVOLOG) ASPART 100 UNITS/ML 10ML VIAL ONE (15:08)
[2019-12-13] MEDS: POTASSIUM CHLORIDE 40 MEQ in SODIUM CHLORIDE 0.45% 1,000 ML IVPB SCH ×2 (15:34→22:00)
[2019-12-13] MEDS: CYANOCOBALAMIN 1,000 MCG TABLET (FP) GT SCH (16:00)
[2019-12-13 17:58] LABS: CREATININE 0.2 mg/dL (0.55-1.3); POTASSIUM 3.1 mmol/L (3.5-5.1)
[2019-12-13 17:59] LABS: BLOOD UREA NITROGEN 12.9 mg/dL (7-18); CALCIUM 7.9 mg/dL (8.5-10.1)
[2019-12-13] MEDS: ACETYLCYSTEINE 20% 200MG/ML 4 ML VIAL *FOR ORAL / INH USE ONLY NEB SCH (20:30)
[2019-12-13] MEDS: CHLORHEXIDINE GLUCONATE 4% CLEANSER FOR DECOLONIZATION TP SCH (21:40)
[2019-12-13] MEDS: MONTELUKAST NA 5 MG TAB.CHEW PEG SCH (21:41)
[2019-12-13] MEDS: CHOLESTYRAMINE/ASPARTAME 4 GM PACKET GT SCH (23:45)
[2019-12-14] MEDS ORDERED: PT OWN MED DRAWER 7, Y5N ONE ×5 (00:33→20:21)
[2019-12-14] MEDS ORDERED: DEXTROSE 5%-WATER 100 ML IVPB ONE ×3 (01:17→17:00)
[2019-12-14] MEDS ORDERED: PIPERACILLIN/TAZOBACTAM 4.5 GM VIAL IVPB ONE ×3 (01:17→17:00)
[2019-12-14] MEDS: PIPERACILLIN/TAZOB 4.5 GM 4.5 GM in DEXTROSE 5%-WATER 100 ML IVPB SCH ×3 (01:23→17:06)
[2019-12-14] MEDS: oxyCODONE HCL 5 MG TABLET PEG PRN ×3 (03:23→17:04)
[2019-12-14] MEDS: POTASSIUM CHLORIDE 40 MEQ in SODIUM CHLORIDE 0.45% 1,000 ML IVPB SCH ×2 (05:01→11:12)
[2019-12-14] MEDS: FERROUS SO4 300 MG/5 ML ORAL SOLN UNIT DOSE CUPS GT SCH ×3 (06:46→21:04)
[2019-12-14] MEDS: GABAPENTIN 250 MG/5 ML ORAL SOLUTION, 470 ML BOTTLE PO SCH ×3 (06:46→21:05)
[2019-12-14] MEDS: BANATROL PLUS POWDER PACKET GT SCH ×3 (06:46→21:05)
[2019-12-14] MEDS: BUDESONIDE 0.5 MG/2 ML INH SUSP VIAL NEB SCH ×2 (07:45→20:10)
[2019-12-14] MEDS: ALBUTEROL SO4 0.083% IH SOL 2.5 MG/3 ML VIAL.NEB. NEB SCH ×4 (07:45→20:20)
[2019-12-14] MEDS: ACETYLCYSTEINE 20% 200MG/ML 4 ML VIAL *FOR ORAL / INH USE ONLY NEB SCH ×2 (07:45→20:10)
[2019-12-14] MEDS ORDERED: INSULIN (LEVEMIR) 100 UNITS/ML UNITS SQ ONE (08:17)
[2019-12-14 08:36] LABS: BASO % 0.1 % (0-2.0); EOS % 1.5 % (0-4.5); HEMATOCRIT 24.3 % (35.4-49); HEMOGLOBIN 7.6 GM/dL (11.7-16.9); LYMPH % 8.1 % (8-40); MCH 28.8 pg (25.7-33.7); MCHC 31.1 g/dl (32.0-35.9); MEAN CELL VOLUME 92.7 fl (80-96); MEAN PLT VOLUME 9.6 fl (7.5-11.1); MONO % 3.9 % (3.8-10.2); NEUT % 86.4 % (42.8-82.8); PLATELET COUNT 343 K/MM3 (134-434); RBC 2.63 M/mm3 (4.00-5.60); RDW 16.2 % (11.9-15.9); WHITE BLOOD COUNT 16.5 K/mm3 (4.0-10.0)
[2019-12-14 10:09] LABS: ANISOCYTOSIS 1+; MACROCYTOSIS 0; PLATELET ESTIMATE NORMAL
[2019-12-14 10:18] LABS: ALBUMIN 1.8 g/dl (3.4-5.0); BILIRUBIN,TOTAL 0.5 mg/dL (0.2-1); BLOOD UREA NITROGEN 11.4 mg/dL (7-18); CREATININE 0.2 mg/dL (0.55-1.3); MAGNESIUM 1.8 mg/dL (1.8-2.4); PHOSPHOROUS 4.1 mg/dL (2.5-4.9); POTASSIUM 3.3 mmol/L (3.5-5.1); TOT PROT 5.1 g/dl (6.4-8.2)
[2019-12-14] MEDS: ASCORBIC ACID 500 MG TABLET (FP) PEG SCH ×2 (11:09→21:04)
[2019-12-14] MEDS: LACTOBACILLUS ACIDOPHILUS 1 TABLET GT SCH (11:09)
[2019-12-14] MEDS: LORATADINE 10 MG TABLET GT SCH (11:10)
[2019-12-14] MEDS: CYANOCOBALAMIN 1,000 MCG TABLET (FP) GT SCH (11:10)
[2019-12-14] MEDS: AMINO ACIDS/PROTEIN HYDROLYS 30 ML LIQUID.PKT PEG SCH ×2 (11:10→17:04)
[2019-12-14] MEDS: ESCITALOPRAM OXALATE 5 MG/5 ML PEG SCH (11:11)
[2019-12-14] MEDS: FAMOTIDINE 40 MG/5 ML ORAL SUSPENSION PEG SCH (11:11)
[2019-12-14] MEDS: MULTIVIT-MINERALS ORAL LIQUID PEG SCH (11:12)
[2019-12-14] MEDS: CHOLESTYRAMINE/ASPARTAME 4 GM PACKET GT SCH (15:33)
[2019-12-14] MEDS: POTASSIUM CHLORIDE ORAL LIQUID 20 MEQ/15 ML PO SCH ×2 (15:35→21:04)
[2019-12-14] MEDS: SILVER SULFADIAZINE 1% TOP CREAM 50 GM JAR TP SCH (17:04)
[2019-12-14] MEDS: COLLAGENASE CLOSTRIDIUM HIST. 30 GRAMS TUBE TP SCH (17:05)
[2019-12-14] MEDS: ACETAMINOPHEN 650 MG/20.3 ML ORAL SOLUTION (CUPS) PO PRN (17:08)
[2019-12-14] MEDS ORDERED: LOPERAMIDE HCL 1 MG/5 ML UNIT DOSE CUP PO ONE (18:15)
[2019-12-14] MEDS: MONTELUKAST NA 5 MG TAB.CHEW PEG SCH (21:07)
[2019-12-15] MEDS ORDERED: DEXTROSE 5%-WATER 100 ML IVPB ONE ×3 (01:00→17:55)
[2019-12-15] MEDS ORDERED: PIPERACILLIN/TAZOBACTAM 4.5 GM VIAL IVPB ONE ×3 (01:00→17:55)
[2019-12-15] MEDS: oxyCODONE HCL 5 MG TABLET PEG PRN ×2 (02:08→09:44)
[2019-12-15] MEDS: ACETAMINOPHEN 650 MG/20.3 ML ORAL SOLUTION (CUPS) PO PRN ×2 (02:08→23:43)
[2019-12-15] MEDS: PIPERACILLIN/TAZOB 4.5 GM 4.5 GM in DEXTROSE 5%-WATER 100 ML IVPB SCH ×3 (02:09→18:02)
[2019-12-15] MEDS: GABAPENTIN 250 MG/5 ML ORAL SOLUTION, 470 ML BOTTLE PO SCH ×3 (05:24→21:50)
[2019-12-15] MEDS: BANATROL PLUS POWDER PACKET GT SCH ×3 (05:24→23:02)
[2019-12-15] MEDS: FERROUS SO4 300 MG/5 ML ORAL SOLN UNIT DOSE CUPS GT SCH ×2 (05:24→14:47)
[2019-12-15 08:17] LABS: BASO % 0.3 % (0-2.0); EOS % 2.6 % (0-4.5); HEMATOCRIT 24.1 % (35.4-49); HEMOGLOBIN 7.6 GM/dL (11.7-16.9); LYMPH % 5.4 % (8-40); MCH 28.3 pg (25.7-33.7); MCHC 31.4 g/dl (32.0-35.9); MEAN CELL VOLUME 89.9 fl (80-96); MEAN PLT VOLUME 9.9 fl (7.5-11.1); MONO % 5.2 % (3.8-10.2); NEUT % 86.5 % (42.8-82.8); PLATELET COUNT 412 K/MM3 (134-434); RBC 2.68 M/mm3 (4.00-5.60); RDW 16.3 % (11.9-15.9); WHITE BLOOD COUNT 18.4 K/mm3 (4.0-10.0)
[2019-12-15 08:29] LABS: ALBUMIN 1.8 g/dl (3.4-5.0); BLOOD UREA NITROGEN 7.9 mg/dL (7-18); CREATININE 0.2 mg/dL (0.55-1.3); POTASSIUM 3.8 mmol/L (3.5-5.1)
[2019-12-15 08:31] LABS: BILIRUBIN,TOTAL 0.4 mg/dL (0.2-1); TOT PROT 5.4 g/dl (6.4-8.2)
[2019-12-15] MEDS: ALBUTEROL SO4 0.083% IH SOL 2.5 MG/3 ML VIAL.NEB. NEB SCH ×4 (08:45→20:35)
[2019-12-15] MEDS: ACETYLCYSTEINE 20% 200MG/ML 4 ML VIAL *FOR ORAL / INH USE ONLY NEB SCH ×2 (08:45→20:35)
[2019-12-15] MEDS: BUDESONIDE 0.5 MG/2 ML INH SUSP VIAL NEB SCH ×2 (08:50→21:00)
[2019-12-15] MEDS: AMINO ACIDS/PROTEIN HYDROLYS 30 ML LIQUID.PKT PEG SCH ×2 (09:17→18:15)
[2019-12-15] MEDS ORDERED: PT OWN MED DRAWER 7, Y5N ONE ×3 (09:37→23:00)
[2019-12-15] MEDS: FAMOTIDINE 40 MG/5 ML ORAL SUSPENSION PEG SCH (09:42)
[2019-12-15] MEDS: LORATADINE 10 MG TABLET GT SCH (09:42)
[2019-12-15] MEDS: CYANOCOBALAMIN 1,000 MCG TABLET (FP) GT SCH (09:42)
[2019-12-15] MEDS: ASCORBIC ACID 500 MG TABLET (FP) PEG SCH ×2 (09:42→22:50)
[2019-12-15] MEDS: LACTOBACILLUS ACIDOPHILUS 1 TABLET GT SCH (09:42)
[2019-12-15] MEDS: MULTIVIT-MINERALS ORAL LIQUID PEG SCH (09:43)
[2019-12-15] MEDS: POTASSIUM CHLORIDE ORAL LIQUID 20 MEQ/15 ML PO SCH ×2 (09:43→21:50)
[2019-12-15 10:03] LABS: ANISOCYTOSIS 2+; MACROCYTOSIS 0; PLATELET ESTIMATE NORMAL
[2019-12-15] MEDS: ESCITALOPRAM OXALATE 5 MG/5 ML PEG SCH (10:23)
[2019-12-15] MEDS ORDERED: morphine CARPU-JECT 2 MG/1 ML DISP.SYRIN IVPUSH ONE (10:41)
[2019-12-15] MEDS ORDERED: morphine CARPU-JECT 2 MG/1 ML DISP.SYRIN IM ONE (10:41)
[2019-12-15] MEDS ORDERED: MORPHINE SULFATE 2 MG/ML VIAL IVPUSH ONE (10:41)
[2019-12-15] MEDS ORDERED: MORPHINE SULFATE 2 MG/ML VIAL ONE (10:42)
[2019-12-15] MEDS ORDERED: SODIUM CHLORIDE 250 ML IV STA (10:45)
[2019-12-15] MEDS ORDERED: methylPREDNISolone NA SUCC 125 MG/2 ML VIAL IVPUSH ONE (11:15)
[2019-12-15] MEDS ORDERED: ACETAMINOPHEN 1000 MG/100 ML VIAL (NON FORMULARY) IVPB ONE (12:15)
[2019-12-15] MEDS ORDERED: IPRATROPIUM BR 0.02% 0.5 MG/2.5 ML VIAL.NEB. NEB PRN (12:32)
[2019-12-15 14:13] LABS: ANION GAP 5 MMOL/L (8-16); BLOOD UREA NITROGEN 7.3 mg/dL (7-18); CALCIUM 8.3 mg/dL (8.5-10.1); CHLORIDE 111 mmol/L (98-107); CO2 32 mmol/L (21-32); CREATININE < 0.2 mg/dL (0.55-1.3); GLUCOSE,RANDOM 125 mg/dL (74-106); MAGNESIUM 1.9 mg/dL (1.8-2.4); PHOSPHOROUS 3.9 mg/dL (2.5-4.9); POTASSIUM 4.3 mmol/L (3.5-5.1); SODIUM 148 mmol/L (136-145)
[2019-12-15] MEDS ORDERED: FUROSEMIDE 40 MG/4 ML INJECTABLE VIAL IVPUSH ONE (14:17)
[2019-12-15] MEDS ORDERED: FUROSEMIDE 40 MG/4 ML INJECTABLE VIAL ONE (14:42)
[2019-12-15] MEDS: methylPREDNISolone NA SUCC 40 MG/1 ML VIAL IVPUSH SCH (18:15)
[2019-12-15] MEDS ORDERED: LOPERAMIDE HCL 1 MG/5 ML UNIT DOSE CUP GT ONE (18:19)
[2019-12-15] MEDS: MONTELUKAST NA 5 MG TAB.CHEW PEG SCH (21:50)
[2019-12-16] MEDS ORDERED: PIPERACILLIN/TAZOBACTAM 4.5 GM VIAL IVPB ONE ×3 (02:34→16:28)
[2019-12-16] MEDS ORDERED: DEXTROSE 5%-WATER 100 ML IVPB ONE ×3 (02:34→16:28)
[2019-12-16] MEDS: PIPERACILLIN/TAZOB 4.5 GM 4.5 GM in DEXTROSE 5%-WATER 100 ML IVPB SCH ×3 (02:35→17:10)
[2019-12-16] MEDS: methylPREDNISolone NA SUCC 40 MG/1 ML VIAL IVPUSH SCH ×3 (02:35→17:10)
[2019-12-16] MEDS ORDERED: PT OWN MED DRAWER 7, Y5N ONE ×5 (06:18→22:27)
[2019-12-16] MEDS: GABAPENTIN 250 MG/5 ML ORAL SOLUTION, 470 ML BOTTLE PO SCH ×3 (06:24→23:00)
[2019-12-16] MEDS: BANATROL PLUS POWDER PACKET GT SCH ×3 (06:25→22:13)
[2019-12-16 07:06] LABS: HEMATOCRIT 26.4 % (35.4-49); HEMOGLOBIN 8.4 GM/dL (11.7-16.9); LYMPH % 4.6 % (8-40); MCH 28.2 pg (25.7-33.7); MCHC 31.8 g/dl (32.0-35.9); MEAN CELL VOLUME 88.6 fl (80-96); MEAN PLT VOLUME 9.5 fl (7.5-11.1); MONO % 3.5 % (3.8-10.2); NEUT % 91.9 % (42.8-82.8); PLATELET COUNT 517 K/MM3 (134-434); RBC 2.99 M/mm3 (4.00-5.60); RDW 16.3 % (11.9-15.9); WHITE BLOOD COUNT 20.9 K/mm3 (4.0-10.0)
[2019-12-16 07:19] LABS: BILIRUBIN,TOTAL 0.3 mg/dL (0.2-1); BLOOD UREA NITROGEN 15.1 mg/dL (7-18); CALCIUM 8.5 mg/dL (8.5-10.1); CREATININE 0.2 mg/dL (0.55-1.3); MAGNESIUM 2.1 mg/dL (1.8-2.4); PHOSPHOROUS 3.9 mg/dL (2.5-4.9); POTASSIUM 4.1 mmol/L (3.5-5.1)
[2019-12-16] MEDS: ACETYLCYSTEINE 20% 200MG/ML 4 ML VIAL *FOR ORAL / INH USE ONLY NEB SCH (08:35)
[2019-12-16] MEDS: ALBUTEROL SO4 0.083% IH SOL 2.5 MG/3 ML VIAL.NEB. NEB SCH ×4 (08:35→20:35)
[2019-12-16] MEDS: BUDESONIDE 0.5 MG/2 ML INH SUSP VIAL NEB SCH ×2 (08:45→20:35)
[2019-12-16 09:24] LABS: ANISOCYTOSIS 1+; MACROCYTOSIS 0; PLATELET ESTIMATE INCREASED
[2019-12-16] MEDS: LACTOBACILLUS ACIDOPHILUS 1 TABLET GT SCH (10:01)
[2019-12-16] MEDS: fentaNYL 25mcg/hr PATCH.TD72 TD SCH (10:02)
[2019-12-16] MEDS: LORATADINE 10 MG TABLET GT SCH (10:03)
[2019-12-16] MEDS: ASCORBIC ACID 500 MG TABLET (FP) PEG SCH ×2 (10:03→22:13)
[2019-12-16] MEDS: AMINO ACIDS/PROTEIN HYDROLYS 30 ML LIQUID.PKT PEG SCH ×2 (10:03→17:09)
[2019-12-16] MEDS: COLLAGENASE CLOSTRIDIUM HIST. 30 GRAMS TUBE TP SCH (10:04)
[2019-12-16] MEDS: SILVER SULFADIAZINE 1% TOP CREAM 50 GM JAR TP SCH (10:04)
[2019-12-16] MEDS: MUPIROCIN 2% TOPICAL OINTMENT FOR DECOLONIZATION NS SCH ×2 (10:05→22:12)
[2019-12-16] MEDS: MULTIVIT-MINERALS ORAL LIQUID PEG SCH (10:05)
[2019-12-16] MEDS: POTASSIUM CHLORIDE ORAL LIQUID 20 MEQ/15 ML PO SCH ×2 (10:06→22:13)
[2019-12-16] MEDS: CYANOCOBALAMIN 1,000 MCG TABLET (FP) GT SCH (10:06)
[2019-12-16] MEDS: ESCITALOPRAM OXALATE 5 MG/5 ML PEG SCH (10:06)
[2019-12-16] MEDS: FAMOTIDINE 40 MG/5 ML ORAL SUSPENSION PEG SCH (10:06)
[2019-12-16] MEDS: SCOPOLAMINE HYDROBROMIDE 1 PATCH PATCH.TD72 TD SCH (10:07)
[2019-12-16] MEDS: FUROSEMIDE 40 MG/4 ML INJECTABLE VIAL IVPUSH SCH (13:45)
[2019-12-16] MEDS: ACETAMINOPHEN 1000 MG/100 ML VIAL (NON FORMULARY) IVPB PRN ×2 (15:59→22:14)
[2019-12-16] MEDS: MONTELUKAST NA 5 MG TAB.CHEW PEG SCH (22:13)
[2019-12-16] MEDS: CHLORHEXIDINE GLUCONATE 4% CLEANSER FOR DECOLONIZATION TP SCH (22:13)
[2019-12-17] MEDS ORDERED: LACTATED RINGERS SOLUTION 1000 ML INFUS.BAG IV ONE (00:42)
[2019-12-17] MEDS ORDERED: LACTATED RINGERS SOLUTION 1,000 ML/1,000 ML INFUS.BAG IV SCH (00:45)
[2019-12-17] MEDS: PIPERACILLIN/TAZOB 4.5 GM 4.5 GM in DEXTROSE 5%-WATER 100 ML IVPB SCH ×3 (02:50→18:10)
[2019-12-17] MEDS: methylPREDNISolone NA SUCC 40 MG/1 ML VIAL IVPUSH SCH ×3 (02:50→18:10)
[2019-12-17] MEDS ORDERED: PIPERACILLIN/TAZOBACTAM 4.5 GM VIAL IVPB ONE ×3 (04:07→18:05)
[2019-12-17] MEDS ORDERED: DEXTROSE 5%-WATER 100 ML IVPB ONE ×3 (04:07→18:05)
[2019-12-17] MEDS: BANATROL PLUS POWDER PACKET GT SCH ×3 (05:35→22:36)
[2019-12-17] MEDS: GABAPENTIN 250 MG/5 ML ORAL SOLUTION, 470 ML BOTTLE PO SCH ×3 (05:35→22:42)
[2019-12-17 07:03] LABS: BASO % 0.4 % (0-2.0); HEMATOCRIT 24.3 % (35.4-49); HEMOGLOBIN 7.8 GM/dL (11.7-16.9); LYMPH % 5.6 % (8-40); MCH 28.9 pg (25.7-33.7); MCHC 31.9 g/dl (32.0-35.9); MEAN CELL VOLUME 90.5 fl (80-96); MEAN PLT VOLUME 10.8 fl (7.5-11.1); MONO % 4.4 % (3.8-10.2); NEUT % 89.6 % (42.8-82.8); PLATELET COUNT 451 K/MM3 (134-434); RBC 2.69 M/mm3 (4.00-5.60); RDW 16.7 % (11.9-15.9); WHITE BLOOD COUNT 17.1 K/mm3 (4.0-10.0)
[2019-12-17 07:34] LABS: BILIRUBIN,TOTAL 0.2 mg/dL (0.2-1); CALCIUM 8.1 mg/dL (8.5-10.1); CREATININE 0.2 mg/dL (0.55-1.3); POTASSIUM 4.5 mmol/L (3.5-5.1); TOT PROT 5.9 g/dl (6.4-8.2)
[2019-12-17] MEDS: ALBUTEROL SO4 0.083% IH SOL 2.5 MG/3 ML VIAL.NEB. NEB SCH ×4 (07:55→20:14)
[2019-12-17] MEDS: BUDESONIDE 0.5 MG/2 ML INH SUSP VIAL NEB SCH ×2 (08:09→20:14)
[2019-12-17] MEDS: AMINO ACIDS/PROTEIN HYDROLYS 30 ML LIQUID.PKT PEG SCH ×2 (08:40→18:10)
[2019-12-17 09:29] LABS: ANISOCYTOSIS 1+; MACROCYTOSIS 0; PLATELET ESTIMATE NORMAL
[2019-12-17] MEDS ORDERED: PT OWN MED DRAWER 7, Y5N ONE (09:34)
[2019-12-17] MEDS: POTASSIUM CHLORIDE ORAL LIQUID 20 MEQ/15 ML PO SCH ×2 (09:40→22:37)
[2019-12-17] MEDS: FUROSEMIDE 40 MG/4 ML INJECTABLE VIAL IVPUSH SCH (09:40)
[2019-12-17] MEDS: ASCORBIC ACID 500 MG TABLET (FP) PEG SCH ×2 (09:46→22:36)
[2019-12-17] MEDS: LACTOBACILLUS ACIDOPHILUS 1 TABLET GT SCH (09:47)
[2019-12-17] MEDS: LORATADINE 10 MG TABLET GT SCH (09:47)
[2019-12-17] MEDS: MUPIROCIN 2% TOPICAL OINTMENT FOR DECOLONIZATION NS SCH ×2 (09:48→22:37)
[2019-12-17] MEDS: CYANOCOBALAMIN 1,000 MCG TABLET (FP) GT SCH (09:49)
[2019-12-17] MEDS: MULTIVIT-MINERALS ORAL LIQUID PEG SCH (09:49)
[2019-12-17] MEDS: FAMOTIDINE 40 MG/5 ML ORAL SUSPENSION PEG SCH (09:50)
[2019-12-17] MEDS: ESCITALOPRAM OXALATE 5 MG/5 ML PEG SCH (10:42)
[2019-12-17] MEDS ORDERED: INSULIN (NOVOLOG) ASPART 100 UNITS/ML 10ML VIAL ONE (14:13)
[2019-12-17] MEDS: SILVER SULFADIAZINE 1% TOP CREAM 50 GM JAR TP SCH (14:32)
[2019-12-17] MEDS: COLLAGENASE CLOSTRIDIUM HIST. 30 GRAMS TUBE TP SCH (14:33)
[2019-12-17] MEDS: CHLORHEXIDINE GLUCONATE 4% CLEANSER FOR DECOLONIZATION TP SCH (22:37)
[2019-12-17] MEDS: MONTELUKAST NA 5 MG TAB.CHEW PEG SCH (22:55)
[2019-12-18] MEDS ORDERED: PIPERACILLIN/TAZOBACTAM 4.5 GM VIAL IVPB ONE ×3 (02:33→16:39)
[2019-12-18] MEDS ORDERED: DEXTROSE 5%-WATER 100 ML IVPB ONE ×3 (02:34→16:39)
[2019-12-18] MEDS: PIPERACILLIN/TAZOB 4.5 GM 4.5 GM in DEXTROSE 5%-WATER 100 ML IVPB SCH ×3 (02:42→17:48)
[2019-12-18] MEDS: methylPREDNISolone NA SUCC 40 MG/1 ML VIAL IVPUSH SCH ×3 (02:42→17:01)
[2019-12-18] MEDS: ACETAMINOPHEN 650 MG/20.3 ML ORAL SOLUTION (CUPS) PO PRN (06:00)
[2019-12-18] MEDS: GABAPENTIN 250 MG/5 ML ORAL SOLUTION, 470 ML BOTTLE PO SCH ×3 (06:01→22:23)
[2019-12-18 06:38] LABS: BASO % 0.3 % (0-2.0); EOS % 0.1 % (0-4.5); HEMATOCRIT 26.6 % (35.4-49); HEMOGLOBIN 8.5 GM/dL (11.7-16.9); LYMPH % 5.8 % (8-40); MCH 28.4 pg (25.7-33.7); MCHC 31.9 g/dl (32.0-35.9); MEAN CELL VOLUME 88.8 fl (80-96); MEAN PLT VOLUME 9.3 fl (7.5-11.1); MONO % 5.3 % (3.8-10.2); NEUT % 88.5 % (42.8-82.8); PLATELET COUNT 532 K/MM3 (134-434); RDW 16.6 % (11.9-15.9); WHITE BLOOD COUNT 18.2 K/mm3 (4.0-10.0)
[2019-12-18 06:59] LABS: ALBUMIN 2.2 g/dl (3.4-5.0); BILIRUBIN,TOTAL 0.4 mg/dL (0.2-1); BLOOD UREA NITROGEN 14.7 mg/dL (7-18); CALCIUM 8.7 mg/dL (8.5-10.1); CREATININE 0.3 mg/dL (0.55-1.3); POTASSIUM 4.2 mmol/L (3.5-5.1); TOT PROT 6.2 g/dl (6.4-8.2)
[2019-12-18] MEDS: BANATROL PLUS POWDER PACKET GT SCH ×3 (07:02→22:22)
[2019-12-18] MEDS: BUDESONIDE 0.5 MG/2 ML INH SUSP VIAL NEB SCH ×2 (07:30→21:20)
[2019-12-18] MEDS: ALBUTEROL SO4 0.083% IH SOL 2.5 MG/3 ML VIAL.NEB. NEB SCH ×4 (07:30→20:00)
[2019-12-18] MEDS ORDERED: PT OWN MED DRAWER 7, Y5N ONE ×3 (07:36→16:39)
[2019-12-18] MEDS: MUPIROCIN 2% TOPICAL OINTMENT FOR DECOLONIZATION NS SCH (09:04)
[2019-12-18] MEDS: AMINO ACIDS/PROTEIN HYDROLYS 30 ML LIQUID.PKT PEG SCH ×2 (09:04→17:01)
[2019-12-18] MEDS: FUROSEMIDE 40 MG/4 ML INJECTABLE VIAL IVPUSH SCH (09:04)
[2019-12-18] MEDS: MULTIVIT-MINERALS ORAL LIQUID PEG SCH (09:04)
[2019-12-18] MEDS: LORATADINE 10 MG TABLET GT SCH (09:04)
[2019-12-18] MEDS: LACTOBACILLUS ACIDOPHILUS 1 TABLET GT SCH (09:04)
[2019-12-18] MEDS: CYANOCOBALAMIN 1,000 MCG TABLET (FP) GT SCH (09:05)
[2019-12-18] MEDS: ASCORBIC ACID 500 MG TABLET (FP) PEG SCH (09:05)
[2019-12-18] MEDS: FAMOTIDINE 40 MG/5 ML ORAL SUSPENSION PEG SCH (09:05)
[2019-12-18] MEDS: POTASSIUM CHLORIDE ORAL LIQUID 20 MEQ/15 ML PO SCH ×2 (09:05→22:23)
[2019-12-18] MEDS: ESCITALOPRAM OXALATE 5 MG/5 ML PEG SCH (09:05)
[2019-12-18] MEDS: COLLAGENASE CLOSTRIDIUM HIST. 30 GRAMS TUBE TP SCH (10:00)
[2019-12-18] MEDS: SILVER SULFADIAZINE 1% TOP CREAM 50 GM JAR TP SCH (16:28)
[2019-12-18] MEDS ORDERED: ACETAMINOPHEN 650 MG/20.3 ML ORAL SOLUTION (CUPS) PO PRN (21:19)
[2019-12-18] MEDS ORDERED: MONTELUKAST NA 5 MG TAB.CHEW PEG SCH (22:00)
[2019-12-18] MEDS ORDERED: MUPIROCIN 2% TOPICAL OINTMENT FOR DECOLONIZATION NS SCH (22:00)
[2019-12-18] MEDS: HEPARIN NA (PORCINE) 5,000 UNITS/ML 1ML VIAL SQ SCH (22:23)
[2019-12-18] MEDS: ASCORBIC ACID 500 MG/5 ML UNIT DOSE CUP PEG SCH (22:23)
[2019-12-18] MEDS: MONTELUKAST NA 10 MG TABLET PEG SCH (22:23)
[2019-12-19] MEDS ORDERED: PIPERACILLIN/TAZOBACTAM 4.5 GM VIAL IVPB ONE ×3 (01:32→17:30)
[2019-12-19] MEDS ORDERED: DEXTROSE 5%-WATER 100 ML IVPB ONE ×3 (01:32→17:30)
[2019-12-19] MEDS: methylPREDNISolone NA SUCC 40 MG/1 ML VIAL IVPUSH SCH ×3 (02:01→17:37)
[2019-12-19] MEDS: PIPERACILLIN/TAZOB 4.5 GM 4.5 GM in DEXTROSE 5%-WATER 100 ML IVPB SCH ×3 (02:02→17:37)
[2019-12-19] MEDS: BANATROL PLUS POWDER PACKET GT SCH ×3 (05:21→23:10)
[2019-12-19] MEDS: GABAPENTIN 250 MG/5 ML ORAL SOLUTION, 470 ML BOTTLE PO SCH ×3 (05:21→23:09)
[2019-12-19] MEDS: BUDESONIDE 0.5 MG/2 ML INH SUSP VIAL NEB SCH ×2 (08:56→20:45)
[2019-12-19] MEDS: ALBUTEROL SO4 0.083% IH SOL 2.5 MG/3 ML VIAL.NEB. NEB SCH ×4 (08:57→20:45)
[2019-12-19] MEDS: AMINO ACIDS/PROTEIN HYDROLYS 30 ML LIQUID.PKT PEG SCH ×2 (09:51→17:37)
[2019-12-19] MEDS ORDERED: SILVER SULFADIAZINE 1% TOP CREAM 50 GM JAR TP SCH (10:00)
[2019-12-19] MEDS ORDERED: PT OWN MED DRAWER 7, Y5N ONE ×2 (10:23→22:56)
[2019-12-19] MEDS ORDERED: fentaNYL 25mcg/hr PATCH.TD72 TD SCH (10:30)
[2019-12-19] MEDS: CYANOCOBALAMIN 1,000 MCG TABLET (FP) GT SCH (10:39)
[2019-12-19] MEDS: FUROSEMIDE 40 MG/4 ML INJECTABLE VIAL IVPUSH SCH (10:39)
[2019-12-19] MEDS: LORATADINE 10 MG TABLET GT SCH (10:39)
[2019-12-19] MEDS: ESCITALOPRAM OXALATE 5 MG/5 ML PEG SCH (10:40)
[2019-12-19] MEDS: ASCORBIC ACID 500 MG/5 ML UNIT DOSE CUP PEG SCH ×2 (10:40→23:09)
[2019-12-19] MEDS: MULTIVIT-MINERALS ORAL LIQUID PEG SCH (10:44)
[2019-12-19] MEDS: LACTOBACILLUS ACIDOPHILUS 1 TABLET GT SCH (10:45)
[2019-12-19] MEDS: FAMOTIDINE 40 MG/5 ML ORAL SUSPENSION PEG SCH (10:46)
[2019-12-19] MEDS: POTASSIUM CHLORIDE ORAL LIQUID 20 MEQ/15 ML PO SCH ×2 (10:46→23:09)
[2019-12-19] MEDS: SCOPOLAMINE HYDROBROMIDE 1 PATCH PATCH.TD72 TD SCH (10:49)
[2019-12-19] MEDS: HEPARIN NA (PORCINE) 5,000 UNITS/ML 1ML VIAL SQ SCH (12:03)
[2019-12-19] MEDS: oxyCODONE HCL 5 MG TABLET PO PRN (12:46)
[2019-12-19 12:48] LABS: BASO % 0.1 % (0-2.0); HEMATOCRIT 32.4 % (35.4-49); HEMOGLOBIN 10.5 GM/dL (11.7-16.9); LYMPH % 6.4 % (8-40); MCHC 32.3 g/dl (32.0-35.9); MEAN CELL VOLUME 89.6 fl (80-96); MEAN PLT VOLUME 9.2 fl (7.5-11.1); MONO % 4.8 % (3.8-10.2); NEUT % 88.7 % (42.8-82.8); PLATELET COUNT 656 K/MM3 (134-434); RBC 3.61 M/mm3 (4.00-5.60); RDW 16.2 % (11.9-15.9); WHITE BLOOD COUNT 27.8 K/mm3 (4.0-10.0)
[2019-12-19] MEDS: COLLAGENASE CLOSTRIDIUM HIST. 30 GRAMS TUBE TP SCH (12:52)
[2019-12-19] MEDS: FENTANYL PATCH WASTE MC PRN (13:09)
[2019-12-19 13:16] LABS: ALBUMIN 2.6 g/dl (3.4-5.0); BILIRUBIN,TOTAL 0.8 mg/dL (0.2-1); BLOOD UREA NITROGEN 15.5 mg/dL (7-18); CALCIUM 9.1 mg/dL (8.5-10.1); CREATININE 0.3 mg/dL (0.55-1.3); POTASSIUM 4.9 mmol/L (3.5-5.1); TOT PROT 6.8 g/dl (6.4-8.2)
[2019-12-19 13:46] LABS: PLATELET ESTIMATE SIGNIFICANT INCREASE
[2019-12-19] MEDS: MONTELUKAST NA 10 MG TABLET PEG SCH (23:09)
[2019-12-20] MEDS ORDERED: PIPERACILLIN/TAZOBACTAM 4.5 GM VIAL IVPB ONE ×3 (02:04→17:01)
[2019-12-20] MEDS ORDERED: DEXTROSE 5%-WATER 100 ML IVPB ONE ×3 (02:04→17:01)
[2019-12-20] MEDS: PIPERACILLIN/TAZOB 4.5 GM 4.5 GM in DEXTROSE 5%-WATER 100 ML IVPB SCH ×3 (02:06→18:04)
[2019-12-20] MEDS: methylPREDNISolone NA SUCC 40 MG/1 ML VIAL IVPUSH SCH ×3 (02:07→18:04)
[2019-12-20] MEDS: BANATROL PLUS POWDER PACKET GT SCH ×3 (05:18→21:12)
[2019-12-20] MEDS: GABAPENTIN 250 MG/5 ML ORAL SOLUTION, 470 ML BOTTLE PO SCH ×3 (05:18→21:12)
[2019-12-20] MEDS: IPRATROPIUM BR 0.02% 0.5 MG/2.5 ML VIAL.NEB. NEB PRN (05:52)
[2019-12-20] MEDS: ALBUTEROL SO4 0.083% IH SOL 2.5 MG/3 ML VIAL.NEB. NEB SCH ×4 (08:00→20:25)
[2019-12-20 08:53] LABS: BASO % 0.2 % (0-2.0); HEMATOCRIT 30.6 % (35.4-49); HEMOGLOBIN 9.8 GM/dL (11.7-16.9); LYMPH % 4.6 % (8-40); MCH 28.8 pg (25.7-33.7); MEAN PLT VOLUME 9.1 fl (7.5-11.1); MONO % 2.9 % (3.8-10.2); NEUT % 92.3 % (42.8-82.8); PLATELET COUNT 673 K/MM3 (134-434); RBC 3.41 M/mm3 (4.00-5.60)
[2019-12-20] MEDS: BUDESONIDE 0.5 MG/2 ML INH SUSP VIAL NEB SCH ×2 (08:59→20:25)
[2019-12-20 09:17] LABS: WHITE BLOOD COUNT 36.4 K/mm3 (4.0-10.0)
[2019-12-20 09:25] LABS: POTASSIUM 4.8 mmol/L (3.5-5.1)
[2019-12-20 09:45] LABS: ALBUMIN 2.5 g/dl (3.4-5.0); BILIRUBIN,TOTAL 0.5 mg/dL (0.2-1); BLOOD UREA NITROGEN 19.9 mg/dL (7-18); CALCIUM 9.2 mg/dL (8.5-10.1); CREATININE 0.3 mg/dL (0.55-1.3); MAGNESIUM 2.5 mg/dL (1.8-2.4); PHOSPHOROUS 4.4 mg/dL (2.5-4.9); TOT PROT 6.3 g/dl (6.4-8.2)
[2019-12-20 10:34] LABS: ANISOCYTOSIS 1+; MACROCYTOSIS 0; PLATELET ESTIMATE INCREASED
[2019-12-20] MEDS: FUROSEMIDE 40 MG/4 ML INJECTABLE VIAL IVPUSH SCH (11:06)
[2019-12-20] MEDS ORDERED: ALBUTEROL SO4 0.083% IH SOL 2.5 MG/3 ML VIAL.NEB. NEB ONE (14:06)
[2019-12-20] MEDS: LACTOBACILLUS ACIDOPHILUS 1 TABLET GT SCH (14:17)
[2019-12-20] MEDS: MULTIVIT-MINERALS ORAL LIQUID PEG SCH (14:17)
[2019-12-20] MEDS: AMINO ACIDS/PROTEIN HYDROLYS 30 ML LIQUID.PKT PEG SCH ×2 (14:17→18:03)
[2019-12-20] MEDS: POTASSIUM CHLORIDE ORAL LIQUID 20 MEQ/15 ML PO SCH ×2 (14:18→21:12)
[2019-12-20] MEDS: ESCITALOPRAM OXALATE 5 MG/5 ML PEG SCH (14:18)
[2019-12-20] MEDS: ASCORBIC ACID 500 MG/5 ML UNIT DOSE CUP PEG SCH ×2 (14:18→21:12)
[2019-12-20] MEDS: FAMOTIDINE 40 MG/5 ML ORAL SUSPENSION PEG SCH (14:18)
[2019-12-20] MEDS: CYANOCOBALAMIN 1,000 MCG TABLET (FP) GT SCH (14:18)
[2019-12-20] MEDS: LORATADINE 10 MG TABLET GT SCH (14:18)
[2019-12-20] MEDS: COLLAGENASE CLOSTRIDIUM HIST. 30 GRAMS TUBE TP SCH (16:03)
[2019-12-20] MEDS ORDERED: PT OWN MED DRAWER 7, Y5N ONE (20:42)
[2019-12-20] MEDS: MONTELUKAST NA 10 MG TABLET PEG SCH (21:12)
[2019-12-21] MEDS ORDERED: PT OWN MED DRAWER 7, Y5N ONE ×4 (01:44→21:45)
[2019-12-21] MEDS ORDERED: PIPERACILLIN/TAZOBACTAM 4.5 GM VIAL IVPB ONE ×2 (01:44→09:20)
[2019-12-21] MEDS ORDERED: DEXTROSE 5%-WATER 100 ML IVPB ONE ×2 (01:45→09:20)
[2019-12-21] MEDS: PIPERACILLIN/TAZOB 4.5 GM 4.5 GM in DEXTROSE 5%-WATER 100 ML IVPB SCH ×3 (01:59→18:57)
[2019-12-21] MEDS: IPRATROPIUM BR 0.02% 0.5 MG/2.5 ML VIAL.NEB. NEB PRN ×2 (05:38→20:15)
[2019-12-21] MEDS: BANATROL PLUS POWDER PACKET GT SCH ×3 (05:40→21:55)
[2019-12-21] MEDS: methylPREDNISolone NA SUCC 40 MG/1 ML VIAL IVPUSH SCH ×2 (05:41→17:38)
[2019-12-21] MEDS: GABAPENTIN 250 MG/5 ML ORAL SOLUTION, 470 ML BOTTLE PO SCH ×3 (05:41→21:55)
[2019-12-21] MEDS: oxyCODONE HCL 5 MG TABLET PO PRN ×4 (06:00→23:44)
[2019-12-21] MEDS: BUDESONIDE 0.5 MG/2 ML INH SUSP VIAL NEB SCH ×2 (07:50→20:14)
[2019-12-21] MEDS: ALBUTEROL SO4 0.083% IH SOL 2.5 MG/3 ML VIAL.NEB. NEB SCH ×4 (07:50→20:15)
[2019-12-21 09:11] LABS: BASO % 0.3 % (0-2.0); HEMATOCRIT 32.7 % (35.4-49); HEMOGLOBIN 10.3 GM/dL (11.7-16.9); LYMPH % 4.1 % (8-40); MCH 28.5 pg (25.7-33.7); MCHC 31.5 g/dl (32.0-35.9); MEAN CELL VOLUME 90.3 fl (80-96); MEAN PLT VOLUME 8.9 fl (7.5-11.1); MONO % 1.5 % (3.8-10.2); NEUT % 94.1 % (42.8-82.8); PLATELET COUNT 653 K/MM3 (134-434); RBC 3.62 M/mm3 (4.00-5.60); RDW 17.4 % (11.9-15.9)
[2019-12-21 09:29] LABS: WHITE BLOOD COUNT 46.9 K/mm3 (4.0-10.0)
[2019-12-21] MEDS: AMINO ACIDS/PROTEIN HYDROLYS 30 ML LIQUID.PKT PEG SCH ×2 (09:33→17:38)
[2019-12-21] MEDS: POTASSIUM CHLORIDE ORAL LIQUID 20 MEQ/15 ML PO SCH ×2 (09:34→21:54)
[2019-12-21] MEDS: LORATADINE 10 MG TABLET GT SCH (09:35)
[2019-12-21] MEDS: LACTOBACILLUS ACIDOPHILUS 1 TABLET GT SCH (09:35)
[2019-12-21] MEDS: FAMOTIDINE 40 MG/5 ML ORAL SUSPENSION PEG SCH (09:39)
[2019-12-21] MEDS: ASCORBIC ACID 500 MG/5 ML UNIT DOSE CUP PEG SCH ×2 (09:39→21:55)
[2019-12-21] MEDS: MULTIVIT-MINERALS ORAL LIQUID PEG SCH (09:40)
[2019-12-21] MEDS: CYANOCOBALAMIN 1,000 MCG TABLET (FP) GT SCH (09:40)
[2019-12-21] MEDS: FUROSEMIDE 40 MG/4 ML INJECTABLE VIAL IVPUSH SCH (09:40)
[2019-12-21] MEDS: ESCITALOPRAM OXALATE 5 MG/5 ML PEG SCH (09:41)
[2019-12-21] MEDS: COLLAGENASE CLOSTRIDIUM HIST. 30 GRAMS TUBE TP SCH (09:42)
[2019-12-21 09:50] LABS: ALBUMIN 2.5 g/dl (3.4-5.0); BILIRUBIN,TOTAL 1.3 mg/dL (0.2-1); BLOOD UREA NITROGEN 24.6 mg/dL (7-18); CALCIUM 8.8 mg/dL (8.5-10.1); CREATININE 0.3 mg/dL (0.55-1.3); MAGNESIUM 2.2 mg/dL (1.8-2.4); POTASSIUM 4.5 mmol/L (3.5-5.1); TOT PROT 6.1 g/dl (6.4-8.2)
[2019-12-21 10:40] LABS: ANISOCYTOSIS 2+; MACROCYTOSIS 0; PLATELET ESTIMATE INCREASED
[2019-12-21] MEDS: MONTELUKAST NA 10 MG TABLET PEG SCH (21:55)
[2019-12-21] MEDS ORDERED: busPIRone HCL 5 MG TABLET GT ONE (23:08)
[2019-12-22] MEDS ORDERED: PIPERACILLIN/TAZOBACTAM 4.5 GM VIAL IVPB ONE ×3 (01:07→18:18)
[2019-12-22] MEDS ORDERED: PT OWN MED DRAWER 7, Y5N ONE ×4 (01:07→18:19)
[2019-12-22] MEDS ORDERED: DEXTROSE 5%-WATER 100 ML IVPB ONE ×3 (01:08→18:18)
[2019-12-22] MEDS: PIPERACILLIN/TAZOB 4.5 GM 4.5 GM in DEXTROSE 5%-WATER 100 ML IVPB SCH ×3 (01:45→18:29)
[2019-12-22] MEDS: methylPREDNISolone NA SUCC 40 MG/1 ML VIAL IVPUSH SCH ×2 (05:17→18:29)
[2019-12-22] MEDS: BANATROL PLUS POWDER PACKET GT SCH ×3 (05:17→22:50)
[2019-12-22] MEDS: GABAPENTIN 250 MG/5 ML ORAL SOLUTION, 470 ML BOTTLE PO SCH ×3 (05:17→22:50)
[2019-12-22] MEDS: oxyCODONE HCL 5 MG TABLET PO PRN ×4 (05:18→22:53)
[2019-12-22] MEDS: ALBUTEROL SO4 0.083% IH SOL 2.5 MG/3 ML VIAL.NEB. NEB SCH ×4 (07:30→20:25)
[2019-12-22] MEDS: BUDESONIDE 0.5 MG/2 ML INH SUSP VIAL NEB SCH (07:30)
[2019-12-22 08:50] LABS: HEMATOCRIT 32.6 % (35.4-49); HEMOGLOBIN 10.5 GM/dL (11.7-16.9); LYMPH % 1.9 % (8-40); MCH 29.3 pg (25.7-33.7); MCHC 32.2 g/dl (32.0-35.9); MEAN PLT VOLUME 8.7 fl (7.5-11.1); MONO % 1.9 % (3.8-10.2); NEUT % 96.2 % (42.8-82.8); PLATELET COUNT 605 K/MM3 (134-434); RBC 3.59 M/mm3 (4.00-5.60); RDW 17.6 % (11.9-15.9)
[2019-12-22 09:09] LABS: WHITE BLOOD COUNT 45.4 K/mm3 (4.0-10.0)
[2019-12-22 09:17] LABS: ALBUMIN 2.6 g/dl (3.4-5.0); CALCIUM 9.1 mg/dL (8.5-10.1); CREATININE 0.2 mg/dL (0.55-1.3); POTASSIUM 4.8 mmol/L (3.5-5.1)
[2019-12-22 09:19] LABS: BILIRUBIN,TOTAL 1.1 mg/dL (0.2-1); TOT PROT 6.4 g/dl (6.4-8.2)
[2019-12-22 11:52] LABS: ANISOCYTOSIS 1+; MACROCYTOSIS 0; OVALOCYTE 1+; PLATELET ESTIMATE INCREASED; TEAR DROP CELLS 1+
[2019-12-22] MEDS: POTASSIUM CHLORIDE ORAL LIQUID 20 MEQ/15 ML PO SCH ×2 (11:58→22:50)
[2019-12-22] MEDS: LORATADINE 10 MG TABLET GT SCH (12:00)
[2019-12-22] MEDS: LACTOBACILLUS ACIDOPHILUS 1 TABLET GT SCH (12:00)
[2019-12-22] MEDS: CYANOCOBALAMIN 1,000 MCG TABLET (FP) GT SCH (12:00)
[2019-12-22] MEDS: FUROSEMIDE 40 MG/4 ML INJECTABLE VIAL IVPUSH SCH (12:01)
[2019-12-22] MEDS: AMINO ACIDS/PROTEIN HYDROLYS 30 ML LIQUID.PKT PEG SCH ×3 (12:03→22:50)
[2019-12-22] MEDS: MULTIVIT-MINERALS ORAL LIQUID PEG SCH (12:04)
[2019-12-22] MEDS: ESCITALOPRAM OXALATE 5 MG/5 ML PEG SCH (12:10)
[2019-12-22] MEDS: ASCORBIC ACID 500 MG/5 ML UNIT DOSE CUP PEG SCH ×2 (12:12→22:50)
[2019-12-22] MEDS: FAMOTIDINE 40 MG/5 ML ORAL SUSPENSION PEG SCH (12:12)
[2019-12-22] MEDS: SCOPOLAMINE HYDROBROMIDE 1 PATCH PATCH.TD72 TD SCH (12:13)
[2019-12-22] MEDS: COLLAGENASE CLOSTRIDIUM HIST. 30 GRAMS TUBE TP SCH (12:14)
[2019-12-22] MEDS: busPIRone HCL 10 MG TABLET (FP) PO SCH ×2 (14:34→22:51)
[2019-12-22] MEDS: BUDESONIDE 0.25 MG/2ML INH SUSP VIAL NEB SCH (20:21)
[2019-12-22] MEDS: MONTELUKAST NA 10 MG TABLET PEG SCH (22:51)
[2019-12-22] MEDS: MELATONIN 5 MG TABLETS PO SCH (22:52)
[2019-12-23] MEDS: ALBUTEROL SO4 0.083% IH SOL 2.5 MG/3 ML VIAL.NEB. NEB SCH ×7 (00:36→23:49)
[2019-12-23] MEDS ORDERED: DEXTROSE 5%-WATER 100 ML IVPB ONE (00:54)
[2019-12-23] MEDS ORDERED: PIPERACILLIN/TAZOBACTAM 4.5 GM VIAL IVPB ONE (00:54)
[2019-12-23] MEDS: PIPERACILLIN/TAZOB 4.5 GM 4.5 GM in DEXTROSE 5%-WATER 100 ML IVPB SCH (01:13)
[2019-12-23] MEDS: AMINO ACIDS/PROTEIN HYDROLYS 30 ML LIQUID.PKT PEG SCH ×3 (06:14→22:21)
[2019-12-23] MEDS: BANATROL PLUS POWDER PACKET GT SCH ×3 (06:14→22:21)
[2019-12-23] MEDS: oxyCODONE HCL 5 MG TABLET PO PRN ×4 (06:15→22:22)
[2019-12-23] MEDS: GABAPENTIN 250 MG/5 ML ORAL SOLUTION, 470 ML BOTTLE PO SCH ×3 (06:15→22:21)
[2019-12-23] MEDS: methylPREDNISolone NA SUCC 40 MG/1 ML VIAL IVPUSH SCH ×2 (06:15→17:48)
[2019-12-23] MEDS ORDERED: PT OWN MED DRAWER 7, Y5N ONE ×5 (07:33→22:10)
[2019-12-23] MEDS: BUDESONIDE 0.25 MG/2ML INH SUSP VIAL NEB SCH ×2 (07:40→20:47)
[2019-12-23 09:07] LABS: HEMATOCRIT 31.2 % (35.4-49); HEMOGLOBIN 10.3 GM/dL (11.7-16.9); LYMPH % 3.6 % (8-40); MCH 29.8 pg (25.7-33.7); MCHC 32.8 g/dl (32.0-35.9); MEAN CELL VOLUME 90.6 fl (80-96); MEAN PLT VOLUME 8.8 fl (7.5-11.1); MONO % 2.8 % (3.8-10.2); NEUT % 93.6 % (42.8-82.8); PLATELET COUNT 584 K/MM3 (134-434); RBC 3.45 M/mm3 (4.00-5.60); RDW 17.8 % (11.9-15.9); WHITE BLOOD COUNT 29.8 K/mm3 (4.0-10.0)
[2019-12-23 09:36] LABS: ALBUMIN 2.5 g/dl (3.4-5.0); BILIRUBIN,TOTAL 0.8 mg/dL (0.2-1); BLOOD UREA NITROGEN 19.5 mg/dL (7-18); CALCIUM 8.7 mg/dL (8.5-10.1); CREATININE 0.2 mg/dL (0.55-1.3); POTASSIUM 4.6 mmol/L (3.5-5.1); TOT PROT 6.2 g/dl (6.4-8.2)
[2019-12-23] MEDS: FENTANYL PATCH WASTE MC PRN (11:08)
[2019-12-23] MEDS: LACTOBACILLUS ACIDOPHILUS 1 TABLET GT SCH (11:10)
[2019-12-23] MEDS: LORATADINE 10 MG TABLET GT SCH (11:10)
[2019-12-23] MEDS: CYANOCOBALAMIN 1,000 MCG TABLET (FP) GT SCH (11:11)
[2019-12-23] MEDS: COLLAGENASE CLOSTRIDIUM HIST. 30 GRAMS TUBE TP SCH (11:11)
[2019-12-23] MEDS: MULTIVIT-MINERALS ORAL LIQUID PEG SCH (11:12)
[2019-12-23] MEDS: ASCORBIC ACID 500 MG/5 ML UNIT DOSE CUP PEG SCH ×2 (11:12→22:21)
[2019-12-23] MEDS: busPIRone HCL 10 MG TABLET (FP) PO SCH ×2 (11:12→22:22)
[2019-12-23] MEDS: POTASSIUM CHLORIDE ORAL LIQUID 20 MEQ/15 ML PO SCH ×2 (11:13→22:22)
[2019-12-23] MEDS: FAMOTIDINE 40 MG/5 ML ORAL SUSPENSION PEG SCH (11:14)
[2019-12-23] MEDS: ESCITALOPRAM OXALATE 5 MG/5 ML PEG SCH (11:14)
[2019-12-23 11:52] LABS: ANISOCYTOSIS 1+; MACROCYTOSIS 1+; PLATELET ESTIMATE INCREASED
[2019-12-23] MEDS: FUROSEMIDE 40 MG/4 ML INJECTABLE VIAL IVPUSH SCH (15:24)
[2019-12-23 22:06] LABS: HEP B CORE AB, TOT Negative (Negative)
[2019-12-23] MEDS: MELATONIN 5 MG TABLETS PO SCH (22:21)
[2019-12-23] MEDS: MONTELUKAST NA 10 MG TABLET PEG SCH (22:35)
[2019-12-24] MEDS ORDERED: LORazepam 2 MG/ML SDV VIAL IVPUSH ONE (00:59)
[2019-12-24] MEDS ORDERED: SODIUM CHLORIDE 500 ML IV STA ×2 (02:00→19:06)
[2019-12-24] MEDS: ALBUTEROL SO4 0.083% IH SOL 2.5 MG/3 ML VIAL.NEB. NEB SCH ×5 (04:55→20:04)
[2019-12-24] MEDS ORDERED: PT OWN MED DRAWER 7, Y5N ONE ×5 (06:02→21:19)
[2019-12-24] MEDS: oxyCODONE HCL 5 MG TABLET PO PRN ×4 (06:46→21:29)
[2019-12-24] MEDS: methylPREDNISolone NA SUCC 40 MG/1 ML VIAL IVPUSH SCH ×2 (06:46→17:34)
[2019-12-24] MEDS: AMINO ACIDS/PROTEIN HYDROLYS 30 ML LIQUID.PKT PEG SCH ×3 (06:46→21:26)
[2019-12-24] MEDS: BANATROL PLUS POWDER PACKET GT SCH ×3 (06:46→21:29)
[2019-12-24] MEDS ORDERED: METOPROLOL TARTRATE 5 MG/5 ML VIAL IVPUSH ONE (06:47)
[2019-12-24] MEDS: GABAPENTIN 250 MG/5 ML ORAL SOLUTION, 470 ML BOTTLE PO SCH ×3 (06:48→21:29)
[2019-12-24] MEDS ORDERED: METOPROLOL TARTRATE 5 MG/5 ML VIAL IVPB ONE (06:51)
[2019-12-24] MEDS ORDERED: BUDESONIDE 0.5 MG/2 ML INH SUSP VIAL NEB ONE (07:57)
[2019-12-24 08:28] LABS: BASO % 0.2 % (0-2.0); HEMATOCRIT 35.6 % (35.4-49); HEMOGLOBIN 11.2 GM/dL (11.7-16.9); LYMPH % 0.8 % (8-40); MCH 28.9 pg (25.7-33.7); MCHC 31.6 g/dl (32.0-35.9); MEAN CELL VOLUME 91.5 fl (80-96); MEAN PLT VOLUME 8.7 fl (7.5-11.1); MONO % 2.7 % (3.8-10.2); NEUT % 96.3 % (42.8-82.8); PLATELET COUNT 711 K/MM3 (134-434); RDW 18.8 % (11.9-15.9)
[2019-12-24 09:02] LABS: ALBUMIN 2.7 g/dl (3.4-5.0); ALK PHOS 126 U/L (45-117); ANION GAP 7 MMOL/L (8-16); BILIRUBIN,TOTAL 0.6 mg/dL (0.2-1); BLOOD UREA NITROGEN 21.4 mg/dL (7-18); CALCIUM 8.9 mg/dL (8.5-10.1); CHLORIDE 104 mmol/L (98-107); CO2 31 mmol/L (21-32); CREATININE 0.3 mg/dL (0.55-1.3); GLUCOSE,RANDOM 120 mg/dL (74-106); POTASSIUM 4.5 mmol/L (3.5-5.1); SGOT/AST 20 U/L (15-37); SGPT/ALT 76 U/L (13-61); SODIUM 141 mmol/L (136-145); TOT PROT 6.5 g/dl (6.4-8.2)
[2019-12-24 09:07] LABS: WHITE BLOOD COUNT 53.4 K/mm3 (4.0-10.0)
[2019-12-24] MEDS: BUDESONIDE 0.25 MG/2ML INH SUSP VIAL NEB SCH ×2 (09:52→19:04)
[2019-12-24] MEDS ORDERED: METOPROLOL TARTRATE 5 MG/5 ML VIAL IVPB PRN (09:58)
[2019-12-24] MEDS ORDERED: METOPROLOL TARTRATE 25 MG TABLET (FP) PO SCH (10:00)
[2019-12-24] MEDS ORDERED: METOPROLOL TARTRATE 25 MG TABLET (FP) PEG SCH (10:10)
[2019-12-24] MEDS: CYANOCOBALAMIN 1,000 MCG TABLET (FP) GT SCH (11:07)
[2019-12-24] MEDS: LACTOBACILLUS ACIDOPHILUS 1 TABLET GT SCH (11:07)
[2019-12-24] MEDS: FUROSEMIDE 40 MG/4 ML INJECTABLE VIAL IVPUSH SCH (11:08)
[2019-12-24] MEDS: MULTIVIT-MINERALS ORAL LIQUID PEG SCH (11:08)
[2019-12-24] MEDS: ESCITALOPRAM OXALATE 5 MG/5 ML PEG SCH (11:08)
[2019-12-24] MEDS: METOPROLOL TARTRATE 25 MG TABLET (FP) PEG SCH ×2 (11:08→21:27)
[2019-12-24] MEDS: LORATADINE 10 MG TABLET GT SCH (11:08)
[2019-12-24] MEDS: ASCORBIC ACID 500 MG/5 ML UNIT DOSE CUP PEG SCH ×2 (11:08→21:29)
[2019-12-24] MEDS: POTASSIUM CHLORIDE ORAL LIQUID 20 MEQ/15 ML PO SCH ×2 (11:09→21:26)
[2019-12-24] MEDS: busPIRone HCL 10 MG TABLET (FP) PO SCH ×2 (11:09→21:28)
[2019-12-24] MEDS: FAMOTIDINE 40 MG/5 ML ORAL SUSPENSION PEG SCH (11:09)
[2019-12-24] MEDS: COLLAGENASE CLOSTRIDIUM HIST. 30 GRAMS TUBE TP SCH (11:10)
[2019-12-24] MEDS ORDERED: QUEtiapine FUMARATE 25 MG TABLET PO ONE (13:38)
[2019-12-24 15:05] LABS: ANISOCYTOSIS 0; MACROCYTOSIS 0; PLATELET ESTIMATE INCREASED
[2019-12-24] MEDS: AZTREONAM 2 GM in DEXTROSE 5%-WATER 100 ML IVPB SCH ×2 (15:52→18:07)
[2019-12-24] MEDS: VANCOMYCIN 1 GRAM (PRE-DOCKED) 1,000 MG/250 ML BAG IVPB SCH (17:33)
[2019-12-24] MEDS ORDERED: ACETAMINOPHEN 1000 MG/100 ML VIAL (NON FORMULARY) IVPB PRN (19:05)
[2019-12-24] MEDS: MONTELUKAST NA 10 MG TABLET PEG SCH (21:27)
[2019-12-24] MEDS: MELATONIN 5 MG TABLETS PO SCH (21:28)
[2019-12-25] MEDS: ALBUTEROL SO4 0.083% IH SOL 2.5 MG/3 ML VIAL.NEB. NEB SCH ×4 (00:24→11:35)
[2019-12-25] MEDS: VANCOMYCIN 1 GRAM (PRE-DOCKED) 1,000 MG/250 ML BAG IVPB SCH ×3 (00:45→13:45)
[2019-12-25] MEDS ORDERED: PT OWN MED DRAWER 7, Y5N ONE ×6 (03:20→18:20)
[2019-12-25] MEDS: AZTREONAM 2 GM in DEXTROSE 5%-WATER 100 ML IVPB SCH ×3 (03:44→18:27)
[2019-12-25] MEDS: AMINO ACIDS/PROTEIN HYDROLYS 30 ML LIQUID.PKT PEG SCH ×3 (05:33→23:12)
[2019-12-25] MEDS: BANATROL PLUS POWDER PACKET GT SCH ×3 (05:33→23:11)
[2019-12-25] MEDS: GABAPENTIN 250 MG/5 ML ORAL SOLUTION, 470 ML BOTTLE PO SCH ×3 (05:42→23:20)
[2019-12-25] MEDS: methylPREDNISolone NA SUCC 40 MG/1 ML VIAL IVPUSH SCH ×2 (05:43→18:27)
[2019-12-25 07:55] LABS: BASO % 0.1 % (0-2.0); HEMOGLOBIN 10.1 GM/dL (11.7-16.9); MCH 29.7 pg (25.7-33.7); MCHC 32.6 g/dl (32.0-35.9); MEAN CELL VOLUME 91.1 fl (80-96); MONO % 3.3 % (3.8-10.2); NEUT % 93.6 % (42.8-82.8); PLATELET COUNT 508 K/MM3 (134-434); RBC 3.41 M/mm3 (4.00-5.60); RDW 18.1 % (11.9-15.9)
[2019-12-25] MEDS: BUDESONIDE 0.25 MG/2ML INH SUSP VIAL NEB SCH ×2 (07:56→20:40)
[2019-12-25 08:56] LABS: ALBUMIN 2.3 g/dl (3.4-5.0); ANION GAP 6 MMOL/L (8-16); BLOOD UREA NITROGEN 18.8 mg/dL (7-18); CALCIUM 8.7 mg/dL (8.5-10.1); CHLORIDE 100 mmol/L (98-107); CO2 35 mmol/L (21-32); CREATININE < 0.2 mg/dL (0.55-1.3); GLUCOSE,RANDOM 135 mg/dL (74-106); MAGNESIUM 2.2 mg/dL (1.8-2.4); POTASSIUM 4.3 mmol/L (3.5-5.1); SODIUM 141 mmol/L (136-145)
[2019-12-25 09:08] LABS: ALK PHOS 120 U/L (45-117); BILIRUBIN,TOTAL 0.6 mg/dL (0.2-1); PHOSPHOROUS 3.1 mg/dL (2.5-4.9); SGOT/AST 20 U/L (15-37); SGPT/ALT 71 U/L (13-61); TOT PROT 5.9 g/dl (6.4-8.2)
[2019-12-25 09:44] LABS: ANISOCYTOSIS 1+; MACROCYTOSIS 0; PLATELET ESTIMATE INCREASED
[2019-12-25] MEDS: MUPIROCIN 2% TOPICAL OINTMENT 22 GM TUBE TP SCH ×2 (10:48→23:13)
[2019-12-25] MEDS: LORATADINE 10 MG TABLET GT SCH (10:49)
[2019-12-25] MEDS: METOPROLOL TARTRATE 25 MG TABLET (FP) PEG SCH ×3 (10:49→23:13)
[2019-12-25] MEDS: ESCITALOPRAM OXALATE 5 MG/5 ML PEG SCH (10:50)
[2019-12-25] MEDS: FUROSEMIDE 40 MG/4 ML INJECTABLE VIAL IVPUSH SCH (10:50)
[2019-12-25] MEDS: POTASSIUM CHLORIDE ORAL LIQUID 20 MEQ/15 ML PO SCH ×2 (10:50→23:11)
[2019-12-25] MEDS: MULTIVIT-MINERALS ORAL LIQUID PEG SCH (10:51)
[2019-12-25] MEDS: ASCORBIC ACID 500 MG/5 ML UNIT DOSE CUP PEG SCH ×2 (10:52→23:46)
[2019-12-25] MEDS: FAMOTIDINE 40 MG/5 ML ORAL SUSPENSION PEG SCH (10:52)
[2019-12-25] MEDS ORDERED: IPRATROPIUM BR 0.02% 0.5 MG/2.5 ML VIAL.NEB. NEB ONE (10:57)
[2019-12-25] MEDS: SCOPOLAMINE HYDROBROMIDE 1 PATCH PATCH.TD72 TD SCH (11:28)
[2019-12-25] MEDS: LACTOBACILLUS ACIDOPHILUS 1 TABLET GT SCH (11:28)
[2019-12-25] MEDS ORDERED: LORazepam 2 MG/ML SDV VIAL IVPUSH ONE (12:15)
[2019-12-25] MEDS ORDERED: LORazepam 0.5 MG TABLET PO PRN (12:17)
[2019-12-25] MEDS: busPIRone HCL 10 MG TABLET (FP) PO SCH (12:37)
[2019-12-25] MEDS: CYANOCOBALAMIN 1,000 MCG TABLET (FP) GT SCH (12:38)
[2019-12-25] MEDS: ENOXAPARIN NA (PORCINE) 40 MG/0.4 ML DISP.SYRIN SQ SCH (12:39)
[2019-12-25] MEDS: IPRATROPIUM BR 0.02% 0.5 MG/2.5 ML VIAL.NEB. NEB PRN ×2 (15:36→20:40)
[2019-12-25] MEDS: COLLAGENASE CLOSTRIDIUM HIST. 30 GRAMS TUBE TP SCH (17:14)
[2019-12-25] MEDS: VANCOMYCIN 250 MG/5 ML ORAL SOLUTION PO SCH ×2 (18:28→23:14)
[2019-12-25] MEDS: LORazepam 0.5 MG TABLET PO SCH (23:12)
[2019-12-25] MEDS: MELATONIN 5 MG TABLETS PO SCH (23:13)
[2019-12-25] MEDS: CHLORHEXIDINE GLUCONATE 4% CLEANSER FOR DECOLONIZATION TP SCH (23:13)
[2019-12-25] MEDS: MONTELUKAST NA 10 MG TABLET PEG SCH (23:13)
[2019-12-26] MEDS: VANCOMYCIN 1 GRAM (PRE-DOCKED) 1,000 MG/250 ML BAG IVPB SCH ×2 (00:45→12:00)
[2019-12-26] MEDS: AZTREONAM 2 GM in DEXTROSE 5%-WATER 100 ML IVPB SCH ×3 (01:38→16:59)
[2019-12-26] MEDS ORDERED: PT OWN MED DRAWER 7, Y5N ONE ×4 (01:38→16:58)
[2019-12-26] MEDS: METOPROLOL TARTRATE 25 MG TABLET (FP) PEG SCH ×3 (06:28→21:48)
[2019-12-26] MEDS: GABAPENTIN 250 MG/5 ML ORAL SOLUTION, 470 ML BOTTLE PO SCH ×3 (06:28→21:49)
[2019-12-26] MEDS: methylPREDNISolone NA SUCC 40 MG/1 ML VIAL IVPUSH SCH ×2 (06:28→16:59)
[2019-12-26] MEDS: BANATROL PLUS POWDER PACKET GT SCH ×3 (06:28→21:47)
[2019-12-26] MEDS: AMINO ACIDS/PROTEIN HYDROLYS 30 ML LIQUID.PKT PEG SCH (06:28)
[2019-12-26] MEDS: VANCOMYCIN 250 MG/5 ML ORAL SOLUTION PO SCH ×3 (06:29→16:59)
[2019-12-26] MEDS: BUDESONIDE 0.25 MG/2ML INH SUSP VIAL NEB SCH ×2 (08:27→20:36)
[2019-12-26] MEDS: MUPIROCIN 2% TOPICAL OINTMENT 22 GM TUBE TP SCH ×2 (09:01→21:47)
[2019-12-26] MEDS: POTASSIUM CHLORIDE ORAL LIQUID 20 MEQ/15 ML PO SCH ×2 (09:01→21:49)
[2019-12-26] MEDS: ENOXAPARIN NA (PORCINE) 40 MG/0.4 ML DISP.SYRIN SQ SCH (09:01)
[2019-12-26] MEDS: ASCORBIC ACID 500 MG/5 ML UNIT DOSE CUP PEG SCH ×2 (09:01→21:49)
[2019-12-26] MEDS: COLLAGENASE CLOSTRIDIUM HIST. 30 GRAMS TUBE TP SCH (09:02)
[2019-12-26] MEDS: LACTOBACILLUS ACIDOPHILUS 1 TABLET GT SCH (09:02)
[2019-12-26] MEDS: FAMOTIDINE 40 MG/5 ML ORAL SUSPENSION PEG SCH (09:02)
[2019-12-26] MEDS: FUROSEMIDE 40 MG/4 ML INJECTABLE VIAL IVPUSH SCH (09:02)
[2019-12-26 09:03] LABS: BLOOD UREA NITROGEN 23.6 mg/dL (7-18); CALCIUM 8.8 mg/dL (8.5-10.1); CREATININE 0.2 mg/dL (0.55-1.3); POTASSIUM 4.3 mmol/L (3.5-5.1)
[2019-12-26] MEDS: LORazepam 0.5 MG TABLET PO SCH ×2 (09:04→21:46)
[2019-12-26] MEDS: LORATADINE 10 MG TABLET GT SCH (09:04)
[2019-12-26 09:05] LABS: BASO % 0.1 % (0-2.0); HEMATOCRIT 30.8 % (35.4-49); HEMOGLOBIN 9.9 GM/dL (11.7-16.9); MCH 28.9 pg (25.7-33.7); MEAN CELL VOLUME 90.3 fl (80-96); MEAN PLT VOLUME 8.7 fl (7.5-11.1); MONO % 4.3 % (3.8-10.2); NEUT % 91.6 % (42.8-82.8); PLATELET COUNT 470 K/MM3 (134-434); RBC 3.41 M/mm3 (4.00-5.60); RDW 18.8 % (11.9-15.9); WHITE BLOOD COUNT 24.7 K/mm3 (4.0-10.0)
[2019-12-26] MEDS: CYANOCOBALAMIN 1,000 MCG TABLET (FP) GT SCH (09:06)
[2019-12-26] MEDS: MULTIVIT-MINERALS ORAL LIQUID PEG SCH (09:06)
[2019-12-26] MEDS: ESCITALOPRAM OXALATE 5 MG/5 ML PEG SCH (09:08)
[2019-12-26 09:57] LABS: ANISOCYTOSIS 1+; MACROCYTOSIS 1+; PLATELET ESTIMATE NORMAL
[2019-12-26] MEDS: ACETAMINOPHEN 650 MG/20.3 ML ORAL SOLUTION (CUPS) PO PRN (13:30)
[2019-12-26] MEDS: CHLORHEXIDINE GLUCONATE 4% CLEANSER FOR DECOLONIZATION TP SCH (21:47)
[2019-12-26] MEDS: FERROUS SO4 300 MG/5 ML ORAL SOLN UNIT DOSE CUPS GT SCH (21:47)
[2019-12-26] MEDS: MELATONIN 5 MG TABLETS PO SCH (21:49)
[2019-12-26] MEDS: MONTELUKAST NA 10 MG TABLET PEG SCH (21:49)
[2019-12-27] MEDS: VANCOMYCIN 250 MG/5 ML ORAL SOLUTION PO SCH ×4 (00:30→18:28)
[2019-12-27] MEDS: VANCOMYCIN 1 GRAM (PRE-DOCKED) 1,000 MG/250 ML BAG IVPB SCH ×2 (02:20→15:29)
[2019-12-27] MEDS: AZTREONAM 2 GM in DEXTROSE 5%-WATER 100 ML IVPB SCH ×3 (02:34→18:27)
[2019-12-27] MEDS ORDERED: MORPHINE SULFATE 2 MG/ML VIAL IVPUSH ONE (04:27)
[2019-12-27] MEDS: ACETAMINOPHEN 650 MG/20.3 ML ORAL SOLUTION (CUPS) PO PRN (04:32)
[2019-12-27] MEDS: methylPREDNISolone NA SUCC 40 MG/1 ML VIAL IVPUSH SCH ×2 (05:51→18:28)
[2019-12-27] MEDS: METOPROLOL TARTRATE 25 MG TABLET (FP) PEG SCH ×3 (05:51→22:12)
[2019-12-27] MEDS: GABAPENTIN 250 MG/5 ML ORAL SOLUTION, 470 ML BOTTLE PO SCH ×3 (05:52→22:12)
[2019-12-27] MEDS: BANATROL PLUS POWDER PACKET GT SCH ×3 (05:52→22:12)
[2019-12-27 06:42] LABS: HEMOGLOBIN 10.3 GM/dL (11.7-16.9); MCHC 33.3 g/dl (32.0-35.9); MEAN CELL VOLUME 90.2 fl (80-96); MEAN PLT VOLUME 8.5 fl (7.5-11.1); PLATELET COUNT 455 K/MM3 (134-434); RBC 3.43 M/mm3 (4.00-5.60); RDW 18.5 % (11.9-15.9); WHITE BLOOD COUNT 21.6 K/mm3 (4.0-10.0)
[2019-12-27 07:04] LABS: ANION GAP 7 MMOL/L (8-16); BLOOD UREA NITROGEN 22.3 mg/dL (7-18); CALCIUM 8.6 mg/dL (8.5-10.1); CHLORIDE 99 mmol/L (98-107); CO2 33 mmol/L (21-32); CREATININE < 0.2 mg/dL (0.55-1.3); GLUCOSE,RANDOM 92 mg/dL (74-106); MAGNESIUM 2.4 mg/dL (1.8-2.4); PHOSPHOROUS 4.2 mg/dL (2.5-4.9); POTASSIUM 4.2 mmol/L (3.5-5.1); SODIUM 139 mmol/L (136-145)
[2019-12-27] MEDS: BUDESONIDE 0.25 MG/2ML INH SUSP VIAL NEB SCH ×2 (08:14→19:46)
[2019-12-27] MEDS ORDERED: PT OWN MED DRAWER 7, Y5N ONE ×5 (09:26→21:57)
[2019-12-27] MEDS: LORazepam 0.5 MG TABLET PO SCH ×2 (09:28→22:12)
[2019-12-27] MEDS: ENOXAPARIN NA (PORCINE) 40 MG/0.4 ML DISP.SYRIN SQ SCH (09:29)
[2019-12-27] MEDS: LACTOBACILLUS ACIDOPHILUS 1 TABLET GT SCH (09:29)
[2019-12-27] MEDS: LORATADINE 10 MG TABLET GT SCH (09:29)
[2019-12-27] MEDS: FUROSEMIDE 40 MG/4 ML INJECTABLE VIAL IVPUSH SCH (09:29)
[2019-12-27] MEDS: FERROUS SO4 300 MG/5 ML ORAL SOLN UNIT DOSE CUPS GT SCH ×2 (09:30→22:13)
[2019-12-27] MEDS: CYANOCOBALAMIN 1,000 MCG TABLET (FP) GT SCH (09:30)
[2019-12-27] MEDS: ESCITALOPRAM OXALATE 5 MG/5 ML PEG SCH (09:30)
[2019-12-27] MEDS: MULTIVIT-MINERALS ORAL LIQUID PEG SCH (09:31)
[2019-12-27] MEDS: MUPIROCIN 2% TOPICAL OINTMENT 22 GM TUBE TP SCH ×2 (09:31→22:13)
[2019-12-27] MEDS: POTASSIUM CHLORIDE ORAL LIQUID 20 MEQ/15 ML PO SCH ×2 (09:32→22:13)
[2019-12-27] MEDS: FAMOTIDINE 40 MG/5 ML ORAL SUSPENSION PEG SCH (09:32)
[2019-12-27] MEDS: ASCORBIC ACID 500 MG/5 ML UNIT DOSE CUP PEG SCH ×2 (09:33→22:12)
[2019-12-27] MEDS: COLLAGENASE CLOSTRIDIUM HIST. 30 GRAMS TUBE TP SCH (10:00)
[2019-12-27] MEDS: MORPHINE SULFATE 2 MG/ML VIAL IVPUSH ONE (16:15)
[2019-12-27] MEDS: MONTELUKAST NA 10 MG TABLET PEG SCH (22:12)
[2019-12-27] MEDS: CHLORHEXIDINE GLUCONATE 4% CLEANSER FOR DECOLONIZATION TP SCH (22:13)
[2019-12-27] MEDS: MELATONIN 5 MG TABLETS PO SCH (22:13)
[2019-12-28] MEDS ORDERED: IPRATROPIUM BR 0.02% 0.5 MG/2.5 ML VIAL.NEB. NEB PRN (01:03)
[2019-12-28] MEDS ORDERED: AZTREONAM 2 GM in DEXTROSE 5%-WATER 100 ML IVPB SCH ×2 (02:00→10:00)
[2019-12-28] MEDS: VANCOMYCIN 250 MG/5 ML ORAL SOLUTION PO SCH ×4 (02:48→17:05)
[2019-12-28] MEDS: AZTREONAM 2 GM in DEXTROSE 5%-WATER 100 ML IVPB SCH ×3 (02:49→17:04)
[2019-12-28] MEDS: VANCOMYCIN 1 GRAM (PRE-DOCKED) 1,000 MG/250 ML BAG IVPB SCH ×3 (03:03→14:14)
[2019-12-28] MEDS: BANATROL PLUS POWDER PACKET GT SCH ×3 (05:53→22:10)
[2019-12-28] MEDS: METOPROLOL TARTRATE 25 MG TABLET (FP) PEG SCH ×3 (05:53→22:14)
[2019-12-28] MEDS: GABAPENTIN 250 MG/5 ML ORAL SOLUTION, 470 ML BOTTLE PO SCH ×3 (05:54→22:12)
[2019-12-28] MEDS: ACETAMINOPHEN 650 MG/20.3 ML ORAL SOLUTION (CUPS) PO PRN ×2 (05:55→17:05)
[2019-12-28] MEDS: methylPREDNISolone NA SUCC 40 MG/1 ML VIAL IVPUSH SCH ×2 (05:55→17:02)
[2019-12-28] MEDS ORDERED: PT OWN MED DRAWER 7, Y5N ONE ×5 (07:35→21:42)
[2019-12-28] MEDS: BUDESONIDE 0.25 MG/2ML INH SUSP VIAL NEB SCH ×2 (07:42→20:30)
[2019-12-28] MEDS: MORPHINE SULFATE 2 MG/ML VIAL IVPUSH ONE (08:04)
[2019-12-28] MEDS: ALPRAZolam 0.25 MG TABLET GT SCH ×2 (10:40→22:13)
[2019-12-28] MEDS: ENOXAPARIN NA (PORCINE) 40 MG/0.4 ML DISP.SYRIN SQ SCH (10:40)
[2019-12-28] MEDS: FUROSEMIDE 40 MG/4 ML INJECTABLE VIAL IVPUSH SCH ×2 (10:40→14:14)
[2019-12-28] MEDS: FERROUS SO4 300 MG/5 ML ORAL SOLN UNIT DOSE CUPS GT SCH ×2 (10:40→22:12)
[2019-12-28] MEDS: CYANOCOBALAMIN 1,000 MCG TABLET (FP) GT SCH (10:40)
[2019-12-28] MEDS: LACTOBACILLUS ACIDOPHILUS 1 TABLET GT SCH (10:40)
[2019-12-28] MEDS: POTASSIUM CHLORIDE ORAL LIQUID 20 MEQ/15 ML PO SCH ×2 (10:40→22:12)
[2019-12-28] MEDS: LORATADINE 10 MG TABLET GT SCH (10:40)
[2019-12-28] MEDS: MULTIVIT-MINERALS ORAL LIQUID PEG SCH (10:43)
[2019-12-28] MEDS: FAMOTIDINE 40 MG/5 ML ORAL SUSPENSION PEG SCH (10:44)
[2019-12-28] MEDS: ESCITALOPRAM OXALATE 5 MG/5 ML PEG SCH (10:44)
[2019-12-28] MEDS: ASCORBIC ACID 500 MG/5 ML UNIT DOSE CUP PEG SCH ×2 (10:45→22:14)
[2019-12-28] MEDS: SCOPOLAMINE HYDROBROMIDE 1 PATCH PATCH.TD72 TD SCH (12:39)
[2019-12-28] MEDS: COLLAGENASE CLOSTRIDIUM HIST. 30 GRAMS TUBE TP SCH (16:53)
[2019-12-28] MEDS: MELATONIN 5 MG TABLETS PO SCH (22:13)
[2019-12-28] MEDS: MONTELUKAST NA 10 MG TABLET PEG SCH (22:13)
[2019-12-29] MEDS: VANCOMYCIN 250 MG/5 ML ORAL SOLUTION PO SCH ×5 (00:57→23:33)
[2019-12-29] MEDS ORDERED: PT OWN MED DRAWER 7, Y5N ONE ×4 (01:53→22:19)
[2019-12-29] MEDS: AZTREONAM 2 GM in DEXTROSE 5%-WATER 100 ML IVPB SCH ×3 (01:58→17:02)
[2019-12-29] MEDS: VANCOMYCIN 1 GRAM (PRE-DOCKED) 1,000 MG/250 ML BAG IVPB SCH ×2 (03:10→14:08)
[2019-12-29] MEDS: GABAPENTIN 250 MG/5 ML ORAL SOLUTION, 470 ML BOTTLE PO SCH ×3 (05:13→22:24)
[2019-12-29] MEDS: methylPREDNISolone NA SUCC 40 MG/1 ML VIAL IVPUSH SCH ×2 (05:13→17:02)
[2019-12-29] MEDS: ACETAMINOPHEN 650 MG/20.3 ML ORAL SOLUTION (CUPS) PO PRN ×2 (05:13→14:07)
[2019-12-29] MEDS: METOPROLOL TARTRATE 25 MG TABLET (FP) PEG SCH ×3 (05:13→22:24)
[2019-12-29] MEDS: BANATROL PLUS POWDER PACKET GT SCH ×3 (05:14→22:25)
[2019-12-29] MEDS ORDERED: BUDESONIDE 0.5 MG/2 ML INH SUSP VIAL NEB ONE (09:19)
[2019-12-29] MEDS: BUDESONIDE 0.25 MG/2ML INH SUSP VIAL NEB SCH ×2 (09:40→20:10)
[2019-12-29] MEDS: POTASSIUM CHLORIDE ORAL LIQUID 20 MEQ/15 ML PO SCH ×2 (10:51→22:23)
[2019-12-29] MEDS: ESCITALOPRAM OXALATE 5 MG/5 ML PEG SCH (10:52)
[2019-12-29] MEDS: ASCORBIC ACID 500 MG/5 ML UNIT DOSE CUP PEG SCH ×2 (10:52→22:25)
[2019-12-29] MEDS: FAMOTIDINE 40 MG/5 ML ORAL SUSPENSION PEG SCH (10:52)
[2019-12-29] MEDS: MULTIVIT-MINERALS ORAL LIQUID PEG SCH (10:53)
[2019-12-29] MEDS: FERROUS SO4 300 MG/5 ML ORAL SOLN UNIT DOSE CUPS GT SCH ×2 (10:53→22:24)
[2019-12-29] MEDS: ENOXAPARIN NA (PORCINE) 40 MG/0.4 ML DISP.SYRIN SQ SCH (10:54)
[2019-12-29] MEDS: FUROSEMIDE 40 MG/4 ML INJECTABLE VIAL IVPUSH SCH (10:54)
[2019-12-29] MEDS: LORATADINE 10 MG TABLET GT SCH (10:55)
[2019-12-29] MEDS: CYANOCOBALAMIN 1,000 MCG TABLET (FP) GT SCH (10:55)
[2019-12-29] MEDS: LACTOBACILLUS ACIDOPHILUS 1 TABLET GT SCH (10:55)
[2019-12-29] MEDS: COLLAGENASE CLOSTRIDIUM HIST. 30 GRAMS TUBE TP SCH (10:55)
[2019-12-29] MEDS: ALPRAZolam 0.25 MG TABLET GT SCH (10:55)
[2019-12-29] MEDS ORDERED: LIDOCAINE HCL 2% JELLY 10 ML CARTRIDGE UR PRN (12:56)
[2019-12-29 15:44] LABS: BASO % 0.2 % (0-2.0); EOS % 0.1 % (0-4.5); HEMATOCRIT 32.6 % (35.4-49); HEMOGLOBIN 10.6 GM/dL (11.7-16.9); LYMPH % 3.7 % (8-40); MCH 29.6 pg (25.7-33.7); MCHC 32.5 g/dl (32.0-35.9); MEAN PLT VOLUME 8.9 fl (7.5-11.1); MONO % 5.6 % (3.8-10.2); NEUT % 90.4 % (42.8-82.8); PLATELET COUNT 393 K/MM3 (134-434); RBC 3.59 M/mm3 (4.00-5.60); RDW 18.9 % (11.9-15.9); WHITE BLOOD COUNT 20.4 K/mm3 (4.0-10.0)
[2019-12-29 16:10] LABS: ALBUMIN 2.6 g/dl (3.4-5.0); BILIRUBIN,TOTAL 0.8 mg/dL (0.2-1); BLOOD UREA NITROGEN 13.7 mg/dL (7-18); CALCIUM 8.9 mg/dL (8.5-10.1); CREATININE 0.2 mg/dL (0.55-1.3); POTASSIUM 4.4 mmol/L (3.5-5.1); TOT PROT 6.2 g/dl (6.4-8.2)
[2019-12-29] MEDS: ALBUTEROL SO4 2.5/IPRATROPIUM 0.5 INH SOL 3 ML VIAL.NEB. NEB SCH ×2 (16:36→20:10)
[2019-12-29 16:48] LABS: ANISOCYTOSIS 2+; MACROCYTOSIS 0; OVALOCYTE 1+; PLATELET ESTIMATE NORMAL; TARGET CELLS 1+
[2019-12-29] MEDS: AMINO ACIDS/PROTEIN HYDROLYS 30 ML LIQUID.PKT PEG SCH (17:01)
[2019-12-29] MEDS: MELATONIN 5 MG TABLETS PO SCH (22:24)
[2019-12-29] MEDS: ALPRAZolam 0.25 MG TABLET PO SCH (22:24)
[2019-12-29] MEDS: MONTELUKAST NA 10 MG TABLET PEG SCH (22:25)
[2019-12-30] MEDS ORDERED: PT OWN MED DRAWER 7, Y5N ONE ×5 (01:38→17:33)
[2019-12-30] MEDS: AZTREONAM 2 GM in DEXTROSE 5%-WATER 100 ML IVPB SCH ×3 (01:49→17:47)
[2019-12-30] MEDS: VANCOMYCIN 1 GRAM (PRE-DOCKED) 1,000 MG/250 ML BAG IVPB SCH ×2 (02:57→14:52)
[2019-12-30] MEDS: ACETAMINOPHEN 650 MG/20.3 ML ORAL SOLUTION (CUPS) PO PRN (05:27)
[2019-12-30] MEDS: BANATROL PLUS POWDER PACKET GT SCH ×3 (05:28→22:24)
[2019-12-30] MEDS: VANCOMYCIN 250 MG/5 ML ORAL SOLUTION PO SCH ×4 (05:28→23:47)
[2019-12-30] MEDS: METOPROLOL TARTRATE 25 MG TABLET (FP) PEG SCH ×3 (05:28→22:23)
[2019-12-30] MEDS: GABAPENTIN 250 MG/5 ML ORAL SOLUTION, 470 ML BOTTLE PO SCH ×3 (05:28→22:24)
[2019-12-30] MEDS: methylPREDNISolone NA SUCC 40 MG/1 ML VIAL IVPUSH SCH ×3 (05:28→22:25)
[2019-12-30] MEDS: BUDESONIDE 0.25 MG/2ML INH SUSP VIAL NEB SCH ×2 (08:40→20:30)
[2019-12-30 08:48] LABS: BASO % 0.1 % (0-2.0); EOS % 0.1 % (0-4.5); HEMATOCRIT 30.9 % (35.4-49); LYMPH % 3.9 % (8-40); MCH 29.7 pg (25.7-33.7); MCHC 32.5 g/dl (32.0-35.9); MEAN CELL VOLUME 91.5 fl (80-96); MEAN PLT VOLUME 8.9 fl (7.5-11.1); MONO % 2.8 % (3.8-10.2); NEUT % 93.1 % (42.8-82.8); PLATELET COUNT 340 K/MM3 (134-434); RBC 3.38 M/mm3 (4.00-5.60); RDW 19.1 % (11.9-15.9); WHITE BLOOD COUNT 16.2 K/mm3 (4.0-10.0)
[2019-12-30] MEDS: ALBUTEROL SO4 2.5/IPRATROPIUM 0.5 INH SOL 3 ML VIAL.NEB. NEB SCH ×4 (08:50→20:30)
[2019-12-30 09:08] LABS: ALBUMIN 2.4 g/dl (3.4-5.0); ALK PHOS 100 U/L (45-117); ANION GAP 6 MMOL/L (8-16); BILIRUBIN,TOTAL 0.5 mg/dL (0.2-1); BLOOD UREA NITROGEN 14.9 mg/dL (7-18); CALCIUM 8.6 mg/dL (8.5-10.1); CHLORIDE 104 mmol/L (98-107); CO2 30 mmol/L (21-32); CREATININE < 0.2 mg/dL (0.55-1.3); GLUCOSE,RANDOM 112 mg/dL (74-106); POTASSIUM 4.4 mmol/L (3.5-5.1); SGOT/AST 42 U/L (15-37); SGPT/ALT 133 U/L (13-61); SODIUM 139 mmol/L (136-145); TOT PROT 5.8 g/dl (6.4-8.2)
[2019-12-30] MEDS: AMINO ACIDS/PROTEIN HYDROLYS 30 ML LIQUID.PKT PEG SCH ×2 (09:13→17:46)
[2019-12-30] MEDS: FERROUS SO4 300 MG/5 ML ORAL SOLN UNIT DOSE CUPS GT SCH ×2 (10:16→22:24)
[2019-12-30] MEDS: CYANOCOBALAMIN 1,000 MCG TABLET (FP) GT SCH (10:17)
[2019-12-30] MEDS: LACTOBACILLUS ACIDOPHILUS 1 TABLET GT SCH (10:17)
[2019-12-30] MEDS: LORATADINE 10 MG TABLET GT SCH (10:18)
[2019-12-30] MEDS: POTASSIUM CHLORIDE ORAL LIQUID 20 MEQ/15 ML PO SCH ×2 (10:18→22:24)
[2019-12-30] MEDS: ALPRAZolam 0.25 MG TABLET PO SCH ×2 (10:18→22:23)
[2019-12-30] MEDS: MULTIVIT-MINERALS ORAL LIQUID PEG SCH (10:19)
[2019-12-30] MEDS: FUROSEMIDE 40 MG/4 ML INJECTABLE VIAL IVPUSH SCH (10:20)
[2019-12-30] MEDS: FAMOTIDINE 40 MG/5 ML ORAL SUSPENSION PEG SCH (10:20)
[2019-12-30] MEDS: ASCORBIC ACID 500 MG/5 ML UNIT DOSE CUP PEG SCH ×2 (10:20→22:24)
[2019-12-30] MEDS: ESCITALOPRAM OXALATE 5 MG/5 ML PEG SCH (10:20)
[2019-12-30] MEDS: ENOXAPARIN NA (PORCINE) 40 MG/0.4 ML DISP.SYRIN SQ SCH (10:22)
[2019-12-30 10:27] LABS: ANISOCYTOSIS 1+; MACROCYTOSIS 0; PLATELET ESTIMATE NORMAL
[2019-12-30] MEDS: COLLAGENASE CLOSTRIDIUM HIST. 30 GRAMS TUBE TP SCH (10:44)
[2019-12-30] MEDS: MONTELUKAST NA 10 MG TABLET PEG SCH (22:23)
[2019-12-30] MEDS: MELATONIN 5 MG TABLETS PO SCH (22:24)
[2019-12-31] MEDS ORDERED: PT OWN MED DRAWER 7, Y5N ONE ×5 (01:16→21:47)
[2019-12-31] MEDS: AZTREONAM 2 GM in DEXTROSE 5%-WATER 100 ML IVPB SCH ×3 (01:18→17:01)
[2019-12-31] MEDS: VANCOMYCIN 1 GRAM (PRE-DOCKED) 1,000 MG/250 ML BAG IVPB SCH ×2 (02:27→13:54)
[2019-12-31] MEDS: ACETAMINOPHEN 650 MG/20.3 ML ORAL SOLUTION (CUPS) PO PRN ×3 (05:25→21:51)
[2019-12-31] MEDS: VANCOMYCIN 250 MG/5 ML ORAL SOLUTION PO SCH ×4 (05:26→23:41)
[2019-12-31] MEDS: GABAPENTIN 250 MG/5 ML ORAL SOLUTION, 470 ML BOTTLE PO SCH ×3 (05:26→21:51)
[2019-12-31] MEDS: BANATROL PLUS POWDER PACKET GT SCH ×3 (05:26→21:49)
[2019-12-31] MEDS: METOPROLOL TARTRATE 25 MG TABLET (FP) PEG SCH ×3 (05:26→21:49)
[2019-12-31] MEDS: AMINO ACIDS/PROTEIN HYDROLYS 30 ML LIQUID.PKT PEG SCH ×2 (08:17→16:53)
[2019-12-31] MEDS: BUDESONIDE 0.25 MG/2ML INH SUSP VIAL NEB SCH ×2 (09:05→20:17)
[2019-12-31] MEDS: ALBUTEROL SO4 2.5/IPRATROPIUM 0.5 INH SOL 3 ML VIAL.NEB. NEB SCH ×3 (09:07→20:17)
[2019-12-31 09:21] LABS: HEMOGLOBIN 9.9 GM/dL (11.7-16.9); LYMPH % 5.9 % (8-40); MEAN CELL VOLUME 90.7 fl (80-96); NEUT % 91.1 % (42.8-82.8); PLATELET COUNT 322 K/MM3 (134-434); RBC 3.42 M/mm3 (4.00-5.60); RDW 18.6 % (11.9-15.9); WHITE BLOOD COUNT 16.2 K/mm3 (4.0-10.0)
[2019-12-31 09:58] LABS: ANISOCYTOSIS 1+; CHLORIDE 100 mmol/L (98-107); PLATELET ESTIMATE NORMAL; POTASSIUM 4.4 mmol/L (3.5-5.1); SODIUM 138 mmol/L (136-145)
[2019-12-31 10:03] LABS: ALBUMIN 2.5 g/dl (3.4-5.0); ALK PHOS 103 U/L (45-117); ANION GAP 6 MMOL/L (8-16); BILIRUBIN,TOTAL 0.4 mg/dL (0.2-1); BLOOD UREA NITROGEN 11.8 mg/dL (7-18); CALCIUM 8.8 mg/dL (8.5-10.1); CO2 32 mmol/L (21-32); GLUCOSE,RANDOM 108 mg/dL (74-106); SGOT/AST 43 U/L (15-37); SGPT/ALT 178 U/L (13-61); TOT PROT 5.8 g/dl (6.4-8.2)
[2019-12-31 10:07] LABS: CREATININE < 0.2 mg/dL (0.55-1.3)
[2019-12-31] MEDS: LORATADINE 10 MG TABLET GT SCH (10:29)
[2019-12-31] MEDS: FERROUS SO4 300 MG/5 ML ORAL SOLN UNIT DOSE CUPS GT SCH ×2 (10:29→21:49)
[2019-12-31] MEDS: FUROSEMIDE 40 MG/4 ML INJECTABLE VIAL IVPUSH SCH (10:29)
[2019-12-31] MEDS: ALPRAZolam 0.25 MG TABLET PO SCH ×2 (10:30→21:49)
[2019-12-31] MEDS: LACTOBACILLUS ACIDOPHILUS 1 TABLET GT SCH (10:30)
[2019-12-31] MEDS: MULTIVIT-MINERALS ORAL LIQUID PEG SCH (10:32)
[2019-12-31] MEDS: ESCITALOPRAM OXALATE 5 MG/5 ML PEG SCH (10:32)
[2019-12-31] MEDS: FAMOTIDINE 40 MG/5 ML ORAL SUSPENSION PEG SCH (10:32)
[2019-12-31] MEDS: POTASSIUM CHLORIDE ORAL LIQUID 20 MEQ/15 ML PO SCH ×2 (10:33→21:49)
[2019-12-31] MEDS: ASCORBIC ACID 500 MG/5 ML UNIT DOSE CUP PEG SCH ×2 (10:35→21:50)
[2019-12-31] MEDS: methylPREDNISolone NA SUCC 40 MG/1 ML VIAL IVPUSH SCH ×2 (10:35→23:41)
[2019-12-31] MEDS: ENOXAPARIN NA (PORCINE) 40 MG/0.4 ML DISP.SYRIN SQ SCH (10:35)
[2019-12-31] MEDS: CYANOCOBALAMIN 1,000 MCG TABLET (FP) GT SCH (10:36)
[2019-12-31] MEDS: COLLAGENASE CLOSTRIDIUM HIST. 30 GRAMS TUBE TP SCH (10:54)
[2019-12-31] MEDS: SCOPOLAMINE HYDROBROMIDE 1 PATCH PATCH.TD72 TD SCH (12:00)
[2019-12-31] MEDS: BACITRACIN 15 GM TUBE TOPICAL OINTMENT TP SCH (16:53)
[2019-12-31] MEDS: MONTELUKAST NA 10 MG TABLET PEG SCH (21:49)
[2019-12-31] MEDS: MELATONIN 5 MG TABLETS PO SCH (21:49)
[2020-01-01] MEDS ORDERED: PT OWN MED DRAWER 7, Y5N ONE ×5 (01:35→22:33)
[2020-01-01] MEDS: AZTREONAM 2 GM in DEXTROSE 5%-WATER 100 ML IVPB SCH ×3 (01:40→17:33)
[2020-01-01] MEDS: VANCOMYCIN 1 GRAM (PRE-DOCKED) 1,000 MG/250 ML BAG IVPB SCH ×2 (02:36→15:52)
[2020-01-01] MEDS: VANCOMYCIN 250 MG/5 ML ORAL SOLUTION PO SCH ×4 (05:42→23:58)
[2020-01-01] MEDS: METOPROLOL TARTRATE 25 MG TABLET (FP) PEG SCH ×3 (05:42→23:19)
[2020-01-01] MEDS: BANATROL PLUS POWDER PACKET GT SCH ×3 (05:42→23:19)
[2020-01-01] MEDS: GABAPENTIN 250 MG/5 ML ORAL SOLUTION, 470 ML BOTTLE PO SCH ×3 (05:42→23:18)
[2020-01-01] MEDS: ACETAMINOPHEN 650 MG/20.3 ML ORAL SOLUTION (CUPS) PO PRN (05:43)
[2020-01-01] MEDS: BUDESONIDE 0.25 MG/2ML INH SUSP VIAL NEB SCH ×2 (08:19→20:34)
[2020-01-01] MEDS: ALBUTEROL SO4 2.5/IPRATROPIUM 0.5 INH SOL 3 ML VIAL.NEB. NEB SCH ×4 (08:21→20:35)
[2020-01-01 09:50] LABS: BASO % 0.1 % (0-2.0); HEMATOCRIT 31.4 % (35.4-49); LYMPH % 6.5 % (8-40); MCH 28.8 pg (25.7-33.7); MCHC 31.8 g/dl (32.0-35.9); MEAN CELL VOLUME 90.6 fl (80-96); MEAN PLT VOLUME 8.7 fl (7.5-11.1); MONO % 2.5 % (3.8-10.2); NEUT % 90.9 % (42.8-82.8); PLATELET COUNT 299 K/MM3 (134-434); RBC 3.47 M/mm3 (4.00-5.60); RDW 19.1 % (11.9-15.9); WHITE BLOOD COUNT 14.8 K/mm3 (4.0-10.0)
[2020-01-01] MEDS ORDERED: BACITRACIN 15 GM TUBE TOPICAL OINTMENT TP SCH (10:00)
[2020-01-01 10:05] LABS: ALBUMIN 2.5 g/dl (3.4-5.0); ALK PHOS 116 U/L (45-117); ANION GAP 6 MMOL/L (8-16); BILIRUBIN,TOTAL 0.6 mg/dL (0.2-1); BLOOD UREA NITROGEN 14.3 mg/dL (7-18); CALCIUM 8.6 mg/dL (8.5-10.1); CHLORIDE 102 mmol/L (98-107); CO2 32 mmol/L (21-32); CREATININE < 0.2 mg/dL (0.55-1.3); GLUCOSE,RANDOM 111 mg/dL (74-106); POTASSIUM 4.7 mmol/L (3.5-5.1); SGOT/AST 64 U/L (15-37); SGPT/ALT 227 U/L (13-61); SODIUM 140 mmol/L (136-145); TOT PROT 5.8 g/dl (6.4-8.2)
[2020-01-01] MEDS: AMINO ACIDS/PROTEIN HYDROLYS 30 ML LIQUID.PKT PEG SCH ×2 (10:19→17:33)
[2020-01-01] MEDS: BACITRACIN 15 GM TUBE TOPICAL OINTMENT TP SCH (10:21)
[2020-01-01] MEDS: LACTOBACILLUS ACIDOPHILUS 1 TABLET GT SCH (10:22)
[2020-01-01] MEDS: FERROUS SO4 300 MG/5 ML ORAL SOLN UNIT DOSE CUPS GT SCH ×2 (10:22→23:19)
[2020-01-01] MEDS: ENOXAPARIN NA (PORCINE) 40 MG/0.4 ML DISP.SYRIN SQ SCH (10:22)
[2020-01-01] MEDS: POTASSIUM CHLORIDE ORAL LIQUID 20 MEQ/15 ML PO SCH ×2 (10:22→23:14)
[2020-01-01] MEDS: ALPRAZolam 0.25 MG TABLET PO SCH ×2 (10:23→23:16)
[2020-01-01] MEDS: CYANOCOBALAMIN 1,000 MCG TABLET (FP) GT SCH (10:23)
[2020-01-01] MEDS: COLLAGENASE CLOSTRIDIUM HIST. 30 GRAMS TUBE TP SCH (10:23)
[2020-01-01] MEDS: LORATADINE 10 MG TABLET GT SCH (10:23)
[2020-01-01] MEDS: MULTIVIT-MINERALS ORAL LIQUID PEG SCH (10:24)
[2020-01-01] MEDS: FUROSEMIDE 40 MG/4 ML INJECTABLE VIAL IVPUSH SCH (10:40)
[2020-01-01] MEDS: ESCITALOPRAM OXALATE 5 MG/5 ML PEG SCH (10:43)
[2020-01-01] MEDS: ASCORBIC ACID 500 MG/5 ML UNIT DOSE CUP PEG SCH ×2 (10:44→23:19)
[2020-01-01] MEDS: FAMOTIDINE 40 MG/5 ML ORAL SUSPENSION PEG SCH (10:44)
[2020-01-01] MEDS: methylPREDNISolone NA SUCC 40 MG/1 ML VIAL IVPUSH SCH ×2 (10:50→23:17)
[2020-01-01] MEDS ORDERED: FENTANYL PATCH WASTE TD PRN (12:01)
[2020-01-01 12:31] LABS: ANISOCYTOSIS 1+; MACROCYTOSIS 0; OVALOCYTE 1+; PLATELET ESTIMATE NORMAL
[2020-01-01] MEDS: ACETAMINOPHEN 650 MG/20.3 ML ORAL SOLUTION (CUPS) GT SCH ×2 (15:43→23:16)
[2020-01-01] MEDS: fentaNYL 25mcg/hr PATCH.TD72 TD SCH (15:44)
[2020-01-01] MEDS: oxyCODONE HCL 5 MG TABLET PO PRN ×2 (15:47→23:12)
[2020-01-01] MEDS: MONTELUKAST NA 10 MG TABLET PEG SCH (23:13)
[2020-01-01] MEDS: MELATONIN 5 MG TABLETS PO SCH (23:16)
[2020-01-02] MEDS ORDERED: PT OWN MED DRAWER 7, Y5N ONE ×5 (01:17→20:48)
[2020-01-02] MEDS: AZTREONAM 2 GM in DEXTROSE 5%-WATER 100 ML IVPB SCH ×3 (01:21→17:12)
[2020-01-02] MEDS: VANCOMYCIN 1 GRAM (PRE-DOCKED) 1,000 MG/250 ML BAG IVPB SCH ×2 (02:27→15:01)
[2020-01-02] MEDS: GABAPENTIN 250 MG/5 ML ORAL SOLUTION, 470 ML BOTTLE PO SCH ×3 (06:33→23:09)
[2020-01-02] MEDS: BANATROL PLUS POWDER PACKET GT SCH ×3 (06:33→23:05)
[2020-01-02] MEDS: VANCOMYCIN 250 MG/5 ML ORAL SOLUTION PO SCH ×4 (06:33→23:10)
[2020-01-02] MEDS: oxyCODONE HCL 5 MG TABLET PO PRN ×3 (06:33→23:11)
[2020-01-02] MEDS: METOPROLOL TARTRATE 25 MG TABLET (FP) PEG SCH ×3 (06:34→23:07)
[2020-01-02] MEDS: BUDESONIDE 0.25 MG/2ML INH SUSP VIAL NEB SCH ×2 (08:20→20:15)
[2020-01-02] MEDS: ALBUTEROL SO4 2.5/IPRATROPIUM 0.5 INH SOL 3 ML VIAL.NEB. NEB SCH ×4 (08:20→20:15)
[2020-01-02 08:36] LABS: BASO % 0.1 % (0-2.0); HEMATOCRIT 32.6 % (35.4-49); HEMOGLOBIN 10.6 GM/dL (11.7-16.9); LYMPH % 5.2 % (8-40); MCH 29.7 pg (25.7-33.7); MCHC 32.4 g/dl (32.0-35.9); MEAN CELL VOLUME 91.5 fl (80-96); MEAN PLT VOLUME 8.7 fl (7.5-11.1); MONO % 1.8 % (3.8-10.2); NEUT % 92.9 % (42.8-82.8); PLATELET COUNT 294 K/MM3 (134-434); RBC 3.56 M/mm3 (4.00-5.60); RDW 19.9 % (11.9-15.9); WHITE BLOOD COUNT 17.5 K/mm3 (4.0-10.0)
[2020-01-02 08:46] LABS: ALBUMIN 2.6 g/dl (3.4-5.0); BILIRUBIN,TOTAL 0.6 mg/dL (0.2-1); BLOOD UREA NITROGEN 17.7 mg/dL (7-18); CREATININE 0.2 mg/dL (0.55-1.3); POTASSIUM 4.4 mmol/L (3.5-5.1)
[2020-01-02 10:55] LABS: ANISOCYTOSIS 1+; MACROCYTOSIS 1+; PLATELET ESTIMATE NORMAL
[2020-01-02] MEDS: ACETAMINOPHEN 650 MG/20.3 ML ORAL SOLUTION (CUPS) GT SCH ×2 (11:09→23:06)
[2020-01-02] MEDS: LORATADINE 10 MG TABLET GT SCH (11:10)
[2020-01-02] MEDS: AMINO ACIDS/PROTEIN HYDROLYS 30 ML LIQUID.PKT PEG SCH ×2 (11:11→17:12)
[2020-01-02] MEDS: ALPRAZolam 0.25 MG TABLET PO SCH ×2 (11:11→23:08)
[2020-01-02] MEDS: POTASSIUM CHLORIDE ORAL LIQUID 20 MEQ/15 ML PO SCH ×2 (11:11→23:07)
[2020-01-02] MEDS: LACTOBACILLUS ACIDOPHILUS 1 TABLET GT SCH (11:11)
[2020-01-02] MEDS: CYANOCOBALAMIN 1,000 MCG TABLET (FP) GT SCH (11:11)
[2020-01-02] MEDS: ENOXAPARIN NA (PORCINE) 40 MG/0.4 ML DISP.SYRIN SQ SCH (11:12)
[2020-01-02] MEDS: FUROSEMIDE 40 MG/4 ML INJECTABLE VIAL IVPUSH SCH (11:12)
[2020-01-02] MEDS: methylPREDNISolone NA SUCC 40 MG/1 ML VIAL IVPUSH SCH (11:12)
[2020-01-02] MEDS: ASCORBIC ACID 500 MG/5 ML UNIT DOSE CUP PEG SCH ×2 (11:13→23:08)
[2020-01-02] MEDS: BACITRACIN 15 GM TUBE TOPICAL OINTMENT TP SCH (11:14)
[2020-01-02] MEDS: MULTIVIT-MINERALS ORAL LIQUID PEG SCH (11:14)
[2020-01-02] MEDS: FAMOTIDINE 40 MG/5 ML ORAL SUSPENSION PEG SCH (11:15)
[2020-01-02] MEDS: ESCITALOPRAM OXALATE 5 MG/5 ML PEG SCH (11:16)
[2020-01-02] MEDS ORDERED: PHENOL 177 ML SPRAY BOTTLE MM PRN (14:06)
[2020-01-02] MEDS: FERROUS SO4 300 MG/5 ML ORAL SOLN UNIT DOSE CUPS GT SCH ×2 (15:00→23:06)
[2020-01-02] MEDS: COLLAGENASE CLOSTRIDIUM HIST. 30 GRAMS TUBE TP SCH (15:06)
[2020-01-02] MEDS ORDERED: ACETYLCYSTEINE 20% 200MG/ML 4 ML VIAL *FOR ORAL / INH USE ONLY ONE (20:42)
[2020-01-02] MEDS: PHENOL 177 ML SPRAY BOTTLE MM SCH (23:06)
[2020-01-02] MEDS: MELATONIN 5 MG TABLETS PO SCH (23:07)
[2020-01-02] MEDS: MONTELUKAST NA 10 MG TABLET PEG SCH (23:08)
[2020-01-02] MEDS: NYSTATIN POWDER 100,000 UNITS/GM - 15 GM TOPICAL POWDER TP SCH (23:09)
[2020-01-03] MEDS: AZTREONAM 2 GM in DEXTROSE 5%-WATER 100 ML IVPB SCH ×3 (02:07→18:48)
[2020-01-03] MEDS: VANCOMYCIN 1 GRAM (PRE-DOCKED) 1,000 MG/250 ML BAG IVPB SCH ×2 (02:49→13:39)
[2020-01-03] MEDS ORDERED: PT OWN MED DRAWER 7, Y5N ONE ×3 (05:14→18:37)
[2020-01-03] MEDS: BANATROL PLUS POWDER PACKET GT SCH ×3 (05:44→21:00)
[2020-01-03] MEDS: VANCOMYCIN 250 MG/5 ML ORAL SOLUTION PO SCH ×4 (05:44→23:12)
[2020-01-03] MEDS: GABAPENTIN 250 MG/5 ML ORAL SOLUTION, 470 ML BOTTLE PO SCH ×3 (05:44→21:00)
[2020-01-03] MEDS: METOPROLOL TARTRATE 25 MG TABLET (FP) PEG SCH ×3 (05:45→21:01)
[2020-01-03] MEDS: BUDESONIDE 0.25 MG/2ML INH SUSP VIAL NEB SCH ×2 (07:55→20:15)
[2020-01-03] MEDS: ALBUTEROL SO4 2.5/IPRATROPIUM 0.5 INH SOL 3 ML VIAL.NEB. NEB SCH ×4 (07:55→20:15)
[2020-01-03] MEDS: ACETAMINOPHEN 650 MG/20.3 ML ORAL SOLUTION (CUPS) GT SCH ×2 (11:15→21:02)
[2020-01-03] MEDS: POTASSIUM CHLORIDE ORAL LIQUID 20 MEQ/15 ML PO SCH ×2 (11:16→21:01)
[2020-01-03] MEDS: ENOXAPARIN NA (PORCINE) 40 MG/0.4 ML DISP.SYRIN SQ SCH (11:16)
[2020-01-03] MEDS: LACTOBACILLUS ACIDOPHILUS 1 TABLET GT SCH (11:16)
[2020-01-03] MEDS: FUROSEMIDE 40 MG/4 ML INJECTABLE VIAL IVPUSH SCH (11:16)
[2020-01-03] MEDS: CYANOCOBALAMIN 1,000 MCG TABLET (FP) GT SCH (11:16)
[2020-01-03] MEDS: LORATADINE 10 MG TABLET GT SCH (11:16)
[2020-01-03] MEDS: predniSONE 20 MG TABLET (UD) PO SCH (11:17)
[2020-01-03] MEDS: ALPRAZolam 0.25 MG TABLET PO SCH ×2 (11:17→21:01)
[2020-01-03] MEDS: AMINO ACIDS/PROTEIN HYDROLYS 30 ML LIQUID.PKT PEG SCH ×2 (11:17→18:48)
[2020-01-03] MEDS: ASCORBIC ACID 500 MG/5 ML UNIT DOSE CUP PEG SCH ×2 (11:17→21:01)
[2020-01-03] MEDS: ESCITALOPRAM OXALATE 5 MG/5 ML PEG SCH (11:18)
[2020-01-03] MEDS: MULTIVIT-MINERALS ORAL LIQUID PEG SCH (11:18)
[2020-01-03] MEDS: BACITRACIN 15 GM TUBE TOPICAL OINTMENT TP SCH (11:18)
[2020-01-03] MEDS: SCOPOLAMINE HYDROBROMIDE 1 PATCH PATCH.TD72 TD SCH (11:20)
[2020-01-03] MEDS: NYSTATIN POWDER 100,000 UNITS/GM - 15 GM TOPICAL POWDER TP SCH ×2 (11:20→21:02)
[2020-01-03] MEDS: COLLAGENASE CLOSTRIDIUM HIST. 30 GRAMS TUBE TP SCH (11:21)
[2020-01-03] MEDS: FAMOTIDINE 40 MG/5 ML ORAL SUSPENSION PEG SCH (11:22)
[2020-01-03] MEDS: PHENOL 177 ML SPRAY BOTTLE MM SCH ×3 (11:24→23:13)
[2020-01-03] MEDS: FERROUS SO4 300 MG/5 ML ORAL SOLN UNIT DOSE CUPS GT SCH ×2 (13:38→21:02)
[2020-01-03] MEDS: oxyCODONE HCL 5 MG TABLET PO PRN (19:50)
[2020-01-03] MEDS: MONTELUKAST NA 10 MG TABLET PEG SCH (21:01)
[2020-01-03] MEDS: MELATONIN 5 MG TABLETS PO SCH (21:02)
[2020-01-03] MEDS: LIDOCAINE HCL 2% JELLY 10 ML CARTRIDGE UR SCH (22:11)
[2020-01-04] MEDS: AZTREONAM 2 GM in DEXTROSE 5%-WATER 100 ML IVPB SCH (01:20)
[2020-01-04] MEDS ORDERED: METOPROLOL TARTRATE 5 MG/5 ML VIAL IVPB ONE ×3 (02:52→20:06)
[2020-01-04] MEDS ORDERED: ALBUTEROL SO4 2.5/IPRATROPIUM 0.5 INH SOL 3 ML VIAL.NEB. NEB ONE (02:53)
[2020-01-04] MEDS: BANATROL PLUS POWDER PACKET GT SCH ×3 (05:47→22:47)
[2020-01-04] MEDS: GABAPENTIN 250 MG/5 ML ORAL SOLUTION, 470 ML BOTTLE PO SCH ×3 (05:47→22:46)
[2020-01-04] MEDS: VANCOMYCIN 250 MG/5 ML ORAL SOLUTION PO SCH ×4 (05:48→23:06)
[2020-01-04] MEDS: PHENOL 177 ML SPRAY BOTTLE MM SCH ×4 (05:48→23:06)
[2020-01-04] MEDS: METOPROLOL TARTRATE 25 MG TABLET (FP) PEG SCH (05:48)
[2020-01-04] MEDS: BUDESONIDE 0.25 MG/2ML INH SUSP VIAL NEB SCH ×2 (08:55→19:49)
[2020-01-04] MEDS ORDERED: METOPROLOL TARTRATE 50 MG TABLET (FP) PEG SCH (10:15)
[2020-01-04] MEDS: ENOXAPARIN NA (PORCINE) 40 MG/0.4 ML DISP.SYRIN SQ SCH (10:25)
[2020-01-04] MEDS: predniSONE 20 MG TABLET (UD) PO SCH (10:29)
[2020-01-04] MEDS: ACETAMINOPHEN 650 MG/20.3 ML ORAL SOLUTION (CUPS) GT SCH ×2 (10:30→22:46)
[2020-01-04] MEDS: POTASSIUM CHLORIDE ORAL LIQUID 20 MEQ/15 ML PO SCH ×2 (10:31→22:51)
[2020-01-04] MEDS: FERROUS SO4 300 MG/5 ML ORAL SOLN UNIT DOSE CUPS GT SCH ×2 (10:33→22:46)
[2020-01-04] MEDS: AMINO ACIDS/PROTEIN HYDROLYS 30 ML LIQUID.PKT PEG SCH ×2 (10:33→17:03)
[2020-01-04] MEDS: LACTOBACILLUS ACIDOPHILUS 1 TABLET GT SCH (10:33)
[2020-01-04] MEDS: LORATADINE 10 MG TABLET GT SCH (10:34)
[2020-01-04] MEDS: MULTIVIT-MINERALS ORAL LIQUID PEG SCH (10:35)
[2020-01-04] MEDS: FUROSEMIDE 40 MG/4 ML INJECTABLE VIAL IVPUSH SCH ×3 (10:36→15:00)
[2020-01-04] MEDS: FAMOTIDINE 40 MG/5 ML ORAL SUSPENSION PEG SCH (10:36)
[2020-01-04] MEDS: CYANOCOBALAMIN 1,000 MCG TABLET (FP) GT SCH (10:37)
[2020-01-04] MEDS: ALPRAZolam 0.25 MG TABLET PO SCH ×2 (10:37→22:48)
[2020-01-04] MEDS: ESCITALOPRAM OXALATE 5 MG/5 ML PEG SCH (10:39)
[2020-01-04] MEDS: ASCORBIC ACID 500 MG/5 ML UNIT DOSE CUP PEG SCH ×2 (10:40→22:48)
[2020-01-04] MEDS: ALBUTEROL SO4 2.5/IPRATROPIUM 0.5 INH SOL 3 ML VIAL.NEB. NEB SCH ×4 (12:00→19:48)
[2020-01-04] MEDS ORDERED: METOPROLOL TARTRATE 5 MG/5 ML VIAL ONE (12:42)
[2020-01-04] MEDS: fentaNYL 25mcg/hr PATCH.TD72 TD SCH (12:53)
[2020-01-04] MEDS: oxyCODONE HCL 5 MG TABLET PO PRN ×2 (13:02→17:03)
[2020-01-04] MEDS: METOPROLOL TARTRATE 25 MG TABLET (FP) PO SCH ×2 (13:16→22:48)
[2020-01-04 13:59] LABS: ALBUMIN 2.8 g/dl (3.4-5.0); ALK PHOS 141 U/L (45-117); ANION GAP 5 MMOL/L (8-16); BILIRUBIN,TOTAL 0.7 mg/dL (0.2-1); BLOOD UREA NITROGEN 23.4 mg/dL (7-18); CALCIUM 9.1 mg/dL (8.5-10.1); CHLORIDE 103 mmol/L (98-107); CO2 34 mmol/L (21-32); CREATININE < 0.2 mg/dL (0.55-1.3); GLUCOSE,RANDOM 98 mg/dL (74-106); POTASSIUM 5.2 mmol/L (3.5-5.1); SGOT/AST 73 U/L (15-37); SGPT/ALT 336 U/L (13-61); SODIUM 142 mmol/L (136-145); TOT PROT 6.2 g/dl (6.4-8.2)
[2020-01-04] MEDS ORDERED: METOPROLOL TARTRATE 25 MG TABLET (FP) PO SCH (14:00)
[2020-01-04] MEDS: BACITRACIN 15 GM TUBE TOPICAL OINTMENT TP SCH (15:00)
[2020-01-04] MEDS: NYSTATIN POWDER 100,000 UNITS/GM - 15 GM TOPICAL POWDER TP SCH ×2 (15:00→22:49)
[2020-01-04] MEDS: COLLAGENASE CLOSTRIDIUM HIST. 30 GRAMS TUBE TP SCH (16:07)
[2020-01-04] MEDS: LIDOCAINE HCL 2% JELLY 10 ML CARTRIDGE UR SCH ×2 (16:08→22:49)
[2020-01-04 16:36] LABS: BASO % 0.1 % (0-2.0); EOS % 0.2 % (0-4.5); HEMATOCRIT 35.9 % (35.4-49); HEMOGLOBIN 11.9 GM/dL (11.7-16.9); LYMPH % 4.9 % (8-40); MCH 30.5 pg (25.7-33.7); MCHC 33.1 g/dl (32.0-35.9); MEAN CELL VOLUME 92.3 fl (80-96); MONO % 2.1 % (3.8-10.2); NEUT % 92.7 % (42.8-82.8); PLATELET COUNT 261 K/MM3 (134-434); RBC 3.89 M/mm3 (4.00-5.60); RDW 19.9 % (11.9-15.9); WHITE BLOOD COUNT 19.1 K/mm3 (4.0-10.0)
[2020-01-04 17:09] LABS: ALBUMIN 2.7 g/dl (3.4-5.0); ALK PHOS 140 U/L (45-117); ANION GAP 5 MMOL/L (8-16); BILIRUBIN,TOTAL 1.1 mg/dL (0.2-1); BLOOD UREA NITROGEN 24.3 mg/dL (7-18); CALCIUM 8.5 mg/dL (8.5-10.1); CHLORIDE 103 mmol/L (98-107); CO2 34 mmol/L (21-32); CREATININE < 0.2 mg/dL (0.55-1.3); GLUCOSE,RANDOM 98 mg/dL (74-106); POTASSIUM 4.9 mmol/L (3.5-5.1); SGOT/AST 97 U/L (15-37); SGPT/ALT 342 U/L (13-61); SODIUM 142 mmol/L (136-145)
[2020-01-04 17:56] LABS: ANISOCYTOSIS 1+; MACROCYTOSIS 1+; PLATELET ESTIMATE ADEQUATE
[2020-01-04] MEDS ORDERED: SODIUM CHLORIDE 500 ML IV STA ×2 (19:45→22:05)
[2020-01-04 20:38] LABS: BASO % 0.2 % (0-2.0); EOS % 0.1 % (0-4.5); HEMATOCRIT 36.7 % (35.4-49); HEMOGLOBIN 12.1 GM/dL (11.7-16.9); MCH 30.4 pg (25.7-33.7); MEAN CELL VOLUME 92.2 fl (80-96); MEAN PLT VOLUME 8.8 fl (7.5-11.1); MONO % 4.2 % (3.8-10.2); NEUT % 89.5 % (42.8-82.8); PLATELET COUNT 276 K/MM3 (134-434); RBC 3.99 M/mm3 (4.00-5.60); RDW 19.9 % (11.9-15.9); WHITE BLOOD COUNT 20.8 K/mm3 (4.0-10.0)
[2020-01-04 21:06] LABS: ALBUMIN 2.7 g/dl (3.4-5.0); BILIRUBIN,TOTAL 0.7 mg/dL (0.2-1); BLOOD UREA NITROGEN 25.8 mg/dL (7-18); CALCIUM 7.8 mg/dL (8.5-10.1); CREATININE 0.3 mg/dL (0.55-1.3); MAGNESIUM 1.9 mg/dL (1.8-2.4); PHOSPHOROUS 4.6 mg/dL (2.5-4.9); POTASSIUM 3.5 mmol/L (3.5-5.1); TOT PROT 6.2 g/dl (6.4-8.2)
[2020-01-04 21:17] LABS: ANISOCYTOSIS 1+; PLATELET ESTIMATE ADEQUATE
[2020-01-04] MEDS: MONTELUKAST NA 10 MG TABLET PEG SCH (22:48)
[2020-01-04] MEDS: MELATONIN 5 MG TABLETS PO SCH (22:49)
[2020-01-05] MEDS: METOPROLOL TARTRATE 25 MG TABLET (FP) PO SCH ×3 (05:18→22:55)
[2020-01-05] MEDS: GABAPENTIN 250 MG/5 ML ORAL SOLUTION, 470 ML BOTTLE PO SCH ×3 (05:18→22:56)
[2020-01-05] MEDS: FUROSEMIDE 40 MG/4 ML INJECTABLE VIAL IVPUSH SCH (05:19)
[2020-01-05] MEDS: BANATROL PLUS POWDER PACKET GT SCH ×3 (05:19→22:55)
[2020-01-05] MEDS: VANCOMYCIN 250 MG/5 ML ORAL SOLUTION PO SCH ×3 (05:19→17:33)
[2020-01-05] MEDS: PHENOL 177 ML SPRAY BOTTLE MM SCH ×3 (05:20→19:06)
[2020-01-05] MEDS ORDERED: SODIUM CHLORIDE 500 ML IV STA ×2 (06:32→12:54)
[2020-01-05] MEDS: BUDESONIDE 0.25 MG/2ML INH SUSP VIAL NEB SCH ×2 (08:00→20:38)
[2020-01-05 08:25] LABS: BASO % 0.3 % (0-2.0); EOS % 1.2 % (0-4.5); HEMATOCRIT 33.5 % (35.4-49); HEMOGLOBIN 10.8 GM/dL (11.7-16.9); LYMPH % 9.1 % (8-40); MCH 29.7 pg (25.7-33.7); MCHC 32.3 g/dl (32.0-35.9); MONO % 3.2 % (3.8-10.2); NEUT % 86.2 % (42.8-82.8); PLATELET COUNT 248 K/MM3 (134-434); RBC 3.64 M/mm3 (4.00-5.60); RDW 19.9 % (11.9-15.9); WHITE BLOOD COUNT 16.7 K/mm3 (4.0-10.0)
[2020-01-05 08:32] LABS: ALBUMIN 2.4 g/dl (3.4-5.0); ALK PHOS 113 U/L (45-117); ANION GAP 5 MMOL/L (8-16); BILIRUBIN,TOTAL 1.4 mg/dL (0.2-1); BLOOD UREA NITROGEN 26.8 mg/dL (7-18); CALCIUM 8.5 mg/dL (8.5-10.1); CHLORIDE 107 mmol/L (98-107); CO2 34 mmol/L (21-32); GLUCOSE,RANDOM 89 mg/dL (74-106); MAGNESIUM 2.2 mg/dL (1.8-2.4); POTASSIUM 4.1 mmol/L (3.5-5.1); SGOT/AST 34 U/L (15-37); SGPT/ALT 217 U/L (13-61); SODIUM 147 mmol/L (136-145); TOT PROT 5.5 g/dl (6.4-8.2)
[2020-01-05 08:37] LABS: CREATININE < 0.2 mg/dL (0.55-1.3)
[2020-01-05] MEDS: COLLAGENASE CLOSTRIDIUM HIST. 30 GRAMS TUBE TP SCH (10:15)
[2020-01-05] MEDS ORDERED: PT OWN MED DRAWER 7, Y5N ONE ×2 (11:00→23:08)
[2020-01-05] MEDS: ACETAMINOPHEN 650 MG/20.3 ML ORAL SOLUTION (CUPS) GT SCH ×2 (11:15→22:50)
[2020-01-05] MEDS: LORATADINE 10 MG TABLET GT SCH (11:16)
[2020-01-05] MEDS: FERROUS SO4 300 MG/5 ML ORAL SOLN UNIT DOSE CUPS GT SCH ×2 (11:16→22:36)
[2020-01-05] MEDS: predniSONE 20 MG TABLET (UD) PO SCH (11:16)
[2020-01-05] MEDS: LACTOBACILLUS ACIDOPHILUS 1 TABLET GT SCH (11:16)
[2020-01-05] MEDS: CYANOCOBALAMIN 1,000 MCG TABLET (FP) GT SCH (11:16)
[2020-01-05] MEDS: AMINO ACIDS/PROTEIN HYDROLYS 30 ML LIQUID.PKT PEG SCH ×2 (11:16→17:12)
[2020-01-05] MEDS: ALPRAZolam 0.25 MG TABLET PO SCH ×2 (11:16→22:57)
[2020-01-05] MEDS: FAMOTIDINE 40 MG/5 ML ORAL SUSPENSION PEG SCH (11:17)
[2020-01-05] MEDS: ASCORBIC ACID 500 MG/5 ML UNIT DOSE CUP PEG SCH ×2 (11:17→22:54)
[2020-01-05] MEDS: ENOXAPARIN NA (PORCINE) 40 MG/0.4 ML DISP.SYRIN SQ SCH (11:17)
[2020-01-05] MEDS: ESCITALOPRAM OXALATE 5 MG/5 ML PEG SCH (11:17)
[2020-01-05] MEDS: MULTIVIT-MINERALS ORAL LIQUID PEG SCH (11:18)
[2020-01-05] MEDS: POTASSIUM CHLORIDE ORAL LIQUID 20 MEQ/15 ML PO SCH ×2 (11:18→22:50)
[2020-01-05] MEDS: NYSTATIN POWDER 100,000 UNITS/GM - 15 GM TOPICAL POWDER TP SCH ×2 (11:19→22:00)
[2020-01-05] MEDS: LIDOCAINE HCL 2% JELLY 10 ML CARTRIDGE UR SCH ×2 (11:19→22:00)
[2020-01-05] MEDS: BACITRACIN 15 GM TUBE TOPICAL OINTMENT TP SCH (11:20)
[2020-01-05] MEDS ORDERED: LEVALBUTEROL HCL 0.31 MG/3 ML VIAL.NEB IH ONE ×2 (11:21→11:26)
[2020-01-05] MEDS ORDERED: ACETYLCYSTEINE 20% 200MG/ML 4 ML VIAL *FOR ORAL / INH USE ONLY ONE (11:22)
[2020-01-05] MEDS: LEVALBUTEROL HCL 0.63 MG/3 ML VIAL.NEB. IH PRN ×3 (11:30→20:38)
[2020-01-05] MEDS: oxyCODONE HCL 5 MG TABLET PO PRN (12:27)
[2020-01-05] MEDS: LORazepam 2 MG/ML SDV VIAL IVPUSH PRN (12:54)
[2020-01-05] MEDS ORDERED: LACTATED RINGERS SOLUTION 1,000 ML/1,000 ML INFUS.BAG IV STA ×2 (14:26→17:06)
[2020-01-05] MEDS: VANCOMYCIN 1 GRAM (PRE-DOCKED) 1,000 MG/250 ML BAG IVPB SCH (15:53)
[2020-01-05] MEDS ORDERED: CASPOFUNGIN ACETATE 70 MG in SODIUM CHLORIDE 250 ML IVPB ONE (16:11)
[2020-01-05] MEDS ORDERED: METOPROLOL TARTRATE 25 MG TABLET (FP) PO ONE (16:21)
[2020-01-05 16:50] LABS: EPI CELLS >36 /uL (0-25.1); HYALINE CASTS 11 /uL (0-3.1); URINE APPEARANCE CLEAR; URINE BACTERIA 65 /uL (0-1359); URINE BILIRUBIN NEGATIVE (NEGATIVE); URINE COLOR YELLOW; URINE GLUCOSE (UA) NEGATIVE (NEGATIVE); URINE KETONE NEGATIVE (NEGATIVE); URINE LEUK ESTERASE 1+ (NEGATIVE); URINE NITRITE NEGATIVE (NEGATIVE); URINE PROTEIN TRACE (NEGATIVE); URINE RBC 204 /uL (0-23.9); URINE UROBILINOGEN 0.2 mg/dL (0.2-1.0); URINE WBC 55 /uL (0-25.8)
[2020-01-05] MEDS: MUPIROCIN 2% TOPICAL OINTMENT FOR DECOLONIZATION NS SCH ×2 (17:07→22:54)
[2020-01-05] MEDS ORDERED: LACTATED RINGERS SOLUTION 1000 ML INFUS.BAG IV ONE (17:56)
[2020-01-05] MEDS: ACETAMINOPHEN 650 MG/20.3 ML ORAL SOLUTION (CUPS) GT PRN (18:00)
[2020-01-05] MEDS: CEFTAZIDIME PENTAHYDRATE 1 GM in DEXTROSE 5%-WATER 100 ML IVPB SCH (18:40)
[2020-01-05] MEDS ORDERED: MORPHINE SULFATE 2 MG/ML VIAL IVPUSH ONE (19:17)
[2020-01-05 20:50] LABS: ARTERIAL BLD GAS O2 SATURATION 98.6 mmHg (95-98); ARTERIAL BLOOD GAS BASE EXCESS 0.4 mmol/L (-2-2); ARTERIAL BLOOD GAS PO2 145.4 mmHg (80-100); ARTERIAL BLOOD GAS pH 7.307 (7.350-7.450)
[2020-01-05 21:02] LABS: ALLENS TEST POSITIVE
[2020-01-05 21:03] LABS: VENT MODE A/C; VENT RATE 14
[2020-01-05] MEDS: CHLORHEXIDINE GLUCONATE 4% CLEANSER FOR DECOLONIZATION TP SCH (22:55)
[2020-01-05] MEDS: MELATONIN 5 MG TABLETS PO SCH (22:56)
[2020-01-05] MEDS: MONTELUKAST NA 10 MG TABLET PEG SCH (22:56)
[2020-01-05] MEDS ORDERED: ACETYLCYSTEINE 20% 200MG/ML 4 ML VIAL *FOR ORAL / INH USE ONLY NEB ONE (23:36)
[2020-01-05] MEDS ORDERED: ALBUTEROL SO4 0.5 % INH SOLN 2.5 MG/0.5 ML VIAL.NEB. NEB ONE (23:37)
[2020-01-06] MEDS: CEFTAZIDIME PENTAHYDRATE 1 GM in DEXTROSE 5%-WATER 100 ML IVPB SCH ×3 (02:00→19:07)
[2020-01-06] MEDS: VANCOMYCIN 1 GRAM (PRE-DOCKED) 1,000 MG/250 ML BAG IVPB SCH ×2 (03:00→16:00)
[2020-01-06] MEDS: LEVALBUTEROL HCL 0.63 MG/3 ML VIAL.NEB. IH PRN ×3 (05:23→20:42)
[2020-01-06 05:31] LABS: ARTERIAL BLD GAS O2 SATURATION 98.6 mmHg (95-98); ARTERIAL BLOOD GAS BASE EXCESS 5.9 mmol/L (-2-2); ARTERIAL BLOOD GAS PO2 135.5 mmHg (80-100); ARTERIAL BLOOD GAS pH 7.366 (7.350-7.450)
[2020-01-06 05:32] LABS: ALLENS TEST POSITIVE; VENT MODE A/C; VENT RATE 15
[2020-01-06] MEDS: BANATROL PLUS POWDER PACKET GT SCH ×3 (06:27→21:08)
[2020-01-06] MEDS: VANCOMYCIN 250 MG/5 ML ORAL SOLUTION PO SCH ×4 (06:28→18:21)
[2020-01-06] MEDS: PHENOL 177 ML SPRAY BOTTLE MM SCH ×5 (06:28→18:19)
[2020-01-06] MEDS: METOPROLOL TARTRATE 25 MG TABLET (FP) PO SCH ×3 (06:28→21:08)
[2020-01-06] MEDS: GABAPENTIN 250 MG/5 ML ORAL SOLUTION, 470 ML BOTTLE PO SCH ×3 (06:28→21:07)
[2020-01-06 07:34] LABS: ALK PHOS 96 U/L (45-117); ANION GAP 5 MMOL/L (8-16); BILIRUBIN,TOTAL 1.6 mg/dL (0.2-1); BLOOD UREA NITROGEN 17.2 mg/dL (7-18); CALCIUM 8.4 mg/dL (8.5-10.1); CHLORIDE 108 mmol/L (98-107); CO2 33 mmol/L (21-32); GLUCOSE,RANDOM 85 mg/dL (74-106); PHOSPHOROUS 2.7 mg/dL (2.5-4.9); POTASSIUM 3.5 mmol/L (3.5-5.1); SGOT/AST 22 U/L (15-37); SGPT/ALT 130 U/L (13-61); SODIUM 146 mmol/L (136-145)
[2020-01-06 07:35] LABS: CREATININE < 0.2 mg/dL (0.55-1.3)
[2020-01-06 07:38] LABS: HEMATOCRIT 29.3 % (35.4-49); HEMOGLOBIN 9.5 GM/dL (11.7-16.9); MCH 30.7 pg (25.7-33.7); MCHC 32.5 g/dl (32.0-35.9); MEAN CELL VOLUME 94.5 fl (80-96); MEAN PLT VOLUME 8.9 fl (7.5-11.1); PLATELET COUNT 184 K/MM3 (134-434); RDW 19.7 % (11.9-15.9); WHITE BLOOD COUNT 7.1 K/mm3 (4.0-10.0)
[2020-01-06] MEDS: BUDESONIDE 0.25 MG/2ML INH SUSP VIAL NEB SCH ×2 (08:32→20:41)
[2020-01-06] MEDS ORDERED: PT OWN MED DRAWER 7, Y5N ONE ×6 (09:47→21:00)
[2020-01-06] MEDS: ENOXAPARIN NA (PORCINE) 40 MG/0.4 ML DISP.SYRIN SQ SCH (09:49)
[2020-01-06] MEDS: AMINO ACIDS/PROTEIN HYDROLYS 30 ML LIQUID.PKT PEG SCH ×2 (09:49→18:18)
[2020-01-06] MEDS: ACETAMINOPHEN 650 MG/20.3 ML ORAL SOLUTION (CUPS) GT SCH ×2 (09:50→21:06)
[2020-01-06] MEDS: ALPRAZolam 0.25 MG TABLET PO SCH ×2 (09:51→21:08)
[2020-01-06] MEDS: ASCORBIC ACID 500 MG/5 ML UNIT DOSE CUP PEG SCH ×2 (09:51→22:55)
[2020-01-06] MEDS: SCOPOLAMINE HYDROBROMIDE 1 PATCH PATCH.TD72 TD SCH (09:52)
[2020-01-06] MEDS: LACTOBACILLUS ACIDOPHILUS 1 TABLET GT SCH (09:52)
[2020-01-06] MEDS: CYANOCOBALAMIN 1,000 MCG TABLET (FP) GT SCH (09:53)
[2020-01-06] MEDS: BACITRACIN 15 GM TUBE TOPICAL OINTMENT TP SCH (09:53)
[2020-01-06] MEDS: FAMOTIDINE 40 MG/5 ML ORAL SUSPENSION PEG SCH (09:53)
[2020-01-06] MEDS: MUPIROCIN 2% TOPICAL OINTMENT FOR DECOLONIZATION NS SCH ×2 (09:53→21:10)
[2020-01-06] MEDS: LORATADINE 10 MG TABLET GT SCH (09:54)
[2020-01-06] MEDS: predniSONE 20 MG TABLET (UD) PO SCH (09:54)
[2020-01-06] MEDS: MULTIVIT-MINERALS ORAL LIQUID PEG SCH (09:54)
[2020-01-06] MEDS: ESCITALOPRAM OXALATE 5 MG/5 ML PEG SCH (09:55)
[2020-01-06] MEDS: NYSTATIN POWDER 100,000 UNITS/GM - 15 GM TOPICAL POWDER TP SCH ×2 (09:55→21:08)
[2020-01-06] MEDS: FERROUS SO4 300 MG/5 ML ORAL SOLN UNIT DOSE CUPS GT SCH ×2 (09:55→22:55)
[2020-01-06] MEDS: COLLAGENASE CLOSTRIDIUM HIST. 30 GRAMS TUBE TP SCH (09:56)
[2020-01-06] MEDS: POTASSIUM CHLORIDE ORAL LIQUID 20 MEQ/15 ML PO SCH ×2 (09:56→21:06)
[2020-01-06] MEDS: LIDOCAINE HCL 2% JELLY 10 ML CARTRIDGE UR SCH ×2 (10:20→22:56)
[2020-01-06 11:45] LABS: ANISOCYTOSIS 1+; MACROCYTOSIS 1+; PLATELET ESTIMATE NORMAL
[2020-01-06] MEDS: oxyCODONE HCL 5 MG TABLET PO PRN (16:37)
[2020-01-06] MEDS: CASPOFUNGIN ACETATE 50 MG in SODIUM CHLORIDE 250 ML IVPB SCH (18:18)
[2020-01-06] MEDS: MONTELUKAST NA 10 MG TABLET PEG SCH (21:08)
[2020-01-06] MEDS: CHLORHEXIDINE GLUCONATE 4% CLEANSER FOR DECOLONIZATION TP SCH (21:08)
[2020-01-06] MEDS: MELATONIN 5 MG TABLETS PO SCH (21:08)
[2020-01-07] MEDS: VANCOMYCIN 250 MG/5 ML ORAL SOLUTION PO SCH ×4 (00:07→18:03)
[2020-01-07] MEDS: PHENOL 177 ML SPRAY BOTTLE MM SCH ×4 (00:11→18:03)
[2020-01-07] MEDS ORDERED: PT OWN MED DRAWER 7, Y5N ONE ×8 (02:28→23:31)
[2020-01-07] MEDS: CEFTAZIDIME PENTAHYDRATE 1 GM in DEXTROSE 5%-WATER 100 ML IVPB SCH ×3 (02:31→17:21)
[2020-01-07] MEDS: VANCOMYCIN 1 GRAM (PRE-DOCKED) 1,000 MG/250 ML BAG IVPB SCH ×2 (02:31→14:05)
[2020-01-07] MEDS: ACETAMINOPHEN 650 MG/20.3 ML ORAL SOLUTION (CUPS) GT PRN ×2 (02:45→16:59)
[2020-01-07] MEDS: METOPROLOL TARTRATE 25 MG TABLET (FP) PO SCH ×3 (05:31→16:14)
[2020-01-07] MEDS: GABAPENTIN 250 MG/5 ML ORAL SOLUTION, 470 ML BOTTLE PO SCH ×2 (05:31→13:36)
[2020-01-07] MEDS: BANATROL PLUS POWDER PACKET GT SCH ×3 (05:31→22:50)
[2020-01-07 06:50] LABS: BASO % 0.2 % (0-2.0); EOS % 6.9 % (0-4.5); HEMATOCRIT 25.8 % (35.4-49); HEMOGLOBIN 8.5 GM/dL (11.7-16.9); LYMPH % 9.6 % (8-40); MCH 30.8 pg (25.7-33.7); MCHC 32.8 g/dl (32.0-35.9); MEAN CELL VOLUME 93.8 fl (80-96); MEAN PLT VOLUME 8.8 fl (7.5-11.1); MONO % 6.9 % (3.8-10.2); NEUT % 76.4 % (42.8-82.8); PLATELET COUNT 191 K/MM3 (134-434); RBC 2.75 M/mm3 (4.00-5.60); RDW 19.2 % (11.9-15.9)
[2020-01-07 06:58] LABS: ALBUMIN 1.8 g/dl (3.4-5.0); ALK PHOS 81 U/L (45-117); ANION GAP 2 MMOL/L (8-16); BILIRUBIN,TOTAL 0.7 mg/dL (0.2-1); BLOOD UREA NITROGEN 15.5 mg/dL (7-18); CALCIUM 8.5 mg/dL (8.5-10.1); CHLORIDE 106 mmol/L (98-107); CO2 35 mmol/L (21-32); GLUCOSE,RANDOM 77 mg/dL (74-106); MAGNESIUM 1.9 mg/dL (1.8-2.4); PHOSPHOROUS 3.2 mg/dL (2.5-4.9); POTASSIUM 3.4 mmol/L (3.5-5.1); SGOT/AST 10 U/L (15-37); SGPT/ALT 76 U/L (13-61); SODIUM 144 mmol/L (136-145); TOT PROT 4.7 g/dl (6.4-8.2)
[2020-01-07 07:28] LABS: CREATININE < 0.2 mg/dL (0.55-1.3)
[2020-01-07] MEDS: LEVALBUTEROL HCL 0.63 MG/3 ML VIAL.NEB. IH PRN (08:22)
[2020-01-07] MEDS: BUDESONIDE 0.25 MG/2ML INH SUSP VIAL NEB SCH ×2 (08:22→20:32)
[2020-01-07] MEDS: AMINO ACIDS/PROTEIN HYDROLYS 30 ML LIQUID.PKT PEG SCH ×2 (09:51→16:58)
[2020-01-07] MEDS: ESCITALOPRAM OXALATE 5 MG/5 ML PEG SCH (09:52)
[2020-01-07] MEDS: ASCORBIC ACID 500 MG/5 ML UNIT DOSE CUP PEG SCH (09:52)
[2020-01-07] MEDS: FERROUS SO4 300 MG/5 ML ORAL SOLN UNIT DOSE CUPS GT SCH (09:53)
[2020-01-07] MEDS: FAMOTIDINE 40 MG/5 ML ORAL SUSPENSION PEG SCH (09:53)
[2020-01-07] MEDS: CYANOCOBALAMIN 1,000 MCG TABLET (FP) GT SCH (09:53)
[2020-01-07] MEDS: MULTIVIT-MINERALS ORAL LIQUID PEG SCH (09:54)
[2020-01-07] MEDS: POTASSIUM CHLORIDE ORAL LIQUID 20 MEQ/15 ML PO SCH ×2 (09:54→22:00)
[2020-01-07] MEDS: ALPRAZolam 0.25 MG TABLET PO SCH (09:55)
[2020-01-07] MEDS: LACTOBACILLUS ACIDOPHILUS 1 TABLET GT SCH (09:55)
[2020-01-07] MEDS: predniSONE 20 MG TABLET (UD) PO SCH (09:55)
[2020-01-07] MEDS: LORATADINE 10 MG TABLET GT SCH (09:55)
[2020-01-07] MEDS: ENOXAPARIN NA (PORCINE) 40 MG/0.4 ML DISP.SYRIN SQ SCH (09:55)
[2020-01-07] MEDS: ACETAMINOPHEN 650 MG/20.3 ML ORAL SOLUTION (CUPS) GT SCH ×2 (09:56→22:05)
[2020-01-07] MEDS: COLLAGENASE CLOSTRIDIUM HIST. 30 GRAMS TUBE TP SCH (09:57)
[2020-01-07] MEDS: NYSTATIN POWDER 100,000 UNITS/GM - 15 GM TOPICAL POWDER TP SCH ×2 (09:59→22:50)
[2020-01-07] MEDS: BACITRACIN 15 GM TUBE TOPICAL OINTMENT TP SCH (09:59)
[2020-01-07] MEDS: MUPIROCIN 2% TOPICAL OINTMENT FOR DECOLONIZATION NS SCH ×2 (10:00→22:50)
[2020-01-07] MEDS: LIDOCAINE HCL 2% JELLY 10 ML CARTRIDGE UR SCH ×2 (10:01→22:51)
[2020-01-07] MEDS: fentaNYL 25mcg/hr PATCH.TD72 TD SCH (12:38)
[2020-01-07] MEDS ORDERED: INSULIN (NOVOLOG) ASPART 100 UNITS/ML 10ML VIAL ONE ×4 (13:27→23:31)
[2020-01-07] MEDS: CASPOFUNGIN ACETATE 50 MG in SODIUM CHLORIDE 250 ML IVPB SCH (16:57)
[2020-01-07] MEDS: oxyCODONE HCL 5 MG TABLET PO PRN (16:59)
[2020-01-07] MEDS ORDERED: LACTATED RINGERS SOLUTION 1,000 ML/1,000 ML INFUS.BAG IV ONE (22:06)
[2020-01-07] MEDS: CHLORHEXIDINE GLUCONATE 4% CLEANSER FOR DECOLONIZATION TP SCH (22:50)
[2020-01-08] MEDS: ASCORBIC ACID 500 MG/5 ML UNIT DOSE CUP PEG SCH ×3 (00:40→22:54)
[2020-01-08] MEDS: GABAPENTIN 250 MG/5 ML ORAL SOLUTION, 470 ML BOTTLE PO SCH ×4 (00:40→22:54)
[2020-01-08] MEDS: MELATONIN 5 MG TABLETS PO SCH ×2 (00:40→22:53)
[2020-01-08] MEDS: ALPRAZolam 0.25 MG TABLET PO SCH ×3 (00:40→22:53)
[2020-01-08] MEDS: MONTELUKAST NA 10 MG TABLET PEG SCH ×2 (00:41→22:53)
[2020-01-08] MEDS: PHENOL 177 ML SPRAY BOTTLE MM SCH ×5 (00:41→23:09)
[2020-01-08] MEDS: FERROUS SO4 300 MG/5 ML ORAL SOLN UNIT DOSE CUPS GT SCH ×3 (00:41→22:54)
[2020-01-08] MEDS: VANCOMYCIN 250 MG/5 ML ORAL SOLUTION PO SCH ×5 (00:41→23:09)
[2020-01-08] MEDS: METOPROLOL TARTRATE 25 MG TABLET (FP) PO SCH ×4 (00:55→22:54)
[2020-01-08] MEDS ORDERED: PT OWN MED DRAWER 7, Y5N ONE ×8 (01:33→22:48)
[2020-01-08] MEDS: CEFTAZIDIME PENTAHYDRATE 1 GM in DEXTROSE 5%-WATER 100 ML IVPB SCH ×3 (01:36→17:05)
[2020-01-08] MEDS: VANCOMYCIN 1 GRAM (PRE-DOCKED) 1,000 MG/250 ML BAG IVPB SCH ×2 (03:15→16:04)
[2020-01-08] MEDS ORDERED: INSULIN (NOVOLOG) ASPART 100 UNITS/ML 10ML VIAL ONE ×2 (05:00→22:49)
[2020-01-08] MEDS: BANATROL PLUS POWDER PACKET GT SCH ×3 (05:32→22:54)
[2020-01-08] MEDS: LEVALBUTEROL HCL 0.63 MG/3 ML VIAL.NEB. IH PRN (07:30)
[2020-01-08] MEDS: BUDESONIDE 0.25 MG/2ML INH SUSP VIAL NEB SCH ×2 (07:30→20:15)
[2020-01-08 07:35] LABS: BASO % 0.1 % (0-2.0); EOS % 4.6 % (0-4.5); HEMATOCRIT 27.8 % (35.4-49); MCH 30.4 pg (25.7-33.7); MCHC 32.5 g/dl (32.0-35.9); MEAN CELL VOLUME 93.5 fl (80-96); MEAN PLT VOLUME 8.4 fl (7.5-11.1); MONO % 7.5 % (3.8-10.2); NEUT % 78.8 % (42.8-82.8); PLATELET COUNT 207 K/MM3 (134-434); RBC 2.98 M/mm3 (4.00-5.60); RDW 19.6 % (11.9-15.9); WHITE BLOOD COUNT 5.9 K/mm3 (4.0-10.0)
[2020-01-08 08:00] LABS: ALBUMIN 1.8 g/dl (3.4-5.0); ALK PHOS 83 U/L (45-117); ANION GAP 3 MMOL/L (8-16); BILIRUBIN,TOTAL 0.4 mg/dL (0.2-1); BLOOD UREA NITROGEN 13.5 mg/dL (7-18); CHLORIDE 102 mmol/L (98-107); CO2 38 mmol/L (21-32); GLUCOSE,RANDOM 93 mg/dL (74-106); POTASSIUM 3.4 mmol/L (3.5-5.1); SGOT/AST 9 U/L (15-37); SGPT/ALT 52 U/L (13-61); SODIUM 142 mmol/L (136-145); TOT PROT 4.7 g/dl (6.4-8.2)
[2020-01-08 08:06] LABS: CREATININE < 0.2 mg/dL (0.55-1.3)
[2020-01-08] MEDS: AMINO ACIDS/PROTEIN HYDROLYS 30 ML LIQUID.PKT PEG SCH ×2 (08:39→17:02)
[2020-01-08] MEDS: LACTOBACILLUS ACIDOPHILUS 1 TABLET GT SCH (09:07)
[2020-01-08] MEDS: LORATADINE 10 MG TABLET GT SCH (09:07)
[2020-01-08] MEDS: predniSONE 20 MG TABLET (UD) PO SCH (09:07)
[2020-01-08] MEDS: CYANOCOBALAMIN 1,000 MCG TABLET (FP) GT SCH (09:08)
[2020-01-08] MEDS: BACITRACIN 15 GM TUBE TOPICAL OINTMENT TP SCH (09:08)
[2020-01-08] MEDS: MUPIROCIN 2% TOPICAL OINTMENT FOR DECOLONIZATION NS SCH ×2 (09:08→22:54)
[2020-01-08] MEDS: MULTIVIT-MINERALS ORAL LIQUID PEG SCH (09:09)
[2020-01-08] MEDS: ESCITALOPRAM OXALATE 5 MG/5 ML PEG SCH (09:10)
[2020-01-08] MEDS: NYSTATIN POWDER 100,000 UNITS/GM - 15 GM TOPICAL POWDER TP SCH ×2 (09:10→22:55)
[2020-01-08] MEDS: ENOXAPARIN NA (PORCINE) 40 MG/0.4 ML DISP.SYRIN SQ SCH (09:10)
[2020-01-08] MEDS: FAMOTIDINE 40 MG/5 ML ORAL SUSPENSION PEG SCH (09:11)
[2020-01-08] MEDS: POTASSIUM CHLORIDE ORAL LIQUID 20 MEQ/15 ML PO SCH ×2 (09:11→22:55)
[2020-01-08] MEDS: ACETAMINOPHEN 650 MG/20.3 ML ORAL SOLUTION (CUPS) GT SCH ×2 (09:12→22:52)
[2020-01-08] MEDS: COLLAGENASE CLOSTRIDIUM HIST. 30 GRAMS TUBE TP SCH (09:12)
[2020-01-08] MEDS: LIDOCAINE HCL 2% JELLY 10 ML CARTRIDGE UR SCH ×2 (09:14→23:07)
[2020-01-08] MEDS: KCL 10 MEQ IVPB 10 MEQ/100 ML INFUS.BAG IVPB SCH ×2 (10:01→10:34)
[2020-01-08 11:27] LABS: ANISOCYTOSIS 1+; MACROCYTOSIS 0; OVALOCYTE 1+; PLATELET ESTIMATE NORMAL
[2020-01-08] MEDS ORDERED: LACTATED RINGERS SOLUTION 1,000 ML/1,000 ML INFUS.BAG IV ONE (11:40)
[2020-01-08] MEDS: LORazepam 2 MG/ML SDV VIAL IVPUSH PRN (13:33)
[2020-01-08] MEDS: CASPOFUNGIN ACETATE 50 MG in SODIUM CHLORIDE 250 ML IVPB SCH (17:34)
[2020-01-08] MEDS: CHLORHEXIDINE GLUCONATE 4% CLEANSER FOR DECOLONIZATION TP SCH (22:54)
[2020-01-09] MEDS: CEFTAZIDIME PENTAHYDRATE 1 GM in DEXTROSE 5%-WATER 100 ML IVPB SCH ×3 (02:33→18:51)
[2020-01-09] MEDS ORDERED: PT OWN MED DRAWER 7, Y5N ONE ×6 (02:43→21:02)
[2020-01-09] MEDS: VANCOMYCIN 1 GRAM (PRE-DOCKED) 1,000 MG/250 ML BAG IVPB SCH ×2 (02:55→16:22)
[2020-01-09] MEDS ORDERED: INSULIN (NOVOLOG) ASPART 100 UNITS/ML 10ML VIAL ONE (06:08)
[2020-01-09] MEDS: METOPROLOL TARTRATE 25 MG TABLET (FP) PO SCH ×3 (06:11→21:15)
[2020-01-09] MEDS: VANCOMYCIN 250 MG/5 ML ORAL SOLUTION PO SCH ×3 (06:11→18:06)
[2020-01-09] MEDS: PHENOL 177 ML SPRAY BOTTLE MM SCH ×3 (06:12→18:04)
[2020-01-09] MEDS: GABAPENTIN 250 MG/5 ML ORAL SOLUTION, 470 ML BOTTLE PO SCH ×3 (06:12→21:15)
[2020-01-09] MEDS: BANATROL PLUS POWDER PACKET GT SCH ×3 (06:12→21:15)
[2020-01-09 07:31] LABS: HEMOGLOBIN 8.7 GM/dL (11.7-16.9); MCH 30.8 pg (25.7-33.7); MCHC 33.3 g/dl (32.0-35.9); MEAN CELL VOLUME 92.4 fl (80-96); MEAN PLT VOLUME 8.7 fl (7.5-11.1); PLATELET COUNT 233 K/MM3 (134-434); RBC 2.81 M/mm3 (4.00-5.60); RDW 19.4 % (11.9-15.9); WHITE BLOOD COUNT 4.5 K/mm3 (4.0-10.0)
[2020-01-09 07:52] LABS: ALBUMIN 1.7 g/dl (3.4-5.0); ANION GAP 3 MMOL/L (8-16); BLOOD UREA NITROGEN 10.8 mg/dL (7-18); CALCIUM 8.4 mg/dL (8.5-10.1); CHLORIDE 98 mmol/L (98-107); CO2 38 mmol/L (21-32); GLUCOSE,RANDOM 97 mg/dL (74-106); MAGNESIUM 1.9 mg/dL (1.8-2.4); PHOSPHOROUS 3.3 mg/dL (2.5-4.9); POTASSIUM 3.8 mmol/L (3.5-5.1); SGOT/AST 9 U/L (15-37); SGPT/ALT 34 U/L (13-61); SODIUM 138 mmol/L (136-145)
[2020-01-09 07:53] LABS: ALK PHOS 83 U/L (45-117); BILIRUBIN,TOTAL 0.3 mg/dL (0.2-1); TOT PROT 4.7 g/dl (6.4-8.2)
[2020-01-09 08:13] LABS: CREATININE < 0.5 mg/dL (0.55-1.3)
[2020-01-09] MEDS: BUDESONIDE 0.25 MG/2ML INH SUSP VIAL NEB SCH ×2 (08:45→20:40)
[2020-01-09] MEDS: AMINO ACIDS/PROTEIN HYDROLYS 30 ML LIQUID.PKT PEG SCH (09:05)
[2020-01-09] MEDS: MULTIVIT-MINERALS ORAL LIQUID PEG SCH (09:06)
[2020-01-09] MEDS: FAMOTIDINE 40 MG/5 ML ORAL SUSPENSION PEG SCH (09:06)
[2020-01-09] MEDS: ASCORBIC ACID 500 MG/5 ML UNIT DOSE CUP PEG SCH ×2 (09:07→21:16)
[2020-01-09] MEDS: ESCITALOPRAM OXALATE 5 MG/5 ML PEG SCH (09:08)
[2020-01-09] MEDS: LORATADINE 10 MG TABLET GT SCH (09:08)
[2020-01-09] MEDS: ENOXAPARIN NA (PORCINE) 40 MG/0.4 ML DISP.SYRIN SQ SCH (09:08)
[2020-01-09] MEDS: predniSONE 20 MG TABLET (UD) PO SCH (09:08)
[2020-01-09] MEDS: ALPRAZolam 0.25 MG TABLET PO SCH ×2 (09:08→21:16)
[2020-01-09] MEDS: MUPIROCIN 2% TOPICAL OINTMENT FOR DECOLONIZATION NS SCH ×2 (09:09→21:14)
[2020-01-09] MEDS: LACTOBACILLUS ACIDOPHILUS 1 TABLET GT SCH (09:09)
[2020-01-09] MEDS: FERROUS SO4 300 MG/5 ML ORAL SOLN UNIT DOSE CUPS GT SCH ×2 (09:09→21:15)
[2020-01-09] MEDS: BACITRACIN 15 GM TUBE TOPICAL OINTMENT TP SCH (09:09)
[2020-01-09] MEDS: NYSTATIN POWDER 100,000 UNITS/GM - 15 GM TOPICAL POWDER TP SCH ×2 (09:09→21:15)
[2020-01-09] MEDS: COLLAGENASE CLOSTRIDIUM HIST. 30 GRAMS TUBE TP SCH (09:10)
[2020-01-09] MEDS: ACETAMINOPHEN 650 MG/20.3 ML ORAL SOLUTION (CUPS) GT SCH ×2 (09:10→21:16)
[2020-01-09] MEDS: POTASSIUM CHLORIDE ORAL LIQUID 20 MEQ/15 ML PO SCH ×2 (09:10→21:15)
[2020-01-09] MEDS: CYANOCOBALAMIN 1,000 MCG TABLET (FP) GT SCH (09:11)
[2020-01-09] MEDS: LIDOCAINE HCL 2% JELLY 10 ML CARTRIDGE UR SCH (09:13)
[2020-01-09] MEDS: SCOPOLAMINE HYDROBROMIDE 1 PATCH PATCH.TD72 TD SCH (11:29)
[2020-01-09] MEDS: CASPOFUNGIN ACETATE 50 MG in SODIUM CHLORIDE 250 ML IVPB SCH (18:04)
[2020-01-09] MEDS ORDERED: FENTANYL PATCH WASTE MC PRN (18:15)
[2020-01-09] MEDS ORDERED: LORazepam 2 MG/ML SDV VIAL IVPUSH PRN (18:17)
[2020-01-09] MEDS: fentaNYL 25mcg/hr PATCH.TD72 TD SCH (18:59)
[2020-01-09] MEDS: CHLORHEXIDINE GLUCONATE 4% CLEANSER FOR DECOLONIZATION TP SCH (21:15)
[2020-01-09] MEDS: MELATONIN 5 MG TABLETS PO SCH (21:15)
[2020-01-09] MEDS: MONTELUKAST NA 10 MG TABLET PEG SCH (21:16)
[2020-01-09] MEDS: oxyCODONE HCL 5 MG TABLET PO PRN (21:19)
[2020-01-09] MEDS: LEVALBUTEROL HCL 0.63 MG/3 ML VIAL.NEB. IH PRN (21:25)
[2020-01-10] MEDS ORDERED: LACTATED RINGERS SOLUTION 1000 ML INFUS.BAG IV ONE ×2 (00:18→03:57)
[2020-01-10] MEDS: VANCOMYCIN 250 MG/5 ML ORAL SOLUTION PO SCH ×4 (00:20→18:51)
[2020-01-10] MEDS: PHENOL 177 ML SPRAY BOTTLE MM SCH ×4 (00:20→17:47)
[2020-01-10] MEDS: CEFTAZIDIME PENTAHYDRATE 1 GM in DEXTROSE 5%-WATER 100 ML IVPB SCH ×3 (01:05→18:51)
[2020-01-10] MEDS: LIDOCAINE HCL 2% JELLY 10 ML CARTRIDGE UR SCH ×3 (01:28→21:14)
[2020-01-10] MEDS: VANCOMYCIN 1 GRAM (PRE-DOCKED) 1,000 MG/250 ML BAG IVPB SCH ×2 (03:13→14:19)
[2020-01-10] MEDS: METOPROLOL TARTRATE 25 MG TABLET (FP) PO SCH ×4 (05:00→23:47)
[2020-01-10] MEDS ORDERED: PT OWN MED DRAWER 7, Y5N ONE ×7 (05:35→21:07)
[2020-01-10] MEDS: ALPRAZolam 0.25 MG TABLET PO SCH ×3 (05:53→21:11)
[2020-01-10] MEDS: BANATROL PLUS POWDER PACKET GT SCH ×3 (05:54→21:11)
[2020-01-10] MEDS: GABAPENTIN 250 MG/5 ML ORAL SOLUTION, 470 ML BOTTLE PO SCH ×3 (06:15→21:12)
[2020-01-10] MEDS: LEVALBUTEROL HCL 0.63 MG/3 ML VIAL.NEB. IH PRN ×2 (08:15→20:45)
[2020-01-10] MEDS: BUDESONIDE 0.25 MG/2ML INH SUSP VIAL NEB SCH ×2 (08:15→20:45)
[2020-01-10] MEDS: AMINO ACIDS/PROTEIN HYDROLYS 30 ML LIQUID.PKT PEG SCH (09:12)
[2020-01-10] MEDS: POTASSIUM CHLORIDE ORAL LIQUID 20 MEQ/15 ML PO SCH ×2 (09:14→21:11)
[2020-01-10] MEDS: ACETAMINOPHEN 650 MG/20.3 ML ORAL SOLUTION (CUPS) GT SCH ×2 (09:14→21:13)
[2020-01-10] MEDS: ENOXAPARIN NA (PORCINE) 40 MG/0.4 ML DISP.SYRIN SQ SCH (09:15)
[2020-01-10] MEDS: LACTOBACILLUS ACIDOPHILUS 1 TABLET GT SCH (09:15)
[2020-01-10] MEDS: FERROUS SO4 300 MG/5 ML ORAL SOLN UNIT DOSE CUPS GT SCH ×2 (09:15→21:13)
[2020-01-10] MEDS: MULTIVIT-MINERALS ORAL LIQUID PEG SCH (09:15)
[2020-01-10] MEDS: CYANOCOBALAMIN 1,000 MCG TABLET (FP) GT SCH (09:16)
[2020-01-10] MEDS: predniSONE 20 MG TABLET (UD) PO SCH (09:16)
[2020-01-10] MEDS: LORATADINE 10 MG TABLET GT SCH (09:16)
[2020-01-10] MEDS: ASCORBIC ACID 500 MG/5 ML UNIT DOSE CUP PEG SCH ×2 (09:17→21:14)
[2020-01-10] MEDS: FAMOTIDINE 40 MG/5 ML ORAL SUSPENSION PEG SCH (09:17)
[2020-01-10] MEDS: MUPIROCIN 2% TOPICAL OINTMENT FOR DECOLONIZATION NS SCH (09:18)
[2020-01-10] MEDS: BACITRACIN 15 GM TUBE TOPICAL OINTMENT TP SCH (09:18)
[2020-01-10] MEDS: ESCITALOPRAM OXALATE 5 MG/5 ML PEG SCH (09:18)
[2020-01-10] MEDS: NYSTATIN POWDER 100,000 UNITS/GM - 15 GM TOPICAL POWDER TP SCH ×2 (09:19→21:13)
[2020-01-10 11:10] LABS: BASO % 0.2 % (0-2.0); EOS % 3.5 % (0-4.5); HEMOGLOBIN 8.1 GM/dL (11.7-16.9); LYMPH % 11.5 % (8-40); MCH 30.4 pg (25.7-33.7); MCHC 32.6 g/dl (32.0-35.9); MEAN CELL VOLUME 93.1 fl (80-96); MEAN PLT VOLUME 8.7 fl (7.5-11.1); MONO % 4.1 % (3.8-10.2); NEUT % 80.7 % (42.8-82.8); PLATELET COUNT 247 K/MM3 (134-434); RBC 2.68 M/mm3 (4.00-5.60); WHITE BLOOD COUNT 5.9 K/mm3 (4.0-10.0)
[2020-01-10] MEDS: COLLAGENASE CLOSTRIDIUM HIST. 30 GRAMS TUBE TP SCH (11:13)
[2020-01-10 11:36] LABS: ALBUMIN 1.6 g/dl (3.4-5.0); ALK PHOS 90 U/L (45-117); ANION GAP 2 MMOL/L (8-16); BILIRUBIN,TOTAL 0.3 mg/dL (0.2-1); BLOOD UREA NITROGEN 9.7 mg/dL (7-18); CALCIUM 8.2 mg/dL (8.5-10.1); CHLORIDE 100 mmol/L (98-107); CO2 38 mmol/L (21-32); GLUCOSE,RANDOM 118 mg/dL (74-106); POTASSIUM 4.3 mmol/L (3.5-5.1); SGOT/AST 9 U/L (15-37); SGPT/ALT 26 U/L (13-61); SODIUM 140 mmol/L (136-145); TOT PROT 4.6 g/dl (6.4-8.2)
[2020-01-10 11:52] LABS: CREATININE < 0.2 mg/dL (0.55-1.3)
[2020-01-10 14:37] LABS: PLATELET ESTIMATE NORMAL
[2020-01-10] MEDS: CASPOFUNGIN ACETATE 50 MG in SODIUM CHLORIDE 250 ML IVPB SCH (17:42)
[2020-01-10] MEDS: MELATONIN 5 MG TABLETS PO SCH (21:10)
[2020-01-10] MEDS: MONTELUKAST NA 10 MG TABLET PEG SCH (21:10)
[2020-01-10] MEDS: CHLORHEXIDINE GLUCONATE 4% CLEANSER FOR DECOLONIZATION TP SCH (21:13)
[2020-01-11] MEDS: VANCOMYCIN 250 MG/5 ML ORAL SOLUTION PO SCH ×4 (00:14→18:08)
[2020-01-11] MEDS: PHENOL 177 ML SPRAY BOTTLE MM SCH ×4 (01:14→18:04)
[2020-01-11] MEDS: CEFTAZIDIME PENTAHYDRATE 1 GM in DEXTROSE 5%-WATER 100 ML IVPB SCH ×3 (01:14→17:20)
[2020-01-11] MEDS ORDERED: LACTATED RINGERS SOLUTION 1000 ML INFUS.BAG IV ONE (01:19)
[2020-01-11] MEDS: VANCOMYCIN 1 GRAM (PRE-DOCKED) 1,000 MG/250 ML BAG IVPB SCH ×2 (03:00→17:15)
[2020-01-11] MEDS: LEVALBUTEROL HCL 0.63 MG/3 ML VIAL.NEB. IH PRN ×2 (03:11→20:20)
[2020-01-11] MEDS: GABAPENTIN 250 MG/5 ML ORAL SOLUTION, 470 ML BOTTLE PO SCH ×3 (06:00→21:23)
[2020-01-11] MEDS: METOPROLOL TARTRATE 25 MG TABLET (FP) PO SCH ×3 (06:00→22:34)
[2020-01-11] MEDS: ALPRAZolam 0.25 MG TABLET PO SCH ×3 (06:00→21:22)
[2020-01-11] MEDS: BANATROL PLUS POWDER PACKET GT SCH ×3 (06:00→21:23)
[2020-01-11] MEDS ORDERED: PT OWN MED DRAWER 7, Y5N ONE ×4 (06:09→21:04)
[2020-01-11 07:02] LABS: ALBUMIN 1.5 g/dl (3.4-5.0); ALK PHOS 83 U/L (45-117); ANION GAP 2 MMOL/L (8-16); BILIRUBIN,TOTAL 0.5 mg/dL (0.2-1); BLOOD UREA NITROGEN 14.3 mg/dL (7-18); CALCIUM 8.2 mg/dL (8.5-10.1); CHLORIDE 96 mmol/L (98-107); CO2 39 mmol/L (21-32); GLUCOSE,RANDOM 103 mg/dL (74-106); POTASSIUM 3.8 mmol/L (3.5-5.1); SGOT/AST 13 U/L (15-37); SGPT/ALT 20 U/L (13-61); SODIUM 138 mmol/L (136-145); TOT PROT 4.8 g/dl (6.4-8.2)
[2020-01-11 07:46] LABS: CREATININE < 0.2 mg/dL (0.55-1.3)
[2020-01-11] MEDS: BUDESONIDE 0.25 MG/2ML INH SUSP VIAL NEB SCH ×2 (08:14→20:10)
[2020-01-11] MEDS ORDERED: INSULIN (NOVOLOG) ASPART 100 UNITS/ML 10ML VIAL ONE (09:35)
[2020-01-11] MEDS: NYSTATIN POWDER 100,000 UNITS/GM - 15 GM TOPICAL POWDER TP SCH ×2 (10:14→21:24)
[2020-01-11] MEDS: BACITRACIN 15 GM TUBE TOPICAL OINTMENT TP SCH (10:14)
[2020-01-11] MEDS: LIDOCAINE HCL 2% JELLY 10 ML CARTRIDGE UR SCH ×2 (10:16→21:24)
[2020-01-11] MEDS: FAMOTIDINE 40 MG/5 ML ORAL SUSPENSION PEG SCH (10:34)
[2020-01-11] MEDS: CYANOCOBALAMIN 1,000 MCG TABLET (FP) GT SCH (10:34)
[2020-01-11] MEDS: ESCITALOPRAM OXALATE 5 MG/5 ML PEG SCH (10:34)
[2020-01-11] MEDS: FERROUS SO4 300 MG/5 ML ORAL SOLN UNIT DOSE CUPS GT SCH ×2 (10:34→21:23)
[2020-01-11] MEDS: ACETAMINOPHEN 650 MG/20.3 ML ORAL SOLUTION (CUPS) GT SCH ×2 (10:34→21:21)
[2020-01-11] MEDS: ASCORBIC ACID 500 MG/5 ML UNIT DOSE CUP PEG SCH ×2 (10:34→21:23)
[2020-01-11] MEDS: ENOXAPARIN NA (PORCINE) 40 MG/0.4 ML DISP.SYRIN SQ SCH (10:35)
[2020-01-11] MEDS: POTASSIUM CHLORIDE ORAL LIQUID 20 MEQ/15 ML PO SCH ×2 (10:36→21:22)
[2020-01-11] MEDS: predniSONE 20 MG TABLET (UD) PO SCH (10:37)
[2020-01-11] MEDS: LACTOBACILLUS ACIDOPHILUS 1 TABLET GT SCH (10:37)
[2020-01-11] MEDS: LORATADINE 10 MG TABLET GT SCH (10:37)
[2020-01-11] MEDS: AMINO ACIDS/PROTEIN HYDROLYS 30 ML LIQUID.PKT PEG SCH (10:38)
[2020-01-11] MEDS: COLLAGENASE CLOSTRIDIUM HIST. 30 GRAMS TUBE TP SCH (10:40)
[2020-01-11] MEDS: MULTIVIT-MINERALS ORAL LIQUID PEG SCH (18:03)
[2020-01-11] MEDS: CASPOFUNGIN ACETATE 50 MG in SODIUM CHLORIDE 250 ML IVPB SCH (18:56)
[2020-01-11] MEDS: MELATONIN 5 MG TABLETS PO SCH (21:22)
[2020-01-11] MEDS: MONTELUKAST NA 10 MG TABLET PEG SCH (21:24)
[2020-01-11] MEDS: CHLORHEXIDINE GLUCONATE 4% CLEANSER FOR DECOLONIZATION TP SCH (21:24)
[2020-01-12] MEDS ORDERED: PT OWN MED DRAWER 7, Y5N ONE ×6 (00:14→20:25)
[2020-01-12] MEDS: VANCOMYCIN 250 MG/5 ML ORAL SOLUTION PO SCH ×4 (00:15→19:43)
[2020-01-12] MEDS: PHENOL 177 ML SPRAY BOTTLE MM SCH ×4 (00:16→18:58)
[2020-01-12] MEDS: VANCOMYCIN 1 GRAM (PRE-DOCKED) 1,000 MG/250 ML BAG IVPB SCH ×2 (02:19→15:13)
[2020-01-12] MEDS: CEFTAZIDIME PENTAHYDRATE 1 GM in DEXTROSE 5%-WATER 100 ML IVPB SCH ×3 (02:19→18:57)
[2020-01-12] MEDS: ALPRAZolam 0.25 MG TABLET PO SCH ×3 (05:34→21:22)
[2020-01-12] MEDS: GABAPENTIN 250 MG/5 ML ORAL SOLUTION, 470 ML BOTTLE PO SCH ×3 (05:34→21:18)
[2020-01-12] MEDS: METOPROLOL TARTRATE 25 MG TABLET (FP) PO SCH ×3 (05:35→23:20)
[2020-01-12] MEDS: BANATROL PLUS POWDER PACKET GT SCH ×3 (05:35→21:17)
[2020-01-12] MEDS: AMINO ACIDS/PROTEIN HYDROLYS 30 ML LIQUID.PKT PEG SCH (08:35)
[2020-01-12] MEDS: BUDESONIDE 0.25 MG/2ML INH SUSP VIAL NEB SCH ×2 (08:46→20:52)
[2020-01-12] MEDS: ENOXAPARIN NA (PORCINE) 40 MG/0.4 ML DISP.SYRIN SQ SCH (10:43)
[2020-01-12] MEDS: POTASSIUM CHLORIDE ORAL LIQUID 20 MEQ/15 ML PO SCH ×2 (10:43→21:20)
[2020-01-12] MEDS: ACETAMINOPHEN 650 MG/20.3 ML ORAL SOLUTION (CUPS) GT SCH ×2 (10:44→21:20)
[2020-01-12] MEDS: COLLAGENASE CLOSTRIDIUM HIST. 30 GRAMS TUBE TP SCH (10:45)
[2020-01-12] MEDS: predniSONE 20 MG TABLET (UD) PO SCH (10:45)
[2020-01-12] MEDS: LORATADINE 10 MG TABLET GT SCH (10:45)
[2020-01-12] MEDS: LACTOBACILLUS ACIDOPHILUS 1 TABLET GT SCH (10:45)
[2020-01-12] MEDS: ESCITALOPRAM OXALATE 5 MG/5 ML PEG SCH (10:47)
[2020-01-12] MEDS: FAMOTIDINE 40 MG/5 ML ORAL SUSPENSION PEG SCH (10:47)
[2020-01-12] MEDS: SCOPOLAMINE HYDROBROMIDE 1 PATCH PATCH.TD72 TD SCH (10:47)
[2020-01-12] MEDS: ASCORBIC ACID 500 MG/5 ML UNIT DOSE CUP PEG SCH ×2 (10:47→21:22)
[2020-01-12] MEDS: FERROUS SO4 300 MG/5 ML ORAL SOLN UNIT DOSE CUPS GT SCH ×2 (10:51→21:17)
[2020-01-12] MEDS: BACITRACIN 15 GM TUBE TOPICAL OINTMENT TP SCH (10:53)
[2020-01-12] MEDS: CYANOCOBALAMIN 1,000 MCG TABLET (FP) GT SCH (10:53)
[2020-01-12] MEDS: LIDOCAINE HCL 2% JELLY 10 ML CARTRIDGE UR SCH ×2 (10:54→21:25)
[2020-01-12] MEDS: NYSTATIN POWDER 100,000 UNITS/GM - 15 GM TOPICAL POWDER TP SCH ×2 (10:54→21:19)
[2020-01-12] MEDS: MULTIVIT-MINERALS ORAL LIQUID PEG SCH (13:37)
[2020-01-12] MEDS: CASPOFUNGIN ACETATE 50 MG in SODIUM CHLORIDE 250 ML IVPB SCH (17:57)
[2020-01-12] MEDS: fentaNYL 25mcg/hr PATCH.TD72 TD SCH (18:59)
[2020-01-12] MEDS: CHLORHEXIDINE GLUCONATE 4% CLEANSER FOR DECOLONIZATION TP SCH (21:18)
[2020-01-12] MEDS: MELATONIN 5 MG TABLETS PO SCH (21:18)
[2020-01-12] MEDS: MONTELUKAST NA 10 MG TABLET PEG SCH (21:20)
[2020-01-13] MEDS ORDERED: PT OWN MED DRAWER 7, Y5N ONE ×7 (00:19→21:05)
[2020-01-13] MEDS: VANCOMYCIN 250 MG/5 ML ORAL SOLUTION PO SCH ×5 (00:21→23:06)
[2020-01-13] MEDS: PHENOL 177 ML SPRAY BOTTLE MM SCH ×5 (00:22→23:06)
[2020-01-13] MEDS: CEFTAZIDIME PENTAHYDRATE 1 GM in DEXTROSE 5%-WATER 100 ML IVPB SCH ×3 (01:17→18:29)
[2020-01-13] MEDS: VANCOMYCIN 1 GRAM (PRE-DOCKED) 1,000 MG/250 ML BAG IVPB SCH ×2 (02:10→14:00)
[2020-01-13] MEDS: BANATROL PLUS POWDER PACKET GT SCH ×3 (05:21→21:07)
[2020-01-13] MEDS: METOPROLOL TARTRATE 25 MG TABLET (FP) PO SCH ×3 (05:22→21:25)
[2020-01-13] MEDS: GABAPENTIN 250 MG/5 ML ORAL SOLUTION, 470 ML BOTTLE PO SCH ×3 (05:23→21:07)
[2020-01-13] MEDS: ALPRAZolam 0.25 MG TABLET PO SCH ×3 (05:23→23:55)
[2020-01-13] MEDS ORDERED: ' IVPB ONE (05:41)
[2020-01-13 08:03] LABS: ALBUMIN 1.8 g/dl (3.4-5.0); ALK PHOS 109 U/L (45-117); ANION GAP 3 MMOL/L (8-16); BILIRUBIN,TOTAL 0.3 mg/dL (0.2-1); BLOOD UREA NITROGEN 10.6 mg/dL (7-18); CALCIUM 8.6 mg/dL (8.5-10.1); CHLORIDE 96 mmol/L (98-107); CO2 40 mmol/L (21-32); GLUCOSE,RANDOM 117 mg/dL (74-106); POTASSIUM 3.9 mmol/L (3.5-5.1); SGOT/AST 28 U/L (15-37); SGPT/ALT 37 U/L (13-61); SODIUM 139 mmol/L (136-145); TOT PROT 5.8 g/dl (6.4-8.2)
[2020-01-13 08:13] LABS: CREATININE < 0.2 mg/dL (0.55-1.3)
[2020-01-13 08:38] LABS: PH,URINE 7.5 (5.0-8.0); URINE APPEARANCE CLEAR; URINE BILIRUBIN NEGATIVE (NEGATIVE); URINE COLOR YELLOW; URINE GLUCOSE (UA) NEGATIVE (NEGATIVE); URINE KETONE NEGATIVE (NEGATIVE); URINE LEUK ESTERASE NEGATIVE (NEGATIVE); URINE NITRITE NEGATIVE (NEGATIVE); URINE PROTEIN NEGATIVE (NEGATIVE); URINE UROBILINOGEN 0.2 mg/dL (0.2-1.0)
[2020-01-13] MEDS ORDERED: ACETAMINOPHEN 650 MG/20.3 ML ORAL SOLUTION (CUPS) GT PRN (09:05)
[2020-01-13] MEDS ORDERED: FENTANYL PATCH WASTE TD PRN (09:05)
[2020-01-13] MEDS: AMINO ACIDS/PROTEIN HYDROLYS 30 ML LIQUID.PKT PEG SCH (09:45)
[2020-01-13] MEDS: FERROUS SO4 300 MG/5 ML ORAL SOLN UNIT DOSE CUPS GT SCH ×2 (09:47→21:08)
[2020-01-13] MEDS: MULTIVIT-MINERALS ORAL LIQUID PEG SCH (09:47)
[2020-01-13] MEDS: CYANOCOBALAMIN 1,000 MCG TABLET (FP) GT SCH (09:47)
[2020-01-13] MEDS: ASCORBIC ACID 500 MG/5 ML UNIT DOSE CUP PEG SCH ×2 (09:49→21:08)
[2020-01-13] MEDS: FAMOTIDINE 40 MG/5 ML ORAL SUSPENSION PEG SCH (09:51)
[2020-01-13] MEDS: ENOXAPARIN NA (PORCINE) 40 MG/0.4 ML DISP.SYRIN SQ SCH (09:57)
[2020-01-13] MEDS: LORATADINE 10 MG TABLET GT SCH (09:57)
[2020-01-13] MEDS: LACTOBACILLUS ACIDOPHILUS 1 TABLET GT SCH (09:57)
[2020-01-13] MEDS: BACITRACIN 15 GM TUBE TOPICAL OINTMENT TP SCH (10:00)
[2020-01-13] MEDS: NYSTATIN POWDER 100,000 UNITS/GM - 15 GM TOPICAL POWDER TP SCH ×2 (10:00→21:25)
[2020-01-13] MEDS ORDERED: ACETAMINOPHEN 650 MG/20.3 ML ORAL SOLUTION (CUPS) GT SCH (10:00)
[2020-01-13] MEDS ORDERED: ESCITALOPRAM OXALATE 5 MG/5 ML PEG SCH (10:00)
[2020-01-13] MEDS: COLLAGENASE CLOSTRIDIUM HIST. 30 GRAMS TUBE TP SCH (10:01)
[2020-01-13] MEDS: LIDOCAINE HCL 2% JELLY 10 ML CARTRIDGE UR SCH ×2 (10:01→21:25)
[2020-01-13] MEDS: POTASSIUM CHLORIDE ORAL LIQUID 20 MEQ/15 ML PO SCH ×2 (10:10→21:08)
[2020-01-13] MEDS: predniSONE 20 MG TABLET (UD) PO SCH (10:10)
[2020-01-13] MEDS ORDERED: FUROSEMIDE 40 MG/4 ML INJECTABLE VIAL IVPUSH ONE (10:41)
[2020-01-13] MEDS: BUDESONIDE 0.25 MG/2ML INH SUSP VIAL NEB SCH ×2 (11:31→21:08)
[2020-01-13] MEDS ORDERED: ACETAMINOPHEN INJECTION 100 ML IVPB ONE ×2 (12:23→21:05)
[2020-01-13 12:26] LABS: BASO % 0.2 % (0-2.0); EOS % 0.9 % (0-4.5); HEMATOCRIT 28.4 % (35.4-49); HEMOGLOBIN 9.3 GM/dL (11.7-16.9); MCH 30.3 pg (25.7-33.7); MCHC 32.6 g/dl (32.0-35.9); MEAN CELL VOLUME 93.1 fl (80-96); MEAN PLT VOLUME 8.4 fl (7.5-11.1); MONO % 4.3 % (3.8-10.2); NEUT % 85.6 % (42.8-82.8); PLATELET COUNT 377 K/MM3 (134-434); RBC 3.05 M/mm3 (4.00-5.60); RDW 19.2 % (11.9-15.9); WHITE BLOOD COUNT 11.5 K/mm3 (4.0-10.0)
[2020-01-13] MEDS ORDERED: METOPROLOL TARTRATE 5 MG/5 ML VIAL IVPUSH ONE (12:28)
[2020-01-13] MEDS: LEVALBUTEROL HCL 0.63 MG/3 ML VIAL.NEB. IH PRN (15:00)
[2020-01-13] MEDS: ACETYLCYSTEINE 20% 200MG/ML 4 ML VIAL *FOR ORAL / INH USE ONLY NEB SCH ×2 (15:00→21:09)
[2020-01-13] MEDS: CASPOFUNGIN ACETATE 50 MG in SODIUM CHLORIDE 250 ML IVPB SCH (17:29)
[2020-01-13] MEDS ORDERED: ACETAMINOPHEN 1000 MG/100 ML VIAL (NON FORMULARY) IVPB PRN (19:20)
[2020-01-13] MEDS ORDERED: LACTATED RINGERS SOLUTION 1000 ML INFUS.BAG IV ONE ×2 (19:42→21:51)
[2020-01-13] MEDS ORDERED: LACTATED RINGERS SOLUTION 1,000 ML/1,000 ML INFUS.BAG IV SCH (19:45)
[2020-01-13] MEDS ORDERED: ALBUTEROL SO4 0.083% IH SOL 2.5 MG/3 ML VIAL.NEB. NEB ONE (20:11)
[2020-01-13] MEDS ORDERED: INSULIN (NOVOLOG) ASPART 100 UNITS/ML 10ML VIAL ONE (21:05)
[2020-01-13] MEDS: MONTELUKAST NA 10 MG TABLET PEG SCH (21:08)
[2020-01-13] MEDS ORDERED: LORazepam 2 MG/ML SDV VIAL IVPUSH PRN (21:47)
[2020-01-13] MEDS ORDERED: VASOPRESSIN 20 UNITS/ML VIAL IV ONE (21:52)
[2020-01-13] MEDS: VASOPRESSIN 40 UNITS in SODIUM CHLORIDE 98 ML IVPB SCH (23:04)
[2020-01-13] MEDS: MELATONIN 5 MG TABLETS PO SCH (23:55)
[2020-01-14] MEDS: CEFTAZIDIME PENTAHYDRATE 1 GM in DEXTROSE 5%-WATER 100 ML IVPB SCH ×3 (01:21→17:39)
[2020-01-14] MEDS: VANCOMYCIN 1 GRAM (PRE-DOCKED) 1,000 MG/250 ML BAG IVPB SCH ×2 (03:06→15:20)
[2020-01-14] MEDS: METOPROLOL TARTRATE 25 MG TABLET (FP) PO SCH ×3 (06:40→21:22)
[2020-01-14] MEDS: VANCOMYCIN 250 MG/5 ML ORAL SOLUTION PO SCH ×3 (06:40→17:39)
[2020-01-14] MEDS: PHENOL 177 ML SPRAY BOTTLE MM SCH ×3 (06:40→17:39)
[2020-01-14] MEDS: BANATROL PLUS POWDER PACKET GT SCH ×3 (06:40→21:19)
[2020-01-14] MEDS: ALPRAZolam 0.25 MG TABLET PO SCH ×3 (06:40→21:21)
[2020-01-14 06:55] LABS: BASO % 0.1 % (0-2.0); HEMATOCRIT 22.7 % (35.4-49); HEMOGLOBIN 7.4 GM/dL (11.7-16.9); LYMPH % 8.3 % (8-40); MCH 30.3 pg (25.7-33.7); MCHC 32.7 g/dl (32.0-35.9); MEAN CELL VOLUME 92.6 fl (80-96); MEAN PLT VOLUME 7.8 fl (7.5-11.1); MONO % 4.6 % (3.8-10.2); PLATELET COUNT 297 K/MM3 (134-434); RBC 2.45 M/mm3 (4.00-5.60); RDW 18.4 % (11.9-15.9); WHITE BLOOD COUNT 10.2 K/mm3 (4.0-10.0)
[2020-01-14 07:34] LABS: ALBUMIN 1.5 g/dl (3.4-5.0); ALK PHOS 97 U/L (45-117); ANION GAP 2 MMOL/L (8-16); BILIRUBIN,TOTAL 0.5 mg/dL (0.2-1); BLOOD UREA NITROGEN 10.9 mg/dL (7-18); CHLORIDE 97 mmol/L (98-107); CO2 39 mmol/L (21-32); GLUCOSE,RANDOM 111 mg/dL (74-106); MAGNESIUM 1.7 mg/dL (1.8-2.4); PHOSPHOROUS 4.7 mg/dL (2.5-4.9); POTASSIUM 3.6 mmol/L (3.5-5.1); SGOT/AST 18 U/L (15-37); SGPT/ALT 30 U/L (13-61); SODIUM 138 mmol/L (136-145); TOT PROT 5.2 g/dl (6.4-8.2)
[2020-01-14 08:02] LABS: CREATININE < 0.2 mg/dL (0.55-1.3)
[2020-01-14] MEDS ORDERED: PT OWN MED DRAWER 7, Y5N ONE ×6 (08:58→21:04)
[2020-01-14] MEDS: BUDESONIDE 0.25 MG/2ML INH SUSP VIAL NEB SCH ×2 (09:00→20:17)
[2020-01-14] MEDS: AMINO ACIDS/PROTEIN HYDROLYS 30 ML LIQUID.PKT PEG SCH (09:37)
[2020-01-14] MEDS: POTASSIUM CHLORIDE ORAL LIQUID 20 MEQ/15 ML PO SCH ×2 (09:37→21:20)
[2020-01-14] MEDS: ASCORBIC ACID 500 MG/5 ML UNIT DOSE CUP PEG SCH ×2 (09:38→21:21)
[2020-01-14] MEDS: ENOXAPARIN NA (PORCINE) 40 MG/0.4 ML DISP.SYRIN SQ SCH (09:38)
[2020-01-14] MEDS: FERROUS SO4 300 MG/5 ML ORAL SOLN UNIT DOSE CUPS GT SCH ×2 (09:39→21:22)
[2020-01-14] MEDS: CYANOCOBALAMIN 1,000 MCG TABLET (FP) GT SCH (09:39)
[2020-01-14] MEDS: FAMOTIDINE 40 MG/5 ML ORAL SUSPENSION PEG SCH (09:39)
[2020-01-14] MEDS: NYSTATIN POWDER 100,000 UNITS/GM - 15 GM TOPICAL POWDER TP SCH ×2 (09:40→21:22)
[2020-01-14] MEDS: COLLAGENASE CLOSTRIDIUM HIST. 30 GRAMS TUBE TP SCH (09:40)
[2020-01-14] MEDS: predniSONE 20 MG TABLET (UD) PO SCH (09:47)
[2020-01-14] MEDS: LORATADINE 10 MG TABLET GT SCH (09:48)
[2020-01-14] MEDS: LACTOBACILLUS ACIDOPHILUS 1 TABLET GT SCH (09:48)
[2020-01-14] MEDS: MULTIVIT-MINERALS ORAL LIQUID PEG SCH (09:48)
[2020-01-14] MEDS: BACITRACIN 15 GM TUBE TOPICAL OINTMENT TP SCH (09:49)
[2020-01-14] MEDS ORDERED: LACTATED RINGERS SOLUTION 1000 ML INFUS.BAG IV ONE (10:27)
[2020-01-14] MEDS ORDERED: MIDAZOLAM HCL 5 MG/1 ML Single Dose Vial ONE (11:46)
[2020-01-14] MEDS ORDERED: MIDAZOLAM HCL 2 MG/2 ML SINGLE DOSE VIAL IVPUSH ONE ×2 (12:02→15:06)
[2020-01-14] MEDS: LIDOCAINE HCL 2% JELLY 10 ML CARTRIDGE UR SCH ×2 (12:27→21:22)
[2020-01-14] MEDS: LEVALBUTEROL HCL 0.63 MG/3 ML VIAL.NEB. IH PRN ×2 (14:07→22:47)
[2020-01-14] MEDS: ACETYLCYSTEINE 20% 200MG/ML 4 ML VIAL *FOR ORAL / INH USE ONLY NEB SCH ×2 (14:07→22:47)
[2020-01-14] MEDS ORDERED: VASOPRESSIN 20 UNITS/ML VIAL IV ONE (15:16)
[2020-01-14] MEDS: VASOPRESSIN 40 UNITS in SODIUM CHLORIDE 98 ML IVPB SCH ×2 (15:18→22:15)
[2020-01-14] MEDS: CASPOFUNGIN ACETATE 50 MG in SODIUM CHLORIDE 250 ML IVPB SCH (18:09)
[2020-01-14] MEDS: MONTELUKAST NA 10 MG TABLET PEG SCH (21:21)
[2020-01-14] MEDS: MELATONIN 5 MG TABLETS PO SCH (21:21)
[2020-01-15] MEDS: PHENOL 177 ML SPRAY BOTTLE MM SCH ×5 (00:22→23:20)
[2020-01-15] MEDS: VANCOMYCIN 250 MG/5 ML ORAL SOLUTION PO SCH ×5 (00:22→23:20)
[2020-01-15] MEDS ORDERED: PT OWN MED DRAWER 7, Y5N ONE ×4 (02:36→21:23)
[2020-01-15] MEDS: VANCOMYCIN 1 GRAM (PRE-DOCKED) 1,000 MG/250 ML BAG IVPB SCH ×2 (02:41→15:23)
[2020-01-15] MEDS: CEFTAZIDIME PENTAHYDRATE 1 GM in DEXTROSE 5%-WATER 100 ML IVPB SCH ×3 (02:45→17:44)
[2020-01-15] MEDS: ALPRAZolam 0.25 MG TABLET PO SCH ×3 (05:33→21:32)
[2020-01-15] MEDS: BANATROL PLUS POWDER PACKET GT SCH ×3 (05:33→21:30)
[2020-01-15] MEDS: ACETYLCYSTEINE 20% 200MG/ML 4 ML VIAL *FOR ORAL / INH USE ONLY NEB SCH ×3 (06:13→22:00)
[2020-01-15] MEDS: LEVALBUTEROL HCL 0.63 MG/3 ML VIAL.NEB. IH PRN ×2 (06:14→14:45)
[2020-01-15] MEDS: METOPROLOL TARTRATE 25 MG TABLET (FP) PO SCH ×3 (06:15→21:32)
[2020-01-15] MEDS: BUDESONIDE 0.25 MG/2ML INH SUSP VIAL NEB SCH ×2 (07:30→20:31)
[2020-01-15 07:43] LABS: BASO % 0.2 % (0-2.0); EOS % 0.9 % (0-4.5); HEMATOCRIT 19.7 % (35.4-49); HEMOGLOBIN 6.6 GM/dL (11.7-16.9); LYMPH % 10.9 % (8-40); MCH 30.8 pg (25.7-33.7); MCHC 33.4 g/dl (32.0-35.9); MEAN CELL VOLUME 92.4 fl (80-96); MEAN PLT VOLUME 8.4 fl (7.5-11.1); MONO % 6.7 % (3.8-10.2); NEUT % 81.3 % (42.8-82.8); PLATELET COUNT 308 K/MM3 (134-434); RBC 2.14 M/mm3 (4.00-5.60)
[2020-01-15 08:16] LABS: ALBUMIN 1.4 g/dl (3.4-5.0); ANION GAP 3 MMOL/L (8-16); BLOOD UREA NITROGEN 17.2 mg/dL (7-18); CHLORIDE 95 mmol/L (98-107); CO2 37 mmol/L (21-32); GLUCOSE,RANDOM 114 mg/dL (74-106); POTASSIUM 4.2 mmol/L (3.5-5.1); SODIUM 134 mmol/L (136-145)
[2020-01-15 08:20] LABS: ALK PHOS 86 U/L (45-117); BILIRUBIN,TOTAL 0.3 mg/dL (0.2-1); CREATININE < 0.2 mg/dL (0.55-1.3); PHOSPHOROUS 4.1 mg/dL (2.5-4.9); SGOT/AST 33 U/L (15-37); SGPT/ALT 23 U/L (13-61); TOT PROT 5.4 g/dl (6.4-8.2)
[2020-01-15 08:56] LABS: PLATELET ESTIMATE NORMAL
[2020-01-15] MEDS: predniSONE 20 MG TABLET (UD) PO SCH (09:10)
[2020-01-15] MEDS: AMINO ACIDS/PROTEIN HYDROLYS 30 ML LIQUID.PKT PEG SCH (09:10)
[2020-01-15] MEDS: ENOXAPARIN NA (PORCINE) 40 MG/0.4 ML DISP.SYRIN SQ SCH (09:11)
[2020-01-15] MEDS: LORATADINE 10 MG TABLET GT SCH (09:11)
[2020-01-15] MEDS: LACTOBACILLUS ACIDOPHILUS 1 TABLET GT SCH (09:11)
[2020-01-15] MEDS: POTASSIUM CHLORIDE ORAL LIQUID 20 MEQ/15 ML PO SCH ×2 (09:11→21:32)
[2020-01-15] MEDS: FENTANYL PATCH WASTE TD PRN (11:00)
[2020-01-15] MEDS: BACITRACIN 15 GM TUBE TOPICAL OINTMENT TP SCH (11:07)
[2020-01-15] MEDS: SCOPOLAMINE HYDROBROMIDE 1 PATCH PATCH.TD72 TD SCH (11:11)
[2020-01-15] MEDS: ASCORBIC ACID 500 MG/5 ML UNIT DOSE CUP PEG SCH ×2 (11:12→21:33)
[2020-01-15] MEDS: FAMOTIDINE 40 MG/5 ML ORAL SUSPENSION PEG SCH (11:12)
[2020-01-15] MEDS: COLLAGENASE CLOSTRIDIUM HIST. 30 GRAMS TUBE TP SCH (11:26)
[2020-01-15] MEDS: MULTIVIT-MINERALS ORAL LIQUID PEG SCH (12:23)
[2020-01-15] MEDS: FERROUS SO4 300 MG/5 ML ORAL SOLN UNIT DOSE CUPS GT SCH ×2 (12:23→22:54)
[2020-01-15] MEDS: CYANOCOBALAMIN 1,000 MCG TABLET (FP) GT SCH (12:24)
[2020-01-15] MEDS: fentaNYL 50mcg/hr PATCH.TD72 TD SCH (12:24)
[2020-01-15] MEDS: NYSTATIN POWDER 100,000 UNITS/GM - 15 GM TOPICAL POWDER TP SCH ×2 (12:52→21:33)
[2020-01-15] MEDS: LIDOCAINE HCL 2% JELLY 10 ML CARTRIDGE UR SCH ×2 (12:53→21:34)
[2020-01-15] MEDS: oxyCODONE HCL 5 MG TABLET PEG PRN (13:05)
[2020-01-15] MEDS ORDERED: VASOPRESSIN 20 UNITS/ML VIAL IV ONE (14:05)
[2020-01-15] MEDS: VASOPRESSIN 40 UNITS in SODIUM CHLORIDE 98 ML IVPB SCH ×2 (14:06→22:54)
[2020-01-15] MEDS: CASPOFUNGIN ACETATE 50 MG in SODIUM CHLORIDE 250 ML IVPB SCH (17:12)
[2020-01-15] MEDS: MELATONIN 5 MG TABLETS PO SCH (21:32)
[2020-01-15] MEDS: MONTELUKAST NA 10 MG TABLET PEG SCH (21:32)
[2020-01-16] MEDS: CEFTAZIDIME PENTAHYDRATE 1 GM in DEXTROSE 5%-WATER 100 ML IVPB SCH ×3 (01:26→17:22)
[2020-01-16 03:08] LABS: HEMATOCRIT 21.7 % (35.4-49); HEMOGLOBIN 7.4 GM/dL (11.7-16.9); MCH 31.4 pg (25.7-33.7); MEAN CELL VOLUME 92.5 fl (80-96); MEAN PLT VOLUME 8.6 fl (7.5-11.1); PLATELET COUNT 295 K/MM3 (134-434); RBC 2.34 M/mm3 (4.00-5.60); RDW 16.7 % (11.9-15.9); WHITE BLOOD COUNT 5.3 K/mm3 (4.0-10.0)
[2020-01-16] MEDS: VANCOMYCIN 1 GRAM (PRE-DOCKED) 1,000 MG/250 ML BAG IVPB SCH ×2 (03:30→14:16)
[2020-01-16] MEDS: BANATROL PLUS POWDER PACKET GT SCH ×3 (05:36→23:14)
[2020-01-16] MEDS: ALPRAZolam 0.25 MG TABLET PO SCH ×3 (05:37→23:16)
[2020-01-16] MEDS: PHENOL 177 ML SPRAY BOTTLE MM SCH ×3 (05:37→17:18)
[2020-01-16] MEDS: METOPROLOL TARTRATE 25 MG TABLET (FP) PO SCH ×4 (05:37→23:56)
[2020-01-16] MEDS: VANCOMYCIN 250 MG/5 ML ORAL SOLUTION PO SCH ×4 (05:37→23:16)
[2020-01-16 07:38] LABS: BASO % 0.2 % (0-2.0); EOS % 1.4 % (0-4.5); HEMATOCRIT 21.2 % (35.4-49); HEMOGLOBIN 7.3 GM/dL (11.7-16.9); LYMPH % 13.9 % (8-40); MCH 31.4 pg (25.7-33.7); MCHC 34.4 g/dl (32.0-35.9); MEAN CELL VOLUME 91.3 fl (80-96); MEAN PLT VOLUME 8.6 fl (7.5-11.1); MONO % 7.7 % (3.8-10.2); NEUT % 76.8 % (42.8-82.8); PLATELET COUNT 322 K/MM3 (134-434); RBC 2.33 M/mm3 (4.00-5.60); WHITE BLOOD COUNT 5.7 K/mm3 (4.0-10.0)
[2020-01-16] MEDS: VASOPRESSIN 40 UNITS in SODIUM CHLORIDE 98 ML IVPB SCH ×2 (07:56→23:57)
[2020-01-16 08:03] LABS: ALK PHOS 88 U/L (45-117); PHOSPHOROUS 3.4 mg/dL (2.5-4.9); SODIUM 134 mmol/L (136-145); TOT PROT 5.4 g/dl (6.4-8.2)
[2020-01-16] MEDS: ACETYLCYSTEINE 20% 200MG/ML 4 ML VIAL *FOR ORAL / INH USE ONLY NEB SCH ×3 (08:15→22:55)
[2020-01-16] MEDS: LEVALBUTEROL HCL 0.63 MG/3 ML VIAL.NEB. IH PRN ×2 (08:15→14:40)
[2020-01-16] MEDS ORDERED: PT OWN MED DRAWER 7, Y5N ONE ×4 (08:30→22:57)
[2020-01-16 08:38] LABS: ALBUMIN 1.6 g/dl (3.4-5.0); ANION GAP 1 MMOL/L (8-16); BILIRUBIN,TOTAL 0.2 mg/dL (0.2-1); BLOOD UREA NITROGEN 14.7 mg/dL (7-18); CALCIUM 7.9 mg/dL (8.5-10.1); CHLORIDE 93 mmol/L (98-107); CO2 40 mmol/L (21-32); GLUCOSE,RANDOM 93 mg/dL (74-106); POTASSIUM 3.9 mmol/L (3.5-5.1); SGOT/AST 10 U/L (15-37); SGPT/ALT 21 U/L (13-61)
[2020-01-16 08:44] LABS: CREATININE < 0.5 mg/dL (0.55-1.3)
[2020-01-16] MEDS: AMINO ACIDS/PROTEIN HYDROLYS 30 ML LIQUID.PKT PEG SCH (09:29)
[2020-01-16] MEDS: LACTOBACILLUS ACIDOPHILUS 1 TABLET GT SCH (09:30)
[2020-01-16] MEDS: predniSONE 20 MG TABLET (UD) PO SCH (09:30)
[2020-01-16] MEDS: ENOXAPARIN NA (PORCINE) 40 MG/0.4 ML DISP.SYRIN SQ SCH (09:31)
[2020-01-16] MEDS: MULTIVIT-MINERALS ORAL LIQUID PEG SCH (09:33)
[2020-01-16] MEDS: CYANOCOBALAMIN 1,000 MCG TABLET (FP) GT SCH (09:35)
[2020-01-16] MEDS: FERROUS SO4 300 MG/5 ML ORAL SOLN UNIT DOSE CUPS GT SCH ×2 (09:35→23:15)
[2020-01-16] MEDS: LIDOCAINE HCL 2% JELLY 10 ML CARTRIDGE UR SCH ×2 (09:36→23:16)
[2020-01-16] MEDS: ASCORBIC ACID 500 MG/5 ML UNIT DOSE CUP PEG SCH ×2 (09:36→23:16)
[2020-01-16] MEDS: FAMOTIDINE 40 MG/5 ML ORAL SUSPENSION PEG SCH (09:38)
[2020-01-16] MEDS: POTASSIUM CHLORIDE ORAL LIQUID 20 MEQ/15 ML PO SCH ×2 (09:38→23:14)
[2020-01-16] MEDS: LORATADINE 10 MG TABLET GT SCH (09:45)
[2020-01-16] MEDS: BUDESONIDE 0.25 MG/2ML INH SUSP VIAL NEB SCH ×2 (10:45→20:50)
[2020-01-16] MEDS: BACITRACIN 15 GM TUBE TOPICAL OINTMENT TP SCH (11:00)
[2020-01-16] MEDS: NYSTATIN POWDER 100,000 UNITS/GM - 15 GM TOPICAL POWDER TP SCH ×2 (11:00→23:15)
[2020-01-16 11:10] LABS: ANISOCYTOSIS 0; MACROCYTOSIS 0; OVALOCYTE 1+; PLATELET ESTIMATE NORMAL
[2020-01-16] MEDS: COLLAGENASE CLOSTRIDIUM HIST. 30 GRAMS TUBE TP SCH (12:04)
[2020-01-16] MEDS: CASPOFUNGIN ACETATE 50 MG in SODIUM CHLORIDE 250 ML IVPB SCH (17:18)
[2020-01-16] MEDS: oxyCODONE HCL 5 MG TABLET PEG PRN (17:23)
[2020-01-16] MEDS ORDERED: INSULIN (NOVOLOG) ASPART 100 UNITS/ML 10ML VIAL ONE (22:57)
[2020-01-16] MEDS: MELATONIN 5 MG TABLETS PO SCH (23:14)
[2020-01-16] MEDS: MONTELUKAST NA 10 MG TABLET PEG SCH (23:16)
[2020-01-17] MEDS ORDERED: PT OWN MED DRAWER 7, Y5N ONE ×8 (01:33→22:35)
[2020-01-17] MEDS: CEFTAZIDIME PENTAHYDRATE 1 GM in DEXTROSE 5%-WATER 100 ML IVPB SCH ×2 (01:59→09:50)
[2020-01-17] MEDS: PHENOL 177 ML SPRAY BOTTLE MM SCH ×5 (01:59→17:36)
[2020-01-17] MEDS: VANCOMYCIN 1 GRAM (PRE-DOCKED) 1,000 MG/250 ML BAG IVPB SCH (03:00)
[2020-01-17] MEDS ORDERED: INSULIN (NOVOLOG) ASPART 100 UNITS/ML 10ML VIAL ONE (06:25)
[2020-01-17] MEDS: BANATROL PLUS POWDER PACKET GT SCH ×3 (06:26→22:15)
[2020-01-17] MEDS: METOPROLOL TARTRATE 25 MG TABLET (FP) PO SCH ×3 (06:27→22:42)
[2020-01-17] MEDS: ALPRAZolam 0.25 MG TABLET PO SCH ×3 (06:27→22:43)
[2020-01-17] MEDS: VANCOMYCIN 250 MG/5 ML ORAL SOLUTION PO SCH ×3 (06:27→17:14)
[2020-01-17 07:50] LABS: BASO % 0.1 % (0-2.0); EOS % 0.8 % (0-4.5); HEMOGLOBIN 7.8 GM/dL (11.7-16.9); LYMPH % 10.9 % (8-40); MCH 30.6 pg (25.7-33.7); MEAN CELL VOLUME 89.9 fl (80-96); MEAN PLT VOLUME 7.7 fl (7.5-11.1); MONO % 6.3 % (3.8-10.2); NEUT % 81.9 % (42.8-82.8); PLATELET COUNT 443 K/MM3 (134-434); RBC 2.56 M/mm3 (4.00-5.60); RDW 16.9 % (11.9-15.9); WHITE BLOOD COUNT 10.3 K/mm3 (4.0-10.0)
[2020-01-17 08:38] LABS: ALBUMIN 1.7 g/dl (3.4-5.0); ALK PHOS 82 U/L (45-117); ANION GAP 3 MMOL/L (8-16); BILIRUBIN,TOTAL 0.4 mg/dL (0.2-1); BLOOD UREA NITROGEN 6.2 mg/dL (7-18); CHLORIDE 80 mmol/L (98-107); CO2 43 mmol/L (21-32); GLUCOSE,RANDOM 78 mg/dL (74-106); MAGNESIUM 1.7 mg/dL (1.8-2.4); PHOSPHOROUS 3.1 mg/dL (2.5-4.9); POTASSIUM 3.9 mmol/L (3.5-5.1); SGOT/AST 12 U/L (15-37); SGPT/ALT 19 U/L (13-61); SODIUM 126 mmol/L (136-145); TOT PROT 5.5 g/dl (6.4-8.2)
[2020-01-17 08:50] LABS: CREATININE < 0.2 mg/dL (0.55-1.3)
[2020-01-17] MEDS: AMINO ACIDS/PROTEIN HYDROLYS 30 ML LIQUID.PKT PEG SCH (09:48)
[2020-01-17] MEDS: MULTIVIT-MINERALS ORAL LIQUID PEG SCH (09:49)
[2020-01-17] MEDS: LACTOBACILLUS ACIDOPHILUS 1 TABLET GT SCH (09:49)
[2020-01-17] MEDS: BACITRACIN 15 GM TUBE TOPICAL OINTMENT TP SCH (09:49)
[2020-01-17] MEDS: predniSONE 20 MG TABLET (UD) PO SCH (09:50)
[2020-01-17] MEDS: LORATADINE 10 MG TABLET GT SCH (09:50)
[2020-01-17] MEDS: FERROUS SO4 300 MG/5 ML ORAL SOLN UNIT DOSE CUPS GT SCH ×2 (09:50→22:42)
[2020-01-17] MEDS: BUDESONIDE 0.25 MG/2ML INH SUSP VIAL NEB SCH ×2 (09:51→21:15)
[2020-01-17] MEDS: POTASSIUM CHLORIDE ORAL LIQUID 20 MEQ/15 ML PO SCH ×2 (09:52→22:41)
[2020-01-17] MEDS: FAMOTIDINE 40 MG/5 ML ORAL SUSPENSION PEG SCH (09:52)
[2020-01-17] MEDS: NYSTATIN POWDER 100,000 UNITS/GM - 15 GM TOPICAL POWDER TP SCH ×2 (09:52→22:42)
[2020-01-17] MEDS: ENOXAPARIN NA (PORCINE) 40 MG/0.4 ML DISP.SYRIN SQ SCH (09:52)
[2020-01-17] MEDS: CYANOCOBALAMIN 1,000 MCG TABLET (FP) GT SCH (09:53)
[2020-01-17] MEDS: COLLAGENASE CLOSTRIDIUM HIST. 30 GRAMS TUBE TP SCH (09:53)
[2020-01-17] MEDS: ASCORBIC ACID 500 MG/5 ML UNIT DOSE CUP PEG SCH ×2 (09:53→22:43)
[2020-01-17] MEDS: LIDOCAINE HCL 2% JELLY 10 ML CARTRIDGE UR SCH ×2 (09:53→22:43)
[2020-01-17 10:47] LABS: ANISOCYTOSIS 1+; MACROCYTOSIS 0; PLATELET ESTIMATE INCREASED
[2020-01-17 11:09] LABS: BASO % 0.3 % (0-2.0); EOS % 0.4 % (0-4.5); HEMATOCRIT 23.5 % (35.4-49); LYMPH % 6.9 % (8-40); MCH 30.9 pg (25.7-33.7); MEAN CELL VOLUME 90.8 fl (80-96); MONO % 4.1 % (3.8-10.2); NEUT % 88.3 % (42.8-82.8); RBC 2.59 M/mm3 (4.00-5.60); RDW 17.1 % (11.9-15.9); WHITE BLOOD COUNT 11.3 K/mm3 (4.0-10.0)
[2020-01-17 12:25] LABS: ANISOCYTOSIS 1+; MACROCYTOSIS 0; PLATELET ESTIMATE INCREASED
[2020-01-17 13:07] LABS: POTASSIUM 3.8 mmol/L (3.5-5.1)
[2020-01-17 13:13] LABS: ALBUMIN 1.7 g/dl (3.4-5.0); BILIRUBIN,TOTAL 0.3 mg/dL (0.2-1); BLOOD UREA NITROGEN 5.4 mg/dL (7-18); CALCIUM 7.9 mg/dL (8.5-10.1); MAGNESIUM 1.7 mg/dL (1.8-2.4); PHOSPHOROUS 3.1 mg/dL (2.5-4.9); TOT PROT 5.5 g/dl (6.4-8.2)
[2020-01-17] MEDS ORDERED: SODIUM CHLORIDE 1,000 ML IV SCH (13:15)
[2020-01-17 13:19] LABS: CREATININE 0.2 mg/dL (0.55-1.3)
[2020-01-17] MEDS: LEVALBUTEROL HCL 0.63 MG/3 ML VIAL.NEB. IH PRN ×2 (13:30→21:15)
[2020-01-17] MEDS: ACETYLCYSTEINE 20% 200MG/ML 4 ML VIAL *FOR ORAL / INH USE ONLY NEB SCH ×2 (13:30→21:15)
[2020-01-17] MEDS: VANCOMYCIN 1,000 MG in SODIUM CHLORIDE 250 ML IVPB SCH (14:06)
[2020-01-17] MEDS ORDERED: MAGNESIUM 1GM/D5W - 1 GM/100 ML IVPB IVPB ONE (14:28)
[2020-01-17] MEDS ORDERED: SODIUM CHLORIDE 1,000 ML IV ONE (14:30)
[2020-01-17] MEDS: oxyCODONE HCL 5 MG TABLET PEG PRN ×2 (14:35→20:11)
[2020-01-17 16:20] LABS: ANION GAP 4 MMOL/L (8-16); BLOOD UREA NITROGEN 7.8 mg/dL (7-18); CALCIUM 8.9 mg/dL (8.5-10.1); CHLORIDE 88 mmol/L (98-107); CO2 41 mmol/L (21-32); GLUCOSE,RANDOM 127 mg/dL (74-106); POTASSIUM 4.4 mmol/L (3.5-5.1); SODIUM 134 mmol/L (136-145)
[2020-01-17 16:44] LABS: CREATININE < 0.2 mg/dL (0.55-1.3)
[2020-01-17] MEDS ORDERED: ACETAMINOPHEN 325 MG TABLET (FP) PO ONE (16:51)
[2020-01-17] MEDS ORDERED: ACETAMINOPHEN 650 MG/20.3 ML ORAL SOLUTION (CUPS) PO ONE (16:52)
[2020-01-17 17:04] LABS: CREATININE, URINE RANDOM < 13.0 mg/dL (30-150)
[2020-01-17 17:07] LABS: ALLENS TEST POSITIVE; ARTERIAL BLOOD GAS BASE EXCESS 12.7 mmol/L (-2-2); ARTERIAL BLOOD GAS PO2 68.1 mmHg (80-100); ARTERIAL BLOOD GAS pH 7.402 (7.350-7.450); VENT MODE A/C
[2020-01-17 17:08] LABS: VENT RATE 15
[2020-01-17] MEDS: SODIUM CHLORIDE IVPB SCH (17:14)
[2020-01-17] MEDS: CEFTAZIDIME PENTAHYDRATE IVPB SCH (17:14)
[2020-01-17] MEDS: CASPOFUNGIN ACETATE 50 MG in SODIUM CHLORIDE 250 ML IVPB SCH (17:36)
[2020-01-17 20:45] LABS: ANION GAP 2 MMOL/L (8-16); BLOOD UREA NITROGEN 5.2 mg/dL (7-18); CALCIUM 8.5 mg/dL (8.5-10.1); CHLORIDE 95 mmol/L (98-107); CO2 42 mmol/L (21-32); GLUCOSE,RANDOM 94 mg/dL (74-106); POTASSIUM 4.2 mmol/L (3.5-5.1); SODIUM 140 mmol/L (136-145)
[2020-01-17 20:56] LABS: CREATININE < 0.2 mg/dL (0.55-1.3)
[2020-01-17] MEDS: VASOPRESSIN 40 UNITS in SODIUM CHLORIDE 98 ML IVPB SCH (22:42)
[2020-01-17] MEDS: MONTELUKAST NA 10 MG TABLET PEG SCH (22:42)
[2020-01-17] MEDS: MELATONIN 5 MG TABLETS PO SCH (22:42)
[2020-01-18] MEDS: PHENOL 177 ML SPRAY BOTTLE MM SCH ×4 (00:14→17:07)
[2020-01-18] MEDS: VANCOMYCIN 250 MG/5 ML ORAL SOLUTION PO SCH ×4 (00:14→17:07)
[2020-01-18] MEDS ORDERED: PT OWN MED DRAWER 7, Y5N ONE ×11 (00:52→21:00)
[2020-01-18] MEDS: oxyCODONE HCL 5 MG TABLET PEG PRN (00:54)
[2020-01-18 01:05] LABS: ANION GAP 5 MMOL/L (8-16); BLOOD UREA NITROGEN 6.1 mg/dL (7-18); CALCIUM 8.3 mg/dL (8.5-10.1); CHLORIDE 97 mmol/L (98-107); CO2 39 mmol/L (21-32); GLUCOSE,RANDOM 108 mg/dL (74-106); POTASSIUM 4.3 mmol/L (3.5-5.1); SODIUM 141 mmol/L (136-145)
[2020-01-18 01:07] LABS: CREATININE < 0.2 mg/dL (0.55-1.3)
[2020-01-18] MEDS: SODIUM CHLORIDE IVPB SCH ×3 (01:22→17:07)
[2020-01-18] MEDS: CEFTAZIDIME PENTAHYDRATE IVPB SCH ×3 (01:22→17:07)
[2020-01-18] MEDS: VANCOMYCIN 1,000 MG in SODIUM CHLORIDE 250 ML IVPB SCH ×3 (02:45→14:56)
[2020-01-18] MEDS: BANATROL PLUS POWDER PACKET GT SCH ×3 (05:51→21:02)
[2020-01-18] MEDS: METOPROLOL TARTRATE 25 MG TABLET (FP) PO SCH ×3 (05:51→21:01)
[2020-01-18] MEDS: ALPRAZolam 0.25 MG TABLET PO SCH ×3 (05:51→21:01)
[2020-01-18 07:26] LABS: HEMATOCRIT 29.7 % (35.4-49); HEMOGLOBIN 9.7 GM/dL (11.7-16.9); MCH 29.8 pg (25.7-33.7); MCHC 32.5 g/dl (32.0-35.9); MEAN CELL VOLUME 91.9 fl (80-96); MEAN PLT VOLUME 7.5 fl (7.5-11.1); PLATELET COUNT 658 K/MM3 (134-434); RBC 3.23 M/mm3 (4.00-5.60); RDW 17.2 % (11.9-15.9); WHITE BLOOD COUNT 19.7 K/mm3 (4.0-10.0)
[2020-01-18] MEDS: ACETYLCYSTEINE 20% 200MG/ML 4 ML VIAL *FOR ORAL / INH USE ONLY NEB SCH ×3 (08:00→22:00)
[2020-01-18 08:01] LABS: ALK PHOS 102 U/L (45-117); ANION GAP 4 MMOL/L (8-16); BILIRUBIN,TOTAL 0.4 mg/dL (0.2-1); BLOOD UREA NITROGEN 9.9 mg/dL (7-18); CALCIUM 7.9 mg/dL (8.5-10.1); CHLORIDE 96 mmol/L (98-107); CO2 40 mmol/L (21-32); GLUCOSE,RANDOM 112 mg/dL (74-106); MAGNESIUM 2.3 mg/dL (1.8-2.4); PHOSPHOROUS 4.1 mg/dL (2.5-4.9); POTASSIUM 4.3 mmol/L (3.5-5.1); SGOT/AST 17 U/L (15-37); SGPT/ALT 23 U/L (13-61); SODIUM 140 mmol/L (136-145); TOT PROT 6.4 g/dl (6.4-8.2); URIC ACID 2.1 mg/dL (2.6-7.2)
[2020-01-18] MEDS: BUDESONIDE 0.25 MG/2ML INH SUSP VIAL NEB SCH ×2 (08:05→20:02)
[2020-01-18] MEDS: AMINO ACIDS/PROTEIN HYDROLYS 30 ML LIQUID.PKT PEG SCH (08:20)
[2020-01-18 08:25] LABS: CREATININE < 0.2 mg/dL (0.55-1.3)
[2020-01-18] MEDS: NYSTATIN POWDER 100,000 UNITS/GM - 15 GM TOPICAL POWDER TP SCH ×2 (09:11→21:02)
[2020-01-18] MEDS: BACITRACIN 15 GM TUBE TOPICAL OINTMENT TP SCH (09:11)
[2020-01-18] MEDS: COLLAGENASE CLOSTRIDIUM HIST. 30 GRAMS TUBE TP SCH (09:11)
[2020-01-18] MEDS: LACTOBACILLUS ACIDOPHILUS 1 TABLET GT SCH (09:22)
[2020-01-18] MEDS: POTASSIUM CHLORIDE ORAL LIQUID 20 MEQ/15 ML PO SCH ×2 (09:23→21:02)
[2020-01-18] MEDS: LORATADINE 10 MG TABLET GT SCH (09:23)
[2020-01-18] MEDS: ASCORBIC ACID 500 MG/5 ML UNIT DOSE CUP PEG SCH ×2 (09:23→21:02)
[2020-01-18] MEDS: predniSONE 20 MG TABLET (UD) PO SCH (09:23)
[2020-01-18] MEDS: CYANOCOBALAMIN 1,000 MCG TABLET (FP) GT SCH (09:23)
[2020-01-18] MEDS: MULTIVIT-MINERALS ORAL LIQUID PEG SCH (09:27)
[2020-01-18] MEDS: FAMOTIDINE 40 MG/5 ML ORAL SUSPENSION PEG SCH (09:28)
[2020-01-18] MEDS: ENOXAPARIN NA (PORCINE) 40 MG/0.4 ML DISP.SYRIN SQ SCH (09:28)
[2020-01-18] MEDS: LIDOCAINE HCL 2% JELLY 10 ML CARTRIDGE UR SCH ×2 (09:41→21:02)
[2020-01-18] MEDS: FERROUS SO4 300 MG/5 ML ORAL SOLN UNIT DOSE CUPS GT SCH ×2 (09:41→21:01)
[2020-01-18] MEDS: SCOPOLAMINE HYDROBROMIDE 1 PATCH PATCH.TD72 TD SCH (09:46)
[2020-01-18] MEDS: FENTANYL PATCH WASTE TD PRN (10:15)
[2020-01-18] MEDS: fentaNYL 50mcg/hr PATCH.TD72 TD SCH (10:20)
[2020-01-18] MEDS: LEVALBUTEROL HCL 0.63 MG/3 ML VIAL.NEB. IH PRN ×2 (13:50→20:00)
[2020-01-18 16:34] LABS: ANION GAP 2 MMOL/L (8-16); BLOOD UREA NITROGEN 13.4 mg/dL (7-18); CHLORIDE 110 mmol/L (98-107); CO2 33 mmol/L (21-32); GLUCOSE,RANDOM 113 mg/dL (74-106); POTASSIUM 3.9 mmol/L (3.5-5.1); SODIUM 145 mmol/L (136-145)
[2020-01-18 17:02] LABS: CREATININE < 0.2 mg/dL (0.55-1.3)
[2020-01-18 17:03] LABS: CALCIUM 6.6 mg/dL (8.5-10.1)
[2020-01-18] MEDS: CASPOFUNGIN ACETATE 50 MG in SODIUM CHLORIDE 250 ML IVPB SCH (17:38)
[2020-01-18] MEDS: MELATONIN 5 MG TABLETS PO SCH (21:01)
[2020-01-18] MEDS: MONTELUKAST NA 10 MG TABLET PEG SCH (21:03)
[2020-01-18] MEDS: VASOPRESSIN 40 UNITS in SODIUM CHLORIDE 98 ML IVPB SCH (22:00)
[2020-01-19] MEDS: PHENOL 177 ML SPRAY BOTTLE MM SCH ×5 (00:34→23:24)
[2020-01-19] MEDS: VANCOMYCIN 250 MG/5 ML ORAL SOLUTION PO SCH ×5 (00:35→23:24)
[2020-01-19] MEDS ORDERED: PT OWN MED DRAWER 7, Y5N ONE ×8 (01:21→20:22)
[2020-01-19] MEDS: CEFTAZIDIME PENTAHYDRATE IVPB SCH ×3 (01:35→17:05)
[2020-01-19] MEDS: SODIUM CHLORIDE IVPB SCH ×3 (01:35→17:05)
[2020-01-19] MEDS ORDERED: ACETAMINOPHEN 1000 MG/100 ML VIAL (NON FORMULARY) IVPB ONE ×2 (02:03→23:43)
[2020-01-19] MEDS: oxyCODONE HCL 5 MG TABLET PEG PRN ×2 (02:56→09:11)
[2020-01-19] MEDS ORDERED: METOPROLOL TARTRATE 5 MG/5 ML VIAL IVPUSH ONE ×2 (03:12→23:35)
[2020-01-19] MEDS: BANATROL PLUS POWDER PACKET GT SCH ×3 (05:34→21:25)
[2020-01-19] MEDS: METOPROLOL TARTRATE 25 MG TABLET (FP) PO SCH ×3 (05:35→21:25)
[2020-01-19] MEDS: ALPRAZolam 0.25 MG TABLET PO SCH ×3 (05:35→21:26)
[2020-01-19] MEDS: ACETYLCYSTEINE 20% 200MG/ML 4 ML VIAL *FOR ORAL / INH USE ONLY NEB SCH ×3 (05:45→20:20)
[2020-01-19] MEDS: LEVALBUTEROL HCL 0.63 MG/3 ML VIAL.NEB. IH PRN ×3 (05:46→20:20)
[2020-01-19 07:36] LABS: HEMATOCRIT 28.3 % (35.4-49); HEMOGLOBIN 9.2 GM/dL (11.7-16.9); MCH 30.3 pg (25.7-33.7); MCHC 32.5 g/dl (32.0-35.9); MEAN CELL VOLUME 93.3 fl (80-96); MEAN PLT VOLUME 7.5 fl (7.5-11.1); PLATELET COUNT 658 K/MM3 (134-434); RBC 3.04 M/mm3 (4.00-5.60); RDW 17.7 % (11.9-15.9); WHITE BLOOD COUNT 18.3 K/mm3 (4.0-10.0)
[2020-01-19 08:09] LABS: ALBUMIN 1.8 g/dl (3.4-5.0); BILIRUBIN,TOTAL 0.4 mg/dL (0.2-1); BLOOD UREA NITROGEN 18.8 mg/dL (7-18); CALCIUM 8.7 mg/dL (8.5-10.1); MAGNESIUM 2.1 mg/dL (1.8-2.4); PHOSPHOROUS 3.3 mg/dL (2.5-4.9); POTASSIUM 4.4 mmol/L (3.5-5.1); TOT PROT 6.3 g/dl (6.4-8.2)
[2020-01-19] MEDS: BUDESONIDE 0.25 MG/2ML INH SUSP VIAL NEB SCH ×2 (08:15→20:15)
[2020-01-19 08:16] LABS: CREATININE 0.2 mg/dL (0.55-1.3)
[2020-01-19] MEDS: AMINO ACIDS/PROTEIN HYDROLYS 30 ML LIQUID.PKT PEG SCH (09:00)
[2020-01-19] MEDS: COLLAGENASE CLOSTRIDIUM HIST. 30 GRAMS TUBE TP SCH (09:02)
[2020-01-19] MEDS: ENOXAPARIN NA (PORCINE) 40 MG/0.4 ML DISP.SYRIN SQ SCH (09:10)
[2020-01-19] MEDS: LACTOBACILLUS ACIDOPHILUS 1 TABLET GT SCH (09:10)
[2020-01-19] MEDS: predniSONE 20 MG TABLET (UD) PO SCH (09:10)
[2020-01-19] MEDS: MULTIVIT-MINERALS ORAL LIQUID PEG SCH (09:11)
[2020-01-19] MEDS: LORATADINE 10 MG TABLET GT SCH (09:11)
[2020-01-19] MEDS: BACITRACIN 15 GM TUBE TOPICAL OINTMENT TP SCH (09:12)
[2020-01-19] MEDS: FERROUS SO4 300 MG/5 ML ORAL SOLN UNIT DOSE CUPS GT SCH ×2 (09:12→21:26)
[2020-01-19] MEDS: ASCORBIC ACID 500 MG/5 ML UNIT DOSE CUP PEG SCH ×2 (09:12→21:27)
[2020-01-19] MEDS: FAMOTIDINE 40 MG/5 ML ORAL SUSPENSION PEG SCH (09:13)
[2020-01-19] MEDS: NYSTATIN POWDER 100,000 UNITS/GM - 15 GM TOPICAL POWDER TP SCH ×2 (09:13→21:26)
[2020-01-19] MEDS: POTASSIUM CHLORIDE ORAL LIQUID 20 MEQ/15 ML PO SCH ×2 (09:14→21:25)
[2020-01-19] MEDS: CYANOCOBALAMIN 1,000 MCG TABLET (FP) GT SCH (09:15)
[2020-01-19] MEDS: LIDOCAINE HCL 2% JELLY 10 ML CARTRIDGE UR SCH ×2 (09:15→21:27)
[2020-01-19] MEDS: VANCOMYCIN 1,000 MG in SODIUM CHLORIDE 250 ML IVPB SCH (14:46)
[2020-01-19] MEDS: CASPOFUNGIN ACETATE 50 MG in SODIUM CHLORIDE 250 ML IVPB SCH (16:57)
[2020-01-19] MEDS: MELATONIN 5 MG TABLETS PO SCH (21:25)
[2020-01-19] MEDS: MONTELUKAST NA 10 MG TABLET PEG SCH (21:26)
[2020-01-19] MEDS ORDERED: INSULIN (NOVOLOG) ASPART 100 UNITS/ML 10ML VIAL ONE (23:18)
[2020-01-19] MEDS: LORazepam 2 MG/ML SDV VIAL IVPUSH PRN (23:24)
[2020-01-19] MEDS ORDERED: ACETAMINOPHEN INJECTION 100 ML IVPB ONE (23:44)
[2020-01-20] MEDS: SODIUM CHLORIDE IVPB SCH ×3 (01:22→17:16)
[2020-01-20] MEDS: CEFTAZIDIME PENTAHYDRATE IVPB SCH ×3 (01:22→17:16)
[2020-01-20] MEDS: oxyCODONE HCL 5 MG TABLET PO PRN ×2 (01:22→11:37)
[2020-01-20] MEDS ORDERED: LACTATED RINGERS SOLUTION 1000 ML INFUS.BAG IV ONE ×2 (01:55→03:19)
[2020-01-20] MEDS ORDERED: VANCOMYCIN HCL 1,250 MG in DEXTROSE 5%-WATER - 250 ML IVPB ONE (04:22)
[2020-01-20] MEDS: VANCOMYCIN 1,000 MG in SODIUM CHLORIDE 250 ML IVPB SCH (04:25)
[2020-01-20] MEDS ORDERED: INSULIN (NOVOLOG) ASPART 100 UNITS/ML 10ML VIAL ONE ×3 (05:43→22:00)
[2020-01-20] MEDS: ALPRAZolam 0.25 MG TABLET PO SCH ×3 (05:56→22:04)
[2020-01-20] MEDS: VASOPRESSIN 40 UNITS in SODIUM CHLORIDE 98 ML IVPB SCH ×2 (05:57→17:33)
[2020-01-20] MEDS: BANATROL PLUS POWDER PACKET GT SCH ×3 (05:57→22:03)
[2020-01-20] MEDS: VANCOMYCIN 250 MG/5 ML ORAL SOLUTION PO SCH ×4 (05:57→23:15)
[2020-01-20] MEDS: METOPROLOL TARTRATE 25 MG TABLET (FP) PO SCH ×3 (05:57→22:03)
[2020-01-20] MEDS: PHENOL 177 ML SPRAY BOTTLE MM SCH ×4 (05:58→23:15)
[2020-01-20 07:21] LABS: HEMATOCRIT 26.4 % (35.4-49); HEMOGLOBIN 8.8 GM/dL (11.7-16.9); MCH 31.6 pg (25.7-33.7); MCHC 33.2 g/dl (32.0-35.9); MEAN CELL VOLUME 95.2 fl (80-96); MEAN PLT VOLUME 7.5 fl (7.5-11.1); PLATELET COUNT 628 K/MM3 (134-434); RBC 2.78 M/mm3 (4.00-5.60); RDW 18.2 % (11.9-15.9); WHITE BLOOD COUNT 25.9 K/mm3 (4.0-10.0)
[2020-01-20 07:34] LABS: POTASSIUM 3.8 mmol/L (3.5-5.1)
[2020-01-20 07:46] LABS: BLOOD UREA NITROGEN 19.5 mg/dL (7-18)
[2020-01-20 07:48] LABS: CALCIUM 8.3 mg/dL (8.5-10.1); PHOSPHOROUS 3.4 mg/dL (2.5-4.9)
[2020-01-20 07:49] LABS: MAGNESIUM 1.9 mg/dL (1.8-2.4); TOT PROT 6.1 g/dl (6.4-8.2)
[2020-01-20 07:50] LABS: ALBUMIN 1.7 g/dl (3.4-5.0); BILIRUBIN,TOTAL 0.4 mg/dL (0.2-1)
[2020-01-20 08:00] LABS: CREATININE 0.2 mg/dL (0.55-1.3)
[2020-01-20] MEDS: ACETYLCYSTEINE 20% 200MG/ML 4 ML VIAL *FOR ORAL / INH USE ONLY NEB SCH ×3 (08:00→20:30)
[2020-01-20] MEDS: BUDESONIDE 0.25 MG/2ML INH SUSP VIAL NEB SCH ×2 (08:00→20:40)
[2020-01-20] MEDS: AMINO ACIDS/PROTEIN HYDROLYS 30 ML LIQUID.PKT PEG SCH (08:40)
[2020-01-20] MEDS: BACITRACIN 15 GM TUBE TOPICAL OINTMENT TP SCH (09:02)
[2020-01-20] MEDS: LACTOBACILLUS ACIDOPHILUS 1 TABLET GT SCH (09:02)
[2020-01-20] MEDS: FERROUS SO4 300 MG/5 ML ORAL SOLN UNIT DOSE CUPS GT SCH ×2 (09:03→21:49)
[2020-01-20] MEDS: FAMOTIDINE 40 MG/5 ML ORAL SUSPENSION PEG SCH (09:03)
[2020-01-20] MEDS: predniSONE 20 MG TABLET (UD) PO SCH (09:03)
[2020-01-20] MEDS: POTASSIUM CHLORIDE ORAL LIQUID 20 MEQ/15 ML PO SCH ×2 (09:03→22:03)
[2020-01-20] MEDS: MULTIVIT-MINERALS ORAL LIQUID PEG SCH (09:03)
[2020-01-20] MEDS: ASCORBIC ACID 500 MG/5 ML UNIT DOSE CUP PEG SCH ×2 (09:04→21:49)
[2020-01-20] MEDS: COLLAGENASE CLOSTRIDIUM HIST. 30 GRAMS TUBE TP SCH (09:04)
[2020-01-20] MEDS: LIDOCAINE HCL 2% JELLY 10 ML CARTRIDGE UR SCH ×2 (09:04→22:04)
[2020-01-20] MEDS: CYANOCOBALAMIN 1,000 MCG TABLET (FP) GT SCH (09:15)
[2020-01-20] MEDS: LORATADINE 10 MG TABLET GT SCH (09:15)
[2020-01-20] MEDS: NYSTATIN POWDER 100,000 UNITS/GM - 15 GM TOPICAL POWDER TP SCH ×2 (09:16→22:04)
[2020-01-20] MEDS ORDERED: VASOPRESSIN 20 UNITS/ML VIAL IV ONE (10:50)
[2020-01-20 12:00] LABS: HEMATOCRIT 26.7 % (35.4-49); HEMOGLOBIN 8.8 GM/dL (11.7-16.9); MCHC 32.8 g/dl (32.0-35.9); MEAN CELL VOLUME 94.5 fl (80-96); MEAN PLT VOLUME 7.3 fl (7.5-11.1); PLATELET COUNT 595 K/MM3 (134-434); RBC 2.83 M/mm3 (4.00-5.60); RDW 17.8 % (11.9-15.9); WHITE BLOOD COUNT 24.7 K/mm3 (4.0-10.0)
[2020-01-20 12:25] LABS: CHLORIDE 98 mmol/L (98-107); POTASSIUM 4.3 mmol/L (3.5-5.1)
[2020-01-20 12:27] LABS: ALBUMIN 1.7 g/dl (3.4-5.0); BLOOD UREA NITROGEN 20.4 mg/dL (7-18); CALCIUM 8.6 mg/dL (8.5-10.1); CO2 41 mmol/L (21-32); GLUCOSE,RANDOM 147 mg/dL (74-106)
[2020-01-20 12:30] LABS: SGOT/AST 13 U/L (15-37); SGPT/ALT 15 U/L (13-61)
[2020-01-20 12:32] LABS: BILIRUBIN,TOTAL 0.4 mg/dL (0.2-1); TOT PROT 6.2 g/dl (6.4-8.2)
[2020-01-20 12:33] LABS: ALK PHOS 112 U/L (45-117)
[2020-01-20 12:35] LABS: ANION GAP 1 MMOL/L (8-16); SODIUM 141 mmol/L (136-145)
[2020-01-20 12:37] LABS: CREATININE < 0.2 mg/dL (0.55-1.3)
[2020-01-20] MEDS ORDERED: PT OWN MED DRAWER 7, Y5N ONE ×3 (13:23→20:45)
[2020-01-20] MEDS: LEVALBUTEROL HCL 0.63 MG/3 ML VIAL.NEB. IH PRN ×2 (15:15→20:30)
[2020-01-20] MEDS: CASPOFUNGIN ACETATE 50 MG in SODIUM CHLORIDE 250 ML IVPB SCH (16:03)
[2020-01-20] MEDS: VANCOMYCIN 1,250 MG in DEXTROSE 5%-WATER - 250 ML IVPB SCH (16:03)
[2020-01-20] MEDS: MELATONIN 5 MG TABLETS PO SCH (22:04)
[2020-01-20] MEDS: MONTELUKAST NA 10 MG TABLET PEG SCH (22:04)
[2020-01-21] MEDS: CEFTAZIDIME PENTAHYDRATE IVPB SCH ×3 (01:23→17:02)
[2020-01-21] MEDS: SODIUM CHLORIDE IVPB SCH ×3 (01:23→17:02)
[2020-01-21] MEDS: VANCOMYCIN 1,250 MG in DEXTROSE 5%-WATER - 250 ML IVPB SCH ×2 (05:10→17:09)
[2020-01-21] MEDS: BANATROL PLUS POWDER PACKET GT SCH ×3 (06:38→22:16)
[2020-01-21] MEDS: METOPROLOL TARTRATE 25 MG TABLET (FP) PO SCH ×3 (06:38→22:17)
[2020-01-21] MEDS: ALPRAZolam 0.25 MG TABLET PO SCH ×3 (06:38→22:19)
[2020-01-21] MEDS: VANCOMYCIN 250 MG/5 ML ORAL SOLUTION PO SCH ×3 (06:39→17:02)
[2020-01-21] MEDS: PHENOL 177 ML SPRAY BOTTLE MM SCH ×3 (06:40→17:10)
[2020-01-21] MEDS: VASOPRESSIN 40 UNITS in SODIUM CHLORIDE 98 ML IVPB SCH ×2 (06:40→22:00)
[2020-01-21 07:20] LABS: HEMATOCRIT 22.5 % (35.4-49); HEMOGLOBIN 7.3 GM/dL (11.7-16.9); MCH 30.6 pg (25.7-33.7); MCHC 32.3 g/dl (32.0-35.9); MEAN CELL VOLUME 94.9 fl (80-96); MEAN PLT VOLUME 7.7 fl (7.5-11.1); PLATELET COUNT 507 K/MM3 (134-434); RBC 2.38 M/mm3 (4.00-5.60); RDW 17.2 % (11.9-15.9)
[2020-01-21 07:48] LABS: CHLORIDE 98 mmol/L (98-107); POTASSIUM 3.3 mmol/L (3.5-5.1); SODIUM 143 mmol/L (136-145)
[2020-01-21 07:54] LABS: ALBUMIN 1.5 g/dl (3.4-5.0); ANION GAP 2 MMOL/L (8-16); CALCIUM 8.3 mg/dL (8.5-10.1); CO2 43 mmol/L (21-32); GLUCOSE,RANDOM 170 mg/dL (74-106)
[2020-01-21 07:55] LABS: BLOOD UREA NITROGEN 18.7 mg/dL (7-18)
[2020-01-21 07:58] LABS: SGOT/AST 11 U/L (15-37); SGPT/ALT 13 U/L (13-61)
[2020-01-21 07:59] LABS: BILIRUBIN,TOTAL 0.3 mg/dL (0.2-1); TOT PROT 5.6 g/dl (6.4-8.2)
[2020-01-21 08:00] LABS: ALK PHOS 88 U/L (45-117)
[2020-01-21 08:09] LABS: CREATININE < 0.2 mg/dL (0.55-1.3)
[2020-01-21] MEDS: ACETYLCYSTEINE 20% 200MG/ML 4 ML VIAL *FOR ORAL / INH USE ONLY NEB SCH ×3 (08:30→22:15)
[2020-01-21] MEDS: LEVALBUTEROL HCL 0.63 MG/3 ML VIAL.NEB. IH PRN ×3 (08:31→22:42)
[2020-01-21] MEDS: BUDESONIDE 0.25 MG/2ML INH SUSP VIAL NEB SCH ×2 (08:31→20:19)
[2020-01-21] MEDS: AMINO ACIDS/PROTEIN HYDROLYS 30 ML LIQUID.PKT PEG SCH (09:00)
[2020-01-21] MEDS ORDERED: PT OWN MED DRAWER 7, Y5N ONE ×2 (09:12→16:56)
[2020-01-21] MEDS: KCL 10 MEQ IVPB 10 MEQ/100 ML INFUS.BAG IVPB SCH ×4 (09:16→12:47)
[2020-01-21] MEDS: LACTOBACILLUS ACIDOPHILUS 1 TABLET GT SCH (09:16)
[2020-01-21] MEDS: BACITRACIN 15 GM TUBE TOPICAL OINTMENT TP SCH (09:17)
[2020-01-21] MEDS: MULTIVIT-MINERALS ORAL LIQUID PEG SCH (09:17)
[2020-01-21] MEDS: LORATADINE 10 MG TABLET GT SCH (09:18)
[2020-01-21] MEDS: CYANOCOBALAMIN 1,000 MCG TABLET (FP) GT SCH (09:18)
[2020-01-21] MEDS: predniSONE 20 MG TABLET (UD) PO SCH (09:18)
[2020-01-21] MEDS: FERROUS SO4 300 MG/5 ML ORAL SOLN UNIT DOSE CUPS GT SCH ×2 (09:19→22:17)
[2020-01-21] MEDS: NYSTATIN POWDER 100,000 UNITS/GM - 15 GM TOPICAL POWDER TP SCH ×2 (09:26→22:23)
[2020-01-21] MEDS: ASCORBIC ACID 500 MG/5 ML UNIT DOSE CUP PEG SCH ×2 (09:27→22:19)
[2020-01-21] MEDS: POTASSIUM CHLORIDE ORAL LIQUID 20 MEQ/15 ML PO SCH ×2 (09:27→22:18)
[2020-01-21] MEDS: SCOPOLAMINE HYDROBROMIDE 1 PATCH PATCH.TD72 TD SCH (09:29)
[2020-01-21] MEDS: LIDOCAINE HCL 2% JELLY 10 ML CARTRIDGE UR SCH ×2 (09:29→22:19)
[2020-01-21] MEDS: COLLAGENASE CLOSTRIDIUM HIST. 30 GRAMS TUBE TP SCH (09:31)
[2020-01-21] MEDS: FAMOTIDINE 40 MG/5 ML ORAL SUSPENSION PEG SCH (11:18)
[2020-01-21] MEDS: fentaNYL 50mcg/hr PATCH.TD72 TD SCH (11:24)
[2020-01-21 12:45] LABS: HEMATOCRIT 23.7 % (35.4-49); HEMOGLOBIN 7.4 GM/dL (11.7-16.9); MCH 29.4 pg (25.7-33.7); MCHC 31.4 g/dl (32.0-35.9); MEAN CELL VOLUME 93.8 fl (80-96); MEAN PLT VOLUME 7.3 fl (7.5-11.1); PLATELET COUNT 524 K/MM3 (134-434); RBC 2.52 M/mm3 (4.00-5.60); RDW 17.4 % (11.9-15.9); WHITE BLOOD COUNT 19.5 K/mm3 (4.0-10.0)
[2020-01-21] MEDS: CASPOFUNGIN ACETATE 50 MG in SODIUM CHLORIDE 250 ML IVPB SCH (17:11)
[2020-01-21] MEDS: MONTELUKAST NA 10 MG TABLET PEG SCH (22:18)
[2020-01-21] MEDS: MELATONIN 5 MG TABLETS PO SCH (22:18)
[2020-01-22] MEDS: VANCOMYCIN 250 MG/5 ML ORAL SOLUTION PO SCH ×4 (00:37→18:03)
[2020-01-22] MEDS: PHENOL 177 ML SPRAY BOTTLE MM SCH ×4 (00:38→18:03)
[2020-01-22] MEDS: CEFTAZIDIME PENTAHYDRATE IVPB SCH ×3 (02:45→18:35)
[2020-01-22] MEDS: SODIUM CHLORIDE IVPB SCH ×3 (02:45→18:35)
[2020-01-22] MEDS ORDERED: LEVALBUTEROL HCL 0.31 MG/3 ML VIAL.NEB IH ONE (06:19)
[2020-01-22] MEDS: VANCOMYCIN 1,250 MG in DEXTROSE 5%-WATER - 250 ML IVPB SCH ×2 (06:23→18:02)
[2020-01-22] MEDS: BANATROL PLUS POWDER PACKET GT SCH ×3 (06:23→21:23)
[2020-01-22] MEDS: ACETYLCYSTEINE 20% 200MG/ML 4 ML VIAL *FOR ORAL / INH USE ONLY NEB SCH ×3 (06:24→21:22)
[2020-01-22] MEDS: METOPROLOL TARTRATE 25 MG TABLET (FP) PO SCH ×3 (06:24→21:24)
[2020-01-22] MEDS: ALPRAZolam 0.25 MG TABLET PO SCH ×3 (06:25→21:24)
[2020-01-22 07:12] LABS: HEMATOCRIT 21.9 % (35.4-49); MCH 29.9 pg (25.7-33.7); MCHC 32.1 g/dl (32.0-35.9); MEAN CELL VOLUME 93.3 fl (80-96); MEAN PLT VOLUME 7.3 fl (7.5-11.1); PLATELET COUNT 475 K/MM3 (134-434); RBC 2.35 M/mm3 (4.00-5.60); RDW 17.3 % (11.9-15.9); WHITE BLOOD COUNT 13.4 K/mm3 (4.0-10.0)
[2020-01-22 07:40] LABS: CHLORIDE 96 mmol/L (98-107); POTASSIUM 3.7 mmol/L (3.5-5.1); SODIUM 142 mmol/L (136-145)
[2020-01-22 07:46] LABS: CALCIUM 8.6 mg/dL (8.5-10.1)
[2020-01-22 07:47] LABS: ANION GAP 2 MMOL/L (8-16); BLOOD UREA NITROGEN 17.1 mg/dL (7-18); CO2 45 mmol/L (21-32); GLUCOSE,RANDOM 101 mg/dL (74-106); MAGNESIUM 1.8 mg/dL (1.8-2.4)
[2020-01-22 07:50] LABS: PHOSPHOROUS 3.6 mg/dL (2.5-4.9)
[2020-01-22 07:57] LABS: CREATININE < 0.2 mg/dL (0.55-1.3)
[2020-01-22] MEDS: BUDESONIDE 0.25 MG/2ML INH SUSP VIAL NEB SCH ×2 (08:25→21:00)
[2020-01-22] MEDS: AMINO ACIDS/PROTEIN HYDROLYS 30 ML LIQUID.PKT PEG SCH (08:30)
[2020-01-22] MEDS ORDERED: PT OWN MED DRAWER 7, Y5N ONE ×3 (09:16→17:19)
[2020-01-22] MEDS: ASCORBIC ACID 500 MG/5 ML UNIT DOSE CUP PEG SCH ×2 (09:31→21:26)
[2020-01-22] MEDS: POTASSIUM CHLORIDE ORAL LIQUID 20 MEQ/15 ML PO SCH ×2 (09:32→21:25)
[2020-01-22] MEDS: FERROUS SO4 300 MG/5 ML ORAL SOLN UNIT DOSE CUPS GT SCH ×2 (09:32→21:24)
[2020-01-22] MEDS: MULTIVIT-MINERALS ORAL LIQUID PEG SCH (09:32)
[2020-01-22] MEDS: LACTOBACILLUS ACIDOPHILUS 1 TABLET GT SCH (09:33)
[2020-01-22] MEDS: predniSONE 20 MG TABLET (UD) PO SCH (09:33)
[2020-01-22] MEDS: LORATADINE 10 MG TABLET GT SCH (09:33)
[2020-01-22] MEDS: CYANOCOBALAMIN 1,000 MCG TABLET (FP) GT SCH (09:33)
[2020-01-22] MEDS: FAMOTIDINE 40 MG/5 ML ORAL SUSPENSION PEG SCH (09:34)
[2020-01-22] MEDS: BACITRACIN 15 GM TUBE TOPICAL OINTMENT TP SCH (09:56)
[2020-01-22] MEDS: NYSTATIN POWDER 100,000 UNITS/GM - 15 GM TOPICAL POWDER TP SCH ×2 (09:56→21:25)
[2020-01-22] MEDS: LIDOCAINE HCL 2% JELLY 10 ML CARTRIDGE UR SCH ×2 (09:57→21:26)
[2020-01-22] MEDS: VASOPRESSIN 40 UNITS in SODIUM CHLORIDE 98 ML IVPB SCH ×2 (12:00→22:00)
[2020-01-22] MEDS: oxyCODONE HCL 5 MG TABLET PO PRN (15:12)
[2020-01-22] MEDS: LEVALBUTEROL HCL 0.63 MG/3 ML VIAL.NEB. IH PRN ×2 (15:38→23:00)
[2020-01-22] MEDS: COLLAGENASE CLOSTRIDIUM HIST. 30 GRAMS TUBE TP SCH (16:05)
[2020-01-22] MEDS: CASPOFUNGIN ACETATE 50 MG in SODIUM CHLORIDE 250 ML IVPB SCH (16:10)
[2020-01-22] MEDS: MELATONIN 5 MG TABLETS PO SCH (21:25)
[2020-01-22] MEDS: MONTELUKAST NA 10 MG TABLET PEG SCH (21:26)
[2020-01-22] MEDS ORDERED: FENTANYL PATCH WASTE MC PRN (21:49)
[2020-01-22 22:52] LABS: CHLORIDE 90 mmol/L (98-107); SODIUM 136 mmol/L (136-145)
[2020-01-22 22:53] LABS: ANION GAP 3 MMOL/L (8-16); BLOOD UREA NITROGEN 14.5 mg/dL (7-18); CALCIUM 8.6 mg/dL (8.5-10.1); CO2 43 mmol/L (21-32); MAGNESIUM 1.8 mg/dL (1.8-2.4)
[2020-01-22 22:54] LABS: GLUCOSE,RANDOM 111 mg/dL (74-106)
[2020-01-22] MEDS ORDERED: MAGNESIUM SULF 50% (8.12 MEQ/2 ML-1 GM VIAL) IVPB ONE (22:55)
[2020-01-22 22:57] LABS: PHOSPHOROUS 3.3 mg/dL (2.5-4.9)
[2020-01-22 23:00] LABS: CREATININE < 0.2 mg/dL (0.55-1.3)
[2020-01-23] MEDS: PHENOL 177 ML SPRAY BOTTLE MM SCH ×4 (00:01→18:20)
[2020-01-23] MEDS: VANCOMYCIN 250 MG/5 ML ORAL SOLUTION PO SCH ×4 (00:01→18:19)
[2020-01-23] MEDS: SODIUM CHLORIDE IVPB SCH ×3 (01:20→18:20)
[2020-01-23] MEDS: CEFTAZIDIME PENTAHYDRATE IVPB SCH ×3 (01:20→18:20)
[2020-01-23] MEDS: VANCOMYCIN 1,250 MG in DEXTROSE 5%-WATER - 250 ML IVPB SCH ×2 (04:32→17:52)
[2020-01-23] MEDS: BANATROL PLUS POWDER PACKET GT SCH ×3 (05:49→21:10)
[2020-01-23] MEDS: ALPRAZolam 0.25 MG TABLET PO SCH ×2 (05:50→14:10)
[2020-01-23] MEDS: METOPROLOL TARTRATE 25 MG TABLET (FP) PO SCH ×3 (05:50→21:11)
[2020-01-23] MEDS: ACETYLCYSTEINE 20% 200MG/ML 4 ML VIAL *FOR ORAL / INH USE ONLY NEB SCH ×3 (05:50→21:21)
[2020-01-23] MEDS: LEVALBUTEROL HCL 0.63 MG/3 ML VIAL.NEB. IH PRN ×2 (05:51→14:35)
[2020-01-23 06:52] LABS: BASO % 0.2 % (0-2.0); EOS % 0.3 % (0-4.5); HEMATOCRIT 22.5 % (35.4-49); HEMOGLOBIN 7.3 GM/dL (11.7-16.9); LYMPH % 8.8 % (8-40); MCHC 32.4 g/dl (32.0-35.9); MEAN CELL VOLUME 92.6 fl (80-96); MEAN PLT VOLUME 7.2 fl (7.5-11.1); MONO % 9.9 % (3.8-10.2); NEUT % 80.8 % (42.8-82.8); PLATELET COUNT 428 K/MM3 (134-434); RBC 2.43 M/mm3 (4.00-5.60); RDW 16.8 % (11.9-15.9); WHITE BLOOD COUNT 13.4 K/mm3 (4.0-10.0)
[2020-01-23 07:26] LABS: POTASSIUM 3.8 mmol/L (3.5-5.1)
[2020-01-23 07:31] LABS: CALCIUM 8.5 mg/dL (8.5-10.1)
[2020-01-23 07:32] LABS: ALBUMIN 1.6 g/dl (3.4-5.0); MAGNESIUM 2.3 mg/dL (1.8-2.4)
[2020-01-23 07:35] LABS: BILIRUBIN,TOTAL 0.4 mg/dL (0.2-1)
[2020-01-23 07:36] LABS: TOT PROT 5.9 g/dl (6.4-8.2)
[2020-01-23 07:51] LABS: CREATININE 0.2 mg/dL (0.55-1.3)
[2020-01-23] MEDS ORDERED: PT OWN MED DRAWER 7, Y5N ONE ×2 (07:57→17:46)
[2020-01-23] MEDS: AMINO ACIDS/PROTEIN HYDROLYS 30 ML LIQUID.PKT PEG SCH (08:10)
[2020-01-23] MEDS ORDERED: KCL 10 MEQ IVPB 10 MEQ/100 ML INFUS.BAG IVPB SCH (08:30)
[2020-01-23] MEDS: POTASSIUM CHLORIDE ORAL LIQUID 20 MEQ/15 ML PO SCH ×2 (09:18→21:12)
[2020-01-23] MEDS: LORATADINE 10 MG TABLET GT SCH (09:20)
[2020-01-23] MEDS: LACTOBACILLUS ACIDOPHILUS 1 TABLET GT SCH (09:21)
[2020-01-23] MEDS: predniSONE 20 MG TABLET (UD) PO SCH (09:22)
[2020-01-23] MEDS: FERROUS SO4 300 MG/5 ML ORAL SOLN UNIT DOSE CUPS GT SCH ×2 (09:26→21:10)
[2020-01-23] MEDS: ASCORBIC ACID 500 MG/5 ML UNIT DOSE CUP PEG SCH ×2 (09:26→21:12)
[2020-01-23] MEDS: MULTIVIT-MINERALS ORAL LIQUID PEG SCH (09:26)
[2020-01-23] MEDS: CYANOCOBALAMIN 1,000 MCG TABLET (FP) GT SCH (09:26)
[2020-01-23] MEDS: FAMOTIDINE 40 MG/5 ML ORAL SUSPENSION PEG SCH (09:26)
[2020-01-23] MEDS: BACITRACIN 15 GM TUBE TOPICAL OINTMENT TP SCH (09:31)
[2020-01-23] MEDS: COLLAGENASE CLOSTRIDIUM HIST. 30 GRAMS TUBE TP SCH (10:00)
[2020-01-23 10:05] LABS: ANISOCYTOSIS 0; MACROCYTOSIS 0; PLATELET ESTIMATE NORMAL
[2020-01-23] MEDS: NYSTATIN POWDER 100,000 UNITS/GM - 15 GM TOPICAL POWDER TP SCH ×2 (10:33→21:12)
[2020-01-23] MEDS: LIDOCAINE HCL 2% JELLY 10 ML CARTRIDGE UR SCH ×2 (10:33→21:12)
[2020-01-23] MEDS: BUDESONIDE 0.25 MG/2ML INH SUSP VIAL NEB SCH ×3 (11:24→20:45)
[2020-01-23] MEDS: oxyCODONE HCL 5 MG TABLET PO PRN (12:40)
[2020-01-23] MEDS: FLUDROCORTISONE ACETATE 0.1 MG TABLET (FP) PO SCH (14:00)
[2020-01-23] MEDS: MIDODRINE HCL 5 MG TABLET PO SCH ×2 (14:34→18:20)
[2020-01-23] MEDS: CASPOFUNGIN ACETATE 50 MG in SODIUM CHLORIDE 250 ML IVPB SCH (16:35)
[2020-01-23] MEDS ORDERED: ACETAMINOPHEN 1000 MG/100 ML VIAL (NON FORMULARY) IVPB ONE (17:46)
[2020-01-23] MEDS ORDERED: ACETAMINOPHEN INJECTION 100 ML IVPB ONE (17:47)
[2020-01-23] MEDS: LORazepam 2 MG/ML SDV VIAL IVPUSH PRN (18:19)
[2020-01-23] MEDS ORDERED: METOPROLOL TARTRATE 5 MG/5 ML VIAL IVPUSH ONE ×2 (18:32→23:59)
[2020-01-23] MEDS ORDERED: METOPROLOL TARTRATE 5 MG/5 ML VIAL ONE (18:39)
[2020-01-23] MEDS: MELATONIN 5 MG TABLETS PO SCH (21:11)
[2020-01-23] MEDS: ALPRAZolam 0.25 MG TABLET GT SCH (21:12)
[2020-01-23] MEDS: MONTELUKAST NA 10 MG TABLET PEG SCH (21:12)
[2020-01-24] MEDS ORDERED: LORazepam 2 MG/ML SDV VIAL IVPUSH ONE (00:11)
[2020-01-24] MEDS: VANCOMYCIN 250 MG/5 ML ORAL SOLUTION PO SCH ×4 (00:15→18:22)
[2020-01-24] MEDS: PHENOL 177 ML SPRAY BOTTLE MM SCH ×4 (00:15→18:19)
[2020-01-24] MEDS ORDERED: LORazepam 2 MG/ML SDV VIAL IM ONE (00:53)
[2020-01-24] MEDS ORDERED: METOPROLOL TARTRATE 5 MG/5 ML VIAL IVPUSH ONE (01:02)
[2020-01-24] MEDS: oxyCODONE HCL 5 MG TABLET PO PRN (01:30)
[2020-01-24] MEDS ORDERED: METOPROLOL TARTRATE 25 MG TABLET (FP) PO ONE (02:10)
[2020-01-24] MEDS ORDERED: SODIUM CHLORIDE 500 ML IV STA (02:10)
[2020-01-24] MEDS ORDERED: ACETAMINOPHEN 1000 MG/100 ML VIAL (NON FORMULARY) IVPB ONE (03:05)
[2020-01-24] MEDS ORDERED: SODIUM CHLORIDE 1,000 ML IV STA (04:17)
[2020-01-24] MEDS: VANCOMYCIN 1,250 MG in DEXTROSE 5%-WATER - 250 ML IVPB SCH (04:26)
[2020-01-24 04:51] LABS: EPI CELLS 23 /uL (0-25.1); HYALINE CASTS 8 /uL (0-3.1); URINE APPEARANCE TURBID; URINE BACTERIA 58 /uL (0-1359); URINE BILIRUBIN 1+ (NEGATIVE); URINE COLOR DK YELLOW; URINE GLUCOSE (UA) NEGATIVE (NEGATIVE); URINE KETONE TRACE (NEGATIVE); URINE LEUK ESTERASE 2+ (NEGATIVE); URINE NITRITE NEGATIVE (NEGATIVE); URINE PROTEIN 2+ (NEGATIVE); URINE WBC 1334 /uL (0-25.8)
[2020-01-24 05:25] LABS: URINE CRYSTALS FEW /hpf; URINE RBC 121.5 /uL (0-23.9)
[2020-01-24 05:26] LABS: YEAST FEW (NEGATIVE)
[2020-01-24] MEDS: ACETYLCYSTEINE 20% 200MG/ML 4 ML VIAL *FOR ORAL / INH USE ONLY NEB SCH ×2 (05:31→13:35)
[2020-01-24] MEDS: METOPROLOL TARTRATE 25 MG TABLET (FP) PO SCH ×3 (05:31→21:33)
[2020-01-24] MEDS: BANATROL PLUS POWDER PACKET GT SCH ×3 (05:31→21:33)
[2020-01-24] MEDS: ALPRAZolam 0.25 MG TABLET GT SCH ×3 (05:32→21:33)
[2020-01-24 07:20] LABS: BASO % 0.1 % (0-2.0); HEMATOCRIT 29.1 % (35.4-49); HEMOGLOBIN 9.3 GM/dL (11.7-16.9); LYMPH % 4.6 % (8-40); MCH 30.1 pg (25.7-33.7); MCHC 31.8 g/dl (32.0-35.9); MEAN CELL VOLUME 94.5 fl (80-96); MEAN PLT VOLUME 7.8 fl (7.5-11.1); MONO % 7.6 % (3.8-10.2); NEUT % 87.7 % (42.8-82.8); PLATELET COUNT 540 K/MM3 (134-434); RBC 3.08 M/mm3 (4.00-5.60); RDW 17.6 % (11.9-15.9)
[2020-01-24 07:36] LABS: POTASSIUM 3.9 mmol/L (3.5-5.1)
[2020-01-24 07:52] LABS: ALBUMIN 1.6 g/dl (3.4-5.0); BLOOD UREA NITROGEN 14.3 mg/dL (7-18); CALCIUM 8.8 mg/dL (8.5-10.1)
[2020-01-24 07:56] LABS: CREATININE 0.2 mg/dL (0.55-1.3)
[2020-01-24 07:57] LABS: BILIRUBIN,TOTAL 0.7 mg/dL (0.2-1); TOT PROT 6.2 g/dl (6.4-8.2)
[2020-01-24 08:40] LABS: WHITE BLOOD COUNT 33.3 K/mm3 (4.0-10.0)
[2020-01-24] MEDS: VASOPRESSIN 40 UNITS in SODIUM CHLORIDE 98 ML IVPB SCH (09:00)
[2020-01-24] MEDS: AMINO ACIDS/PROTEIN HYDROLYS 30 ML LIQUID.PKT PEG SCH (09:00)
[2020-01-24] MEDS ORDERED: VASOPRESSIN 20 UNITS/ML VIAL IV ONE (09:04)
[2020-01-24] MEDS ORDERED: PT OWN MED DRAWER 7, Y5N ONE (09:14)
[2020-01-24] MEDS: MULTIVIT-MINERALS ORAL LIQUID PEG SCH (09:39)
[2020-01-24] MEDS: FLUDROCORTISONE ACETATE 0.1 MG TABLET (FP) PO SCH (09:40)
[2020-01-24] MEDS: ASCORBIC ACID 500 MG/5 ML UNIT DOSE CUP PEG SCH ×2 (09:40→21:35)
[2020-01-24] MEDS: CYANOCOBALAMIN 1,000 MCG TABLET (FP) GT SCH (09:41)
[2020-01-24] MEDS: FERROUS SO4 300 MG/5 ML ORAL SOLN UNIT DOSE CUPS GT SCH ×2 (09:41→21:34)
[2020-01-24] MEDS: LACTOBACILLUS ACIDOPHILUS 1 TABLET GT SCH (09:42)
[2020-01-24] MEDS: FAMOTIDINE 40 MG/5 ML ORAL SUSPENSION PEG SCH (09:42)
[2020-01-24] MEDS: MIDODRINE HCL 5 MG TABLET PO SCH ×3 (09:44→18:21)
[2020-01-24] MEDS: fentaNYL 50mcg/hr PATCH.TD72 TD SCH (09:44)
[2020-01-24] MEDS: LORATADINE 10 MG TABLET GT SCH (09:44)
[2020-01-24] MEDS: NYSTATIN POWDER 100,000 UNITS/GM - 15 GM TOPICAL POWDER TP SCH ×2 (09:50→21:34)
[2020-01-24] MEDS: predniSONE 20 MG TABLET (UD) PO SCH (09:52)
[2020-01-24] MEDS: BACITRACIN 15 GM TUBE TOPICAL OINTMENT TP SCH (09:52)
[2020-01-24] MEDS: POTASSIUM CHLORIDE ORAL LIQUID 20 MEQ/15 ML PO SCH ×2 (09:52→21:34)
[2020-01-24] MEDS: COLLAGENASE CLOSTRIDIUM HIST. 30 GRAMS TUBE TP SCH (09:53)
[2020-01-24] MEDS: LIDOCAINE HCL 2% JELLY 10 ML CARTRIDGE UR SCH ×2 (09:53→21:35)
[2020-01-24] MEDS: SCOPOLAMINE HYDROBROMIDE 1 PATCH PATCH.TD72 TD SCH (10:00)
[2020-01-24 10:37] LABS: ANISOCYTOSIS 1+; MACROCYTOSIS 1+; PLATELET ESTIMATE NORMAL
[2020-01-24] MEDS: BUDESONIDE 0.25 MG/2ML INH SUSP VIAL NEB SCH ×2 (11:53→20:31)
[2020-01-24] MEDS ORDERED: CEFTOLOZANE/TAZOBACTAM (ZERBAXA) 1.5 GM/11.4 ML VIAL IVPB SCH (12:00)
[2020-01-24] MEDS: LEVALBUTEROL HCL 0.63 MG/3 ML VIAL.NEB. IH PRN (13:35)
[2020-01-24] MEDS: CEFTOLOZANE IVPB SCH ×2 (13:45→19:16)
[2020-01-24] MEDS: WATER IVPB SCH ×2 (13:45→19:16)
[2020-01-24] MEDS: TAZOBACTAM IVPB SCH ×2 (13:45→19:16)
[2020-01-24] MEDS: DEXTROSE 5% IVPB SCH ×2 (13:45→19:16)
[2020-01-24] MEDS ORDERED: COLLAGENASE CLOSTRIDIUM HIST. 30 GRAMS TUBE TP SCH (17:00)
[2020-01-24] MEDS: ACETAMINOPHEN 1000 MG/100 ML VIAL (NON FORMULARY) IVPB PRN (18:54)
[2020-01-24] MEDS: MELATONIN 5 MG TABLETS PO SCH (21:33)
[2020-01-24] MEDS: MONTELUKAST NA 10 MG TABLET PEG SCH (21:33)
[2020-01-25] MEDS: ACETYLCYSTEINE 20% 200MG/ML 4 ML VIAL *FOR ORAL / INH USE ONLY NEB SCH ×2 (00:57→13:14)
[2020-01-25] MEDS: WATER IVPB SCH ×3 (00:59→17:06)
[2020-01-25] MEDS: CEFTOLOZANE IVPB SCH ×3 (00:59→17:06)
[2020-01-25] MEDS: VANCOMYCIN 250 MG/5 ML ORAL SOLUTION PO SCH ×5 (00:59→23:05)
[2020-01-25] MEDS: DEXTROSE 5% IVPB SCH ×3 (00:59→17:06)
[2020-01-25] MEDS: TAZOBACTAM IVPB SCH ×3 (00:59→17:06)
[2020-01-25] MEDS: PHENOL 177 ML SPRAY BOTTLE MM SCH ×5 (01:01→23:05)
[2020-01-25] MEDS: BANATROL PLUS POWDER PACKET GT SCH ×4 (06:41→23:04)
[2020-01-25] MEDS: METOPROLOL TARTRATE 25 MG TABLET (FP) PO SCH ×3 (06:42→23:04)
[2020-01-25] MEDS: ALPRAZolam 0.25 MG TABLET GT SCH (06:43)
[2020-01-25] MEDS: BUDESONIDE 0.25 MG/2ML INH SUSP VIAL NEB SCH ×2 (07:25→20:40)
[2020-01-25 07:28] LABS: CHLORIDE 101 mmol/L (98-107); POTASSIUM 3.8 mmol/L (3.5-5.1); SODIUM 144 mmol/L (136-145)
[2020-01-25 07:34] LABS: ALBUMIN 1.4 g/dl (3.4-5.0); ANION GAP 0 MMOL/L (8-16); BASO % 0.2 % (0-2.0); CALCIUM 8.5 mg/dL (8.5-10.1); CO2 43 mmol/L (21-32); EOS % 0.4 % (0-4.5); GLUCOSE,RANDOM 143 mg/dL (74-106); HEMATOCRIT 24.2 % (35.4-49); HEMOGLOBIN 7.8 GM/dL (11.7-16.9); LYMPH % 6.9 % (8-40); MAGNESIUM 2.1 mg/dL (1.8-2.4); MCH 30.7 pg (25.7-33.7); MCHC 32.3 g/dl (32.0-35.9); MEAN CELL VOLUME 94.9 fl (80-96); MEAN PLT VOLUME 7.9 fl (7.5-11.1); MONO % 7.5 % (3.8-10.2); PLATELET COUNT 401 K/MM3 (134-434); RBC 2.54 M/mm3 (4.00-5.60); RDW 17.9 % (11.9-15.9)
[2020-01-25 07:37] LABS: PHOSPHOROUS 2.7 mg/dL (2.5-4.9); SGOT/AST 9 U/L (15-37); SGPT/ALT 15 U/L (13-61)
[2020-01-25 07:39] LABS: BILIRUBIN,TOTAL 0.6 mg/dL (0.2-1); TOT PROT 5.8 g/dl (6.4-8.2)
[2020-01-25 07:40] LABS: ALK PHOS 100 U/L (45-117)
[2020-01-25 07:57] LABS: CREATININE < 0.2 mg/dL (0.55-1.3)
[2020-01-25] MEDS ORDERED: PT OWN MED DRAWER 7, Y5N ONE ×7 (08:08→21:34)
[2020-01-25] MEDS: AMINO ACIDS/PROTEIN HYDROLYS 30 ML LIQUID.PKT PEG SCH (08:18)
[2020-01-25] MEDS: LACTOBACILLUS ACIDOPHILUS 1 TABLET GT SCH (09:07)
[2020-01-25] MEDS: BACITRACIN 15 GM TUBE TOPICAL OINTMENT TP SCH (09:07)
[2020-01-25] MEDS: FAMOTIDINE 40 MG/5 ML ORAL SUSPENSION PEG SCH (09:08)
[2020-01-25] MEDS: LORATADINE 10 MG TABLET GT SCH (09:08)
[2020-01-25] MEDS: predniSONE 20 MG TABLET (UD) PO SCH (09:08)
[2020-01-25] MEDS: FLUDROCORTISONE ACETATE 0.1 MG TABLET (FP) PO SCH (09:08)
[2020-01-25] MEDS: FERROUS SO4 300 MG/5 ML ORAL SOLN UNIT DOSE CUPS GT SCH ×2 (09:08→23:04)
[2020-01-25] MEDS: NYSTATIN POWDER 100,000 UNITS/GM - 15 GM TOPICAL POWDER TP SCH ×2 (09:08→23:04)
[2020-01-25] MEDS: MIDODRINE HCL 5 MG TABLET PO SCH ×3 (09:09→17:06)
[2020-01-25] MEDS: COLLAGENASE CLOSTRIDIUM HIST. 30 GRAMS TUBE TP SCH ×2 (09:09→09:10)
[2020-01-25] MEDS: POTASSIUM CHLORIDE ORAL LIQUID 20 MEQ/15 ML PO SCH ×2 (09:09→23:05)
[2020-01-25] MEDS: LIDOCAINE HCL 2% JELLY 10 ML CARTRIDGE UR SCH ×2 (09:10→23:05)
[2020-01-25] MEDS: ASCORBIC ACID 500 MG/5 ML UNIT DOSE CUP PEG SCH ×2 (09:10→23:05)
[2020-01-25] MEDS: CYANOCOBALAMIN 1,000 MCG TABLET (FP) GT SCH (09:22)
[2020-01-25] MEDS: MULTIVIT-MINERALS ORAL LIQUID PEG SCH (09:22)
[2020-01-25] MEDS: VASOPRESSIN 40 UNITS in SODIUM CHLORIDE 98 ML IVPB SCH (09:49)
[2020-01-25 10:53] LABS: ANISOCYTOSIS 0; MACROCYTOSIS 0; PLATELET ESTIMATE NORMAL
[2020-01-25] MEDS: clonazePAM 0.5 MG TABLET GT SCH ×2 (11:48→23:04)
[2020-01-25] MEDS: ACETAMINOPHEN 1000 MG/100 ML VIAL (NON FORMULARY) IVPB PRN (11:49)
[2020-01-25] MEDS: oxyCODONE HCL 5 MG TABLET PO PRN (12:16)
[2020-01-25] MEDS ORDERED: INSULIN (NOVOLOG) ASPART 100 UNITS/ML 10ML VIAL ONE (21:35)
[2020-01-25] MEDS ORDERED: ACETAMINOPHEN 1000 MG/100 ML VIAL (NON FORMULARY) IVPB ONE (22:05)
[2020-01-25] MEDS: MELATONIN 5 MG TABLETS PO SCH (23:04)
[2020-01-25] MEDS: MONTELUKAST NA 10 MG TABLET PEG SCH (23:05)
[2020-01-26] MEDS: WATER IVPB SCH ×3 (01:18→17:56)
[2020-01-26] MEDS: CEFTOLOZANE IVPB SCH ×3 (01:18→17:56)
[2020-01-26] MEDS: TAZOBACTAM IVPB SCH ×3 (01:18→17:56)
[2020-01-26] MEDS: DEXTROSE 5% IVPB SCH ×3 (01:18→17:56)
[2020-01-26] MEDS: LORazepam 2 MG/ML SDV VIAL IVPUSH PRN (03:13)
[2020-01-26] MEDS: oxyCODONE HCL 5 MG TABLET PO PRN (03:44)
[2020-01-26] MEDS ORDERED: ACETAMINOPHEN 1000 MG/100 ML VIAL (NON FORMULARY) IVPB ONE (04:30)
[2020-01-26] MEDS ORDERED: SODIUM CHLORIDE 500 ML IV STA ×3 (05:11→16:02)
[2020-01-26] MEDS: VANCOMYCIN 250 MG/5 ML ORAL SOLUTION PO SCH ×2 (06:20→12:10)
[2020-01-26] MEDS: BANATROL PLUS POWDER PACKET GT SCH ×2 (06:20→13:42)
[2020-01-26] MEDS: clonazePAM 0.5 MG TABLET GT SCH ×3 (06:20→22:00)
[2020-01-26] MEDS: METOPROLOL TARTRATE 25 MG TABLET (FP) PO SCH ×3 (06:20→22:00)
[2020-01-26] MEDS: PHENOL 177 ML SPRAY BOTTLE MM SCH ×3 (06:20→17:59)
[2020-01-26 07:14] LABS: BASO % 0.3 % (0-2.0); EOS % 0.1 % (0-4.5); HEMATOCRIT 27.7 % (35.4-49); HEMOGLOBIN 8.7 GM/dL (11.7-16.9); LYMPH % 4.8 % (8-40); MCH 29.8 pg (25.7-33.7); MCHC 31.4 g/dl (32.0-35.9); MEAN PLT VOLUME 8.3 fl (7.5-11.1); MONO % 4.5 % (3.8-10.2); NEUT % 90.3 % (42.8-82.8); PLATELET COUNT 449 K/MM3 (134-434); RBC 2.92 M/mm3 (4.00-5.60); RDW 17.9 % (11.9-15.9); WHITE BLOOD COUNT 27.4 K/mm3 (4.0-10.0)
[2020-01-26 07:33] LABS: CHLORIDE 102 mmol/L (98-107); POTASSIUM 3.5 mmol/L (3.5-5.1); SODIUM 147 mmol/L (136-145)
[2020-01-26 07:40] LABS: ALBUMIN 1.6 g/dl (3.4-5.0); BLOOD UREA NITROGEN 15.8 mg/dL (7-18); SGPT/ALT 14 U/L (13-61)
[2020-01-26 07:42] LABS: BILIRUBIN,TOTAL 0.3 mg/dL (0.2-1); CALCIUM 8.5 mg/dL (8.5-10.1); TOT PROT 6.1 g/dl (6.4-8.2)
[2020-01-26 07:43] LABS: ALK PHOS 104 U/L (45-117); ANION GAP 4 MMOL/L (8-16); CO2 41 mmol/L (21-32); GLUCOSE,RANDOM 107 mg/dL (74-106); MAGNESIUM 2.1 mg/dL (1.8-2.4); SGOT/AST 9 U/L (15-37)
[2020-01-26 07:44] LABS: PHOSPHOROUS 3.4 mg/dL (2.5-4.9)
[2020-01-26 07:50] LABS: CREATININE < 0.2 mg/dL (0.55-1.3)
[2020-01-26] MEDS: BUDESONIDE 0.25 MG/2ML INH SUSP VIAL NEB SCH ×2 (07:50→20:40)
[2020-01-26] MEDS: ACETYLCYSTEINE 20% 200MG/ML 4 ML VIAL *FOR ORAL / INH USE ONLY NEB SCH (07:50)
[2020-01-26] MEDS ORDERED: PT OWN MED DRAWER 7, Y5N ONE ×3 (08:50→23:06)
[2020-01-26] MEDS: AMINO ACIDS/PROTEIN HYDROLYS 30 ML LIQUID.PKT PEG SCH (08:57)
[2020-01-26] MEDS: MULTIVIT-MINERALS ORAL LIQUID PEG SCH (09:17)
[2020-01-26] MEDS: predniSONE 5 MG TABLET (UD) PO SCH (09:18)
[2020-01-26] MEDS: FERROUS SO4 300 MG/5 ML ORAL SOLN UNIT DOSE CUPS GT SCH ×2 (09:18→22:00)
[2020-01-26] MEDS: FAMOTIDINE 40 MG/5 ML ORAL SUSPENSION PEG SCH (09:19)
[2020-01-26] MEDS: ASCORBIC ACID 500 MG/5 ML UNIT DOSE CUP PEG SCH ×2 (09:19→22:00)
[2020-01-26] MEDS: MIDODRINE HCL 5 MG TABLET PO SCH ×3 (09:20→17:56)
[2020-01-26] MEDS: FLUDROCORTISONE ACETATE 0.1 MG TABLET (FP) PO SCH (09:20)
[2020-01-26] MEDS: POTASSIUM CHLORIDE ORAL LIQUID 20 MEQ/15 ML PO SCH ×2 (09:21→22:00)
[2020-01-26] MEDS: LACTOBACILLUS ACIDOPHILUS 1 TABLET GT SCH (09:21)
[2020-01-26] MEDS: COLLAGENASE CLOSTRIDIUM HIST. 30 GRAMS TUBE TP SCH ×2 (09:34→09:35)
[2020-01-26] MEDS: BACITRACIN 15 GM TUBE TOPICAL OINTMENT TP SCH (09:34)
[2020-01-26] MEDS: NYSTATIN POWDER 100,000 UNITS/GM - 15 GM TOPICAL POWDER TP SCH ×2 (09:34→22:00)
[2020-01-26] MEDS: CYANOCOBALAMIN 1,000 MCG TABLET (FP) GT SCH (09:36)
[2020-01-26 09:37] LABS: ANISOCYTOSIS 0; MACROCYTOSIS 0; PLATELET ESTIMATE NORMAL
[2020-01-26] MEDS: ACETAMINOPHEN 1000 MG/100 ML VIAL (NON FORMULARY) IVPB PRN (13:42)
[2020-01-26 15:52] VITALS: BMI 24.3
[2020-01-26] MEDS: LIDOCAINE HCL 2% JELLY 10 ML CARTRIDGE UR SCH (17:46)
[2020-01-26] MEDS ORDERED: MORPHINE SULFATE 2 MG/ML VIAL ONE (20:34)
[2020-01-26] MEDS ORDERED: MORPHINE SULFATE 2 MG/ML VIAL IVPUSH ONE (20:40)
[2020-01-26] MEDS: MELATONIN 5 MG TABLETS PO SCH (22:00)
[2020-01-26] MEDS: MONTELUKAST NA 10 MG TABLET PEG SCH (22:00)
[2020-01-26] MEDS ORDERED: IBUPROFEN 800 MG/8 ML IJ IVPB ONE (22:46)
[2020-01-26] MEDS ORDERED: MORPHINE SULFATE 2 MG/ML VIAL IM ONE (23:02)
[2020-01-26] MEDS ORDERED: oxyCODONE HCL 5 MG TABLET PO ONE (23:23)
[2020-01-26] MEDS ORDERED: MORPHINE SULFATE 2 MG/ML VIAL IVPUSH PRN (23:25)
[2020-01-27] MEDS ORDERED: oxyCODONE HCL 5 MG TABLET PO PRN (00:43)
[2020-01-27] MEDS: DEXTROSE 5% IVPB SCH ×3 (02:00→18:45)
[2020-01-27] MEDS: WATER IVPB SCH ×3 (02:00→18:45)
[2020-01-27] MEDS: TAZOBACTAM IVPB SCH ×3 (02:00→18:45)
[2020-01-27] MEDS: CEFTOLOZANE IVPB SCH ×3 (02:00→18:45)
[2020-01-27] MEDS: LIDOCAINE HCL 2% JELLY 10 ML CARTRIDGE UR SCH ×3 (04:42→21:14)
[2020-01-27 07:09] LABS: BASO % 0.4 % (0-2.0); EOS % 0.3 % (0-4.5); HEMATOCRIT 29.4 % (35.4-49); HEMOGLOBIN 9.2 GM/dL (11.7-16.9); LYMPH % 4.3 % (8-40); MCH 29.3 pg (25.7-33.7); MCHC 31.1 g/dl (32.0-35.9); MEAN CELL VOLUME 94.1 fl (80-96); MEAN PLT VOLUME 8.4 fl (7.5-11.1); PLATELET COUNT 459 K/MM3 (134-434); RBC 3.13 M/mm3 (4.00-5.60); RDW 17.5 % (11.9-15.9)
[2020-01-27] MEDS: PHENOL 177 ML SPRAY BOTTLE MM SCH ×4 (07:13→19:27)
[2020-01-27] MEDS: BANATROL PLUS POWDER PACKET GT SCH ×3 (07:13→21:14)
[2020-01-27] MEDS: ACETAMINOPHEN 1000 MG/100 ML VIAL (NON FORMULARY) IVPB PRN ×3 (07:14→20:51)
[2020-01-27] MEDS: clonazePAM 0.5 MG TABLET GT SCH ×3 (07:14→21:14)
[2020-01-27] MEDS: METOPROLOL TARTRATE 25 MG TABLET (FP) PO SCH ×3 (07:14→21:14)
[2020-01-27 07:24] LABS: CHLORIDE 99 mmol/L (98-107); POTASSIUM 3.8 mmol/L (3.5-5.1); SODIUM 143 mmol/L (136-145); WHITE BLOOD COUNT 33.1 K/mm3 (4.0-10.0)
[2020-01-27 07:32] LABS: ALBUMIN 1.7 g/dl (3.4-5.0); ANION GAP 2 MMOL/L (8-16); CALCIUM 8.4 mg/dL (8.5-10.1); CO2 42 mmol/L (21-32); GLUCOSE,RANDOM 89 mg/dL (74-106); SGOT/AST 18 U/L (15-37); SGPT/ALT 11 U/L (13-61)
[2020-01-27 07:34] LABS: BILIRUBIN,TOTAL 0.5 mg/dL (0.2-1); TOT PROT 6.4 g/dl (6.4-8.2)
[2020-01-27 07:35] LABS: ALK PHOS 107 U/L (45-117); PHOSPHOROUS 3.4 mg/dL (2.5-4.9)
[2020-01-27 08:29] LABS: CREATININE < 0.2 mg/dL (0.55-1.3)
[2020-01-27] MEDS ORDERED: PT OWN MED DRAWER 7, Y5N ONE (09:07)
[2020-01-27] MEDS: MULTIVIT-MINERALS ORAL LIQUID PEG SCH (09:51)
[2020-01-27] MEDS: CYANOCOBALAMIN 1,000 MCG TABLET (FP) GT SCH (09:51)
[2020-01-27] MEDS: FERROUS SO4 300 MG/5 ML ORAL SOLN UNIT DOSE CUPS GT SCH ×2 (09:51→21:14)
[2020-01-27] MEDS: AMINO ACIDS/PROTEIN HYDROLYS 30 ML LIQUID.PKT PEG SCH (09:52)
[2020-01-27] MEDS: LACTOBACILLUS ACIDOPHILUS 1 TABLET GT SCH (09:52)
[2020-01-27] MEDS: predniSONE 5 MG TABLET (UD) PO SCH (09:52)
[2020-01-27] MEDS: MIDODRINE HCL 5 MG TABLET PO SCH ×3 (09:52→17:21)
[2020-01-27] MEDS: FLUDROCORTISONE ACETATE 0.1 MG TABLET (FP) PO SCH (09:52)
[2020-01-27] MEDS: POTASSIUM CHLORIDE ORAL LIQUID 20 MEQ/15 ML PO SCH ×2 (09:53→21:14)
[2020-01-27] MEDS: FAMOTIDINE 40 MG/5 ML ORAL SUSPENSION PEG SCH (09:56)
[2020-01-27] MEDS: ASCORBIC ACID 500 MG/5 ML UNIT DOSE CUP PEG SCH ×2 (10:00→21:42)
[2020-01-27 10:05] LABS: ANISOCYTOSIS 0; MACROCYTOSIS 0; PLATELET ESTIMATE NORMAL
[2020-01-27] MEDS: BUDESONIDE 0.25 MG/2ML INH SUSP VIAL NEB SCH ×2 (10:31→20:35)
[2020-01-27] MEDS: COLLAGENASE CLOSTRIDIUM HIST. 30 GRAMS TUBE TP SCH ×2 (12:00→12:38)
[2020-01-27] MEDS: BACITRACIN 15 GM TUBE TOPICAL OINTMENT TP SCH (12:00)
[2020-01-27] MEDS: NYSTATIN POWDER 100,000 UNITS/GM - 15 GM TOPICAL POWDER TP SCH ×2 (12:00→21:14)
[2020-01-27] MEDS: fentaNYL 50mcg/hr PATCH.TD72 TD SCH (12:12)
[2020-01-27] MEDS ORDERED: ACETAMINOPHEN INJECTION 100 ML IVPB ONE (13:18)
[2020-01-27] MEDS: SCOPOLAMINE HYDROBROMIDE 1 PATCH PATCH.TD72 TD SCH (14:17)
[2020-01-27] MEDS ORDERED: INSULIN (NOVOLOG) ASPART 100 UNITS/ML 10ML VIAL ONE (19:06)
[2020-01-27] MEDS: MONTELUKAST NA 10 MG TABLET PEG SCH (21:14)
[2020-01-27] MEDS: MELATONIN 5 MG TABLETS PO SCH (21:14)
[2020-01-28] MEDS: PHENOL 177 ML SPRAY BOTTLE MM SCH ×4 (01:03→17:24)
[2020-01-28] MEDS: WATER IVPB SCH ×3 (02:03→17:23)
[2020-01-28] MEDS: CEFTOLOZANE IVPB SCH ×3 (02:03→17:23)
[2020-01-28] MEDS: DEXTROSE 5% IVPB SCH ×3 (02:03→17:23)
[2020-01-28] MEDS: TAZOBACTAM IVPB SCH ×3 (02:03→17:23)
[2020-01-28] MEDS ORDERED: oxyCODONE HCL 5 MG TABLET PO ONE (03:51)
[2020-01-28] MEDS: BANATROL PLUS POWDER PACKET GT SCH ×3 (06:40→21:38)
[2020-01-28] MEDS: clonazePAM 0.5 MG TABLET GT SCH ×3 (06:41→21:39)
[2020-01-28] MEDS: BUDESONIDE 0.25 MG/2ML INH SUSP VIAL NEB SCH ×2 (08:40→20:09)
[2020-01-28] MEDS: METOPROLOL TARTRATE 25 MG TABLET (FP) PO SCH ×3 (08:43→21:39)
[2020-01-28] MEDS ORDERED: PT OWN MED DRAWER 7, Y5N ONE ×3 (09:12→12:39)
[2020-01-28] MEDS: FERROUS SO4 300 MG/5 ML ORAL SOLN UNIT DOSE CUPS GT SCH ×2 (09:22→21:39)
[2020-01-28] MEDS: AMINO ACIDS/PROTEIN HYDROLYS 30 ML LIQUID.PKT PEG SCH (09:22)
[2020-01-28] MEDS: LACTOBACILLUS ACIDOPHILUS 1 TABLET GT SCH (09:22)
[2020-01-28] MEDS: predniSONE 5 MG TABLET (UD) PO SCH (09:22)
[2020-01-28] MEDS: POTASSIUM CHLORIDE ORAL LIQUID 20 MEQ/15 ML PO SCH ×2 (09:23→21:40)
[2020-01-28] MEDS: FLUDROCORTISONE ACETATE 0.1 MG TABLET (FP) PO SCH ×2 (09:23→21:39)
[2020-01-28] MEDS: FAMOTIDINE 40 MG/5 ML ORAL SUSPENSION PEG SCH (09:23)
[2020-01-28] MEDS: MIDODRINE HCL 5 MG TABLET PO SCH ×2 (09:23→17:24)
[2020-01-28] MEDS: COLLAGENASE CLOSTRIDIUM HIST. 30 GRAMS TUBE TP SCH ×2 (09:24)
[2020-01-28] MEDS: CYANOCOBALAMIN 1,000 MCG TABLET (FP) GT SCH (09:24)
[2020-01-28] MEDS: ASCORBIC ACID 500 MG/5 ML UNIT DOSE CUP PEG SCH ×2 (09:24→21:40)
[2020-01-28] MEDS: BACITRACIN 15 GM TUBE TOPICAL OINTMENT TP SCH (09:37)
[2020-01-28] MEDS: NYSTATIN POWDER 100,000 UNITS/GM - 15 GM TOPICAL POWDER TP SCH ×2 (09:37→21:40)
[2020-01-28] MEDS: LIDOCAINE HCL 2% JELLY 10 ML CARTRIDGE UR SCH ×2 (09:38→21:41)
[2020-01-28 10:06] LABS: HEMATOCRIT 28.7 % (35.4-49); HEMOGLOBIN 8.8 GM/dL (11.7-16.9); MCH 29.1 pg (25.7-33.7); MCHC 30.8 g/dl (32.0-35.9); MEAN CELL VOLUME 94.7 fl (80-96); MEAN PLT VOLUME 8.6 fl (7.5-11.1); PLATELET COUNT 408 K/MM3 (134-434); RBC 3.03 M/mm3 (4.00-5.60); RDW 17.9 % (11.9-15.9)
[2020-01-28 10:18] LABS: WHITE BLOOD COUNT 55.9 K/mm3 (4.0-10.0)
[2020-01-28 10:34] LABS: CHLORIDE 102 mmol/L (98-107); POTASSIUM 3.8 mmol/L (3.5-5.1); SODIUM 144 mmol/L (136-145)
[2020-01-28 10:36] LABS: ALBUMIN 1.7 g/dl (3.4-5.0); ANION GAP 5 MMOL/L (8-16); BLOOD UREA NITROGEN 15.9 mg/dL (7-18); CALCIUM 8.3 mg/dL (8.5-10.1); CO2 36 mmol/L (21-32)
[2020-01-28 10:37] LABS: GLUCOSE,RANDOM 95 mg/dL (74-106); MAGNESIUM 1.8 mg/dL (1.8-2.4)
[2020-01-28 10:39] LABS: SGOT/AST 14 U/L (15-37); SGPT/ALT 10 U/L (13-61)
[2020-01-28 10:40] LABS: PHOSPHOROUS 3.6 mg/dL (2.5-4.9)
[2020-01-28 10:41] LABS: BILIRUBIN,TOTAL 0.5 mg/dL (0.2-1); TOT PROT 6.2 g/dl (6.4-8.2)
[2020-01-28 10:42] LABS: ALK PHOS 100 U/L (45-117)
[2020-01-28 10:50] LABS: CREATININE < 0.2 mg/dL (0.55-1.3)
[2020-01-28] MEDS ORDERED: DEXTROSE 5%-WATER 100 ML IVPB ONE ×2 (12:38→17:08)
[2020-01-28] MEDS ORDERED: MEROPENEM 1 GM VIAL (RESTRICTED TO ID) IVPB ONE ×2 (12:38→17:08)
[2020-01-28] MEDS: MEROPENEM 1 GM in DEXTROSE 5%-WATER 100 ML IVPB SCH ×2 (12:44→17:14)
[2020-01-28] MEDS ORDERED: MIDODRINE HCL 5 MG TABLET PO ONE (13:53)
[2020-01-28] MEDS: MULTIVIT-MINERALS ORAL LIQUID PEG SCH (13:55)
[2020-01-28] MEDS ORDERED: VASOPRESSIN 20 UNITS/ML VIAL IV ONE (15:29)
[2020-01-28] MEDS ORDERED: VASOPRESSIN 40 UNITS in SODIUM CHLORIDE 98 ML IVPB SCH (15:30)
[2020-01-28] MEDS: VASOPRESSIN 40 UNITS in SODIUM CHLORIDE 98 ML IVPB SCH (15:36)
[2020-01-28] MEDS ORDERED: SODIUM CHLORIDE 250 ML IV STA (15:58)
[2020-01-28] MEDS: MORPHINE SULFATE 2 MG/ML VIAL IVPUSH PRN (17:33)
[2020-01-28] MEDS: MELATONIN 5 MG TABLETS PO SCH (21:39)
[2020-01-28] MEDS: MONTELUKAST NA 10 MG TABLET PEG SCH (21:40)
[2020-01-29] MEDS: PHENOL 177 ML SPRAY BOTTLE MM SCH ×4 (00:10→17:23)
[2020-01-29] MEDS ORDERED: MEROPENEM 1 GM VIAL (RESTRICTED TO ID) IVPB ONE ×3 (01:13→16:59)
[2020-01-29] MEDS ORDERED: DEXTROSE 5%-WATER 100 ML IVPB ONE ×3 (01:13→17:00)
[2020-01-29] MEDS: MEROPENEM 1 GM in DEXTROSE 5%-WATER 100 ML IVPB SCH ×3 (01:15→17:23)
[2020-01-29] MEDS: TAZOBACTAM IVPB SCH ×3 (01:20→17:24)
[2020-01-29] MEDS: CEFTOLOZANE IVPB SCH ×3 (01:20→17:24)
[2020-01-29] MEDS: WATER IVPB SCH ×3 (01:20→17:24)
[2020-01-29] MEDS: DEXTROSE 5% IVPB SCH ×3 (01:20→17:24)
[2020-01-29] MEDS: VASOPRESSIN 40 UNITS in SODIUM CHLORIDE 98 ML IVPB SCH ×2 (05:00→19:00)
[2020-01-29] MEDS: clonazePAM 0.5 MG TABLET GT SCH ×3 (05:38→21:18)
[2020-01-29] MEDS: METOPROLOL TARTRATE 25 MG TABLET (FP) PO SCH ×3 (05:39→21:18)
[2020-01-29] MEDS: BANATROL PLUS POWDER PACKET GT SCH ×3 (05:39→21:17)
[2020-01-29] MEDS ORDERED: PT OWN MED DRAWER 7, Y5N ONE ×2 (08:03→17:09)
[2020-01-29] MEDS: BUDESONIDE 0.25 MG/2ML INH SUSP VIAL NEB SCH ×2 (08:48→20:40)
[2020-01-29] MEDS: AMINO ACIDS/PROTEIN HYDROLYS 30 ML LIQUID.PKT PEG SCH (09:38)
[2020-01-29] MEDS: FLUDROCORTISONE ACETATE 0.1 MG TABLET (FP) PO SCH ×2 (09:38→21:19)
[2020-01-29] MEDS: BACITRACIN 15 GM TUBE TOPICAL OINTMENT TP SCH (09:38)
[2020-01-29] MEDS: MULTIVIT-MINERALS ORAL LIQUID PEG SCH (09:38)
[2020-01-29] MEDS: predniSONE 5 MG TABLET (UD) PO SCH (09:38)
[2020-01-29] MEDS: NYSTATIN POWDER 100,000 UNITS/GM - 15 GM TOPICAL POWDER TP SCH ×2 (09:38→21:19)
[2020-01-29] MEDS: LACTOBACILLUS ACIDOPHILUS 1 TABLET GT SCH (09:38)
[2020-01-29] MEDS: FERROUS SO4 300 MG/5 ML ORAL SOLN UNIT DOSE CUPS GT SCH ×2 (09:38→21:18)
[2020-01-29] MEDS: ASCORBIC ACID 500 MG/5 ML UNIT DOSE CUP PEG SCH ×2 (09:39→21:19)
[2020-01-29] MEDS: MIDODRINE HCL 5 MG TABLET PO SCH ×2 (09:39→17:24)
[2020-01-29] MEDS: POTASSIUM CHLORIDE ORAL LIQUID 20 MEQ/15 ML PO SCH ×2 (09:39→21:19)
[2020-01-29] MEDS: LIDOCAINE HCL 2% JELLY 10 ML CARTRIDGE UR SCH ×2 (09:39→21:19)
[2020-01-29] MEDS: CYANOCOBALAMIN 1,000 MCG TABLET (FP) GT SCH (09:39)
[2020-01-29] MEDS: FAMOTIDINE 40 MG/5 ML ORAL SUSPENSION PEG SCH (09:39)
[2020-01-29] MEDS: COLLAGENASE CLOSTRIDIUM HIST. 30 GRAMS TUBE TP SCH ×2 (09:39)
[2020-01-29] MEDS ORDERED: VASOPRESSIN 20 UNITS/ML VIAL IV ONE ×2 (12:15→20:44)
[2020-01-29 12:38] LABS: HEMATOCRIT 22.9 % (35.4-49); HEMOGLOBIN 7.3 GM/dL (11.7-16.9); MCH 30.6 pg (25.7-33.7); MEAN CELL VOLUME 95.4 fl (80-96); MEAN PLT VOLUME 8.2 fl (7.5-11.1); PLATELET COUNT 340 K/MM3 (134-434); RDW 17.5 % (11.9-15.9); WHITE BLOOD COUNT 21.4 K/mm3 (4.0-10.0)
[2020-01-29 13:07] LABS: CHLORIDE 103 mmol/L (98-107); POTASSIUM 4.2 mmol/L (3.5-5.1); SODIUM 143 mmol/L (136-145)
[2020-01-29 13:10] LABS: ALBUMIN 1.6 g/dl (3.4-5.0); ANION GAP 3 MMOL/L (8-16); BLOOD UREA NITROGEN 24.5 mg/dL (7-18); CO2 37 mmol/L (21-32); GLUCOSE,RANDOM 179 mg/dL (74-106); MAGNESIUM 2.1 mg/dL (1.8-2.4)
[2020-01-29 13:13] LABS: PHOSPHOROUS 3.2 mg/dL (2.5-4.9); SGOT/AST 5 U/L (15-37); SGPT/ALT 9 U/L (13-61)
[2020-01-29 13:14] LABS: BILIRUBIN,TOTAL 0.1 mg/dL (0.2-1)
[2020-01-29 13:15] LABS: TOT PROT 5.8 g/dl (6.4-8.2)
[2020-01-29 13:16] LABS: ALK PHOS 86 U/L (45-117)
[2020-01-29 13:54] LABS: CREATININE < 0.2 mg/dL (0.55-1.3)
[2020-01-29] MEDS: MELATONIN 5 MG TABLETS PO SCH (21:18)
[2020-01-29] MEDS: MONTELUKAST NA 10 MG TABLET PEG SCH (21:19)
[2020-01-30] MEDS ORDERED: DEXTROSE 5%-WATER 100 ML IVPB ONE ×3 (01:53→17:10)
[2020-01-30] MEDS ORDERED: MEROPENEM 1 GM VIAL (RESTRICTED TO ID) IVPB ONE ×3 (01:53→17:10)
[2020-01-30] MEDS: TAZOBACTAM IVPB SCH ×3 (01:55→18:46)
[2020-01-30] MEDS: CEFTOLOZANE IVPB SCH ×3 (01:55→18:46)
[2020-01-30] MEDS: WATER IVPB SCH ×3 (01:55→18:46)
[2020-01-30] MEDS: DEXTROSE 5% IVPB SCH ×3 (01:55→18:46)
[2020-01-30] MEDS: MEROPENEM 1 GM in DEXTROSE 5%-WATER 100 ML IVPB SCH ×3 (01:56→17:45)
[2020-01-30] MEDS: PHENOL 177 ML SPRAY BOTTLE MM SCH ×4 (06:00→18:12)
[2020-01-30] MEDS: METOPROLOL TARTRATE 25 MG TABLET (FP) PO SCH ×3 (06:16→21:53)
[2020-01-30] MEDS: BANATROL PLUS POWDER PACKET GT SCH ×3 (06:16→21:51)
[2020-01-30] MEDS: clonazePAM 0.5 MG TABLET GT SCH ×3 (06:16→21:52)
[2020-01-30 06:59] LABS: BASO % 0.5 % (0-2.0); EOS % 0.3 % (0-4.5); HEMATOCRIT 21.1 % (35.4-49); LYMPH % 7.1 % (8-40); MCH 29.2 pg (25.7-33.7); MCHC 31.3 g/dl (32.0-35.9); MEAN CELL VOLUME 93.5 fl (80-96); MEAN PLT VOLUME 8.5 fl (7.5-11.1); MONO % 5.8 % (3.8-10.2); NEUT % 86.3 % (42.8-82.8); PLATELET COUNT 338 K/MM3 (134-434); RBC 2.26 M/mm3 (4.00-5.60); RDW 17.6 % (11.9-15.9); WHITE BLOOD COUNT 14.9 K/mm3 (4.0-10.0)
[2020-01-30 07:17] LABS: CHLORIDE 98 mmol/L (98-107); SODIUM 140 mmol/L (136-145)
[2020-01-30 07:21] LABS: ALBUMIN 1.4 g/dl (3.4-5.0); BLOOD UREA NITROGEN 19.2 mg/dL (7-18); CALCIUM 7.9 mg/dL (8.5-10.1); CO2 40 mmol/L (21-32); GLUCOSE,RANDOM 128 mg/dL (74-106); MAGNESIUM 1.9 mg/dL (1.8-2.4)
[2020-01-30 07:24] LABS: PHOSPHOROUS 2.9 mg/dL (2.5-4.9); SGOT/AST 7 U/L (15-37)
[2020-01-30 07:27] LABS: ALK PHOS 71 U/L (45-117); ANION GAP 2 MMOL/L (8-16); BILIRUBIN,TOTAL 0.2 mg/dL (0.2-1); CREATININE < 0.2 mg/dL (0.55-1.3); SGPT/ALT < 6 U/L (13-61); TOT PROT 5.6 g/dl (6.4-8.2)
[2020-01-30 07:28] LABS: POTASSIUM 2.8 mmol/L (3.5-5.1)
[2020-01-30] MEDS ORDERED: POTASSIUM CHLORIDE ORAL LIQUID 20 MEQ/15 ML PO ONE (07:33)
[2020-01-30 08:17] LABS: HEMOGLOBIN 6.6 GM/dL (11.7-16.9)
[2020-01-30] MEDS: BUDESONIDE 0.25 MG/2ML INH SUSP VIAL NEB SCH ×2 (08:20→20:30)
[2020-01-30] MEDS: AMINO ACIDS/PROTEIN HYDROLYS 30 ML LIQUID.PKT PEG SCH (08:43)
[2020-01-30] MEDS: KCL 10 MEQ IVPB 10 MEQ/100 ML INFUS.BAG IVPB SCH ×3 (08:43→10:49)
[2020-01-30] MEDS: VASOPRESSIN 40 UNITS in SODIUM CHLORIDE 98 ML IVPB SCH ×2 (09:07→21:54)
[2020-01-30] MEDS: COLLAGENASE CLOSTRIDIUM HIST. 30 GRAMS TUBE TP SCH (10:04)
[2020-01-30] MEDS ORDERED: PT OWN MED DRAWER 7, Y5N ONE (10:21)
[2020-01-30] MEDS: BACITRACIN 15 GM TUBE TOPICAL OINTMENT TP SCH (10:30)
[2020-01-30] MEDS: LACTOBACILLUS ACIDOPHILUS 1 TABLET GT SCH (10:31)
[2020-01-30] MEDS: MULTIVIT-MINERALS ORAL LIQUID PEG SCH (10:31)
[2020-01-30] MEDS: predniSONE 10 MG, predniSONE 5 MG PO SCH (10:31)
[2020-01-30] MEDS: fentaNYL 50mcg/hr PATCH.TD72 TD SCH (10:32)
[2020-01-30] MEDS: FLUDROCORTISONE ACETATE 0.1 MG TABLET (FP) PO SCH ×2 (10:34→21:53)
[2020-01-30] MEDS: FERROUS SO4 300 MG/5 ML ORAL SOLN UNIT DOSE CUPS GT SCH ×2 (10:34→21:52)
[2020-01-30] MEDS: FAMOTIDINE 40 MG/5 ML ORAL SUSPENSION PEG SCH (10:34)
[2020-01-30] MEDS: CYANOCOBALAMIN 1,000 MCG TABLET (FP) GT SCH (10:35)
[2020-01-30] MEDS: ASCORBIC ACID 500 MG/5 ML UNIT DOSE CUP PEG SCH ×2 (10:35→21:52)
[2020-01-30] MEDS: MIDODRINE HCL 5 MG TABLET PO SCH ×2 (10:35→18:12)
[2020-01-30] MEDS: SCOPOLAMINE HYDROBROMIDE 1 PATCH PATCH.TD72 TD SCH (11:28)
[2020-01-30] MEDS: LIDOCAINE HCL 2% JELLY 10 ML CARTRIDGE UR SCH ×2 (11:30→21:53)
[2020-01-30] MEDS: POTASSIUM CHLORIDE ORAL LIQUID 20 MEQ/15 ML PO SCH ×2 (11:30→21:52)
[2020-01-30] MEDS: NYSTATIN POWDER 100,000 UNITS/GM - 15 GM TOPICAL POWDER TP SCH ×2 (11:31→21:53)
[2020-01-30] MEDS: MORPHINE SULFATE 2 MG/ML VIAL IVPUSH PRN (15:12)
[2020-01-30] MEDS ORDERED: ACETAMINOPHEN INJECTION 100 ML IVPB ONE (21:07)
[2020-01-30] MEDS: MELATONIN 5 MG TABLETS PO SCH (21:52)
[2020-01-30] MEDS: MONTELUKAST NA 10 MG TABLET PEG SCH (21:52)
[2020-01-30 21:58] LABS: BASO % 0.1 % (0-2.0); HEMATOCRIT 24.6 % (35.4-49); HEMOGLOBIN 7.8 GM/dL (11.7-16.9); LYMPH % 6.9 % (8-40); MCHC 31.9 g/dl (32.0-35.9); MEAN CELL VOLUME 94.1 fl (80-96); MEAN PLT VOLUME 8.5 fl (7.5-11.1); MONO % 4.4 % (3.8-10.2); NEUT % 88.6 % (42.8-82.8); PLATELET COUNT 389 K/MM3 (134-434); RBC 2.61 M/mm3 (4.00-5.60); RDW 17.5 % (11.9-15.9); WHITE BLOOD COUNT 22.6 K/mm3 (4.0-10.0)
[2020-01-30] MEDS ORDERED: ACETAMINOPHEN 1000 MG/100 ML VIAL (NON FORMULARY) IVPB ONE (22:17)
[2020-01-30 22:31] LABS: CHLORIDE 94 mmol/L (98-107); POTASSIUM 3.6 mmol/L (3.5-5.1); SODIUM 137 mmol/L (136-145)
[2020-01-30 22:35] LABS: ALBUMIN 1.7 g/dl (3.4-5.0); BLOOD UREA NITROGEN 15.5 mg/dL (7-18); CALCIUM 7.8 mg/dL (8.5-10.1)
[2020-01-30 22:36] LABS: ANION GAP 5 MMOL/L (8-16); CO2 38 mmol/L (21-32); GLUCOSE,RANDOM 104 mg/dL (74-106); MAGNESIUM 1.9 mg/dL (1.8-2.4)
[2020-01-30 22:38] LABS: SGOT/AST 9 U/L (15-37); SGPT/ALT 7 U/L (13-61)
[2020-01-30 22:39] LABS: PHOSPHOROUS 2.3 mg/dL (2.5-4.9)
[2020-01-30 22:40] LABS: TOT PROT 6.3 g/dl (6.4-8.2)
[2020-01-30 22:41] LABS: ALK PHOS 78 U/L (45-117)
[2020-01-30 22:44] LABS: BILIRUBIN,TOTAL 1.6 mg/dL (0.2-1)
[2020-01-30 22:46] LABS: CREATININE < 0.2 mg/dL (0.55-1.3)
[2020-01-30 22:47] LABS: ANISOCYTOSIS 1+; MACROCYTOSIS 1+
[2020-01-31] MEDS: DEXTROSE 5% IVPB SCH ×2 (02:00→11:00)
[2020-01-31] MEDS: MEROPENEM 1 GM in DEXTROSE 5%-WATER 100 ML IVPB SCH ×3 (02:00→17:08)
[2020-01-31] MEDS: WATER IVPB SCH ×2 (02:00→11:00)
[2020-01-31] MEDS: CEFTOLOZANE IVPB SCH ×2 (02:00→11:00)
[2020-01-31] MEDS: TAZOBACTAM IVPB SCH ×2 (02:00→11:00)
[2020-01-31] MEDS ORDERED: DEXTROSE 5%-WATER 100 ML IVPB ONE ×3 (03:06→16:10)
[2020-01-31] MEDS ORDERED: MEROPENEM 1 GM VIAL (RESTRICTED TO ID) IVPB ONE ×3 (03:06→16:10)
[2020-01-31] MEDS: clonazePAM 0.5 MG TABLET GT SCH ×3 (05:37→22:36)
[2020-01-31] MEDS: METOPROLOL TARTRATE 25 MG TABLET (FP) PO SCH ×3 (05:37→22:37)
[2020-01-31] MEDS: BANATROL PLUS POWDER PACKET GT SCH ×3 (05:37→22:36)
[2020-01-31] MEDS: PHENOL 177 ML SPRAY BOTTLE MM SCH ×5 (05:37→23:37)
[2020-01-31 07:37] LABS: CHLORIDE 91 mmol/L (98-107); POTASSIUM 3.4 mmol/L (3.5-5.1); SODIUM 136 mmol/L (136-145)
[2020-01-31 07:44] LABS: ALBUMIN 1.6 g/dl (3.4-5.0); ANION GAP 4 MMOL/L (8-16); CALCIUM 7.7 mg/dL (8.5-10.1); CO2 41 mmol/L (21-32)
[2020-01-31 07:45] LABS: BLOOD UREA NITROGEN 13.7 mg/dL (7-18); GLUCOSE,RANDOM 113 mg/dL (74-106); MAGNESIUM 1.8 mg/dL (1.8-2.4)
[2020-01-31 07:46] LABS: SGPT/ALT 7 U/L (13-61)
[2020-01-31 07:47] LABS: SGOT/AST 9 U/L (15-37)
[2020-01-31 07:48] LABS: PHOSPHOROUS 2.1 mg/dL (2.5-4.9)
[2020-01-31 07:49] LABS: BILIRUBIN,TOTAL 0.5 mg/dL (0.2-1)
[2020-01-31 07:50] LABS: ALK PHOS 77 U/L (45-117)
[2020-01-31 07:54] LABS: CREATININE < 0.2 mg/dL (0.55-1.3)
[2020-01-31 07:59] LABS: BASO % 0.2 % (0-2.0); HEMATOCRIT 21.9 % (35.4-49); HEMOGLOBIN 7.2 GM/dL (11.7-16.9); LYMPH % 5.9 % (8-40); MCH 30.5 pg (25.7-33.7); MCHC 32.6 g/dl (32.0-35.9); MEAN CELL VOLUME 93.4 fl (80-96); MEAN PLT VOLUME 8.5 fl (7.5-11.1); MONO % 4.3 % (3.8-10.2); NEUT % 89.6 % (42.8-82.8); PLATELET COUNT 356 K/MM3 (134-434); RBC 2.35 M/mm3 (4.00-5.60); WHITE BLOOD COUNT 21.6 K/mm3 (4.0-10.0)
[2020-01-31] MEDS ORDERED: PT OWN MED DRAWER 7, Y5N ONE ×2 (09:01→16:10)
[2020-01-31] MEDS: BUDESONIDE 0.25 MG/2ML INH SUSP VIAL NEB SCH ×2 (09:16→21:00)
[2020-01-31] MEDS: COLLAGENASE CLOSTRIDIUM HIST. 30 GRAMS TUBE TP SCH (09:24)
[2020-01-31] MEDS: predniSONE 10 MG, predniSONE 5 MG PO SCH (09:24)
[2020-01-31] MEDS: NYSTATIN POWDER 100,000 UNITS/GM - 15 GM TOPICAL POWDER TP SCH ×2 (09:24→22:37)
[2020-01-31] MEDS: MIDODRINE HCL 5 MG TABLET PO SCH ×2 (09:24→17:09)
[2020-01-31] MEDS: FAMOTIDINE 40 MG/5 ML ORAL SUSPENSION PEG SCH (09:24)
[2020-01-31] MEDS: MULTIVIT-MINERALS ORAL LIQUID PEG SCH (09:24)
[2020-01-31] MEDS: LACTOBACILLUS ACIDOPHILUS 1 TABLET GT SCH (09:24)
[2020-01-31] MEDS: FLUDROCORTISONE ACETATE 0.1 MG TABLET (FP) PO SCH ×2 (09:24→22:36)
[2020-01-31] MEDS: FERROUS SO4 300 MG/5 ML ORAL SOLN UNIT DOSE CUPS GT SCH ×2 (09:24→22:36)
[2020-01-31] MEDS: POTASSIUM CHLORIDE ORAL LIQUID 20 MEQ/15 ML PO SCH ×2 (09:24→22:35)
[2020-01-31] MEDS: BACITRACIN 15 GM TUBE TOPICAL OINTMENT TP SCH (09:24)
[2020-01-31] MEDS: AMINO ACIDS/PROTEIN HYDROLYS 30 ML LIQUID.PKT PEG SCH (09:24)
[2020-01-31] MEDS: ASCORBIC ACID 500 MG/5 ML UNIT DOSE CUP PEG SCH ×2 (09:25→22:37)
[2020-01-31] MEDS: LIDOCAINE HCL 2% JELLY 10 ML CARTRIDGE UR SCH ×2 (09:25→22:37)
[2020-01-31] MEDS: CYANOCOBALAMIN 1,000 MCG TABLET (FP) GT SCH (09:25)
[2020-01-31] MEDS ORDERED: NAPH,MB-DB/K PH,MBDB POWDER PACKET PEG ONE (09:30)
[2020-01-31] MEDS ORDERED: POTASSIUM CHLORIDE ORAL LIQUID 20 MEQ/15 ML GT ONE (10:00)
[2020-01-31] MEDS ORDERED: MAGNESIUM OXIDE 400 MG TABLET (FP) PEG ONE (10:00)
[2020-01-31 10:18] LABS: ANISOCYTOSIS 0; MACROCYTOSIS 0; PLATELET ESTIMATE NORMAL
[2020-01-31] MEDS ORDERED: oxyCODONE HCL 5 MG TABLET PO PRN (12:00)
[2020-01-31] MEDS ORDERED: VASOPRESSIN 20 UNITS/ML VIAL IV ONE (13:12)
[2020-01-31] MEDS ORDERED: CEFTOLOZANE/TAZOBACTAM (ZERBAXA) 1.5 GM/11.4 ML VIAL IVPB SCH (21:15)
[2020-01-31] MEDS: MORPHINE SULFATE 2 MG/ML VIAL IVPUSH PRN (22:36)
[2020-01-31] MEDS: CEFTOLOZANE/TAZOBACTAM 3 GM in DEXTROSE 5%-WATER - 100 ML IVPB SCH (22:36)
[2020-01-31] MEDS: MONTELUKAST NA 10 MG TABLET PEG SCH (22:37)
[2020-01-31] MEDS: MELATONIN 5 MG TABLETS PO SCH (22:37)
[2020-01-31] MEDS: VASOPRESSIN 40 UNITS in SODIUM CHLORIDE 98 ML IVPB SCH (23:41)
[2020-02-01] MEDS ORDERED: MEROPENEM 1 GM VIAL (RESTRICTED TO ID) IVPB ONE ×3 (01:38→17:07)
[2020-02-01] MEDS ORDERED: DEXTROSE 5%-WATER 100 ML IVPB ONE ×3 (01:38→17:07)
[2020-02-01] MEDS: MEROPENEM 1 GM in DEXTROSE 5%-WATER 100 ML IVPB SCH ×3 (02:44→17:23)
[2020-02-01] MEDS: PHENOL 177 ML SPRAY BOTTLE MM SCH ×3 (06:45→17:23)
[2020-02-01] MEDS: METOPROLOL TARTRATE 25 MG TABLET (FP) PO SCH ×3 (06:45→22:42)
[2020-02-01] MEDS: CEFTOLOZANE/TAZOBACTAM 3 GM in DEXTROSE 5%-WATER - 100 ML IVPB SCH ×3 (06:45→22:15)
[2020-02-01] MEDS: BANATROL PLUS POWDER PACKET GT SCH ×3 (06:45→22:41)
[2020-02-01] MEDS: clonazePAM 0.5 MG TABLET GT SCH (06:45)
[2020-02-01 06:59] LABS: HEMATOCRIT 20.6 % (35.4-49); MCHC 32.6 g/dl (32.0-35.9); PLATELET COUNT 365 K/MM3 (134-434); RBC 2.24 M/mm3 (4.00-5.60); RDW 17.3 % (11.9-15.9); WHITE BLOOD COUNT 12.9 K/mm3 (4.0-10.0)
[2020-02-01 07:10] LABS: CHLORIDE 86 mmol/L (98-107); POTASSIUM 3.6 mmol/L (3.5-5.1); SODIUM 130 mmol/L (136-145)
[2020-02-01 07:12] LABS: ALBUMIN 1.6 g/dl (3.4-5.0); ANION GAP 2 MMOL/L (8-16); CO2 42 mmol/L (21-32)
[2020-02-01 07:13] LABS: BLOOD UREA NITROGEN 13.6 mg/dL (7-18); GLUCOSE,RANDOM 125 mg/dL (74-106); MAGNESIUM 1.9 mg/dL (1.8-2.4)
[2020-02-01 07:16] LABS: PHOSPHOROUS 2.8 mg/dL (2.5-4.9); SGOT/AST 6 U/L (15-37)
[2020-02-01 07:17] LABS: BILIRUBIN,TOTAL 0.2 mg/dL (0.2-1)
[2020-02-01 07:18] LABS: ALK PHOS 71 U/L (45-117)
[2020-02-01 07:37] LABS: SGPT/ALT 7 U/L (13-61)
[2020-02-01 07:38] LABS: CREATININE < 0.2 mg/dL (0.55-1.3)
[2020-02-01] MEDS ORDERED: PT OWN MED DRAWER 7, Y5N ONE ×4 (08:09→22:39)
[2020-02-01 08:28] LABS: HEMOGLOBIN 6.7 GM/dL (11.7-16.9)
[2020-02-01] MEDS: BUDESONIDE 0.25 MG/2ML INH SUSP VIAL NEB SCH ×2 (08:45→20:07)
[2020-02-01] MEDS: AMINO ACIDS/PROTEIN HYDROLYS 30 ML LIQUID.PKT PEG SCH (09:00)
[2020-02-01] MEDS: POTASSIUM CHLORIDE ORAL LIQUID 20 MEQ/15 ML PO SCH ×2 (10:19→22:43)
[2020-02-01] MEDS: MULTIVIT-MINERALS ORAL LIQUID PEG SCH (10:19)
[2020-02-01] MEDS: BACITRACIN 15 GM TUBE TOPICAL OINTMENT TP SCH (10:19)
[2020-02-01] MEDS: FLUDROCORTISONE ACETATE 0.1 MG TABLET (FP) PO SCH ×2 (10:19→22:42)
[2020-02-01] MEDS: LACTOBACILLUS ACIDOPHILUS 1 TABLET GT SCH (10:19)
[2020-02-01] MEDS: MIDODRINE HCL 5 MG TABLET PO SCH ×2 (10:19→17:23)
[2020-02-01] MEDS: FAMOTIDINE 40 MG/5 ML ORAL SUSPENSION PEG SCH (10:19)
[2020-02-01] MEDS: NYSTATIN POWDER 100,000 UNITS/GM - 15 GM TOPICAL POWDER TP SCH ×2 (10:19→22:42)
[2020-02-01] MEDS: FERROUS SO4 300 MG/5 ML ORAL SOLN UNIT DOSE CUPS GT SCH ×2 (10:19→22:15)
[2020-02-01] MEDS: predniSONE 10 MG, predniSONE 5 MG PO SCH (10:19)
[2020-02-01] MEDS: LIDOCAINE HCL 2% JELLY 10 ML CARTRIDGE UR SCH ×2 (10:20→22:44)
[2020-02-01] MEDS: ASCORBIC ACID 500 MG/5 ML UNIT DOSE CUP PEG SCH ×2 (10:20→22:43)
[2020-02-01] MEDS: COLLAGENASE CLOSTRIDIUM HIST. 30 GRAMS TUBE TP SCH (10:20)
[2020-02-01] MEDS: CYANOCOBALAMIN 1,000 MCG TABLET (FP) GT SCH (10:20)
[2020-02-01] MEDS ORDERED: VASOPRESSIN 20 UNITS/ML VIAL IV ONE ×2 (11:44→18:21)
[2020-02-01] MEDS: MELATONIN 5 MG TABLETS PO SCH (22:42)
[2020-02-01] MEDS: MONTELUKAST NA 10 MG TABLET PEG SCH (22:43)
[2020-02-01 23:44] LABS: BASO % 0.2 % (0-2.0); EOS % 0.2 % (0-4.5); HEMATOCRIT 28.3 % (35.4-49); HEMOGLOBIN 9.3 GM/dL (11.7-16.9); LYMPH % 4.8 % (8-40); MCH 30.2 pg (25.7-33.7); MEAN CELL VOLUME 91.6 fl (80-96); MEAN PLT VOLUME 7.9 fl (7.5-11.1); MONO % 3.6 % (3.8-10.2); NEUT % 91.2 % (42.8-82.8); PLATELET COUNT 464 K/MM3 (134-434); RBC 3.09 M/mm3 (4.00-5.60); RDW 16.5 % (11.9-15.9); WHITE BLOOD COUNT 22.7 K/mm3 (4.0-10.0)
[2020-02-02] MEDS: PHENOL 177 ML SPRAY BOTTLE MM SCH ×4 (01:03→16:59)
[2020-02-02] MEDS ORDERED: DEXTROSE 5%-WATER 100 ML IVPB ONE ×3 (01:04→16:54)
[2020-02-02] MEDS ORDERED: MEROPENEM 1 GM VIAL (RESTRICTED TO ID) IVPB ONE ×3 (01:04→16:54)
[2020-02-02] MEDS: MEROPENEM 1 GM in DEXTROSE 5%-WATER 100 ML IVPB SCH ×3 (01:05→16:59)
[2020-02-02] MEDS: METOPROLOL TARTRATE 25 MG TABLET (FP) PO SCH ×3 (06:26→21:09)
[2020-02-02] MEDS: BANATROL PLUS POWDER PACKET GT SCH ×3 (06:26→21:08)
[2020-02-02] MEDS: CEFTOLOZANE/TAZOBACTAM 3 GM in DEXTROSE 5%-WATER - 100 ML IVPB SCH ×3 (06:27→21:14)
[2020-02-02 07:29] LABS: HEMATOCRIT 28.3 % (35.4-49); HEMOGLOBIN 9.5 GM/dL (11.7-16.9); LYMPH % 6.4 % (8-40); MCH 30.6 pg (25.7-33.7); MCHC 33.4 g/dl (32.0-35.9); MEAN CELL VOLUME 91.7 fl (80-96); MEAN PLT VOLUME 8.5 fl (7.5-11.1); MONO % 3.9 % (3.8-10.2); NEUT % 89.7 % (42.8-82.8); PLATELET COUNT 494 K/MM3 (134-434); RBC 3.09 M/mm3 (4.00-5.60); RDW 16.8 % (11.9-15.9); WHITE BLOOD COUNT 27.8 K/mm3 (4.0-10.0)
[2020-02-02 07:56] LABS: CHLORIDE 80 mmol/L (98-107); POTASSIUM 3.7 mmol/L (3.5-5.1); SODIUM 128 mmol/L (136-145)
[2020-02-02 07:59] LABS: ANION GAP 5 MMOL/L (8-16); BLOOD UREA NITROGEN 9.6 mg/dL (7-18); CO2 43 mmol/L (21-32); GLUCOSE,RANDOM 113 mg/dL (74-106); MAGNESIUM 1.8 mg/dL (1.8-2.4)
[2020-02-02 08:02] LABS: PHOSPHOROUS 2.4 mg/dL (2.5-4.9)
[2020-02-02] MEDS ORDERED: PT OWN MED DRAWER 7, Y5N ONE ×2 (08:13→21:06)
[2020-02-02 08:24] LABS: CREATININE < 0.2 mg/dL (0.55-1.3)
[2020-02-02] MEDS ORDERED: MAGNESIUM OXIDE 400 MG TABLET (FP) PO ONE (08:27)
[2020-02-02] MEDS: BUDESONIDE 0.25 MG/2ML INH SUSP VIAL NEB SCH ×2 (08:54→20:30)
[2020-02-02] MEDS: AMINO ACIDS/PROTEIN HYDROLYS 30 ML LIQUID.PKT PEG SCH (08:56)
[2020-02-02] MEDS: POTASSIUM CHLORIDE ORAL LIQUID 20 MEQ/15 ML PO SCH ×2 (09:07→21:09)
[2020-02-02] MEDS: BACITRACIN 15 GM TUBE TOPICAL OINTMENT TP SCH (09:08)
[2020-02-02] MEDS: NYSTATIN POWDER 100,000 UNITS/GM - 15 GM TOPICAL POWDER TP SCH ×2 (09:08→21:09)
[2020-02-02] MEDS: COLLAGENASE CLOSTRIDIUM HIST. 30 GRAMS TUBE TP SCH (09:08)
[2020-02-02] MEDS: predniSONE 10 MG, predniSONE 5 MG PO SCH (09:09)
[2020-02-02] MEDS: FLUDROCORTISONE ACETATE 0.1 MG TABLET (FP) PO SCH ×2 (09:09→21:09)
[2020-02-02] MEDS: MIDODRINE HCL 5 MG TABLET PO SCH ×2 (09:09→16:59)
[2020-02-02] MEDS: LACTOBACILLUS ACIDOPHILUS 1 TABLET GT SCH (09:09)
[2020-02-02] MEDS: MULTIVIT-MINERALS ORAL LIQUID PEG SCH (09:09)
[2020-02-02] MEDS: CYANOCOBALAMIN 1,000 MCG TABLET (FP) GT SCH (09:10)
[2020-02-02] MEDS: LIDOCAINE HCL 2% JELLY 10 ML CARTRIDGE UR SCH ×2 (09:17→21:10)
[2020-02-02 09:47] LABS: ANISOCYTOSIS 0; MACROCYTOSIS 0; PLATELET ESTIMATE INCREASED
[2020-02-02] MEDS: SCOPOLAMINE HYDROBROMIDE 1 PATCH PATCH.TD72 TD SCH (10:39)
[2020-02-02] MEDS: NAPH,MB-DB/K PH,MBDB POWDER PACKET PO SCH ×2 (10:44→21:09)
[2020-02-02] MEDS: ASCORBIC ACID 500 MG/5 ML UNIT DOSE CUP PEG SCH ×2 (12:00→21:10)
[2020-02-02] MEDS: FERROUS SO4 300 MG/5 ML ORAL SOLN UNIT DOSE CUPS GT SCH ×2 (12:00→21:08)
[2020-02-02] MEDS ORDERED: DOPAMINE 400 MG/D5W - 400,000 MCG/250 ML INFUS.BAG IVPB ONE (13:04)
[2020-02-02] MEDS: FAMOTIDINE 40 MG/5 ML ORAL SUSPENSION PEG SCH (13:13)
[2020-02-02] MEDS: DOPAMINE 400 MG/D5W - 400,000 MCG/250 ML INFUS.BAG IVPB SCH (15:44)
[2020-02-02] MEDS ORDERED: ACETAMINOPHEN 1000 MG/100 ML VIAL (NON FORMULARY) IVPB ONE ×2 (17:06→21:59)
[2020-02-02] MEDS ORDERED: ACETAMINOPHEN 650 MG/20.3 ML ORAL SOLUTION (CUPS) GT ONE (17:07)
[2020-02-02] MEDS: MORPHINE SULFATE 2 MG/ML VIAL IVPUSH PRN (20:13)
[2020-02-02] MEDS ORDERED: METOPROLOL TARTRATE 5 MG/5 ML VIAL IVPUSH ONE ×2 (20:25→23:10)
[2020-02-02] MEDS: MELATONIN 5 MG TABLETS PO SCH (21:09)
[2020-02-02] MEDS: MONTELUKAST NA 10 MG TABLET PEG SCH (21:10)
[2020-02-02] MEDS ORDERED: ACETAMINOPHEN INJECTION 100 ML IVPB ONE (22:07)
[2020-02-03] MEDS: PHENOL 177 ML SPRAY BOTTLE MM SCH ×4 (00:02→17:33)
[2020-02-03] MEDS ORDERED: SODIUM CHLORIDE 500 ML IV STA (00:14)
[2020-02-03] MEDS: AMPICILLIN NA/SULBACTAM NA 1.5 GM in SODIUM CHLORIDE 100 ML IVPB SCH ×4 (03:40→20:15)
[2020-02-03] MEDS ORDERED: SODIUM CHLORIDE 100 ML IVPB ONE ×4 (04:15→20:15)
[2020-02-03] MEDS ORDERED: AMPICILLIN NA/SULBACTAM NA 1.5 GM VIAL ONE ×4 (04:15→20:14)
[2020-02-03] MEDS: METOPROLOL TARTRATE 5 MG/5 ML VIAL IVPUSH PRN ×3 (04:19→19:18)
[2020-02-03] MEDS: BANATROL PLUS POWDER PACKET GT SCH ×3 (06:06→21:25)
[2020-02-03] MEDS: METOPROLOL TARTRATE 25 MG TABLET (FP) PO SCH ×3 (06:07→21:26)
[2020-02-03] MEDS: CEFTOLOZANE/TAZOBACTAM 3 GM in DEXTROSE 5%-WATER - 100 ML IVPB SCH ×3 (06:40→21:33)
[2020-02-03 06:52] LABS: BASO % 0.2 % (0-2.0); EOS % 0.1 % (0-4.5); HEMATOCRIT 36.9 % (35.4-49); HEMOGLOBIN 11.8 GM/dL (11.7-16.9); LYMPH % 6.1 % (8-40); MCH 29.9 pg (25.7-33.7); MCHC 32.1 g/dl (32.0-35.9); MEAN CELL VOLUME 93.4 fl (80-96); MONO % 5.5 % (3.8-10.2); NEUT % 88.1 % (42.8-82.8); PLATELET COUNT 703 K/MM3 (134-434); RBC 3.95 M/mm3 (4.00-5.60); RDW 16.6 % (11.9-15.9); WHITE BLOOD COUNT 28.5 K/mm3 (4.0-10.0)
[2020-02-03 07:16] LABS: CHLORIDE 96 mmol/L (98-107); SODIUM 143 mmol/L (136-145)
[2020-02-03 07:20] LABS: ALBUMIN 1.9 g/dl (3.4-5.0); ANION GAP 3 MMOL/L (8-16); BLOOD UREA NITROGEN 8.7 mg/dL (7-18); CO2 45 mmol/L (21-32); GLUCOSE,RANDOM 98 mg/dL (74-106); MAGNESIUM 2.4 mg/dL (1.8-2.4)
[2020-02-03 07:23] LABS: PHOSPHOROUS 3.5 mg/dL (2.5-4.9); SGOT/AST 14 U/L (15-37); SGPT/ALT 11 U/L (13-61)
[2020-02-03] MEDS ORDERED: PT OWN MED DRAWER 7, Y5N ONE ×2 (07:23→21:22)
[2020-02-03 07:24] LABS: ALK PHOS 94 U/L (45-117); BILIRUBIN,TOTAL 0.6 mg/dL (0.2-1); TOT PROT 7.5 g/dl (6.4-8.2)
[2020-02-03] MEDS: AMINO ACIDS/PROTEIN HYDROLYS 30 ML LIQUID.PKT PEG SCH ×2 (07:28→17:01)
[2020-02-03 07:39] LABS: CREATININE < 0.2 mg/dL (0.55-1.3)
[2020-02-03] MEDS: BUDESONIDE 0.25 MG/2ML INH SUSP VIAL NEB SCH ×2 (08:00→20:15)
[2020-02-03] MEDS: POTASSIUM CHLORIDE ORAL LIQUID 20 MEQ/15 ML PO SCH ×2 (09:00→21:27)
[2020-02-03] MEDS: FLUDROCORTISONE ACETATE 0.1 MG TABLET (FP) PO SCH ×2 (09:00→21:25)
[2020-02-03] MEDS: MIDODRINE HCL 5 MG TABLET PO SCH ×2 (09:00→17:01)
[2020-02-03] MEDS: LACTOBACILLUS ACIDOPHILUS 1 TABLET GT SCH (09:00)
[2020-02-03] MEDS: CYANOCOBALAMIN 1,000 MCG TABLET (FP) GT SCH (09:02)
[2020-02-03] MEDS: FERROUS SO4 300 MG/5 ML ORAL SOLN UNIT DOSE CUPS GT SCH ×2 (09:02→21:25)
[2020-02-03] MEDS: predniSONE 10 MG, predniSONE 5 MG PO SCH (09:02)
[2020-02-03] MEDS: ASCORBIC ACID 500 MG/5 ML UNIT DOSE CUP PEG SCH ×2 (09:03→21:27)
[2020-02-03] MEDS: BACITRACIN 15 GM TUBE TOPICAL OINTMENT TP SCH (09:03)
[2020-02-03] MEDS: COLLAGENASE CLOSTRIDIUM HIST. 30 GRAMS TUBE TP SCH (09:04)
[2020-02-03] MEDS: LIDOCAINE HCL 2% JELLY 10 ML CARTRIDGE UR SCH ×2 (09:04→21:27)
[2020-02-03] MEDS: NYSTATIN POWDER 100,000 UNITS/GM - 15 GM TOPICAL POWDER TP SCH ×2 (09:04→21:26)
[2020-02-03] MEDS: MULTIVIT-MINERALS ORAL LIQUID PEG SCH (09:05)
[2020-02-03] MEDS: FAMOTIDINE 40 MG/5 ML ORAL SUSPENSION PEG SCH (09:14)
[2020-02-03] MEDS: ACETAMINOPHEN 650 MG/20.3 ML ORAL SOLUTION (CUPS) PEG SCH ×3 (09:31→21:25)
[2020-02-03] MEDS: MORPHINE SULFATE 2 MG/ML VIAL IVPUSH PRN (09:32)
[2020-02-03 10:53] LABS: ANISOCYTOSIS 1+; MACROCYTOSIS 1+; PLATELET ESTIMATE INCREASED
[2020-02-03] MEDS: DOPAMINE 400 MG/D5W - 400,000 MCG/250 ML INFUS.BAG IVPB SCH (19:19)
[2020-02-03] MEDS ORDERED: MORPHINE SULFATE 2 MG/ML VIAL ONE (19:49)
[2020-02-03] MEDS: oxyCODONE HCL 5 MG TABLET PO PRN (20:13)
[2020-02-03] MEDS: HYDROmorphone HCl 2 MG/ML VIAL IVPUSH PRN (20:15)
[2020-02-03] MEDS: MELATONIN 5 MG TABLETS PO SCH (21:26)
[2020-02-03] MEDS: MONTELUKAST NA 10 MG TABLET PEG SCH (21:27)
[2020-02-04] MEDS ORDERED: AMPICILLIN NA/SULBACTAM NA 1.5 GM VIAL ONE ×4 (02:11→20:42)
[2020-02-04] MEDS ORDERED: SODIUM CHLORIDE 100 ML IVPB ONE ×4 (02:11→20:42)
[2020-02-04] MEDS: AMPICILLIN NA/SULBACTAM NA 1.5 GM in SODIUM CHLORIDE 100 ML IVPB SCH ×4 (02:18→21:08)
[2020-02-04] MEDS: METOPROLOL TARTRATE 5 MG/5 ML VIAL IVPUSH PRN ×2 (02:19→18:49)
[2020-02-04] MEDS: ACETAMINOPHEN 650 MG/20.3 ML ORAL SOLUTION (CUPS) PEG SCH ×4 (03:18→21:08)
[2020-02-04] MEDS: BANATROL PLUS POWDER PACKET GT SCH ×3 (05:54→21:08)
[2020-02-04] MEDS: PHENOL 177 ML SPRAY BOTTLE MM SCH ×4 (05:55→18:05)
[2020-02-04] MEDS: METOPROLOL TARTRATE 25 MG TABLET (FP) PO SCH ×3 (05:55→21:09)
[2020-02-04] MEDS: CEFTOLOZANE/TAZOBACTAM 3 GM in DEXTROSE 5%-WATER - 100 ML IVPB SCH ×3 (05:56→21:49)
[2020-02-04] MEDS: HYDROmorphone HCl 2 MG/ML VIAL IVPUSH PRN ×4 (06:49→21:10)
[2020-02-04 06:52] LABS: HEMATOCRIT 34.8 % (35.4-49); MCHC 31.6 g/dl (32.0-35.9); MEAN CELL VOLUME 94.9 fl (80-96); MEAN PLT VOLUME 7.8 fl (7.5-11.1); PLATELET COUNT 641 K/MM3 (134-434); RBC 3.67 M/mm3 (4.00-5.60); RDW 17.8 % (11.9-15.9); WHITE BLOOD COUNT 27.1 K/mm3 (4.0-10.0)
[2020-02-04 07:04] LABS: CHLORIDE 102 mmol/L (98-107); POTASSIUM 4.1 mmol/L (3.5-5.1); SODIUM 148 mmol/L (136-145)
[2020-02-04 07:05] LABS: ANION GAP 1 MMOL/L (8-16); BLOOD UREA NITROGEN 25.2 mg/dL (7-18); CALCIUM 8.9 mg/dL (8.5-10.1); CO2 44 mmol/L (21-32); GLUCOSE,RANDOM 109 mg/dL (74-106); MAGNESIUM 2.5 mg/dL (1.8-2.4)
[2020-02-04 07:09] LABS: PHOSPHOROUS 2.9 mg/dL (2.5-4.9)
[2020-02-04 07:15] LABS: CREATININE < 0.2 mg/dL (0.55-1.3)
[2020-02-04] MEDS: AMINO ACIDS/PROTEIN HYDROLYS 30 ML LIQUID.PKT PEG SCH ×2 (08:33→17:22)
[2020-02-04] MEDS: BUDESONIDE 0.25 MG/2ML INH SUSP VIAL NEB SCH ×2 (08:48→20:25)
[2020-02-04] MEDS: LACTOBACILLUS ACIDOPHILUS 1 TABLET GT SCH (09:27)
[2020-02-04] MEDS: FLUDROCORTISONE ACETATE 0.1 MG TABLET (FP) PO SCH ×2 (09:27→21:09)
[2020-02-04] MEDS: POTASSIUM CHLORIDE ORAL LIQUID 20 MEQ/15 ML PO SCH ×2 (09:27→21:09)
[2020-02-04] MEDS: MIDODRINE HCL 5 MG TABLET PO SCH ×2 (09:28→17:23)
[2020-02-04] MEDS ORDERED: PT OWN MED DRAWER 7, Y5N ONE ×2 (09:50→09:56)
[2020-02-04] MEDS: FERROUS SO4 300 MG/5 ML ORAL SOLN UNIT DOSE CUPS GT SCH ×2 (09:59→21:08)
[2020-02-04] MEDS: MULTIVIT-MINERALS ORAL LIQUID PEG SCH (09:59)
[2020-02-04] MEDS: CYANOCOBALAMIN 1,000 MCG TABLET (FP) GT SCH (10:00)
[2020-02-04] MEDS: ASCORBIC ACID 500 MG/5 ML UNIT DOSE CUP PEG SCH ×2 (10:01→21:10)
[2020-02-04] MEDS: FAMOTIDINE 40 MG/5 ML ORAL SUSPENSION PEG SCH (10:02)
[2020-02-04] MEDS: LIDOCAINE HCL 2% JELLY 10 ML CARTRIDGE UR SCH ×2 (10:51→21:10)
[2020-02-04] MEDS: BACITRACIN 15 GM TUBE TOPICAL OINTMENT TP SCH (10:53)
[2020-02-04] MEDS: COLLAGENASE CLOSTRIDIUM HIST. 30 GRAMS TUBE TP SCH (10:54)
[2020-02-04] MEDS: NYSTATIN POWDER 100,000 UNITS/GM - 15 GM TOPICAL POWDER TP SCH ×2 (10:56→21:09)
[2020-02-04] MEDS: predniSONE 10 MG, predniSONE 5 MG PO SCH (11:12)
[2020-02-04] MEDS: DOPAMINE 400 MG/D5W - 400,000 MCG/250 ML INFUS.BAG IVPB SCH (12:51)
[2020-02-04] MEDS: MONTELUKAST NA 10 MG TABLET PEG SCH (21:09)
[2020-02-04] MEDS: MELATONIN 5 MG TABLETS PO SCH (21:09)
[2020-02-04] MEDS: oxyCODONE HCL 5 MG TABLET PO PRN (21:12)
[2020-02-05] MEDS: PHENOL 177 ML SPRAY BOTTLE MM SCH ×4 (01:00→18:10)
[2020-02-05] MEDS ORDERED: SODIUM CHLORIDE 100 ML IVPB ONE ×4 (01:13→21:41)
[2020-02-05] MEDS ORDERED: AMPICILLIN NA/SULBACTAM NA 1.5 GM VIAL ONE ×4 (01:13→21:40)
[2020-02-05] MEDS: AMPICILLIN NA/SULBACTAM NA 1.5 GM in SODIUM CHLORIDE 100 ML IVPB SCH ×4 (02:06→21:44)
[2020-02-05] MEDS: ACETAMINOPHEN 650 MG/20.3 ML ORAL SOLUTION (CUPS) PEG SCH ×5 (02:40→21:45)
[2020-02-05] MEDS: BANATROL PLUS POWDER PACKET GT SCH ×3 (06:22→22:20)
[2020-02-05] MEDS: CEFTOLOZANE/TAZOBACTAM 3 GM in DEXTROSE 5%-WATER - 100 ML IVPB SCH ×3 (06:22→22:00)
[2020-02-05] MEDS: METOPROLOL TARTRATE 25 MG TABLET (FP) PO SCH ×3 (06:22→21:47)
[2020-02-05 07:16] LABS: BASO % 0.3 % (0-2.0); EOS % 0.4 % (0-4.5); HEMATOCRIT 33.6 % (35.4-49); HEMOGLOBIN 10.3 GM/dL (11.7-16.9); LYMPH % 5.7 % (8-40); MCH 29.7 pg (25.7-33.7); MCHC 30.8 g/dl (32.0-35.9); MEAN CELL VOLUME 96.7 fl (80-96); MEAN PLT VOLUME 7.8 fl (7.5-11.1); MONO % 4.8 % (3.8-10.2); NEUT % 88.8 % (42.8-82.8); PLATELET COUNT 624 K/MM3 (134-434); RBC 3.47 M/mm3 (4.00-5.60); RDW 17.4 % (11.9-15.9); WHITE BLOOD COUNT 24.4 K/mm3 (4.0-10.0)
[2020-02-05 07:27] LABS: CHLORIDE 101 mmol/L (98-107); POTASSIUM 3.9 mmol/L (3.5-5.1); SODIUM 147 mmol/L (136-145)
[2020-02-05] MEDS: BUDESONIDE 0.25 MG/2ML INH SUSP VIAL NEB SCH ×2 (07:30→21:17)
[2020-02-05 07:31] LABS: CALCIUM 9.2 mg/dL (8.5-10.1)
[2020-02-05 07:32] LABS: ALBUMIN 1.9 g/dl (3.4-5.0); ANION GAP 2 MMOL/L (8-16); BLOOD UREA NITROGEN 24.5 mg/dL (7-18); CO2 45 mmol/L (21-32); GLUCOSE,RANDOM 107 mg/dL (74-106); MAGNESIUM 2.3 mg/dL (1.8-2.4)
[2020-02-05 07:35] LABS: SGOT/AST 20 U/L (15-37); SGPT/ALT 21 U/L (13-61)
[2020-02-05 07:36] LABS: BILIRUBIN,TOTAL 0.6 mg/dL (0.2-1)
[2020-02-05 07:38] LABS: ALK PHOS 91 U/L (45-117)
[2020-02-05 07:44] LABS: CREATININE < 0.2 mg/dL (0.55-1.3)
[2020-02-05] MEDS: METOPROLOL TARTRATE 5 MG/5 ML VIAL IVPUSH PRN ×3 (08:47→17:07)
[2020-02-05] MEDS ORDERED: PT OWN MED DRAWER 7, Y5N ONE ×3 (08:54→21:40)
[2020-02-05] MEDS: AMINO ACIDS/PROTEIN HYDROLYS 30 ML LIQUID.PKT PEG SCH ×2 (08:58→18:10)
[2020-02-05] MEDS: BACITRACIN 15 GM TUBE TOPICAL OINTMENT TP SCH (09:02)
[2020-02-05] MEDS: MULTIVIT-MINERALS ORAL LIQUID PEG SCH (09:02)
[2020-02-05] MEDS: LACTOBACILLUS ACIDOPHILUS 1 TABLET GT SCH (09:02)
[2020-02-05] MEDS: FERROUS SO4 300 MG/5 ML ORAL SOLN UNIT DOSE CUPS GT SCH ×2 (09:03→22:21)
[2020-02-05] MEDS: predniSONE 10 MG, predniSONE 5 MG PO SCH (09:03)
[2020-02-05] MEDS: NYSTATIN POWDER 100,000 UNITS/GM - 15 GM TOPICAL POWDER TP SCH ×2 (09:04→21:48)
[2020-02-05] MEDS: POTASSIUM CHLORIDE ORAL LIQUID 20 MEQ/15 ML PO SCH ×2 (09:04→21:48)
[2020-02-05] MEDS: MIDODRINE HCL 5 MG TABLET PO SCH ×2 (09:04→18:10)
[2020-02-05] MEDS: FLUDROCORTISONE ACETATE 0.1 MG TABLET (FP) PO SCH ×2 (09:04→21:47)
[2020-02-05] MEDS: FAMOTIDINE 40 MG/5 ML ORAL SUSPENSION PEG SCH (09:04)
[2020-02-05] MEDS: COLLAGENASE CLOSTRIDIUM HIST. 30 GRAMS TUBE TP SCH (09:05)
[2020-02-05] MEDS: ASCORBIC ACID 500 MG/5 ML UNIT DOSE CUP PEG SCH ×2 (09:05→22:21)
[2020-02-05] MEDS: LIDOCAINE HCL 2% JELLY 10 ML CARTRIDGE UR SCH ×2 (09:05→22:21)
[2020-02-05] MEDS: CYANOCOBALAMIN 1,000 MCG TABLET (FP) GT SCH (09:05)
[2020-02-05] MEDS: SCOPOLAMINE HYDROBROMIDE 1 PATCH PATCH.TD72 TD SCH (09:31)
[2020-02-05 10:55] LABS: ANISOCYTOSIS 1+; MACROCYTOSIS 0; OVALOCYTE 1+; PLATELET ESTIMATE INCREASED; TARGET CELLS 2+; TEAR DROP CELLS 1+; TOXIC GRANULATION 2+
[2020-02-05] MEDS: DOPAMINE 400 MG/D5W - 400,000 MCG/250 ML INFUS.BAG IVPB SCH (12:03)
[2020-02-05] MEDS: HYDROmorphone HCl 2 MG/ML VIAL IVPUSH PRN (12:45)
[2020-02-05] MEDS ORDERED: RAPID SEQUENCE INTUBATION KIT NR ONE (14:25)
[2020-02-05] MEDS ORDERED: LACTATED RINGERS SOLUTION 1,000 ML/1,000 ML INFUS.BAG IV STA (17:51)
[2020-02-05] MEDS ORDERED: METOPROLOL TARTRATE 5 MG/5 ML VIAL IVPUSH ONE (17:51)
[2020-02-05] MEDS ORDERED: ACETAMINOPHEN 1000 MG/100 ML VIAL (NON FORMULARY) IVPB ONE (17:52)
[2020-02-05] MEDS ORDERED: METOPROLOL TARTRATE 5 MG/5 ML VIAL ONE (17:55)
[2020-02-05] MEDS ORDERED: IBUPROFEN 800 MG/8 ML IJ IVPB ONE (19:36)
[2020-02-05] MEDS ORDERED: LACTATED RINGERS SOLUTION 1,000 ML/1,000 ML INFUS.BAG IV ONE (20:35)
[2020-02-05] MEDS ORDERED: VASOPRESSIN 40 UNITS in SODIUM CHLORIDE 98 ML IVPB SCH (20:45)
[2020-02-05] MEDS: MONTELUKAST NA 10 MG TABLET PEG SCH (21:47)
[2020-02-05] MEDS: MELATONIN 5 MG TABLETS PO SCH (21:47)
[2020-02-06] MEDS: PHENOL 177 ML SPRAY BOTTLE MM SCH ×4 (00:01→17:53)
[2020-02-06] MEDS ORDERED: SODIUM CHLORIDE 100 ML IVPB ONE ×4 (00:30→21:17)
[2020-02-06] MEDS ORDERED: AMPICILLIN NA/SULBACTAM NA 1.5 GM VIAL ONE ×4 (00:30→21:17)
[2020-02-06] MEDS: AMPICILLIN NA/SULBACTAM NA 1.5 GM in SODIUM CHLORIDE 100 ML IVPB SCH ×4 (03:37→21:44)
[2020-02-06] MEDS: ACETAMINOPHEN 650 MG/20.3 ML ORAL SOLUTION (CUPS) PEG SCH ×4 (03:38→21:46)
[2020-02-06] MEDS: BANATROL PLUS POWDER PACKET GT SCH ×3 (05:53→21:48)
[2020-02-06] MEDS: METOPROLOL TARTRATE 25 MG TABLET (FP) PO SCH ×3 (05:53→21:51)
[2020-02-06] MEDS: CEFTOLOZANE/TAZOBACTAM 3 GM in DEXTROSE 5%-WATER - 100 ML IVPB SCH ×3 (05:53→21:52)
[2020-02-06] MEDS: BUDESONIDE 0.25 MG/2ML INH SUSP VIAL NEB SCH ×2 (08:51→20:10)
[2020-02-06] MEDS ORDERED: PT OWN MED DRAWER 7, Y5N ONE ×3 (09:01→21:17)
[2020-02-06] MEDS: AMINO ACIDS/PROTEIN HYDROLYS 30 ML LIQUID.PKT PEG SCH ×2 (09:03→17:36)
[2020-02-06] MEDS: ASCORBIC ACID 500 MG/5 ML UNIT DOSE CUP PEG SCH ×2 (09:05→21:52)
[2020-02-06] MEDS: MULTIVIT-MINERALS ORAL LIQUID PEG SCH (09:07)
[2020-02-06] MEDS: POTASSIUM CHLORIDE ORAL LIQUID 20 MEQ/15 ML PO SCH ×2 (09:07→21:52)
[2020-02-06] MEDS: MIDODRINE HCL 5 MG TABLET PO SCH ×2 (09:08→17:36)
[2020-02-06] MEDS: HYDROmorphone HCl 2 MG/ML VIAL IVPUSH PRN ×3 (09:09→21:40)
[2020-02-06] MEDS: METOPROLOL TARTRATE 5 MG/5 ML VIAL IVPUSH PRN (09:09)
[2020-02-06] MEDS: LACTOBACILLUS ACIDOPHILUS 1 TABLET GT SCH (09:10)
[2020-02-06] MEDS: CYANOCOBALAMIN 1,000 MCG TABLET (FP) GT SCH (09:10)
[2020-02-06] MEDS: FERROUS SO4 300 MG/5 ML ORAL SOLN UNIT DOSE CUPS GT SCH ×2 (09:10→21:50)
[2020-02-06] MEDS: NYSTATIN POWDER 100,000 UNITS/GM - 15 GM TOPICAL POWDER TP SCH ×2 (09:11→21:51)
[2020-02-06] MEDS: predniSONE 10 MG, predniSONE 5 MG PO SCH (09:11)
[2020-02-06] MEDS: FAMOTIDINE 40 MG/5 ML ORAL SUSPENSION PEG SCH (09:11)
[2020-02-06] MEDS: BACITRACIN 15 GM TUBE TOPICAL OINTMENT TP SCH (09:11)
[2020-02-06] MEDS: COLLAGENASE CLOSTRIDIUM HIST. 30 GRAMS TUBE TP SCH (09:11)
[2020-02-06] MEDS: LIDOCAINE HCL 2% JELLY 10 ML CARTRIDGE UR SCH ×2 (09:12→21:52)
[2020-02-06] MEDS: FLUDROCORTISONE ACETATE 0.1 MG TABLET (FP) PO SCH ×2 (09:12→21:51)
[2020-02-06 12:50] LABS: HEMATOCRIT 28.9 % (35.4-49); HEMOGLOBIN 8.6 GM/dL (11.7-16.9); LYMPH % 2.8 % (8-40); MCH 29.4 pg (25.7-33.7); MCHC 29.9 g/dl (32.0-35.9); MEAN CELL VOLUME 98.3 fl (80-96); MEAN PLT VOLUME 7.7 fl (7.5-11.1); MONO % 2.8 % (3.8-10.2); NEUT % 94.4 % (42.8-82.8); PLATELET COUNT 449 K/MM3 (134-434); RBC 2.93 M/mm3 (4.00-5.60); RDW 17.8 % (11.9-15.9); WHITE BLOOD COUNT 25.6 K/mm3 (4.0-10.0)
[2020-02-06 13:17] LABS: CHLORIDE 106 mmol/L (98-107); POTASSIUM 3.6 mmol/L (3.5-5.1); SODIUM 150 mmol/L (136-145)
[2020-02-06 13:19] LABS: ALBUMIN 1.6 g/dl (3.4-5.0); ANION GAP -1 MMOL/L (8-16); BLOOD UREA NITROGEN 22.3 mg/dL (7-18); CALCIUM 8.5 mg/dL (8.5-10.1); CO2 45 mmol/L (21-32); GLUCOSE,RANDOM 126 mg/dL (74-106)
[2020-02-06 13:22] LABS: SGOT/AST 19 U/L (15-37); SGPT/ALT 25 U/L (13-61)
[2020-02-06 13:24] LABS: BILIRUBIN,TOTAL 0.2 mg/dL (0.2-1); TOT PROT 6.2 g/dl (6.4-8.2)
[2020-02-06 13:25] LABS: ALK PHOS 85 U/L (45-117)
[2020-02-06 13:28] LABS: CREATININE < 0.2 mg/dL (0.55-1.3)
[2020-02-06 14:08] LABS: ANISOCYTOSIS 1+; MACROCYTOSIS 0; PLATELET ESTIMATE NORMAL
[2020-02-06] MEDS ORDERED: LACTATED RINGERS SOLUTION 1,000 ML/1,000 ML INFUS.BAG IV ONE (16:19)
[2020-02-06] MEDS: PHENYLEPHRINE HCL 10,000 MCG in DEXTROSE 5%-WATER - 499 ML IV SCH (20:00)
[2020-02-06] MEDS: MELATONIN 5 MG TABLETS PO SCH (21:51)
[2020-02-06] MEDS: MONTELUKAST NA 10 MG TABLET PEG SCH (21:51)
[2020-02-07] MEDS: PHENOL 177 ML SPRAY BOTTLE MM SCH ×4 (00:32→17:47)
[2020-02-07] MEDS ORDERED: AMPICILLIN NA/SULBACTAM NA 1.5 GM VIAL ONE ×4 (03:41→21:04)
[2020-02-07] MEDS ORDERED: SODIUM CHLORIDE 100 ML IVPB ONE ×4 (03:41→21:04)
[2020-02-07] MEDS: AMPICILLIN NA/SULBACTAM NA 1.5 GM in SODIUM CHLORIDE 100 ML IVPB SCH ×4 (03:57→21:27)
[2020-02-07] MEDS: ACETAMINOPHEN 650 MG/20.3 ML ORAL SOLUTION (CUPS) PEG SCH ×4 (03:57→21:35)
[2020-02-07] MEDS: HYDROmorphone HCl 2 MG/ML VIAL IVPUSH PRN ×3 (03:57→21:28)
[2020-02-07] MEDS: METOPROLOL TARTRATE 25 MG TABLET (FP) PO SCH ×3 (05:30→21:39)
[2020-02-07] MEDS: CEFTOLOZANE/TAZOBACTAM 3 GM in DEXTROSE 5%-WATER - 100 ML IVPB SCH ×3 (05:30→21:26)
[2020-02-07] MEDS: BANATROL PLUS POWDER PACKET GT SCH ×3 (05:30→21:38)
[2020-02-07 06:42] LABS: BASO % 0.1 % (0-2.0); EOS % 0.1 % (0-4.5); HEMATOCRIT 29.7 % (35.4-49); HEMOGLOBIN 8.9 GM/dL (11.7-16.9); LYMPH % 5.7 % (8-40); MCH 29.6 pg (25.7-33.7); MCHC 29.8 g/dl (32.0-35.9); MEAN CELL VOLUME 99.1 fl (80-96); MEAN PLT VOLUME 8.4 fl (7.5-11.1); MONO % 4.1 % (3.8-10.2); PLATELET COUNT 461 K/MM3 (134-434); RBC 2.99 M/mm3 (4.00-5.60); RDW 17.7 % (11.9-15.9); WHITE BLOOD COUNT 22.8 K/mm3 (4.0-10.0)
[2020-02-07 06:56] LABS: CHLORIDE 100 mmol/L (98-107); SODIUM 147 mmol/L (136-145)
[2020-02-07 07:02] LABS: ALBUMIN 1.6 g/dl (3.4-5.0); CALCIUM 8.2 mg/dL (8.5-10.1)
[2020-02-07 07:03] LABS: BLOOD UREA NITROGEN 15.8 mg/dL (7-18); GLUCOSE,RANDOM 131 mg/dL (74-106); MAGNESIUM 2.2 mg/dL (1.8-2.4)
[2020-02-07 07:05] LABS: SGPT/ALT 20 U/L (13-61)
[2020-02-07 07:06] LABS: PHOSPHOROUS 2.2 mg/dL (2.5-4.9); SGOT/AST 15 U/L (15-37)
[2020-02-07 07:08] LABS: BILIRUBIN,TOTAL 0.5 mg/dL (0.2-1); TOT PROT 6.3 g/dl (6.4-8.2)
[2020-02-07 07:09] LABS: ALK PHOS 95 U/L (45-117)
[2020-02-07 07:15] LABS: ANION GAP 2 MMOL/L (8-16); CO2 > 45 mmol/L (21-32)
[2020-02-07 07:23] LABS: CREATININE < 0.2 mg/dL (0.55-1.3)
[2020-02-07 07:25] LABS: POTASSIUM 2.9 mmol/L (3.5-5.1)
[2020-02-07] MEDS ORDERED: POTASSIUM CHLORIDE TABS 20 MEQ TABLET.ER (FP) PO ONE (07:25)
[2020-02-07] MEDS ORDERED: POTASSIUM CHLORIDE ORAL LIQUID 20 MEQ/15 ML PO ONE (07:39)
[2020-02-07] MEDS: KCL 10 MEQ IVPB 10 MEQ/100 ML INFUS.BAG IVPB SCH ×3 (07:42→09:44)
[2020-02-07] MEDS ORDERED: PT OWN MED DRAWER 7, Y5N ONE ×3 (07:54→21:44)
[2020-02-07] MEDS: AMINO ACIDS/PROTEIN HYDROLYS 30 ML LIQUID.PKT PEG SCH ×2 (07:57→17:40)
[2020-02-07] MEDS: BUDESONIDE 0.25 MG/2ML INH SUSP VIAL NEB SCH ×2 (08:15→20:20)
[2020-02-07] MEDS: MULTIVIT-MINERALS ORAL LIQUID PEG SCH (10:30)
[2020-02-07] MEDS: LACTOBACILLUS ACIDOPHILUS 1 TABLET GT SCH (10:30)
[2020-02-07] MEDS: FAMOTIDINE 40 MG/5 ML ORAL SUSPENSION PEG SCH (10:31)
[2020-02-07] MEDS: FLUDROCORTISONE ACETATE 0.1 MG TABLET (FP) PO SCH ×2 (10:31→21:39)
[2020-02-07] MEDS: predniSONE 10 MG TABLET (UD) PO SCH (10:31)
[2020-02-07] MEDS: FERROUS SO4 300 MG/5 ML ORAL SOLN UNIT DOSE CUPS GT SCH ×2 (10:31→21:44)
[2020-02-07] MEDS: MIDODRINE HCL 5 MG TABLET PO SCH ×2 (10:32→17:39)
[2020-02-07] MEDS: ASCORBIC ACID 500 MG/5 ML UNIT DOSE CUP PEG SCH ×2 (10:32→21:44)
[2020-02-07] MEDS: LIDOCAINE HCL 2% JELLY 10 ML CARTRIDGE UR SCH ×2 (10:32→21:44)
[2020-02-07] MEDS: CYANOCOBALAMIN 1,000 MCG TABLET (FP) GT SCH (10:32)
[2020-02-07] MEDS: POTASSIUM CHLORIDE ORAL LIQUID 20 MEQ/15 ML PO SCH ×2 (11:11→21:35)
[2020-02-07] MEDS: NYSTATIN POWDER 100,000 UNITS/GM - 15 GM TOPICAL POWDER TP SCH ×2 (11:49→21:45)
[2020-02-07] MEDS: COLLAGENASE CLOSTRIDIUM HIST. 30 GRAMS TUBE TP SCH (11:50)
[2020-02-07] MEDS: BACITRACIN 15 GM TUBE TOPICAL OINTMENT TP SCH (11:51)
[2020-02-07 12:06] LABS: ANISOCYTOSIS 1+; MACROCYTOSIS 0; PLATELET ESTIMATE NORMAL
[2020-02-07] MEDS: METOPROLOL TARTRATE 5 MG/5 ML VIAL IVPUSH PRN ×2 (12:09→21:28)
[2020-02-07] MEDS ORDERED: LACTATED RINGERS SOLUTION 1,000 ML/1,000 ML INFUS.BAG IV STA (13:01)
[2020-02-07] MEDS: PHENYLEPHRINE HCL 10,000 MCG in DEXTROSE 5%-WATER - 499 ML IV SCH (16:15)
[2020-02-07] MEDS: MELATONIN 5 MG TABLETS PO SCH (21:39)
[2020-02-07] MEDS: MONTELUKAST NA 10 MG TABLET PEG SCH (21:39)
[2020-02-08] MEDS: PHENOL 177 ML SPRAY BOTTLE MM SCH ×4 (01:00→18:04)
[2020-02-08] MEDS ORDERED: AMPICILLIN NA/SULBACTAM NA 1.5 GM VIAL ONE ×4 (01:45→20:50)
[2020-02-08] MEDS ORDERED: SODIUM CHLORIDE 100 ML IVPB ONE ×3 (01:46→20:50)
[2020-02-08] MEDS: HYDROmorphone HCl 2 MG/ML VIAL IVPUSH PRN ×2 (01:58→21:58)
[2020-02-08] MEDS: METOPROLOL TARTRATE 5 MG/5 ML VIAL IVPUSH PRN ×2 (01:58→21:00)
[2020-02-08] MEDS: AMPICILLIN NA/SULBACTAM NA 1.5 GM in SODIUM CHLORIDE 100 ML IVPB SCH ×4 (02:01→21:03)
[2020-02-08] MEDS: ACETAMINOPHEN 650 MG/20.3 ML ORAL SOLUTION (CUPS) PEG SCH ×4 (02:35→21:01)
[2020-02-08] MEDS: CEFTOLOZANE/TAZOBACTAM 3 GM in DEXTROSE 5%-WATER - 100 ML IVPB SCH ×3 (05:52→21:28)
[2020-02-08] MEDS: BANATROL PLUS POWDER PACKET GT SCH ×3 (05:54→21:03)
[2020-02-08] MEDS: METOPROLOL TARTRATE 25 MG TABLET (FP) PO SCH ×3 (05:54→21:04)
[2020-02-08 07:22] LABS: BASO % 0.3 % (0-2.0); EOS % 0.5 % (0-4.5); HEMATOCRIT 29.2 % (35.4-49); HEMOGLOBIN 8.9 GM/dL (11.7-16.9); MCH 29.3 pg (25.7-33.7); MCHC 30.5 g/dl (32.0-35.9); MEAN CELL VOLUME 96.1 fl (80-96); MEAN PLT VOLUME 8.2 fl (7.5-11.1); MONO % 5.2 % (3.8-10.2); PLATELET COUNT 327 K/MM3 (134-434); RBC 3.04 M/mm3 (4.00-5.60); RDW 16.9 % (11.9-15.9); WHITE BLOOD COUNT 14.8 K/mm3 (4.0-10.0)
[2020-02-08 07:34] LABS: CHLORIDE 92 mmol/L (98-107); SODIUM 145 mmol/L (136-145)
[2020-02-08] MEDS: BUDESONIDE 0.25 MG/2ML INH SUSP VIAL NEB SCH ×2 (07:35→20:20)
[2020-02-08 08:07] LABS: ALBUMIN 1.5 g/dl (3.4-5.0); BILIRUBIN,TOTAL 0.4 mg/dL (0.2-1); GLUCOSE,RANDOM 94 mg/dL (74-106); PHOSPHOROUS 2.2 mg/dL (2.5-4.9); TOT PROT 6.1 g/dl (6.4-8.2)
[2020-02-08 08:09] LABS: ALK PHOS 101 U/L (45-117)
[2020-02-08 08:13] LABS: CALCIUM 8.5 mg/dL (8.5-10.1)
[2020-02-08 08:14] LABS: MAGNESIUM 2.1 mg/dL (1.8-2.4); SGOT/AST 17 U/L (15-37); SGPT/ALT 20 U/L (13-61)
[2020-02-08 08:35] LABS: BLOOD UREA NITROGEN 6.1 mg/dL (7-18)
[2020-02-08 08:42] LABS: ANION GAP 8 MMOL/L (8-16); CO2 > 45 mmol/L (21-32)
[2020-02-08 08:44] LABS: CREATININE < 0.2 mg/dL (0.55-1.3)
[2020-02-08 08:48] LABS: POTASSIUM 2.9 mmol/L (3.5-5.1)
[2020-02-08] MEDS ORDERED: PT OWN MED DRAWER 7, Y5N ONE ×4 (09:37→20:50)
[2020-02-08] MEDS: AMINO ACIDS/PROTEIN HYDROLYS 30 ML LIQUID.PKT PEG SCH ×2 (09:43→18:04)
[2020-02-08] MEDS: BACITRACIN 15 GM TUBE TOPICAL OINTMENT TP SCH (09:44)
[2020-02-08] MEDS: FERROUS SO4 300 MG/5 ML ORAL SOLN UNIT DOSE CUPS GT SCH ×2 (09:45→21:28)
[2020-02-08] MEDS: MULTIVIT-MINERALS ORAL LIQUID PEG SCH (09:45)
[2020-02-08] MEDS ORDERED: POTASSIUM PHOSPHATE 15 MM in SODIUM CHLORIDE 250 ML IVPB ONE (10:00)
[2020-02-08] MEDS ORDERED: clonazePAM 0.5 MG ODT TABLETS GT SCH (10:00)
[2020-02-08] MEDS: COLLAGENASE CLOSTRIDIUM HIST. 30 GRAMS TUBE TP SCH (10:24)
[2020-02-08] MEDS: NYSTATIN POWDER 100,000 UNITS/GM - 15 GM TOPICAL POWDER TP SCH ×2 (10:24→21:04)
[2020-02-08] MEDS: ASCORBIC ACID 500 MG/5 ML UNIT DOSE CUP PEG SCH ×2 (10:46→21:28)
[2020-02-08] MEDS: POTASSIUM CHLORIDE ORAL LIQUID 20 MEQ/15 ML PO SCH ×2 (10:46→21:04)
[2020-02-08] MEDS: MIDODRINE HCL 5 MG TABLET PO SCH ×2 (10:46→18:09)
[2020-02-08] MEDS: CYANOCOBALAMIN 1,000 MCG TABLET (FP) GT SCH (10:46)
[2020-02-08] MEDS: SCOPOLAMINE HYDROBROMIDE 1 PATCH PATCH.TD72 TD SCH (10:47)
[2020-02-08] MEDS: FLUDROCORTISONE ACETATE 0.1 MG TABLET (FP) PO SCH ×2 (10:48→21:03)
[2020-02-08] MEDS: predniSONE 10 MG TABLET (UD) PO SCH (10:48)
[2020-02-08] MEDS: KCL 10 MEQ IVPB 10 MEQ/100 ML INFUS.BAG IVPB SCH ×6 (10:48→20:54)
[2020-02-08] MEDS: LACTOBACILLUS ACIDOPHILUS 1 TABLET GT SCH (10:48)
[2020-02-08] MEDS: FAMOTIDINE 40 MG/5 ML ORAL SUSPENSION PEG SCH (12:34)
[2020-02-08] MEDS: LIDOCAINE HCL 2% JELLY 10 ML CARTRIDGE UR SCH ×2 (12:34→21:07)
[2020-02-08] MEDS: ESCITALOPRAM OXALATE 5 MG/5 ML GT SCH (12:34)
[2020-02-08] MEDS ORDERED: INSULIN (NOVOLOG) ASPART 100 UNITS/ML 10ML VIAL ONE (12:40)
[2020-02-08] MEDS: clonazePAM 0.25 MG ODT TABLETS GT SCH ×2 (12:43→19:50)
[2020-02-08 14:26] LABS: ARTERIAL BLD GAS O2 SATURATION 86.6 mmHg (95-98); ARTERIAL BLOOD GAS BASE EXCESS 20.1 mmol/L (-2-2); ARTERIAL BLOOD GAS PO2 54.1 mmHg (80-100); ARTERIAL BLOOD GAS pH 7.412 (7.350-7.450)
[2020-02-08 14:29] LABS: VENT MODE VENT; VENT RATE 15
[2020-02-08 16:30] LABS: CHLORIDE 94 mmol/L (98-107); POTASSIUM 3.2 mmol/L (3.5-5.1); SODIUM 145 mmol/L (136-145)
[2020-02-08 16:31] LABS: CALCIUM 8.3 mg/dL (8.5-10.1)
[2020-02-08 16:32] LABS: BLOOD UREA NITROGEN 8.1 mg/dL (7-18); GLUCOSE,RANDOM 132 mg/dL (74-106)
[2020-02-08 16:44] LABS: ANION GAP 6 MMOL/L (8-16); CO2 > 45 mmol/L (21-32)
[2020-02-08] MEDS: PHENYLEPHRINE HCL 10,000 MCG in DEXTROSE 5%-WATER - 499 ML IV SCH (17:15)
[2020-02-08 17:23] LABS: CREATININE < 0.2 mg/dL (0.55-1.3)
[2020-02-08] MEDS: MELATONIN 5 MG TABLETS PO SCH (21:04)
[2020-02-08] MEDS: MONTELUKAST NA 10 MG TABLET PEG SCH (21:04)
[2020-02-09 01:09] LABS: CHLORIDE 93 mmol/L (98-107); POTASSIUM 3.7 mmol/L (3.5-5.1); SODIUM 143 mmol/L (136-145)
[2020-02-09 01:11] LABS: BLOOD UREA NITROGEN 9.5 mg/dL (7-18); CALCIUM 8.1 mg/dL (8.5-10.1); GLUCOSE,RANDOM 122 mg/dL (74-106); MAGNESIUM 1.9 mg/dL (1.8-2.4)
[2020-02-09 01:12] LABS: ALBUMIN 1.5 g/dl (3.4-5.0)
[2020-02-09 01:14] LABS: SGPT/ALT 18 U/L (13-61)
[2020-02-09 01:15] LABS: PHOSPHOROUS 3.5 mg/dL (2.5-4.9); SGOT/AST 17 U/L (15-37)
[2020-02-09 01:16] LABS: BILIRUBIN,TOTAL 0.3 mg/dL (0.2-1); TOT PROT 6.1 g/dl (6.4-8.2)
[2020-02-09 01:17] LABS: ALK PHOS 107 U/L (45-117)
[2020-02-09 01:29] LABS: ANION GAP 5 MMOL/L (8-16); CO2 > 45 mmol/L (21-32)
[2020-02-09 01:30] LABS: CREATININE < 0.2 mg/dL (0.55-1.3)
[2020-02-09] MEDS ORDERED: AMPICILLIN NA/SULBACTAM NA 1.5 GM VIAL ONE ×4 (03:03→21:09)
[2020-02-09] MEDS ORDERED: SODIUM CHLORIDE 100 ML IVPB ONE ×4 (03:03→21:10)
[2020-02-09] MEDS: AMPICILLIN NA/SULBACTAM NA 1.5 GM in SODIUM CHLORIDE 100 ML IVPB SCH ×4 (03:04→21:12)
[2020-02-09] MEDS: clonazePAM 0.25 MG ODT TABLETS GT SCH ×3 (03:04→18:51)
[2020-02-09] MEDS: ACETAMINOPHEN 650 MG/20.3 ML ORAL SOLUTION (CUPS) PEG SCH ×4 (03:05→21:12)
[2020-02-09] MEDS: BANATROL PLUS POWDER PACKET GT SCH ×3 (05:56→21:13)
[2020-02-09] MEDS: METOPROLOL TARTRATE 25 MG TABLET (FP) PO SCH ×3 (05:56→21:13)
[2020-02-09] MEDS: PHENOL 177 ML SPRAY BOTTLE MM SCH ×4 (05:56→17:04)
[2020-02-09] MEDS: CEFTOLOZANE/TAZOBACTAM 3 GM in DEXTROSE 5%-WATER - 100 ML IVPB SCH ×3 (05:57→21:14)
[2020-02-09 07:47] LABS: CHLORIDE 95 mmol/L (98-107); POTASSIUM 3.1 mmol/L (3.5-5.1); SODIUM 145 mmol/L (136-145)
[2020-02-09 07:52] LABS: ALBUMIN 1.5 g/dl (3.4-5.0); CALCIUM 8.2 mg/dL (8.5-10.1); GLUCOSE,RANDOM 88 mg/dL (74-106)
[2020-02-09 07:55] LABS: PHOSPHOROUS 3.1 mg/dL (2.5-4.9); SGOT/AST 18 U/L (15-37); SGPT/ALT 20 U/L (13-61)
[2020-02-09 07:56] LABS: BILIRUBIN,TOTAL 0.5 mg/dL (0.2-1)
[2020-02-09 07:57] LABS: TOT PROT 5.9 g/dl (6.4-8.2)
[2020-02-09 07:58] LABS: ALK PHOS 104 U/L (45-117); BASO % 0.1 % (0-2.0); EOS % 0.6 % (0-4.5); HEMATOCRIT 27.3 % (35.4-49); HEMOGLOBIN 8.6 GM/dL (11.7-16.9); LYMPH % 5.7 % (8-40); MCH 30.1 pg (25.7-33.7); MCHC 31.5 g/dl (32.0-35.9); MEAN CELL VOLUME 95.8 fl (80-96); MONO % 3.9 % (3.8-10.2); NEUT % 89.7 % (42.8-82.8); PLATELET COUNT 260 K/MM3 (134-434); RBC 2.85 M/mm3 (4.00-5.60); RDW 16.7 % (11.9-15.9); WHITE BLOOD COUNT 14.4 K/mm3 (4.0-10.0)
[2020-02-09 08:00] LABS: ANION GAP 5 MMOL/L (8-16); CO2 > 45 mmol/L (21-32)
[2020-02-09 08:02] LABS: CREATININE < 0.2 mg/dL (0.55-1.3)
[2020-02-09] MEDS: AMINO ACIDS/PROTEIN HYDROLYS 30 ML LIQUID.PKT PEG SCH ×2 (08:22→17:04)
[2020-02-09] MEDS: HYDROmorphone HCl 2 MG/ML VIAL IVPUSH PRN ×4 (08:38→23:33)
[2020-02-09] MEDS: KCL 10 MEQ IVPB 10 MEQ/100 ML INFUS.BAG IVPB SCH ×6 (08:49→15:07)
[2020-02-09] MEDS: POTASSIUM CHLORIDE ORAL LIQUID 20 MEQ/15 ML PO SCH ×3 (09:11→21:14)
[2020-02-09] MEDS: predniSONE 10 MG TABLET (UD) PO SCH (09:11)
[2020-02-09] MEDS: FLUDROCORTISONE ACETATE 0.1 MG TABLET (FP) PO SCH ×2 (09:11→21:13)
[2020-02-09] MEDS: MIDODRINE HCL 5 MG TABLET PO SCH ×2 (09:11→17:04)
[2020-02-09] MEDS: LACTOBACILLUS ACIDOPHILUS 1 TABLET GT SCH (09:11)
[2020-02-09] MEDS ORDERED: PT OWN MED DRAWER 7, Y5N ONE ×5 (09:14→21:09)
[2020-02-09] MEDS: FERROUS SO4 300 MG/5 ML ORAL SOLN UNIT DOSE CUPS GT SCH ×2 (09:29→21:13)
[2020-02-09] MEDS: MULTIVIT-MINERALS ORAL LIQUID PEG SCH (09:29)
[2020-02-09] MEDS: ESCITALOPRAM OXALATE 5 MG/5 ML GT SCH (09:30)
[2020-02-09] MEDS: ASCORBIC ACID 500 MG/5 ML UNIT DOSE CUP PEG SCH ×2 (09:30→21:14)
[2020-02-09] MEDS: NYSTATIN POWDER 100,000 UNITS/GM - 15 GM TOPICAL POWDER TP SCH ×2 (09:31→21:14)
[2020-02-09] MEDS: CYANOCOBALAMIN 1,000 MCG TABLET (FP) GT SCH (09:31)
[2020-02-09] MEDS: FAMOTIDINE 40 MG/5 ML ORAL SUSPENSION PEG SCH (09:33)
[2020-02-09] MEDS: BUDESONIDE 0.25 MG/2ML INH SUSP VIAL NEB SCH ×2 (09:55→20:14)
[2020-02-09] MEDS: BACITRACIN 15 GM TUBE TOPICAL OINTMENT TP SCH (11:00)
[2020-02-09] MEDS: LIDOCAINE HCL 2% JELLY 10 ML CARTRIDGE UR SCH ×2 (11:00→21:14)
[2020-02-09] MEDS: COLLAGENASE CLOSTRIDIUM HIST. 30 GRAMS TUBE TP SCH (13:16)
[2020-02-09] MEDS: METOPROLOL TARTRATE 5 MG/5 ML VIAL IVPUSH PRN ×3 (15:10→23:30)
[2020-02-09] MEDS: MELATONIN 5 MG TABLETS PO SCH (21:13)
[2020-02-09] MEDS: MONTELUKAST NA 10 MG TABLET PEG SCH (21:14)
[2020-02-10] MEDS: PHENOL 177 ML SPRAY BOTTLE MM SCH ×4 (01:10→17:29)
[2020-02-10] MEDS: clonazePAM 0.25 MG ODT TABLETS GT SCH ×3 (03:55→18:36)
[2020-02-10] MEDS: ACETAMINOPHEN 650 MG/20.3 ML ORAL SOLUTION (CUPS) PEG SCH ×4 (04:43→22:50)
[2020-02-10] MEDS: METOPROLOL TARTRATE 5 MG/5 ML VIAL IVPUSH PRN ×4 (04:54→22:57)
[2020-02-10] MEDS: BANATROL PLUS POWDER PACKET GT SCH ×3 (05:43→22:50)
[2020-02-10] MEDS: POTASSIUM CHLORIDE ORAL LIQUID 20 MEQ/15 ML PO SCH ×3 (05:43→22:50)
[2020-02-10] MEDS: METOPROLOL TARTRATE 25 MG TABLET (FP) PO SCH ×3 (05:43→22:50)
[2020-02-10] MEDS: HYDROmorphone HCl 2 MG/ML VIAL IVPUSH PRN ×3 (05:45→18:34)
[2020-02-10] MEDS: CEFTOLOZANE/TAZOBACTAM 3 GM in DEXTROSE 5%-WATER - 100 ML IVPB SCH ×3 (05:45→22:50)
[2020-02-10 07:00] LABS: BASO % 0.1 % (0-2.0); EOS % 0.3 % (0-4.5); HEMOGLOBIN 8.6 GM/dL (11.7-16.9); LYMPH % 4.7 % (8-40); MCH 29.5 pg (25.7-33.7); MCHC 30.9 g/dl (32.0-35.9); MEAN CELL VOLUME 95.6 fl (80-96); MEAN PLT VOLUME 8.9 fl (7.5-11.1); MONO % 3.9 % (3.8-10.2); PLATELET COUNT 267 K/MM3 (134-434); RBC 2.93 M/mm3 (4.00-5.60); RDW 16.8 % (11.9-15.9)
[2020-02-10 07:30] LABS: CHLORIDE 96 mmol/L (98-107); POTASSIUM 3.9 mmol/L (3.5-5.1); SODIUM 144 mmol/L (136-145)
[2020-02-10 07:32] LABS: CALCIUM 8.1 mg/dL (8.5-10.1)
[2020-02-10 07:33] LABS: ALBUMIN 1.5 g/dl (3.4-5.0); GLUCOSE,RANDOM 101 mg/dL (74-106)
[2020-02-10 07:36] LABS: PHOSPHOROUS 3.6 mg/dL (2.5-4.9); SGOT/AST 18 U/L (15-37); SGPT/ALT 19 U/L (13-61)
[2020-02-10 07:38] LABS: BILIRUBIN,TOTAL 0.3 mg/dL (0.2-1); TOT PROT 6.1 g/dl (6.4-8.2)
[2020-02-10 07:39] LABS: ALK PHOS 111 U/L (45-117)
[2020-02-10 07:45] LABS: ANION GAP 3 MMOL/L (8-16); CO2 > 45 mmol/L (21-32)
[2020-02-10 07:51] LABS: CREATININE < 0.2 mg/dL (0.55-1.3)
[2020-02-10] MEDS: BUDESONIDE 0.25 MG/2ML INH SUSP VIAL NEB SCH ×2 (08:05→20:01)
[2020-02-10 09:03] LABS: ANISOCYTOSIS 1+; MACROCYTOSIS 0; PLATELET ESTIMATE NORMAL
[2020-02-10] MEDS ORDERED: PT OWN MED DRAWER 7, Y5N ONE ×3 (09:23→22:52)
[2020-02-10] MEDS: AMINO ACIDS/PROTEIN HYDROLYS 30 ML LIQUID.PKT PEG SCH ×2 (09:27→17:29)
[2020-02-10] MEDS: ESCITALOPRAM OXALATE 5 MG/5 ML GT SCH (09:42)
[2020-02-10] MEDS: ASCORBIC ACID 500 MG/5 ML UNIT DOSE CUP PEG SCH ×2 (09:43→22:50)
[2020-02-10] MEDS: MULTIVIT-MINERALS ORAL LIQUID PEG SCH (09:43)
[2020-02-10] MEDS: FAMOTIDINE 40 MG/5 ML ORAL SUSPENSION PEG SCH (09:44)
[2020-02-10] MEDS: predniSONE 10 MG TABLET (UD) PO SCH (09:45)
[2020-02-10] MEDS: CYANOCOBALAMIN 1,000 MCG TABLET (FP) GT SCH (09:45)
[2020-02-10] MEDS: FERROUS SO4 300 MG/5 ML ORAL SOLN UNIT DOSE CUPS GT SCH ×2 (09:45→22:50)
[2020-02-10] MEDS: FLUDROCORTISONE ACETATE 0.1 MG TABLET (FP) PO SCH ×2 (09:45→22:50)
[2020-02-10] MEDS: LIDOCAINE HCL 2% JELLY 10 ML CARTRIDGE UR SCH ×2 (09:46→23:20)
[2020-02-10] MEDS: COLLAGENASE CLOSTRIDIUM HIST. 30 GRAMS TUBE TP SCH (09:46)
[2020-02-10] MEDS: MIDODRINE HCL 5 MG TABLET PO SCH ×2 (09:46→17:28)
[2020-02-10] MEDS: BACITRACIN 15 GM TUBE TOPICAL OINTMENT TP SCH (09:46)
[2020-02-10] MEDS: LACTOBACILLUS ACIDOPHILUS 1 TABLET GT SCH (09:46)
[2020-02-10] MEDS: NYSTATIN POWDER 100,000 UNITS/GM - 15 GM TOPICAL POWDER TP SCH ×2 (09:46→23:18)
[2020-02-10] MEDS ORDERED: SODIUM CHLORIDE 500 ML IV STA ×2 (12:04→12:37)
[2020-02-10] MEDS ORDERED: PHENYLEPHRINE HCL 10 MG/1 ML SINGLE DOSE VIAL ONE ×3 (12:21→17:15)
[2020-02-10] MEDS ORDERED: PHENYLEPHRINE HCL 10,000 MCG in DEXTROSE 5%-WATER - 499 ML IV SCH (12:30)
[2020-02-10] MEDS ORDERED: PHENYLEPHRINE NS PREMIX 25,000 MCG/250 ML BAG CVP SCH (12:30)
[2020-02-10] MEDS ORDERED: LORazepam 2 MG/ML SDV VIAL IVPUSH ONE (20:10)
[2020-02-10] MEDS ORDERED: HYDROmorphone HCl 2 MG/ML VIAL IVPUSH PRN (20:27)
[2020-02-10] MEDS ORDERED: ROCURONIUM BROMIDE 50 MG/5 ML VIAL IV ONE (21:12)
[2020-02-10] MEDS ORDERED: DEXMEDETOMIDINE HCL 200 MCG/2 ML IVPB ONE (21:18)
[2020-02-10] MEDS ORDERED: RAPID SEQUENCE INTUBATION KIT NR ONE (21:35)
[2020-02-10] MEDS ORDERED: MIDAZOLAM HCL 2 MG/2 ML SINGLE DOSE VIAL ONE (21:39)
[2020-02-10] MEDS ORDERED: DEXMEDETOMIDINE IN 0.9 % NACL 400 MCG/100 ML VIAL IVPB SCH ×2 (21:45→21:47)
[2020-02-10] MEDS ORDERED: ACETYLCYSTEINE 20% 200MG/ML 30 ML VIAL *FOR ORAL / INH USE ONLY NEB ONE (21:47)
[2020-02-10] MEDS ORDERED: DEXMEDETOMIDINE HCL 400 MCG in SODIUM CHLORIDE 96 ML IVPB SCH (22:00)
[2020-02-10] MEDS: MONTELUKAST NA 10 MG TABLET PEG SCH (22:50)
[2020-02-10] MEDS ORDERED: MIDAZOLAM HCL 2 MG/2 ML SINGLE DOSE VIAL IVPUSH ONE (23:06)
[2020-02-10] MEDS ORDERED: ROCURONIUM BROMIDE 100 MG in DEXTROSE 5%-WATER - 90 ML IVPB SCH (23:15)
[2020-02-10] MEDS: MELATONIN 5 MG TABLETS PO SCH (23:18)
[2020-02-10] MEDS: MIDAZOLAM IN 0.9 % SOD.CHLORID 100 MG/100 ML PLAST..BAG IVPB SCH (23:21)
[2020-02-10] MEDS: VASOPRESSIN 40 UNITS in SODIUM CHLORIDE 98 ML IVPB SCH (23:22)
[2020-02-11] MEDS: PHENOL 177 ML SPRAY BOTTLE MM SCH ×4 (00:07→17:01)
[2020-02-11] MEDS: VECURONIUM BROMIDE 100 MG/100 ML BAG IVPB SCH (00:15)
[2020-02-11] MEDS: PHENYLEPHRINE NS PREMIX 50,000 MCG/500 ML BAG CVP SCH ×2 (03:00→09:13)
[2020-02-11] MEDS: METOPROLOL TARTRATE 5 MG/5 ML VIAL IVPUSH PRN (03:07)
[2020-02-11] MEDS: ACETAMINOPHEN 650 MG/20.3 ML ORAL SOLUTION (CUPS) PEG SCH ×4 (03:30→21:31)
[2020-02-11] MEDS: clonazePAM 0.25 MG ODT TABLETS GT SCH ×3 (06:34→19:22)
[2020-02-11] MEDS: CEFTOLOZANE/TAZOBACTAM 3 GM in DEXTROSE 5%-WATER - 100 ML IVPB SCH (06:35)
[2020-02-11] MEDS: BANATROL PLUS POWDER PACKET GT SCH ×3 (06:40→21:31)
[2020-02-11] MEDS: METOPROLOL TARTRATE 25 MG TABLET (FP) PO SCH ×3 (06:41→21:32)
[2020-02-11] MEDS: POTASSIUM CHLORIDE ORAL LIQUID 20 MEQ/15 ML PO SCH ×3 (06:41→21:32)
[2020-02-11 07:03] LABS: HEMATOCRIT 29.7 % (35.4-49); HEMOGLOBIN 8.9 GM/dL (11.7-16.9); MCH 29.7 pg (25.7-33.7); MEAN PLT VOLUME 8.9 fl (7.5-11.1); PLATELET COUNT 329 K/MM3 (134-434); RDW 17.3 % (11.9-15.9)
[2020-02-11 07:06] LABS: WHITE BLOOD COUNT 43.6 K/mm3 (4.0-10.0)
[2020-02-11 07:30] LABS: CHLORIDE 99 mmol/L (98-107); POTASSIUM 3.8 mmol/L (3.5-5.1); SODIUM 145 mmol/L (136-145)
[2020-02-11 07:35] LABS: CALCIUM 8.5 mg/dL (8.5-10.1)
[2020-02-11 07:36] LABS: ALBUMIN 1.5 g/dl (3.4-5.0); ANION GAP 2 MMOL/L (8-16); BLOOD UREA NITROGEN 16.2 mg/dL (7-18); CO2 44 mmol/L (21-32); GLUCOSE,RANDOM 85 mg/dL (74-106)
[2020-02-11 07:39] LABS: CREATININE < 0.2 mg/dL (0.55-1.3); SGOT/AST 19 U/L (15-37); SGPT/ALT 16 U/L (13-61)
[2020-02-11 07:40] LABS: BILIRUBIN,TOTAL 0.6 mg/dL (0.2-1); TOT PROT 6.1 g/dl (6.4-8.2)
[2020-02-11 07:41] LABS: ALK PHOS 97 U/L (45-117)
[2020-02-11] MEDS: BUDESONIDE 0.25 MG/2ML INH SUSP VIAL NEB SCH ×2 (08:35→20:02)
[2020-02-11] MEDS ORDERED: PT OWN MED DRAWER 7, Y5N ONE ×3 (08:57→21:22)
[2020-02-11] MEDS: AMINO ACIDS/PROTEIN HYDROLYS 30 ML LIQUID.PKT PEG SCH ×2 (09:04→17:01)
[2020-02-11] MEDS: LIDOCAINE HCL 2% JELLY 10 ML CARTRIDGE UR SCH ×2 (09:09→21:33)
[2020-02-11] MEDS: predniSONE 10 MG TABLET (UD) PO SCH (09:09)
[2020-02-11] MEDS: ESCITALOPRAM OXALATE 5 MG/5 ML GT SCH (09:09)
[2020-02-11] MEDS: LACTOBACILLUS ACIDOPHILUS 1 TABLET GT SCH (09:09)
[2020-02-11] MEDS: ASCORBIC ACID 500 MG/5 ML UNIT DOSE CUP PEG SCH ×2 (09:09→21:36)
[2020-02-11] MEDS: FLUDROCORTISONE ACETATE 0.1 MG TABLET (FP) PO SCH ×2 (09:09→21:32)
[2020-02-11] MEDS: MIDODRINE HCL 5 MG TABLET PO SCH ×2 (09:09→17:02)
[2020-02-11] MEDS: FERROUS SO4 300 MG/5 ML ORAL SOLN UNIT DOSE CUPS GT SCH ×2 (09:10→21:36)
[2020-02-11] MEDS: NYSTATIN POWDER 100,000 UNITS/GM - 15 GM TOPICAL POWDER TP SCH ×2 (09:10→21:32)
[2020-02-11] MEDS: CYANOCOBALAMIN 1,000 MCG TABLET (FP) GT SCH (09:10)
[2020-02-11] MEDS: FAMOTIDINE 40 MG/5 ML ORAL SUSPENSION PEG SCH (09:10)
[2020-02-11] MEDS: MULTIVIT-MINERALS ORAL LIQUID PEG SCH (09:10)
[2020-02-11] MEDS: BACITRACIN 15 GM TUBE TOPICAL OINTMENT TP SCH (09:11)
[2020-02-11] MEDS: COLLAGENASE CLOSTRIDIUM HIST. 30 GRAMS TUBE TP SCH (09:12)
[2020-02-11] MEDS: MIDAZOLAM IN 0.9 % SOD.CHLORID 100 MG/100 ML PLAST..BAG IVPB SCH (09:13)
[2020-02-11] MEDS: SCOPOLAMINE HYDROBROMIDE 1 PATCH PATCH.TD72 TD SCH (09:31)
[2020-02-11 11:37] LABS: ANISOCYTOSIS 1+; MACROCYTOSIS 0; PLATELET ESTIMATE NORMAL
[2020-02-11 11:43] LABS: ARTERIAL BLD GAS O2 SATURATION 91.1 mmHg (95-98); ARTERIAL BLOOD GAS BASE EXCESS 16.1 mmol/L (-2-2); ARTERIAL BLOOD GAS PO2 84.1 mmHg (80-100)
[2020-02-11 11:44] LABS: ALLENS TEST POSITIVE
[2020-02-11 11:45] LABS: VENT MODE A/C; VENT RATE 28
[2020-02-11 11:46] LABS: ARTERIAL BLOOD GAS pH 7.142 (7.350-7.450)
[2020-02-11] MEDS ORDERED: DEXMEDETOMIDINE HCL 200 MCG in SODIUM CHLORIDE 48 ML IVPB SCH (12:00)
[2020-02-11] MEDS ORDERED: DEXTROSE 5%-WATER 100 ML IVPB ONE ×2 (12:55→16:56)
[2020-02-11] MEDS ORDERED: PIPERACILLIN/TAZOBACTAM 4.5 GM VIAL IVPB ONE ×2 (12:55→16:56)
[2020-02-11] MEDS: PIPERACILLIN/TAZOB 4.5 GM 4.5 GM in DEXTROSE 5%-WATER 100 ML IVPB SCH ×2 (12:57→17:01)
[2020-02-11] MEDS: VANCOMYCIN 1 GRAM (PRE-DOCKED) 1,000 MG/250 ML BAG IVPB SCH (12:59)
[2020-02-11] MEDS: MUPIROCIN 2% TOPICAL OINTMENT FOR DECOLONIZATION NS SCH ×2 (13:03→21:32)
[2020-02-11] MEDS ORDERED: MAGNESIUM SULF 50% (8.12 MEQ/2 ML-1 GM VIAL) IVPB ONE (14:11)
[2020-02-11] MEDS ORDERED: MAGNESIUM SULFATE IN WATER 2 GM/50 ML IVPB IVPB ONE (14:15)
[2020-02-11 14:37] LABS: ARTERIAL BLD GAS O2 SATURATION 94.1 mmHg (95-98); ARTERIAL BLOOD GAS BASE EXCESS 16.9 mmol/L (-2-2); ARTERIAL BLOOD GAS PO2 88.6 mmHg (80-100); ARTERIAL BLOOD GAS pH 7.233 (7.350-7.450)
[2020-02-11 14:38] LABS: ALLENS TEST POSITIVE
[2020-02-11 14:39] LABS: VENT MODE A/C; VENT RATE 30
[2020-02-11 15:00] LABS: MAGNESIUM 1.9 mg/dL (1.8-2.4)
[2020-02-11 15:04] LABS: PHOSPHOROUS 6.2 mg/dL (2.5-4.9)
[2020-02-11] MEDS: MELATONIN 5 MG TABLETS PO SCH (21:32)
[2020-02-11] MEDS: CHLORHEXIDINE GLUCONATE 4% CLEANSER FOR DECOLONIZATION TP SCH (21:32)
[2020-02-11] MEDS: MONTELUKAST NA 10 MG TABLET PEG SCH (21:32)
[2020-02-12] MEDS: PHENYLEPHRINE NS PREMIX 50,000 MCG/500 ML BAG CVP SCH (00:09)
[2020-02-12] MEDS: VASOPRESSIN 40 UNITS in SODIUM CHLORIDE 98 ML IVPB SCH (00:09)
[2020-02-12] MEDS: MIDAZOLAM IN 0.9 % SOD.CHLORID 100 MG/100 ML PLAST..BAG IVPB SCH ×2 (00:09→23:06)
[2020-02-12] MEDS: VECURONIUM BROMIDE 100 MG/100 ML BAG IVPB SCH (00:21)
[2020-02-12] MEDS: VANCOMYCIN 1 GRAM (PRE-DOCKED) 1,000 MG/250 ML BAG IVPB SCH ×3 (00:23→23:27)
[2020-02-12] MEDS: PHENOL 177 ML SPRAY BOTTLE MM SCH ×4 (00:45→17:21)
[2020-02-12] MEDS ORDERED: DEXTROSE 5%-WATER 100 ML IVPB ONE ×4 (00:53→23:32)
[2020-02-12] MEDS ORDERED: PIPERACILLIN/TAZOBACTAM 4.5 GM VIAL IVPB ONE ×4 (00:53→23:32)
[2020-02-12] MEDS: PIPERACILLIN/TAZOB 4.5 GM 4.5 GM in DEXTROSE 5%-WATER 100 ML IVPB SCH ×3 (01:20→18:24)
[2020-02-12] MEDS: clonazePAM 0.25 MG ODT TABLETS GT SCH ×4 (03:20→22:00)
[2020-02-12] MEDS: ACETAMINOPHEN 650 MG/20.3 ML ORAL SOLUTION (CUPS) PEG SCH ×4 (03:20→21:30)
[2020-02-12] MEDS: BANATROL PLUS POWDER PACKET GT SCH ×3 (06:03→22:00)
[2020-02-12] MEDS: METOPROLOL TARTRATE 25 MG TABLET (FP) PO SCH ×3 (06:04→22:00)
[2020-02-12] MEDS: POTASSIUM CHLORIDE ORAL LIQUID 20 MEQ/15 ML PO SCH ×3 (06:04→22:00)
[2020-02-12 06:58] LABS: HEMOGLOBIN 8.4 GM/dL (11.7-16.9); LYMPH % 3.1 % (8-40); MCH 29.8 pg (25.7-33.7); MCHC 29.9 g/dl (32.0-35.9); MEAN CELL VOLUME 99.6 fl (80-96); MEAN PLT VOLUME 9.7 fl (7.5-11.1); MONO % 4.9 % (3.8-10.2); PLATELET COUNT 257 K/MM3 (134-434); RBC 2.81 M/mm3 (4.00-5.60); RDW 17.2 % (11.9-15.9)
[2020-02-12 07:21] LABS: CHLORIDE 102 mmol/L (98-107); POTASSIUM 3.5 mmol/L (3.5-5.1); SODIUM 147 mmol/L (136-145)
[2020-02-12 07:24] LABS: ALBUMIN 1.2 g/dl (3.4-5.0); CALCIUM 8.4 mg/dL (8.5-10.1)
[2020-02-12 07:25] LABS: ANION GAP 0 MMOL/L (8-16); CO2 45 mmol/L (21-32); GLUCOSE,RANDOM 90 mg/dL (74-106); MAGNESIUM 2.1 mg/dL (1.8-2.4)
[2020-02-12 07:27] LABS: SGPT/ALT 12 U/L (13-61)
[2020-02-12 07:28] LABS: PHOSPHOROUS 3.4 mg/dL (2.5-4.9); SGOT/AST 14 U/L (15-37)
[2020-02-12 07:29] LABS: BILIRUBIN,TOTAL 0.4 mg/dL (0.2-1)
[2020-02-12 07:30] LABS: ALK PHOS 117 U/L (45-117)
[2020-02-12 07:31] LABS: CREATININE < 0.2 mg/dL (0.55-1.3)
[2020-02-12] MEDS: BUDESONIDE 0.25 MG/2ML INH SUSP VIAL NEB SCH ×2 (08:13→20:45)
[2020-02-12] MEDS: AMINO ACIDS/PROTEIN HYDROLYS 30 ML LIQUID.PKT PEG SCH ×2 (08:45→17:21)
[2020-02-12] MEDS ORDERED: PT OWN MED DRAWER 7, Y5N ONE ×2 (09:43→10:22)
[2020-02-12 10:43] LABS: ANISOCYTOSIS 2+; PLATELET ESTIMATE ADEQUATE
[2020-02-12] MEDS: LACTOBACILLUS ACIDOPHILUS 1 TABLET GT SCH (10:45)
[2020-02-12] MEDS: MUPIROCIN 2% TOPICAL OINTMENT FOR DECOLONIZATION NS SCH ×2 (10:45→22:00)
[2020-02-12] MEDS: BACITRACIN 15 GM TUBE TOPICAL OINTMENT TP SCH (10:45)
[2020-02-12] MEDS: NYSTATIN POWDER 100,000 UNITS/GM - 15 GM TOPICAL POWDER TP SCH ×2 (10:46→22:00)
[2020-02-12] MEDS: ESCITALOPRAM OXALATE 5 MG/5 ML GT SCH (10:46)
[2020-02-12] MEDS: FERROUS SO4 300 MG/5 ML ORAL SOLN UNIT DOSE CUPS GT SCH ×2 (10:46→22:00)
[2020-02-12] MEDS: MULTIVIT-MINERALS ORAL LIQUID PEG SCH (10:46)
[2020-02-12] MEDS: predniSONE 10 MG TABLET (UD) PO SCH (10:46)
[2020-02-12] MEDS: FLUDROCORTISONE ACETATE 0.1 MG TABLET (FP) PO SCH ×2 (10:46→22:00)
[2020-02-12] MEDS: FAMOTIDINE 40 MG/5 ML ORAL SUSPENSION PEG SCH (10:47)
[2020-02-12] MEDS: MIDODRINE HCL 5 MG TABLET PO SCH ×2 (10:47→18:24)
[2020-02-12] MEDS: COLLAGENASE CLOSTRIDIUM HIST. 30 GRAMS TUBE TP SCH (10:47)
[2020-02-12] MEDS: LIDOCAINE HCL 2% JELLY 10 ML CARTRIDGE UR SCH ×2 (10:47→22:00)
[2020-02-12] MEDS: CYANOCOBALAMIN 1,000 MCG TABLET (FP) GT SCH (10:47)
[2020-02-12] MEDS: ASCORBIC ACID 500 MG/5 ML UNIT DOSE CUP PEG SCH ×2 (10:47→22:00)
[2020-02-12] MEDS ORDERED: PHENYLEPHRINE HCL 10 MG/1 ML SINGLE DOSE VIAL ONE (10:56)
[2020-02-12] MEDS ORDERED: VASOPRESSIN 20 UNITS/ML VIAL IV ONE (16:12)
[2020-02-12] MEDS: MONTELUKAST NA 10 MG TABLET PEG SCH (22:00)
[2020-02-12] MEDS: CHLORHEXIDINE GLUCONATE 4% CLEANSER FOR DECOLONIZATION TP SCH (22:00)
[2020-02-12] MEDS: MELATONIN 5 MG TABLETS PO SCH (22:00)
[2020-02-12] MEDS ORDERED: FENTANYL NS IVPB 500 MCG/100 ML BAG IVPB ONE (23:31)
[2020-02-12] MEDS: FENTANYL IVPB 500 MCG/100 ML BAG IVPB SCH (23:39)
[2020-02-13] MEDS: VASOPRESSIN 40 UNITS in SODIUM CHLORIDE 98 ML IVPB SCH ×2 (03:10→23:28)
[2020-02-13] MEDS: PHENYLEPHRINE NS PREMIX 50,000 MCG/500 ML BAG CVP SCH ×2 (03:11→18:13)
[2020-02-13] MEDS: VECURONIUM BROMIDE 100 MG/100 ML BAG IVPB SCH (03:12)
[2020-02-13] MEDS: PIPERACILLIN/TAZOB 4.5 GM 4.5 GM in DEXTROSE 5%-WATER 100 ML IVPB SCH ×3 (03:14→17:42)
[2020-02-13] MEDS: ACETAMINOPHEN 650 MG/20.3 ML ORAL SOLUTION (CUPS) PEG SCH ×4 (03:17→21:37)
[2020-02-13] MEDS: clonazePAM 0.25 MG ODT TABLETS GT SCH ×3 (03:17→18:15)
[2020-02-13] MEDS: BANATROL PLUS POWDER PACKET GT SCH ×3 (05:59→21:36)
[2020-02-13] MEDS: PHENOL 177 ML SPRAY BOTTLE MM SCH ×4 (06:00→17:42)
[2020-02-13] MEDS: METOPROLOL TARTRATE 25 MG TABLET (FP) PO SCH ×3 (06:00→22:20)
[2020-02-13] MEDS ORDERED: DEXTROSE 50%-WATER - 25 GM/50 ML VIAL IVPUSH ONE (06:25)
[2020-02-13] MEDS ORDERED: DEXTROSE 50%-WATER 25 GM/50 ML DISP.SYRIN ONE (06:36)
[2020-02-13] MEDS: POTASSIUM CHLORIDE ORAL LIQUID 20 MEQ/15 ML PO SCH ×3 (06:42→21:39)
[2020-02-13 07:12] LABS: BASO % 0.1 % (0-2.0); HEMATOCRIT 28.6 % (35.4-49); HEMOGLOBIN 8.6 GM/dL (11.7-16.9); MCH 29.8 pg (25.7-33.7); MEAN CELL VOLUME 99.2 fl (80-96); MEAN PLT VOLUME 9.4 fl (7.5-11.1); MONO % 5.6 % (3.8-10.2); NEUT % 90.3 % (42.8-82.8); PLATELET COUNT 242 K/MM3 (134-434); RBC 2.88 M/mm3 (4.00-5.60); RDW 17.1 % (11.9-15.9); WHITE BLOOD COUNT 19.6 K/mm3 (4.0-10.0)
[2020-02-13 07:25] LABS: CHLORIDE 106 mmol/L (98-107); POTASSIUM 3.2 mmol/L (3.5-5.1); SODIUM 150 mmol/L (136-145)
[2020-02-13 07:29] LABS: ALBUMIN 1.2 g/dl (3.4-5.0); BLOOD UREA NITROGEN 21.8 mg/dL (7-18); CALCIUM 9.4 mg/dL (8.5-10.1); GLUCOSE,RANDOM 73 mg/dL (74-106)
[2020-02-13 07:30] LABS: MAGNESIUM 2.1 mg/dL (1.8-2.4)
[2020-02-13 07:33] LABS: SGOT/AST 21 U/L (15-37); SGPT/ALT 11 U/L (13-61)
[2020-02-13 07:34] LABS: PHOSPHOROUS 3.2 mg/dL (2.5-4.9)
[2020-02-13 07:35] LABS: BILIRUBIN,TOTAL 0.4 mg/dL (0.2-1); TOT PROT 5.8 g/dl (6.4-8.2)
[2020-02-13 07:57] LABS: ALK PHOS 157 U/L (45-117); ANION GAP -1 MMOL/L (8-16); CO2 > 45 mmol/L (21-32); CREATININE < 0.2 mg/dL (0.55-1.3)
[2020-02-13] MEDS ORDERED: PIPERACILLIN/TAZOBACTAM 4.5 GM VIAL IVPB ONE ×2 (08:19→16:35)
[2020-02-13] MEDS ORDERED: DEXTROSE 5%-WATER 100 ML IVPB ONE ×2 (08:19→16:36)
[2020-02-13] MEDS: AMINO ACIDS/PROTEIN HYDROLYS 30 ML LIQUID.PKT PEG SCH ×2 (08:24→16:41)
[2020-02-13] MEDS: KCL 10 MEQ IVPB 10 MEQ/100 ML INFUS.BAG IVPB SCH ×3 (08:59→09:44)
[2020-02-13] MEDS: BUDESONIDE 0.25 MG/2ML INH SUSP VIAL NEB SCH ×2 (09:10→20:30)
[2020-02-13] MEDS: BACITRACIN 15 GM TUBE TOPICAL OINTMENT TP SCH (09:22)
[2020-02-13] MEDS: LACTOBACILLUS ACIDOPHILUS 1 TABLET GT SCH (09:22)
[2020-02-13] MEDS: FLUDROCORTISONE ACETATE 0.1 MG TABLET (FP) PO SCH ×2 (09:23→21:37)
[2020-02-13] MEDS: MIDODRINE HCL 5 MG TABLET PO SCH ×2 (09:23→17:44)
[2020-02-13] MEDS: MUPIROCIN 2% TOPICAL OINTMENT FOR DECOLONIZATION NS SCH ×2 (09:23→21:37)
[2020-02-13] MEDS: predniSONE 10 MG TABLET (UD) PO SCH (09:23)
[2020-02-13] MEDS: NYSTATIN POWDER 100,000 UNITS/GM - 15 GM TOPICAL POWDER TP SCH ×2 (09:24→21:38)
[2020-02-13] MEDS ORDERED: PT OWN MED DRAWER 7, Y5N ONE ×5 (09:28→21:40)
[2020-02-13] MEDS: ESCITALOPRAM OXALATE 5 MG/5 ML GT SCH (09:29)
[2020-02-13] MEDS: FERROUS SO4 300 MG/5 ML ORAL SOLN UNIT DOSE CUPS GT SCH ×2 (09:30→21:38)
[2020-02-13] MEDS: COLLAGENASE CLOSTRIDIUM HIST. 30 GRAMS TUBE TP SCH (09:30)
[2020-02-13] MEDS: MULTIVIT-MINERALS ORAL LIQUID PEG SCH (09:30)
[2020-02-13] MEDS: FAMOTIDINE 40 MG/5 ML ORAL SUSPENSION PEG SCH (09:30)
[2020-02-13] MEDS: MIDAZOLAM IN 0.9 % SOD.CHLORID 100 MG/100 ML PLAST..BAG IVPB SCH ×3 (09:32→23:28)
[2020-02-13] MEDS: CYANOCOBALAMIN 1,000 MCG TABLET (FP) GT SCH (09:40)
[2020-02-13] MEDS: LIDOCAINE HCL 2% JELLY 10 ML CARTRIDGE UR SCH ×2 (09:41→21:39)
[2020-02-13] MEDS: ASCORBIC ACID 500 MG/5 ML UNIT DOSE CUP PEG SCH ×3 (09:41→22:30)
[2020-02-13 10:13] LABS: PLATELET ESTIMATE ADEQUATE
[2020-02-13] MEDS: VANCOMYCIN 1 GRAM (PRE-DOCKED) 1,000 MG/250 ML BAG IVPB SCH (11:11)
[2020-02-13 11:17] LABS: ARTERIAL BLD GAS O2 SATURATION 81.7 mmHg (95-98); ARTERIAL BLOOD GAS BASE EXCESS 20.3 mmol/L (-2-2); ARTERIAL BLOOD GAS PO2 61.8 mmHg (80-100)
[2020-02-13 11:19] LABS: ALLENS TEST POSITIVE
[2020-02-13 11:20] LABS: VENT MODE PRESSURE CONTROL; VENT RATE 30
[2020-02-13 11:27] LABS: ARTERIAL BLOOD GAS pH 7.181 (7.350-7.450)
[2020-02-13] MEDS: FENTANYL IVPB 500 MCG/100 ML BAG IVPB SCH (18:15)
[2020-02-13] MEDS: MELATONIN 5 MG TABLETS PO SCH (21:37)
[2020-02-13] MEDS: MONTELUKAST NA 10 MG TABLET PEG SCH (21:37)
[2020-02-13] MEDS: CHLORHEXIDINE GLUCONATE 4% CLEANSER FOR DECOLONIZATION TP SCH (21:38)
[2020-02-13] MEDS ORDERED: NOREPINEPHRINE BITARTRATE 4,000 MCG in DEXTROSE 5%-WATER - 496 ML IV SCH (21:45)
[2020-02-13] MEDS ORDERED: VECURONIUM BROMIDE 100 MG/100 ML BAG IVPB SCH (21:45)
[2020-02-13] MEDS ORDERED: EPINEPHrine/PF 1 MG/1 ML (1:1,000) AMPULE ONE (23:08)
[2020-02-13 23:37] VITALS: TEMP 98.4
[2020-02-14 00:30] VITALS: BP 94/54; PULSE 131
[2020-02-14] MEDS: PHENYLEPHRINE NS PREMIX 50,000 MCG/500 ML BAG CVP SCH (00:32)
[2020-02-14] MEDS: FENTANYL IVPB 500 MCG/100 ML BAG IVPB SCH (00:33)
== END 2020-02-14 00:49 | disposition expired | DRG 720 ==
LOC: JER 03:03 → JERBED 06:27 → JICU 23:37 → J5S 12-14 03:11 → JICU 12-15 11:57 → J5S 12-18 21:10 → JICU 12-24 22:37 → J5S 12-28 01:16 → JICU 01-05 15:01
PROVIDERS: ADMIT Family Medicine; ATTEND Family Medicine
PROC: 5A1955Z Respiratory Ventilation, Greater than 96 Consecutive Hours (ICD-10-PCS; principal; 2019-12-11)
PROC: 0BH17EZ Insertion of Endotracheal Airway into Trachea, Via Natural or Artificial Opening (ICD-10-PCS; 2019-12-11)
PROC: 0D9670Z Drainage of Stomach with Drainage Device, Via Natural or Artificial Opening (ICD-10-PCS; 2019-12-12)
PROC: 3E0G76Z Introduction of Nutritional Substance into Upper GI, Via Natural or Artificial Opening (ICD-10-PCS; 2019-12-16)
PROC: 05HM33Z Insertion of Infusion Device into Right Internal Jugular Vein, Percutaneous Approach (ICD-10-PCS; 2020-01-14)
PROC: B543ZZA Ultrasonography of Right Jugular Veins, Guidance (ICD-10-PCS; 2020-01-14)
PROC: 3E033XZ Introduction of Vasopressor into Peripheral Vein, Percutaneous Approach (ICD-10-PCS; 2020-01-14)
PROC: 30233N1 Transfusion of Nonautologous Red Blood Cells into Peripheral Vein, Percutaneous Approach (ICD-10-PCS; 2020-01-15)
PROC: 05HM33Z Insertion of Infusion Device into Right Internal Jugular Vein, Percutaneous Approach (ICD-10-PCS; 2020-01-30)
PROC: B543ZZA Ultrasonography of Right Jugular Veins, Guidance (ICD-10-PCS; 2020-01-30)
DX: A41.89 Other specified sepsis (principal); R00.0 Tachycardia, unspecified; E87.0 Hyperosmolality and hypernatremia; R53.2 Functional quadriplegia; R65.20 Severe sepsis without septic shock; E86.0 Dehydration; F41.9 Anxiety disorder, unspecified; I10 Essential (primary) hypertension; E78.5 Hyperlipidemia, unspecified; J44.9 Chronic obstructive pulmonary disease, unspecified; J96.20 Acute and chronic respiratory failure, unspecified whether with hypoxia or hypercapnia; L89.310 Pressure ulcer of right buttock, unstageable; K21.9 Gastro-esophageal reflux disease without esophagitis; L89.154 Pressure ulcer of sacral region, stage 4; L89.892 Pressure ulcer of other site, stage 2; I27.82 Chronic pulmonary embolism; L89.111 Pressure ulcer of right upper back, stage 1; E11.69 Type 2 diabetes mellitus with other specified complication; D72.829 Elevated white blood cell count, unspecified; M62.50 Muscle wasting and atrophy, not elsewhere classified, unspecified site; E87.6 Hypokalemia; K52.9 Noninfective gastroenteritis and colitis, unspecified; J96.10 Chronic respiratory failure, unspecified whether with hypoxia or hypercapnia; D50.9 Iron deficiency anemia, unspecified; R94.5 Abnormal results of liver function studies; N39.0 Urinary tract infection, site not specified; J18.9 Pneumonia, unspecified organism; J96.01 Acute respiratory failure with hypoxia; B95.62 Methicillin resistant Staphylococcus aureus infection as the cause of diseases classified elsewhere; R63.8 Other symptoms and signs concerning food and fluid intake; I95.9 Hypotension, unspecified; R07.89 Other chest pain; I77.810 Thoracic aortic ectasia; N20.0 Calculus of kidney; M86.68 Other chronic osteomyelitis, other site; J15.1 Pneumonia due to Pseudomonas; E87.1 Hypo-osmolality and hyponatremia; N17.9 Acute kidney failure, unspecified; Z93.1 Gastrostomy status; Z93.0 Tracheostomy status; Z74.01 Bed confinement status; Z86.19 Personal history of other infectious and parasitic diseases
CPT/HCPCS: 36415; 36430; 36511; 36600; 71045-TC-FY; 71250-TC; 71275-TC; 74018-TC-FY; 74176-TC; 74230-TC-FY; 76705-TC; 76775; 80048; 80053; 81003; 82272; 82550; 82565; 82803; 82962; 83605; 83735; 84100; 84133; 84300; 84439; 84443; 84481; 84484; 84550; 85025; 85027; 85610; 85730; 86140; 86704; 86706; 86707; 86708; 86709; 86803; 86850; 86900; 86901; 86922; 87040; 87070; 87077; 87086; 87186; 87205; 87324; 87340; 87449; 92611-GN; 93005; 93010; 93306-TC; 93308; 93970-TC; 94002; 94640; 97161-GP; 99285-25; C9803; E0194; G0480; J0131; J0637; J0695; J1644; J3480; P9038; P9058; Q9967; U0003